=== PATIENT | female | born 1960 | race African-American/Black ===

== ENCOUNTER → 2020-06-09 10:21 | Outpatient (CLI) | payer BC, SELFPAY ==
--- NOTE | ~2020-06-09 | XR_ITS ---
EXAMINATION: XR chest 2V DATE: 06/09/2020 10:47 INDICATION: Tobacco use TECHNIQUE: PA and lateral views of the chest are obtained. COMPARISON: 01/19/2017 FINDINGS: The lungs are free of acute opacities. There is no pleural effusion or pneumothorax. The ca rdiomediastinal silhouette is normal. There is mild thoracic spondylosis. Cholelithiasis is noted. IMPRESSION: 1. No acute cardiopulmonary abnormality. Reviewed, dictated and finalized at location A. CTOR PARK
== END ==
PROVIDERS: PCP Emergency Medicine; Visit Provider Emergency Medicine
DX: Z72.0 Tobacco use (principal)
CPT/HCPCS: 71046

== ENCOUNTER 2020-06-09 11:22 | Outpatient (CLI) | payer BC, SELFPAY ==
[2020-06-09 13:12] LABS: Hematocrit 49.3 % (37.0-47.0); Hemoglobin 15.5 g/dL (12.0-15.0); Mean Corpuscular HGB Conc 31.4 g/dl (32-36); Mean Corpuscular Hemoglobin 28.8 pg (26-34); Mean Corpuscular Volume 91.5 fl (80-100); Mean Platelet Volume 11.1 fl (7.4-10.4); Platelet Count Result 380 k/mm3 (150-375); Red Blood Count 5.39 M/mm3 (4.2-5.4); Red Cell Distribution Width 13.6 % (11.5-14.5); White Blood Count 11.6 K/mm3 (4.5-10.0)
[2020-06-09 13:19] LABS: Add Urine Microscopic? YES; Appearance Urine Clear (Clear); Bacteria Urine 1+ /hpf; Bilirubin Urine Negative (Negative); Blood Urine 2+ (Negative); Color Urine Yellow (Yellow); Glucose Urine UA Negative (Negative); Ketones Urine Negative (Negative); Leukocyte Esterase Ur Negative LEU/UL (NEGATIVE); Mucus Urine Rare /lpf; Nitrate Urine Negative (Negative); Protein Urine Negative (Negative); Specific Grav Ur 1.019 (1.001-1.035); Squamous Epithelial Cell Urine Moderate /hpf (Few); Urobilinogen Urine Negative mg/dL (<2.0); WBC Urine 0-3 /hpf (0-3)
== END 2020-06-09 11:23 | disposition home or self-care (01) ==
PROVIDERS: PCP Emergency Medicine; Visit Provider Emergency Medicine
DX: R31.9 Hematuria, unspecified (principal); D72.829 Elevated white blood cell count, unspecified
CPT/HCPCS: 36415; 81001; 85027; 88108

== ENCOUNTER 2020-06-29 12:51 | Outpatient (CLI) | payer BC, SELFPAY ==
--- NOTE | ~2020-06-29 | XR_ITS ---
EXAMINATION: XR abdomen/kub 1V INDICATION: Microscopic hematuria TECHNIQUE: Supine views of the abdomen were obtained on 2 radiographs. COMPARISON: CT from today FINDINGS: No urolithiasis is identified. Gallstones are noted in the right upper quadrant. There is c alcified atherosclerosis. The bowel gas pattern is normal. IMPRESSION: 1. No urolithiasis identified. 2. Cholelithiasis. Reviewed, dictated and finalized at location A. CRIPTION BENEFIT SPECIALIST
--- NOTE | ~2020-06-29 | CT_ITS ---
EXAMINATION: CT abdomen pelvis wo/w con DATE: 06/29/2020 14:44 INDICATION: Microscopic hematuria TECHNIQUE: Computed tomography (CT) of the abdomen and pelvis was performed without intravenous contr ast. CT of the abdomen and pelvis was then performed with a total of 130 mL Omnipaque 350 intravenous contrast using a double-bolus technique for simultaneous opacification of the renal parenchyma and r enal collecting system. The dose-length product (DLP) was 2043.38 mGy-cm. Automated exposure control and iterative reconstruction technique were employed. COMPARISON: 09/05/2014 FINDINGS: The lung bases are clear. The heart size is normal. A stable 3 mm nodule of the left lower lobe is consistent with old granulomatous disease. The liver is diffusely low in attenuation when com pared with the spleen, consistent with hepatic steatosis. There is a small sliding hiatal hernia. Mul tiple stones are present in the nondistended gallbladder. The spleen, pancreas, and adrenal glands ar e normal. No stones are identified in the kidneys, ureters, or bladder. There is no hydronephrosis or hydroureter. No suspicious renal or urothelial lesion is identified. There is calcified atherosclero sis of the aorta and many of the other arteries. No pathologically enlarged abdominal or pelvic lymph nodes are identified. There is no free intraperitoneal gas or evidence of bowel obstruction. The jeffery endix is normal. There is a fat-containing epigastric hernia to the right of midline. IMPRESSION: 1. No CT correlate for the patient's symptoms. No suspicious renal or urothelial lesion identified. N o urolithiasis. 2. Cholelithiasis without evidence of cholecystitis. Reviewed, dictated and finalized at location A. TENDER IMPRESSION: 1. No CT correlate for the patient's symptoms. No suspicious renal or urothelia l lesion identified. No urolithiasis. 2. Cholelithiasis without evidence of cholecystitis.
[2020-06-29 14:10] LABS: Estimated Glomerular Filt Rate > 60
== END 2020-06-29 12:52 ==
PROVIDERS: PCP Emergency Medicine; Visit Provider Urology
DX: Z12.2 Encounter for screening for malignant neoplasm of respiratory organs (principal); Z87.891 Personal history of nicotine dependence; R31.29 Other microscopic hematuria; K80.20 Calculus of gallbladder without cholecystitis without obstruction
CPT/HCPCS: 74018; 74178; Q9967

== ENCOUNTER → 2020-06-29 12:54 | Outpatient (CLI) | payer BC, SELFPAY ==
--- NOTE | ~2020-06-29 | MM_ITS ---
EXAMINATION: MM screening mi BI w davis HISTORY: Screening mammogram TECHNIQUE: Craniocaudal and mediolateral oblique 3-D tomosynthesis images were obtained and synthetic 2-D images were generated. CAD analysis was submitted and interpreted. COMPARISON: No prior mammogram is available for comparison at this institution. BREAST PARENCHYMAL COMPOSITION: There are scattered areas of fibroglandular density. FINDINGS: There is an irregular 6 mm opacity anteriorly in the inner mid to lower right breast (crani ocaudal Tomosynthesis image 21/84; MLO Tomosynthesis image 44/86. Diagnostic right mammogram and righ t breast ultrasound examination are recommended. Otherwise there is no evidence of suspicious mass, calcification, or architectural distortion to sugg est malignancy elsewhere in either breast. IMPRESSION: 1. Suspicious 6 mm irregular mass in the anterior inner mid to lower right breast 2. Diagnostic right mammogram and right breast ultrasound examination are recommended. BI-RADS Category 0: Incomplete: Needs additional imaging evaluation. Reviewed, dictated and finalized at location A. Y COATINGS INSTALLER IMPRESSION: 1. Suspicious 6 mm irregular mass in the anterior inner mid to lower right papo st 2. Diagnostic right mammogram and right breast ultrasound examination are recom mended. BI-RADS Category 0: Incomplete: Needs additional imaging evaluation.
== END ==
PROVIDERS: PCP Emergency Medicine; Visit Provider Emergency Medicine
DX: Z12.31 Encounter for screening mammogram for malignant neoplasm of breast (principal); R92.8 Other abnormal and inconclusive findings on diagnostic imaging of breast
CPT/HCPCS: 77063; 77067

== ENCOUNTER 2020-07-23 09:31 | Outpatient (CLI) | payer BC, SELFPAY ==
--- NOTE | ~2020-07-23 | MMUS_ITS ---
EXAMINATION: MM diagnostic mammo unilat RT, US breast RT limited HISTORY: Follow-up right breast mass TECHNIQUE: Additional 3-D tomosynthesis images of the right breast were performed and synthetic 2-D i mages were generated. CAD analysis was submitted and interpreted. High resolution Limited right breas t ultrasound was performed. COMPARISON: 06/29/2020 BREAST PARENCHYMAL COMPOSITION: Breast composed of scattered areas of fibroglandular density. FINDINGS: MAMMOGRAPHIC FINDINGS: There is a 6 mm mass in the lower inner quadrant of the right breast anteriorly with slightly irregul ar margins. No suspicious calcifications. ULTRASOUND: Limited right breast ultrasound: At 6:00 near the areola there is a slightly irregular hypoechoic mas s with central echogenicity measuring 7 x 6 x 5 mm. There is dense posterior shadowing. No internal v ascularity. IMPRESSION: 1. Slightly irregular shaped hypoechoic mass with posterior shadowing at 6:00, near the areola, measu ring up to 7 mm. This corresponds to the mammographic finding. 2. Ultrasound-guided right breast biopsy recommended. BI-RADS category 4, suspicious findings. Reviewed, dictated and finalized at location A. EPOINT TRAINER IMPRESSION: 1. Slightly irregular shaped hypoechoic mass with posterior shadowing at 6:00, near the areola, measuring up to 7 mm. This corresponds to the mammographic fin ding. 2. Ultrasound-guided right breast biopsy recommended. BI-RADS category 4, suspicious findings.
--- NOTE | ~2020-07-23 | CT_ITS ---
EXAMINATION: CT lung screening DATE: 07/23/2020 09:52 INDICATION: Personal history of tobacco dependence, current smoker with 30 pack year history TECHNIQUE: Computed tomography (CT) of the chest was performed without intravenous contrast. The dose -length product (DLP) was 264.55 mGy-cm. Automated exposure control and iterative reconstruction tech [employer] were employed. COMPARISON: None FINDINGS: There is mild emphysema. There are multiple small scattered nodules throughout the lungs. T he largest measures 3 mm in the left lung apex on image 34. There is no pleural effusion or pneumotho rax. No focal airspace opacities are identified. The heart size is normal. There is calcified coronar y artery atherosclerosis. No pathologically enlarged thoracic lymph nodes are identified. Stones are present in the nondistended gallbladder. There is moderate thoracic spondylosis. IMPRESSION: 1. Lung-RADS category 2: Benign appearance or behavior. Continue annual screening with noncontrast lo w-dose chest CT in 12 months. Reviewed, dictated and finalized at location A. E CURATIVE SPECIALIST IMPRESSION: 1. Lung-RADS category 2: Benign appearance or behavior. Continue annual screeni ng with noncontrast low-dose chest CT in 12 months.
== END 2020-07-23 09:32 ==
PROVIDERS: Visit Provider Emergency Medicine
DX: Z12.2 Encounter for screening for malignant neoplasm of respiratory organs (principal); Z87.891 Personal history of nicotine dependence; R92.8 Other abnormal and inconclusive findings on diagnostic imaging of breast
CPT/HCPCS: 71271; 76642; 77065

== ENCOUNTER 2020-08-01 10:18 | Outpatient (CLI) | payer BC, SELFPAY ==
--- NOTE | ~2020-08-01 | MMUS_ITS ---
EXAMINATION: US breast biopsy RT w image, MM post biopsy invasive RT DATE: 08/01/2020 11:41 (accession [id number]), 08/01/2020 11:54 (accession [id number]) INDICATION: Indeterminate subareolar right breast mass. Ultrasound-guided core biopsy is requested to evaluate for malignancy. TECHNIQUE AND FINDINGS: The risks and potential benefits of the procedure were discussed with the patient including bleeding and infection. A time out was performed. The skin of the right breast was prepared and draped in usua l sterile fashion. 1% lidocaine was used for superficial anesthesia. 1% lidocaine with epinephrine wa s used for deep anesthesia. A vacuum-assisted biopsy gun needle was advanced through to the outer edge of the region of interest from a lateral approach utilizing sonographic guidance. A total of four tissue core samples were obta ined through the lesion. A tissue marker clip was then placed at the biopsy site. Hemostasis was achi eved. A sterile bandage was applied. The patient tolerated procedure well and there was no evidence of immediate complication. The patient was given verbal instructions to return to the Emergency Department in the event of severe breast pa in or rapid breast enlargement. A two view right breast mammogram was obtained to document tissue mar ker clip placement. IMPRESSION: 1. Successful ultrasound-guided vacuum-assisted biopsy of right breast mass with tissue marker placem ent. Reviewed, dictated and finalized at location A. OTICS INVESTIGATOR IMPRESSION: 1. Successful ultrasound-guided vacuum-assisted biopsy of right breast mass wit h tissue marker placement.
== END 2020-08-01 10:19 | disposition home or self-care (01) ==
PROVIDERS: PCP Emergency Medicine; Visit Provider Emergency Medicine
DX: C50.011 Malignant neoplasm of nipple and areola, right female breast (principal)
CPT/HCPCS: 19083; 88305; 88342; 88365

== ENCOUNTER → 2020-08-20 07:01 | Outpatient (CLI) | payer BC, SELFPAY ==
[2020-08-20 21:05] LABS: SARS-CoV-2 RNA PCR Negative
== END ==
PROVIDERS: PCP Emergency Medicine; Visit Provider Emergency Medicine
DX: R68.89 Other general symptoms and signs (principal); Z20.822 Contact with and (suspected) exposure to COVID-19
CPT/HCPCS: C9803; U0003; U0005

== ENCOUNTER 2021-10-04 09:37 | Outpatient (CLI) | payer OTHER, SELFPAY ==
[2021-10-04 10:05] LABS: Hematocrit 47.1 % (37.0-47.0); Hemoglobin 14.5 g/dL (12.0-15.0); Mean Corpuscular HGB Conc 30.8 g/dl (32-36); Mean Corpuscular Hemoglobin 28.2 pg (26-34); Mean Corpuscular Volume 91.5 fl (80-100); Mean Platelet Volume 10.6 fl (7.4-10.4); Platelet Count Result 355 k/mm3 (150-375); Red Blood Count 5.15 M/mm3 (4.2-5.4); Red Cell Distribution Width 13.8 % (11.5-14.5)
[2021-10-04 10:09] LABS: Add Urine Microscopic? YES; Appearance Urine Cloudy (Clear); Bilirubin Urine Negative (Negative); Blood Urine 2+ (Negative); Color Urine Yellow (Yellow); Glucose Urine UA Negative (Negative); Ketones Urine Negative (Negative); Leukocyte Esterase Ur Negative LEU/UL (NEGATIVE); Mucus Urine Rare /lpf; Nitrate Urine Negative (Negative); Protein Urine Negative (Negative); RBC Urine 0-2 /hpf (0-2); Squamous Epithelial Cell Urine Rare /hpf (Few); WBC Urine 0-3 /hpf (0-3)
[2021-10-04 10:23] LABS: Alanine Aminotransferase 16 U/L (4-35); Alkaline Phosphatase 124 U/L (38-126); Anion Gap 5 mmol/L (8-16); Aspartate Amino Transferase 27 U/L (14-36); Bilirubin,Total 1.1 mg/dL (0.2-1.3); Blood Urea Nitrogen 11 mg/dL (7-17); Calcium 8.9 mg/dL (8.4-10.2); Carbon Dioxide 28 mmol/L (22-30); Chloride 104 mmol/L (98-107); Estimated Glomerular Filt Rate > 60; Glucose 115 mg/dL (65-110); Potassium 4.2 mmol/L (3.4-5.0); Sodium 137 mmol/L (137-145)
[2021-10-04 10:47] LABS: Hemoglobin A1C 6.1 % (<5.7)
[2021-10-04 10:48] LABS: Creatinine Urine 216.7 mg/dL
[2021-10-04 10:51] LABS: MALB Creatinine Ratio 4.4 mg/g (0-30); Microalbumin Urine Random 9.5 mg/L (0-16.7)
[2021-10-04 10:54] LABS: Thyroid Stimulating Hormone 0.876 uIU/mL (0.465-4.680)
[2021-10-04 11:00] LABS: Free T4 Free Thyroxine 1.31 ng/mL (0.78-2.19)
== END 2021-10-04 09:38 | disposition home or self-care (01) ==
LOC: ANHLAB 09:39
PROVIDERS: PCP Emergency Medicine; Visit Provider Emergency Medicine
DX: E11.9 Type 2 diabetes mellitus without complications (principal); R55 Syncope and collapse; I10 Essential (primary) hypertension
CPT/HCPCS: 36415; 80053; 81001; 82043; 83036; 84439; 84443; 85027; 88108

== ENCOUNTER 2022-08-25 11:42 | Observation (INO) | payer OTHER, SELFPAY ==
[2022-08-25] VITALS (31 sets, daily range): BP systolic 133–165; BP diastolic 77–116; PULSE 0–95; RESP 16; TEMP 36.6; O2SAT 89–100
--- NOTE | ~2022-08-25 | XR_ITS ---
EXAMINATION: XR chest 2V DATE: 08/25/2022 12:36 INDICATION: Shortness of breath and back pain post recent fall TECHNIQUE: PA and lateral views of the chest were obtained. COMPARISON: Chest radiograph dated 06/09/2020 FINDINGS: The lungs remain clear with no focal airspace opacities, pulmonary edema, pleural effusion or pneumot horax. The cardiomediastinal silhouette is normal. Unchanged chronic mild anterior wedging of a coupl e mid thoracic vertebral bodies with mild spondylosis IMPRESSION: 1. No acute cardiopulmonary disease. Reviewed, dictated and finalized at location A.
--- NOTE | ~2022-08-25 | NM_ITS ---
EXAMINATION: NM chandler stress w perfusion DATE: 08/27/2022 10:23 INDICATION: Chest pain TECHNIQUE: Rest images were obtained following intravenous administration of 10 mCi Tc99m tetrofosmin (Myoview). The patient was infused intravenously with Lexiscan (Regadenoson). Then, 32 mCi Tc99m tet rofosmin (Myoview) was administered intravenously, and stress images were obtained in the supine and subsequently prone positions. Data was reconstructed into short axis and horizontal and vertical long axis SPECT images. Gated SPECT images were also obtained. COMPARISON: None. FINDINGS: There is diaphragmatic attenuation artifact on the rest and stress images obtained in the s upine position along the apical and mid inferior segments with normal perfusion evident in these loca tions with prone imaging. Large fixed perfusion defect consistent with infarct, moderate to severe at the apical and anterior apical segments and mild to moderate at the apical septal, apical lateral, m id anterior, mid anteroseptal and basilar septal segments. There is no reversible ischemia. There is normal left ventricular chamber size. There is decreased wall motion at the apical and anteroapical s egments. Mildly decreased left ventricular ejection fraction measuring 48%. IMPRESSION: 1. Large infarct involving a significant portion of the left anterior descending coronary artery vasc ular distribution. No reversible ischemia. 2. Normal left ventricular chamber size with mildly decreased left ventricular ejection fraction ela uring 48%. Reviewed, dictated and finalized at location A. IMPRESSION: 1. Large infarct involving a significant portion of the left anterior descendin g coronary artery vascular distribution. No reversible ischemia. 2. Normal left ventricular chamber size with mildly decreased left ventricular ejection fraction measuring 48%.
--- NOTE | ~2022-08-25 | CT_ITS ---
EXAMINATION: CTA chest PE protocol DATE: 08/25/2022 19:59 INDICATION: sob TECHNIQUE: Computed tomography angiography (CTA) of the chest was performed with 100 mL Omnipaque-350 intravenous contrast timed to evaluate the pulmonary arteries. Coronal maximum intensity projection 3D-reconstructions were created by the technologist. The dose-length product (DLP) was 770.03 mGy-cm. Automated exposure control and iterative reconstruction technique were employed. COMPARISON: X-ray chest, same date; CT lung screening 07/23/2020. FINDINGS: Lung parenchyma and airways: Scattered mild tree-in-bud opacities. Pleura: Unremarkable. Thoracic inlet, axillae and chest wall: Unremarkable. Thoracic aorta: Moderate arch calcification. Mediastinum: Normal. Heart and pericardium: Normal. Coronary artery calcifications: Mild. Upper abdomen: Cholelithiasis. Bones: No acute osseous finding. Pulmonary arteries: Study quality: Adequate. No pulmonary emboli detected. IMPRESSION: No CT evidence of acute pulmonary embolus. Mild scattered diffuse tree-in-bud opacities as can be see n with atypical infection, ABPA, airways disease, and aspiration. Reviewed, dictated and finalized at location K. IMPRESSION: No CT evidence of acute pulmonary embolus. Mild scattered diffuse tree-in-bud o pacities as can be seen with atypical infection, ABPA, airways disease, and asp iration.
--- NOTE | 2022-08-25 12:08 | ECG_ITS ---
Measurements Intervals [place] Rate: 84 P: 46 VT: 148 QRS: -14 QRSD: 94 T: 56 QT: 368 QTc: 437 Interpretive Statements SINUS RHYTHM VENTRICULAR TRIGEMINY VOLTAGE CRITERIA FOR LVH BORDERLINE R WAVE PROGRESSION, ANTERIOR LEADS MINIMAL Q WAVES- HIGH LATERAL LEADS BORDERLINE T WAVE ABNORMALITY- DIFFUSE LEADS BASELINE ARTIFACT- I, AVL ABNORMAL ECG NO PREVIOUS ECG AVAILABLE FOR COMPARISON Electronically Signed On 08-25-2022 13:50:31 CDT by Juve Blake D.O.
[2022-08-25 14:00] LABS: Basophils Absolute Auto 0.1 K/mm3 (0.0-0.1); Basophils Percent Auto 0.7 % (0.2-1.2); Eosinophils Absolute Auto 0.2 K/mm3 (0-0.3); Eosinophils Percent Auto 1.5 % (0-4.4); Hematocrit 50.1 % (37.0-47.0); Hemoglobin 15.9 g/dL (12.0-15.0); Immature Granulocyte Absolute 0.05 K/mm3 (0.00-0.031); Immature Granulocyte Percent A 0.4 % (0-0.5); Lymphocytes Absolute Auto 4.82 K/mm3 (0.9-3.2); Lymphocytes Percent Auto 36.8 % (18.3-44.2); Mean Corpuscular HGB Conc 31.7 g/dl (32-36); Mean Corpuscular Hemoglobin 28.6 pg (26-34); Mean Corpuscular Volume 90.1 fl (80-100); Monocytes Absolute Auto 0.6 K/mm3 (0.1-0.6); Monocytes Percent Auto 4.2 % (2.6-8.5); Neutrophils Absolute Auto 7.4 K/mm3 (1.3-6.7); Neutrophils Percent Auto 56.4 % (45.5-73.1); Platelet Count Result 483 k/mm3 (150-375); Red Blood Count 5.56 M/mm3 (4.2-5.4); Red Cell Distribution Width 13.6 % (11.5-14.5); White Blood Count 13.1 K/mm3 (4.5-10.0)
[2022-08-25 14:32] LABS: Troponin I < 0.012 ng/mL (0.000-0.034)
--- NOTE | 2022-08-25 15:40 | ED.GENADULT ---
HPI - General Adult General Chief complaint: Shortness of Breath/Dyspnea Stated complaint: SOB SENT HERE BY DR BLACK Time Seen by Provider: 08/25/22 13:13 History of Present Illness HPI narrative: Patient is a 61-year-old female who presents to the ER with shortness of breath. Ongoing for 2 weeks. Worse when she exerts herself. She develops chest tightness and sweats when she is walking as well. Reports history of angina and had a cardiac cath with a tiny NH many years ago but never had a stent. She has no runny nose or sore throat or productive cough. She does have some achiness to her right back after a fall 3 weeks ago. Patient sent to the ER by her PCP. Related Data Home Medications Medication Instructions Recorded Confirmed amlodipine 5 mg tablet 5 mg PO DAILY 09/13/20 06/25/21 metformin 500 mg tablet 500 mg PO DAILY 09/13/20 06/25/21 simvastatin 20 mg tablet 20 mg PO DAILY 09/13/20 06/25/21 Allergies Allergy/AdvReac Type Severity Reaction Status Date / Time No Known Allergies Allergy Verified 06/25/21 09:07 Review of Systems Review of Systems: All systems reviewed & are unremarkable except as noted in HPI and below Constitutional: Constitutional: Denies chills and Denies fever(s) Cardiovascular: Cardiovascular: Reports chest pain with activity, Denies radiating jaw, neck or arm pain, Reports dyspnea on exertion and Denies orthopnea Respiratory: Respiratory: Denies cough, Reports dyspnea and Denies wheezing Gastrointestinal: Gastrointestinal: Denies abdominal pain, Denies diarrhea, Denies nausea and Denies vomiting PMF Past Medical History Medical History Diabetes mellitus HTN (hypertension) Hyperlipidemia Surgical History Surgical History H/O lumpectomy Family History Family History Father Family history of malignant neoplasm Sibling Family history of malignant neoplasm Social History Social History (Updated 08/25/22 @ 19:29 by Tanya Enrique NP) Social History: 2 c lives alone employed [employer] Smoking packs per day: 1 Smoking cigarettes per day: 20.0 Years smoked: 30 Smoking pack-years: 30.00 Smoking status: Current every day smoker Tobacco type: cigarettes Alcohol intake: never Spiritual care concerns: No Exam Narrative: GENERAL: Well-appearing, well-nourished, and in no acute distress. HEAD: Normocephalic, atraumatic. ENT: Mucous membranes moist. NECK: Supple. CHEST: Clear to auscultation. No respiratory distress. HEART: Regular rate and rhythm. Normal peripheral pulses. ABDOMEN: Soft, nontender, nondistended. EXTREMITIES: Normal range of motion. No edema. SKIN: Warm, dry, no rash. NEURO: Alert and oriented x3. PSYCH: Normal mood and affect. Course Course Emergency Course: Patient resting comfortably but I have concerns for unstable angina given her new cardiac chest pain with exertion. Discussed elevated heart score and lab results with patient and recommend admission to hospital. Vital Signs Vital signs: Vital Signs Temperature 97.9 F 08/25/22 11:46 Pulse Rate 95 08/25/22 11:46 Respiratory Rate 16 08/25/22 11:46 Blood Pressure 137/99 H 08/25/22 11:46 Pulse Oximetry 100 08/25/22 11:46 Oxygen Delivery Room Air 08/25/22 11:46 Temperature 97.9 F 08/25/22 11:46 Pulse Rate 87 08/25/22 17:49 Respiratory Rate 16 08/25/22 11:46 Blood Pressure 150/116 H 08/25/22 17:43 Pulse Oximetry 98 08/25/22 17:49 Oxygen Delivery Room Air 08/25/22 11:46 Medical Decision Making Vital Signs Vital Signs: Vital Signs Temperature 97.9 F 08/25/22 11:46 Pulse Rate 95 08/25/22 11:46 Respiratory Rate 16 08/25/22 11:46 Blood Pressure 137/99 H 08/25/22 11:46 Pulse Oximetry 100 08/25/22 11:46 Oxygen Delivery Room Air 08/25/22 11:46
[2022-08-25 16:31] LABS: Alanine Aminotransferase 61 U/L (6-35); Albumin Level 4.5 g/dL (3.5-5.1); Alkaline Phosphatase 190 U/L (38-126); Anion Gap 9 mmol/L (8-16); Aspartate Amino Transferase 48 U/L (14-36); Bilirubin,Total 0.9 mg/dL (0.2-1.3); Blood Urea Nitrogen 11 mg/dL (7-17); Calcium 10.2 mg/dL (8.4-10.2); Carbon Dioxide 29 mmol/L (22-30); Chloride 104 mmol/L (98-107); Estimated CRCL calculation 74 ml/min; Estimated Glomerular Filt Rate > 60; Glucose 109 mg/dL (65-110); Potassium 4.6 mmol/L (3.4-5.0); Sodium 142 mmol/L (137-145)
[2022-08-25 17:10] LABS: Glucose Point of Care 70 mg/dl (65-105)
[2022-08-25 17:34] LABS: Troponin I < 0.012 ng/mL (0.000-0.034)
--- NOTE | 2022-08-25 19:26 | PM.IMHP ---
H&P: HPI History of Present Illness Date/Time: 08/25/22 19:26 Chief Complaint: Shortness of breath Narrative: This is a 61-year-old female patient who has been increasingly more short of breath the last 2 weeks. The patient also developed some chest tightness and diaphoresis when walking. Patient has a history of anginal and has had a cardiac catheterization with this small GA reported per patient without any stenting. The patient had no complaints of fever chills or cough. The patient stated that she fell 3 weeks ago and did have some pain to her right upper back. The patient went to the primary care doctor's office and was sent here due to her presenting symptoms. Her white count 13.1. Her H&H is 15.9 and 50.1. Her troponin was negative x3. AST is 48 ALT 61 alkaline phosphatase 190. Chest x-ray was read as no acute cardiopulmonary disease. CTA was read asNo CT evidence of acute pulmonary embolus. Mild scattered diffuse tree-in-bud opacities as can be seen with atypical infection, ABPA, airways disease, and aspiration. The patient was given Zofran, [place], morphine, Tylenol and nitro in the emergency room. EKG was read as sinus rhythm ventricular trigeminy.. The patient was admitted to observation status on the date of service of 08/25/2022 Review of Systems Review of Systems: All systems reviewed & are unremarkable except as noted in HPI and below Constitutional: Constitutional: Reports as per HPI and Reports no additional constitutional complaints Eyes: Eyes: Reports as per HPI and Reports no additional eye complaints ENT: Reports system reviewed and no additional complaints, except as documented and Reports Normal hearing present Cardiovascular: Cardiovascular: Reports no additional cardiovascular complaints Respiratory: Respiratory: Reports no additional respiratory complaints and Reports no additional respiratory complaints Gastrointestinal: Gastrointestinal: Reports as per HPI and Reports no additional gastrointestinal complaints Musculoskeletal: Musculoskeletal: Reports no additional musculoskeletal complaints Integumentary/Breasts: Skin/Breast: Reports system reviewed and no additional complaints, except as docu and Reports as per HPI Neurologic: Reports system reviewed and no additional complaints, except as documented, Reports as per HPI and Reports Normal hearing present Psychiatric: Psychiatric: Reports no additional psychiatric complaints and Reports as per HPI Endocrine: Endocrine: Reports no additional endocrine complaints Hematologic/Lymphatic: Hematologic/Lymphatic: Reports no additional hematologic/lymphatic complaints Allergic/Immunologic: Allergic/Immunologic: Reports no additional allergic/immunologic complaints PMFSH Past Medical History Medical History (Updated 08/25/22 @ 23:24 by Tanya Enrique NP) Breast cancer The patient was getting radiation treatment there was a note from Radiation Oncology on 06/25/2021 telling the patient to follow-up in 6 months. Patient refused hormonal treatment. Diabetes mellitus HTN (hypertension) Hyperlipidemia Surgical History Surgical History (Updated 08/25/22 @ 23:16 by Tanya Enrique NP) H/O hernia repair Incarcerated hernia H/O lumpectomy H/O: hysterectomy History of 2 sections Family History Family History Father Family history of malignant neoplasm Sibling Family history of malignant neoplasm Social History Social History (Updated 08/25/22 @ 23:17 by Tanya Enrique NP) Social History: She has 2 children. She lives alone and is employed at [employer]. Code status full code Smoking packs per day: 1 Smoking cigarettes per day: 20.0 Years smoked: 30 Smoking pack-years: 30.00 Smoking status: Current every day smoker Tobacco type: cigarettes Alcohol intake: never Spiritual care concerns: No Meds Home Medications and Allergies Home Med
[2022-08-25 20:34] LABS: Troponin I < 0.012 ng/mL (0.000-0.034)
--- NOTE | 2022-08-25 22:29 | PC.NURSE ---
this nurse notified patient walked to bathroom, found call light not working properly, charge nurse notified
[2022-08-26] VITALS (20 sets, daily range): BP systolic 136–169; BP diastolic 72–97; PULSE 56–105; RESP 14–22; TEMP 36.2–36.7; O2SAT 97–100; BMI 39.5
--- NOTE | 2022-08-26 | ECHO_ITS ---
Patient Info Name: Angeline Caraballo Age: 61 years : 1960 Gender: Female Ht: 60 in Wt: 199 lbs BSA: 2.00 m2 HR: 93 bpm BP: 151 / 93 mmHg Heart Rhythm: Sinus Rhythm Exam Date: 08/26/2022 8:30 AM Exam Location: [facility] Patient Status: Inpatient Admit Date: 08/25/2022 Staff Ordering Physician: Tanya Enrique NP Lingo Cleaner: Christopher Jennings, VIRGIE, RT Attending Provider: Savita Hahn MD Referring Physician: Klaus GONZALEZ; Exam Type: CA echo dop color flow w con Study Info Indications R06.02 - Shortness of breath Strain analysis performed. Complete two-dimensional, color flow and Doppler transthoracic echocardiogram is performed with contrast to opacify the left ventricle and to improve the deliniation of the left ventricle endocardial borders. Summary 1. Technically difficult study given body habitus. 2. Left ventricular chamber dimension is normal. 3. Left ventricular systolic function is normal, estimated at 50-55%. 4. There is mildly increased left ventricular wall thickness. 5. The left ventricular diastolic function is grade I diastolic dysfunction. 6. The left ventricular apex appears aneurysmal. Consider cardiac MRI or cardiac CT for further evaluation. 7. Right ventricular systolic function is normal. 8. There is mild mitral valve regurgitation. 9. There is mild tricuspid valve regurgitation. Left Ventricle The left ventricular apex appears aneurysmal. Consider cardiac MRI or cardiac CT for further evaluation. Left ventricular chamber dimension is normal. Left ventricular systolic function is normal, estimated at 50-55%. There is mildly increased left ventricular wall thickness. The left ventricular diastolic function is grade I diastolic dysfunction. Global longitudinal strain is abnormal at -6 %. Right Ventricle Right ventricular chamber dimension is normal. Right ventricular systolic function is normal. Left Atria Left atrial chamber dimension is normal. Right Atria Right atrial chamber dimension is normal. Atrial Septum Intact interatrial septum visualized by color flow imaging. Aortic Valve The aortic valve is probable trileaflet. There is no aortic valve stenosis. There is no aortic valve regurgitation. Pulmonic Valve The pulmonic valve is not well visualized. Mitral Valve There is no mitral valve stenosis. There is mild mitral valve regurgitation. Tricuspid Valve There is mild tricuspid valve regurgitation. Pericardium/Pleural There is no pericardial effusion. Aorta The aortic root size at the sinus of Valsalva is normal. Left Ventricular Outflow Tract Name Value Normal LVOT Doppler LVOT Peak Gradient 2 mmHg LVOT Mean Gradient 1 mmHg LVOT VTI 12.35 cm LVOT VTI/AV VTI Ratio 0.68 Mitral Valve Name Value Normal MV Doppler MV Decel Wagoner 473.17 cm/s2 MV
[2022-08-26 00:17] LABS: Glucose Point of Care 120 mg/dl (65-105)
[2022-08-26 00:30] LABS: Influenza A QL RT-PCR Negative (Negative); Influenza B QL RT-PCR Negative (Negative); RSV RNA, RT-PCR Negative (Negative); SARS-CoV-2 RNA PCR Negative
--- NOTE | 2022-08-26 02:05 | ADMGEN ---
This patient, Angeline Caraballo, was admitted to IMU Room 205-02. Patient/family oriented to hospital policies and general routines including ID bracelet, bed and alarms, visiting hours, pain management, procedures, bathroom and other care routines, personal items, smoking policy, room service/diet, and visiting hours. Information on how to activate the Rapid Response Team has been discussed. Patient/Family are encouraged to report perceived risks to care and to ask questions if they do not understand what they are told or what they should do.
[2022-08-26 04:56] LABS: Basophils Absolute Auto 0.1 K/mm3 (0.0-0.1); Basophils Percent Auto 0.7 % (0.2-1.2); Eosinophils Absolute Auto 0.3 K/mm3 (0-0.3); Hematocrit 46.5 % (37.0-47.0); Hemoglobin 14.7 g/dL (12.0-15.0); Immature Granulocyte Absolute 0.05 K/mm3 (0.00-0.031); Immature Granulocyte Percent A 0.4 % (0-0.5); Lymphocytes Absolute Auto 3.93 K/mm3 (0.9-3.2); Lymphocytes Percent Auto 30.9 % (18.3-44.2); Mean Corpuscular HGB Conc 31.6 g/dl (32-36); Mean Corpuscular Hemoglobin 27.7 pg (26-34); Mean Corpuscular Volume 87.7 fl (80-100); Mean Platelet Volume 10.1 fl (7.4-10.4); Monocytes Absolute Auto 0.5 K/mm3 (0.1-0.6); Monocytes Percent Auto 3.9 % (2.6-8.5); Neutrophils Absolute Auto 7.9 K/mm3 (1.3-6.7); Neutrophils Percent Auto 62.1 % (45.5-73.1); Platelet Count Result 420 k/mm3 (150-375); Red Cell Distribution Width 13.4 % (11.5-14.5); White Blood Count 12.7 K/mm3 (4.5-10.0)
[2022-08-26 05:10] LABS: Alanine Aminotransferase 44 U/L (6-35); Alkaline Phosphatase 146 U/L (38-126); Anion Gap 2 mmol/L (8-16); Aspartate Amino Transferase 31 U/L (14-36); Bilirubin,Total 0.7 mg/dL (0.2-1.3); Blood Urea Nitrogen 10 mg/dL (7-17); Calcium 9.3 mg/dL (8.4-10.2); Carbon Dioxide 29 mmol/L (22-30); Chloride 104 mmol/L (98-107); Estimated CRCL calculation 86 ml/min; Estimated Glomerular Filt Rate > 60; Glucose 129 mg/dL (65-110); Magnesium 2.3 mg/dL (1.6-2.3); Potassium 4.2 mmol/L (3.4-5.0); Sodium 135 mmol/L (137-145)
[2022-08-26 05:11] LABS: Hemoglobin A1C 6.8 % (<5.7)
[2022-08-26] MEDS: IPRATROPIUM BR 0.02% INH SOLN 0.5 MG/2.5 ML VIAL INHALATION ×4 (07:15→21:16)
[2022-08-26] MEDS: ALBUTEROL SULFATE NEB 2.5 MG/3 ML INH INHALATION ×4 (07:15→21:16)
[2022-08-26 08:08] LABS: Glucose Point of Care 97 mg/dl (65-105)
[2022-08-26] MEDS: PERFLUTREN LIPID MICROSPHERES 1.5 ML VIAL DILUTED TO 10 ML TOTAL VOLUME IV PUSH (08:49)
--- NOTE | 2022-08-26 08:49 | IVDEFINITY ---
Prior to administration of IV Definity the patient was educated on the risks and benefits of the imaging enhancing agent including potential adverse side effects. The patient verbalized understanding. Allergies were verified. No exclusion criteria were identified and at least one of the following inclusion criteria were met: 1) physician request, 2) patient technically difficult to image (per the [place] [employer] guidelines of two or more segments not discernable within the apical view), or 3) questionable left ventricular function. ?
[2022-08-26] MEDS: ENOXAPARIN 40 MG/0.4 ML SYRINGE SUB-Q (09:39)
--- NOTE | 2022-08-26 11:54 | PM.IMPN ---
Progress Note: A&P Assessment and Plan (1) Pneumonia: Code(s): J18.9 - Pneumonia, unspecified organism Status: Acute Assessment and Plan: CT scan shows no evidence of any pulmonary embolus but there is mild scattered diffuse tree-in-bud opacities as can be seen with atypical infection, or aspiration. Blood and sputum cultures have been ordered Continue with DuoNeb Continue with azithromycin Rocephin Day 2 (2) Chest pain: Code(s): R07.9 - Chest pain, unspecified Status: Acute Assessment and Plan: Patient is short of breath with exertion. Cardiac enzymes are negative x3. Echo completed Stress test for penny AM (3) Short of breath on exertion: Code(s): R06.02 - Shortness of breath Status: Acute Assessment and Plan: Patient is being treated for pneumonia. COVID and RSV influenza are negative (4) HTN (hypertension): Code(s): I10 - Essential (primary) hypertension Status: Acute Assessment and Plan: Patient's blood pressure is elevated at this time. Continue with p.r.n. hydralazine Continue with amlodipine medication (5) Diabetes mellitus: Code(s): E11.9 - Type 2 diabetes mellitus without complications Status: Acute Assessment and Plan: Accu-Cheks AC and HS with sliding scale insulin and hypoglycemic protocol check A1c (6) Hyperlipidemia: Code(s): E78.5 - Hyperlipidemia, unspecified Status: Acute Assessment and Plan: Continue with simvastatin (7) Malignant neoplasm of lower-inner quadrant of right female breast: Code(s): C50.311 - Malignant neoplasm of lower-inner quadrant of right female breast Status: Acute Assessment and Plan: The patient has had a core needle biopsy see radiation notes. Patient's last note was from a year ago. The patient was to follow-up in 6 months. The patient has seen Dr. Schmid in the past. Subjective Date/time seen: 08/26/22 11:54 61-year-old female patient who has been increasingly more short of breath the last 2 weeks.? The patient also developed some chest tightness and diaphoresis when walking.? Patient has a history of anginal and has had a cardiac catheterization with this small HI reported per patient without any stenting.? The patient had no complaints of fever chills or cough.? The patient stated that she fell 3 weeks ago and did have some pain to her right upper back.? The patient went to the primary care doctor's office and was sent here due to her presenting symptoms.? Her white count 13.1.? Her H&H is 15.9 and 50.1.? Her troponin was negative x3.? AST is 48 ALT 61 alkaline phosphatase 190.? Chest x-ray was read as no acute cardiopulmonary disease.? CTA was read asNo CT evidence of acute pulmonary embolus. Mild scattered diffuse tree-in-bud opacities as can be seen with atypical infection, ABPA, airways disease, and aspiration. Pt admitted for SOB CT A shows pneumonia pt had echocardiogram today needs stress test prio to DC Review of Systems Review of Systems: Mild SOB All systems reviewed & are unremarkable except as noted in HPI and below Objective Data Vital Signs Vital Signs: Vital Signs - 24 hr 08/25/22 13:51 08/25/22 14:05 08/25/22 14:15 Temperature Pulse Rate Respiratory Rate Blood Pressure 156/96 H Pulse Oximetry 99 96 Oxygen Delivery 08/25/22 14:16 08/25/22 14:35 08/25/22 14:49 Temperature Pulse Rate Respiratory Rate Blood Pressure 154/109 H Pulse Oximetry 98 100 100 Oxygen Delivery 08/25/22 15:02 08/25/22 15:15 08/25/22 15:16 Temperature Pulse Rate Respiratory Rate Blood Pressure 162/113 H Pulse Oximetry 100 100 100 Oxygen Delivery 08/25/22 15:32 08/25/22 15:35 08/25/22 15:46 Temperature Pulse Rate Respiratory Rate Blood Pressure 133/98 H 165/98 H Pulse Oximetry 99 98 Oxygen Delivery 08/25/22 15:48 08/25/22 16:02 08/25/22 16:51 Temperature
[2022-08-26 12:52] LABS: Glucose Point of Care 190 mg/dl (65-105)
[2022-08-26] MEDS: amLODIPine BESYLATE 5 MG TABLET 10 MG PO (13:46)
[2022-08-26 17:24] LABS: Glucose Point of Care 88 mg/dl (65-105)
[2022-08-27] VITALS (14 sets, daily range): BP systolic 110–153; BP diastolic 61–96; PULSE 59–100; RESP 16–20; TEMP 35.9–36.4; O2SAT 98–100
[2022-08-27] MEDS: IPRATROPIUM BR 0.02% INH SOLN 0.5 MG/2.5 ML VIAL INHALATION ×2 (02:44→14:28)
[2022-08-27] MEDS: ALBUTEROL SULFATE NEB 2.5 MG/3 ML INH INHALATION ×2 (02:44→14:28)
[2022-08-27 06:44] LABS: Hematocrit 45.8 % (37.0-47.0); Hemoglobin 14.5 g/dL (12.0-15.0); Mean Corpuscular HGB Conc 31.7 g/dl (32-36); Mean Corpuscular Hemoglobin 28.4 pg (26-34); Mean Corpuscular Volume 89.6 fl (80-100); Mean Platelet Volume 10.2 fl (7.4-10.4); Platelet Count Result 379 k/mm3 (150-375); Red Blood Count 5.11 M/mm3 (4.2-5.4); Red Cell Distribution Width 13.6 % (11.5-14.5); White Blood Count 8.4 K/mm3 (4.5-10.0)
[2022-08-27 06:58] LABS: Anion Gap 5 mmol/L (8-16); Blood Urea Nitrogen 11 mg/dL (7-17); Calcium 9.6 mg/dL (8.4-10.2); Carbon Dioxide 29 mmol/L (22-30); Chloride 103 mmol/L (98-107); Estimated CRCL calculation 75 ml/min; Estimated Glomerular Filt Rate > 60; Glucose 122 mg/dL (65-110); Potassium 4.6 mmol/L (3.4-5.0); Sodium 137 mmol/L (137-145)
[2022-08-27 07:41] LABS: Glucose Point of Care 131 mg/dl (65-105)
--- NOTE | 2022-08-27 08:12 | EST_ITS ---
Patient Info Name: Angeline Caraballo Age: 61 years : 1960 Gender: Female Ht: 60 in Wt: 199 lbs BSA: 2.00 m2 HR: 84 bpm BP: 143 / 89 mmHg Heart Rhythm: Sinus Rhythm Exam Date: 08/27/2022 8:48 AM Exam Location: [facility] Stress Patient Status: Inpatient Admit Date: 08/25/2022 Staff Ordering Physician: Savita Hahn MD Attending Provider: Savita Hahn MD Exercise Technologist: Rosalee Choi, CT Nurse: CRISTHIAN WOODSON Exam Type: CA stress chandler w NM Study Info Indications R07.9 - Chest pain, unspecified A regadenoson stress test was performed. Summary 1. No abnormal ST/T wave changes diagnostic of ischemia with Lexiscan. 2. Occasional PVCs. 3. Please correlate with nuclear medicine images, reported separately. Protocol: Lexiscan Stress ECG Details Stage: REST Duration (min): 1 min : 5 sec HR (bpm): 72 SBP (mmHg): 143 DBP (mmHg): 89 Stage: REST Duration (min): 7 min : 50 sec HR (bpm): 92 SBP (mmHg): 143 DBP (mmHg): 89 Stage: STAGE 1 Duration (min): 0 min : 59 sec HR (bpm): 126 SBP (mmHg): 140 DBP (mmHg): 84 Stage: RECOVERY Duration (min): 1 min : 0 sec HR (bpm): 119 SBP (mmHg): 140 DBP (mmHg): 84 Stage: RECOVERY Duration (min): 2 min : 0 sec HR (bpm): 117 SBP (mmHg): 140 DBP (mmHg): 84 Stage: RECOVERY Duration (min): 3 min : 0 sec HR (bpm): 96 SBP (mmHg): 140 DBP (mmHg): 84 Stage: RECOVERY Duration (min): 4 min : 0 sec HR (bpm): 112 SBP (mmHg): 186 DBP (mmHg): 105 Stage: RECOVERY Duration (min): 5 min : 0 sec HR (bpm): 102 SBP (mmHg): 186 DBP (mmHg): 105 Stage: RECOVERY Duration (min): 6 min : 0 sec HR (bpm): 110 SBP (mmHg): 186 DBP (mmHg): 105 Stage: RECOVERY Duration (min): 7 min : 0 sec HR (bpm): 102 SBP (mmHg): 186 DBP (mmHg): 105 Stage: RECOVERY Duration (min): 8 min : 0 sec HR (bpm): 112 SBP (mmHg): 186 DBP (mmHg): 105 Stage: RECOVERY Duration (min): 9 min : 0 sec HR (bpm): 102 SBP (mmHg): 186 DBP (mmHg): 105 Stage: RECOVERY Duration (min): 9 min : 13 sec HR (bpm): 96 SBP (mmHg): 140 DBP (mmHg): 90 Rest HR: 92 bpm Peak HR: 126 bpm Rest Sys BP: 143 mmHg Peak Sys BP: 140 mmHg Max Pred HR: 160 bpm % Max Pred HR: 79 % Target HR: 136 bpm Max RPP: 17,640 bpm*mmHg Total Time: 1 min : 0 sec Rest Salvador BP: 89 mmHg Peak [place] BP: 90 mmHg Total Dose: 0.4 mg Resting ECG Sinus rhythm. Stress ECG Sinus tachycardia. No abnormal ST/T wave changes diagnostic of ischemia with Lexiscan. Arrhythmias Occasional PVCs. Report Signatures
--- NOTE | 2022-08-27 09:09 | PC.NURSE ---
0800- to [place] dept for stress test
[2022-08-27] MEDS: ENOXAPARIN 40 MG/0.4 ML SYRINGE SUB-Q (10:36)
[2022-08-27] MEDS: amLODIPine BESYLATE 5 MG TABLET 10 MG PO (10:36)
[2022-08-27 11:49] LABS: Glucose Point of Care 113 mg/dl (65-105)
--- NOTE | 2022-08-27 12:20 | PM.IMPN ---
Progress Note: A&P Assessment and Plan (1) Pneumonia: Code(s): J18.9 - Pneumonia, unspecified organism Status: Acute Assessment and Plan: CT scan shows no evidence of any pulmonary embolus but there is mild scattered diffuse tree-in-bud opacities as can be seen with atypical infection, or aspiration. Blood and sputum cultures have been ordered Continue with DuoNeb Continue with azithromycin Rocephin Day three (2) Chest pain: Code(s): R07.9 - Chest pain, unspecified Status: Acute Assessment and Plan: Patient is short of breath with exertion. Cardiac enzymes are negative x3. Echo with left ventricular apical aneurysm. Grade 1 diastolic dysfunction. EF 50-55% Stress test with large fixed perfusion defect consistent with infarct moderate to severe at the apical and anteroapical segments and [id number] at apical septal apical lateral and mid anterior mid anteroseptal and basal septal segments. Which is in left anterior descending coronary artery vascular distribution. No reversible ischemia.. EF noted to be 48%. Will place on aspirin. Will consult Cardiology for further evaluation. Check lipid panel. Currently on simvastatin (3) Short of breath on exertion: Code(s): R06.02 - Shortness of breath Status: Acute Assessment and Plan: Patient is being treated for pneumonia. COVID and RSV influenza are negative (4) HTN (hypertension): Code(s): I10 - Essential (primary) hypertension Status: Acute Assessment and Plan: Patient's blood pressure is elevated at this time. Continue with p.r.n. hydralazine Continue with amlodipine medication (5) Diabetes mellitus: Code(s): E11.9 - Type 2 diabetes mellitus without complications Status: Acute Assessment and Plan: Accu-Cheks AC and HS with sliding scale insulin and hypoglycemic protocol. A1c at 6.8 (6) Hyperlipidemia: Code(s): E78.5 - Hyperlipidemia, unspecified Status: Acute Assessment and Plan: Continue with simvastatin (7) Malignant neoplasm of lower-inner quadrant of right female breast: Code(s): C50.311 - Malignant neoplasm of lower-inner quadrant of right female breast Status: Acute Assessment and Plan: The patient has had a core needle biopsy see radiation notes. Patient's last note was from a year ago. The patient was to follow-up in 6 months. The patient has seen Dr. Schmid in the past. Subjective Date/time seen: 08/27/22 12:20 Interval history: Patient feeling better. Shortness of breath has improved. Had some pain in her chest that radiated to her back. This started last week. No abdominal pain nausea vomiting. Underwent stress test this morning. Discussed with niece over the phone. Findings of the stresses discussed. Review of Systems Review of Systems: All systems reviewed & are unremarkable except as noted in HPI and below Exam Narrative: GENERAL: Well-appearing, well-nourished, and in no acute distress. HEAD: Normocephalic, atraumatic. ENT: Mucous membranes moist. NECK: Supple. Nontender CHEST: Clear to auscultation.? No respiratory distress. HEART: Regular rate and rhythm.? Normal peripheral pulses. ABDOMEN: Soft, nontender, nondistended. EXTREMITIES: Normal range of motion.? No edema. SKIN: Warm, dry, no rash. NEURO:? Alert and oriented x3. No focal motor deficits PSYCH: Normal mood and affect. Objective Data Vital Signs Vital Signs: Vital Signs - 24 hr 08/26/22 13:00 08/26/22 13:10 08/26/22 14:00 Temperature Pulse Rate 92 90 92 Respiratory Rate 16 16 Blood Pressure Pulse Oximetry Oxygen Delivery 08/26/22 16:00 08/26/22 16:00 08/26/22 16:00 Temperature 98.1 F Pulse Rate 105 H 105 H Respiratory Rate 18 Blood Pressure 157/97 H Pulse Oximetry 100 Oxygen Delivery Room Air 08/26/22 18:00 08/26/22 20:00 08/26/22 20:00 Temperature 97.2 F L Pulse Rate 81 85 85 Re
[2022-08-27 13:19] LABS: LDL Cholesterol Direct 147 mg/dL
--- NOTE | 2022-08-27 14:00 | PCCCNOTE ---
On 08/27/22, the student, [Katelyn Rodriguez ], provided care and completed [facility]. I have reviewed the student's documentation and agree with the findings.
--- NOTE | 2022-08-27 14:07 | PM.CNCAR ---
Assessment and Plan Assessment and plan (1) Chest pain: Code(s): R07.9 - Chest pain, unspecified Status: Acute Assessment and Plan: She is describing some intrascapular pain that is worse with deep breathing also improves when she lays on one side. The description of this pain is not consistent with angina. She had negative troponins x3. Her nuclear stress test today did show a moderate-large infarct involving the LAD vascular distribution. No reversible ischemia. EF 48%. Patient has a prior known infarct according to her history (the hospital that she had her angiogram performed at in 1992 no longer exists, records of this are not available), so this likely represents her prior infarct. Since she is not having any symptoms consistent with angina and no objective evidence of myocardial ischemia, so will recommend ASA and statin (other notes suggest she takes statin at home, but her medication list does not reflect this, so will start atorvastatin 40mg daily), as her LDL is above goal (147, goal <100). I will have her follow up with Dr. Carvalho in our office for management of her CAD and HTN. (2) Short of breath on exertion: Code(s): R06.02 - Shortness of breath Status: Acute Assessment and Plan: Secondary to pneumonia. She is being treated with azithromycin and Rocephin. History of Present Illness History of Present Illness Consult date/time: 08/27/22 14:07 Requesting physician: Juwan Kern MD Consult reason: Other (abnormal stress test ) Reason For Visit: Chest Pain Narrative: Ms. Caraballo is a 61 year old female with a history of coronary artery disease, hypertension, type 2 diabetes, and breast cancer s/p radiation therapy. She presents to the hospital from her PCP with a chief complaint of shortness of breath. She has had ongoing shortness of breath for about two weeks. She was also experiencing some intrascapular pain that was positional and also worse with deep breathing. She specifically denies any anterior chest pain. She does report a history of having a coronary angiogram in 1992 and remembers being told she had a quarter sized piece of heart muscle that was but she did not receive any stents. She states that since that time she has not had any cardiac problems and denies having any chest pain. She does report that her shortness of breath is worse with exertion. Denies any swelling or palpitations. Currently, she is breathing comfortably on room air and has no complaints at this time. Review of Systems Review of Systems: All systems reviewed & are unremarkable except as noted in HPI and below PMFSH Past Medical History Medical History Breast cancer The patient was getting radiation treatment there was a note from Radiation Oncology on 06/25/2021 telling the patient to follow-up in 6 months. Patient refused hormonal treatment. Diabetes mellitus HTN (hypertension) Hyperlipidemia Surgical History Surgical History H/O hernia repair Incarcerated hernia H/O lumpectomy H/O: hysterectomy History of 2 sections Family History Family History Father Family history of malignant neoplasm Sibling Family history of malignant neoplasm Social History Social History Social History: She has 2 children. She lives alone and is employed at [employer]. Code status full code Smoking packs per day: 1 Smoking cigarettes per day: 20.0 Years smoked: 30 Smoking pack-years: 30.00 Smoking status: Current every day smoker Tobacco type: cigarettes Alcohol intake: never Substance use: never Lack of Transportation: No Lack of Food: Never True Current Housing: I Have Housing Concerned About Future Housing: Decline to Answer
[2022-08-27 15:35] LABS: Cholesterol 239 mg/dL (0-200); HDL Direct 37 mg/dL; Triglycerides 126 mg/dL (<150)
[2022-08-27 16:25] LABS: Glucose Point of Care 130 mg/dl (65-105)
--- NOTE | 2022-08-27 16:26 | PM.DS ---
DS: Admitting Diagnosis Discharge Date 08/27/2022 Admitting Diagnosis Shortness of breath DS: Discharge Diagnosis Discharge Diagnosis (1) Pneumonia: Code(s): J18.9 - Pneumonia, unspecified organism Status: Acute (2) Chest pain: Code(s): R07.9 - Chest pain, unspecified Status: Acute (3) Short of breath on exertion: Code(s): R06.02 - Shortness of breath Status: Acute (4) HTN (hypertension): Code(s): I10 - Essential (primary) hypertension Status: Acute (5) Diabetes mellitus: Code(s): E11.9 - Type 2 diabetes mellitus without complications Status: Acute (6) Hyperlipidemia: Code(s): E78.5 - Hyperlipidemia, unspecified Status: Acute (7) Malignant neoplasm of lower-inner quadrant of right female breast: Code(s): C50.311 - Malignant neoplasm of lower-inner quadrant of right female breast Status: Acute DS: Summary Hospital Course Hospital Course: # pneumonia: CT scan shows no evidence of any pulmonary embolus but there is mild scattered diffuse tree-in-bud opacities as can be seen with atypical infection, or aspiration. Blood and sputum cultures have been ordered which were negative to date. Continue with DuoNeb Started on azithromycin and Rocephin. Improved. Will switch to oral at discharge RSV and COVID and influenza were negative. # atypical chest pain: Patient is short of breath with exertion. Cardiac enzymes are negative x3. Echo with left ventricular apical aneurysm.? Grade 1 diastolic dysfunction.? EF 50-55% Stress test with large fixed perfusion defect consistent with infarct moderate to severe at the apical and anteroapical segments and [id number] at apical septal apical lateral and mid anterior mid anteroseptal and basal septal segments.? Which is in left anterior descending coronary artery vascular distribution.? No reversible ischemia..? EF noted to be 48%.? Started on aspirin 81 mg daily. LDL was 147. Started on atorvastatin. Cardiology was consulted. Follow-up with cardiology as an outpatient basis for management of her coronary artery disease. She has prior history of infarction with angiogram performed an 1992. The stress test findings likely represent old infarction from the time per Cardiology # hypertension: Patient's blood pressure is elevated at this time.? Continue with p.r.n. hydralazine Continue with amlodipine medication # diabetes mellitus type 2: Accu-Cheks AC and HS with sliding scale insulin and hypoglycemic protocol.? A1c at 6.8. Will increase Metformin to 500 mg twice daily. # hyperlipidemia: Continue with simvastatin #Malignant neoplasm of lower-inner quadrant of right female breast: The patient has had a core needle biopsy see radiation notes.? Patient's last note was from a year ago.? The patient was to follow-up in 6 months.? The patient has seen Dr. Schmid in the past. Time Spent with Patient Time attestation: Total time spent providing and/or coordinating discharge services: 50 minutes Exam Narrative: GENERAL: Well-appearing, well-nourished, and in no acute distress. HEAD: Normocephalic, atraumatic. ENT: Mucous membranes moist. NECK: Supple. Nontender CHEST: Clear to auscultation.? No respiratory distress. HEART: Regular rate and rhythm.? Normal peripheral pulses. ABDOMEN: Soft, nontender, nondistended. EXTREMITIES: Normal range of motion.? No edema. SKIN: Warm, dry, no rash. NEURO:? Alert and oriented x3. No focal motor deficits PSYCH: Normal mood and affect. DS: Data Data Completed and Pending Labs on day of discharge: Labs from last 24 hours 08/27/22 08/27/22 08/27/22 16:17 11:42 07:35 WBC RBC Hgb Hct MCV MCH MCHC RDW Plt Count MPV Sodium Potassium Chloride Carbon Dioxide Anion Gap BUN Creatinine Estim Creat Clear Calc Estimated GFR Glucose POC Capillary Glucose 130 H 113 H 131 H Calcium
== END 2022-08-27 17:07 | disposition home or self-care (01) ==
LOC: ANHED 16:43 → ANHIMU 08-26 04:03
PROVIDERS: Nurse Practitioner; Admitting Provider Family Medicine; Emergency Provider Emergency Medicine; PCP Emergency Medicine; Visit Provider Internal Medicine
DX: J18.9 Pneumonia, unspecified organism (principal); R07.9 Chest pain, unspecified; R06.02 Shortness of breath; I11.9 Hypertensive heart disease without heart failure; E11.9 Type 2 diabetes mellitus without complications; E78.5 Hyperlipidemia, unspecified; C50.311 Malignant neoplasm of lower-inner quadrant of right female breast; M54.9 Dorsalgia, unspecified; W19.XXXA Unspecified fall, initial encounter; Z20.822 Contact with and (suspected) exposure to COVID-19; I08.1 Rheumatic disorders of both mitral and tricuspid valves; I49.3 Ventricular premature depolarization; D64.9 Anemia, unspecified; D72.829 Elevated white blood cell count, unspecified; R94.31 Abnormal electrocardiogram [ECG] [EKG]; F17.210 Nicotine dependence, cigarettes, uncomplicated; I25.2 Old myocardial infarction; Z79.84 Long term (current) use of oral hypoglycemic drugs; Z79.899 Other long term (current) drug therapy; Z80.9 Family history of malignant neoplasm, unspecified
CPT/HCPCS: 36415; 71046; 71275; 78452; 80048; 80053; 80061; 82948; 83036; 83605; 83735; 84443; 84484; 85025; 85027; 86140; 87040; 87637; 93005; 93017; 94640; 96365; 96367; 96372; 96374; 96375; 99285; A9270; A9502; C8929; G0378; J0456; J0696; J1650; J2785; Q9957; Q9967

== ENCOUNTER 2022-09-05 14:30 | Outpatient (CLI) | payer OTHER, MEDICAID, SELFPAY ==
[2022-09-05 15:32] LABS: Cholesterol 171 mg/dL (0-200); HDL Direct 46 mg/dL; Triglycerides 114 mg/dL (<150)
[2022-09-05 15:43] LABS: LDL Cholesterol Direct 95 mg/dL
== END 2022-09-05 14:31 | disposition home or self-care (01) ==
LOC: ANHLAB 14:32
PROVIDERS: PCP Emergency Medicine; Visit Provider Internal Medicine
DX: I25.10 Atherosclerotic heart disease of native coronary artery without angina pectoris (principal)
CPT/HCPCS: 36415; 80061

== ENCOUNTER → 2022-09-11 08:14 | Outpatient (CLI) | payer OTHER, MEDICAID, SELFPAY ==
--- NOTE | ~2022-09-11 | CT_ITS ---
EXAMINATION: CT lung screening DATE: 09/11/2022 08:37 INDICATION: Personal history of nicotine dependence, current smoker with 30 pack year history TECHNIQUE: Computed tomography (CT) of the chest was performed without intravenous contrast. The dose -length product (DLP) was 225.73 mGy-cm. 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 COMPARISON: 08/25/2022 FINDINGS: There is mild emphysema. Again seen are multiple small scattered nodules throughout the sarabjit gs which measure 3 mm or less. No pleural effusion or pneumothorax. Lungs are free of acute opacities . No pathologically enlarged thoracic lymph nodes are identified. The heart size is normal. Changes i n the right breast are consistent with treatment for right breast cancer. There are stones in the gal lbladder. There is moderate thoracic spondylosis. IMPRESSION: 1. Lung-RADS category 2: Benign appearance or behavior. Continue annual screening with noncontrast lo w-dose chest CT in 12 months. Reviewed, dictated and finalized at location L. IMPRESSION: 1. Lung-RADS category 2: Benign appearance or behavior. Continue annual screeni ng with noncontrast low-dose chest CT in 12 months.
== END ==
PROVIDERS: PCP Emergency Medicine; Visit Provider Emergency Medicine
DX: Z12.2 Encounter for screening for malignant neoplasm of respiratory organs (principal); Z87.891 Personal history of nicotine dependence
CPT/HCPCS: 71271

== ENCOUNTER 2023-09-04 17:45 | Emergency (ER) | payer OTHER, SELFPAY ==
[2023-09-04] VITALS (14 sets, daily range): BP systolic 124–157; BP diastolic 87–122; PULSE 54–100; RESP 12–20; TEMP 36.9; O2SAT 97–100
--- NOTE | ~2023-09-04 | XR_ITS ---
EXAMINATION: XR chest 2V Exam Date/Time: 09/04/2023 18:07 CDT HISTORY: SOB,reports BP fluctuations,headache, heartattack 30yrs ago Comparison: 08/25/2022. RESULT: Lines, tubes, and devices: None. Lungs and pleura: Clear. Cardiomediastinal silhouette: Stable. Other: No acute osseous or upper abdominal finding. IMPRESSION: No acute cardiopulmonary process. Reviewed, dictated and finalized at location K.
--- NOTE | ~2023-09-04 | CT_ITS ---
EXAMINATION: CT brain wo con DATE: 09/04/2023 18:08 INDICATION: hypertension, headache . TECHNIQUE: Computed tomography (CT) of the head was performed without intravenous contrast. The mA wa s adjusted according to patient size. Iterative reconstruction technique was employed. The dose-lengt h product was 605.33 mGy-cm. COMPARISON: None. FINDINGS: No acute intracranial hemorrhage or extra-axial fluid collection. No hydrocephalus, mass, or herniation. No acute ischemic infarct. Unremarkable dural venous sinus attenuation. No acute osseous abnormality. The aerated spaces are clear. Mild atrophy and chronic white matter change. Atherosclerotic intracranial calcification. Focal old l acunar infarcts in the right caudate head, right internal capsule, and right lentiform nucleus. IMPRESSION: No acute intracranial process. Reviewed, dictated and finalized at location K.
--- NOTE | 2023-09-04 17:52 | ECG_ITS ---
Measurements Intervals [place] Rate: 100 P: 33 CT: 151 QRS: -29 QRSD: 94 T: 117 QT: 312 QTc: 403 Interpretive Statements SINUS TACHYCARDIA VENTRICULAR PREMATURE COMPLEXES LEFT ATRIAL ENLARGEMENT LOW QRS VOLTAGE IN PRECORDIAL LEADS POSSIBLE LEFT VENTRICULAR HYPERTROPHY CANNOT RULE OUT SEPTAL INFARCT, AGE INDETERMINATE BORDERLINE ST-T WAVE ABNORMALITY- DIFFUSE LEADS BASELINE ARTIFACT- I, III, AVL ABNORMAL ECG COMPARED TO ECG 08/25/2022 13:36:22 SINUS TACHYCARDIA NOW PRESENT Electronically Signed On 09-04-2023 18:59:05 CDT by Juve Blake D.O.
--- NOTE | 2023-09-04 19:28 | ED.RECABL ---
HPI - Recheck/Abnormal Lab/Rx General Chief Complaint: Recheck/Abnormal Lab/Rx Stated Complaint: Blood pressure Time Seen by Provider: 09/04/23 18:39 Source: patient Mode of arrival: ambulatory Limitations: no limitations History of Present Illness HPI narrative: Patient is a 62 y/o female who presents to the ED with complaints of abnormal blood pressures. Patient reports over the last 3 days, her blood pressures have been fluctuating, ranging between 130s-170s systolic/80-120 diastolic. She has been checking her BP multiple times per day. She is currently on amlodipine 10 mg daily and was recently started on Losartan. She also reports having intermittent frontal headaches over the last 3 days, intermittent pressure in her left upper extremity. She has not tried anything for the symptoms. Denies current pain. Denies chest pain, shortness breath, lower extremity pain or swelling, vision changes, dizziness, focal weakness/numbness, syncope, slurred speech, confusion. Related Data Home Medications Medication Instructions Recorded Confirmed amlodipine 10 mg tablet 10 mg PO DAILY 08/26/22 08/26/22 Allergies Allergy/AdvReac Type Severity Reaction Status Date / Time No Known Allergies Allergy Verified 09/04/23 17:54 Review of Systems Review of Systems: CONSTITUTIONAL: Denies fever, chills, or sweats. CARDIOVASCULAR: Denies chest pain, palpitations, or edema. RESPIRATORY: Denies dyspnea. GASTROINTESTINAL: Denies abdominal pain, nausea, vomiting. MUSCULOSKELETAL: see HPI. NEUROLOGIC: See HPI. All systems reviewed & are unremarkable except as noted in HPI and below PMFSH Past Medical History Medical History Breast cancer The patient was getting radiation treatment there was a note from Radiation Oncology on 06/25/2021 telling the patient to follow-up in 6 months. Patient refused hormonal treatment. Diabetes mellitus HTN (hypertension) Hyperlipidemia Surgical History Surgical History H/O hernia repair Incarcerated hernia H/O lumpectomy H/O: hysterectomy History of 2 sections Family History Family History Father Family history of malignant neoplasm Sibling Family history of malignant neoplasm Social History Social History Social History: She has 2 children. She lives alone and is employed at [employer]. Code status full code Smoking packs per day: 1 Smoking cigarettes per day: 20.0 Years smoked: 30 Smoking pack-years: 30.00 Smoking status: Current every day smoker Tobacco type: cigarettes Alcohol intake: never Substance use: never Lack of Transportation: No Lack of Food: Never True Current Housing: I Have Housing Concerned About Future Housing: Decline to Answer Difficulty Paying Gas/Electric Bills: Decline to Answer Difficulty Paying for Meds: Decline to Answer Currently Unemployed: Decline to Answer Education: Decline to Answer Difficulty w/ Childcare or Family Care: No Spiritual care concerns: No Exam Narrative: GENERAL: Well appearing, morbidly obese with BMI of 40.8, non-toxic, in no acute distress. HEAD: Normocephalic, atraumatic. EYES: PERRL/EOMI, conjunctiva clear. RESPIRATORY: Airway patent, respirations nonlabored. Clear to auscultation bilaterally, no rales, rhonchi, wheezing. CARDIOVASCULAR: Regular rate and rhythm without murmurs, rubs, or gallops. ABDOMINAL: Soft, nontender, nondistended. Normoactive BS. MUSCULOSKELETAL: Moves all extremities. No gross deformities. no lower extremity edema. SKIN: Warm, dry, normal color. NEURO: A&O X3. Speech clear. Cranial nerves II-XII grossly intact. Steady gait. No ataxic movements. Strength equal in upper and lower extremities bilaterally. Equal g
[2023-09-04 19:29] LABS: Basophils Absolute Auto 0.1 K/mm3 (0.0-0.1); Basophils Percent Auto 0.7 % (0.2-1.2); Eosinophils Absolute Auto 0.2 K/mm3 (0-0.3); Eosinophils Percent Auto 1.2 % (0-4.4); Hematocrit 54.8 % (37.0-47.0); Hemoglobin 16.7 g/dL (12.0-15.0); Immature Granulocyte Absolute 0.06 K/mm3 (0.00-0.031); Immature Granulocyte Percent A 0.5 % (0-0.5); Immature Platelet Fraction Pct 11.5 % (0.9-11.2); Lymphocytes Absolute Auto 4.68 K/mm3 (0.9-3.2); Lymphocytes Percent Auto 35.9 % (18.3-44.2); Mean Corpuscular HGB Conc 30.5 g/dl (32-36); Mean Corpuscular Hemoglobin 27.6 pg (26-34); Mean Corpuscular Volume 90.7 fl (80-100); Mean Platelet Volume 11.5 fl (7.4-10.4); Monocytes Absolute Auto 0.6 K/mm3 (0.1-0.6); Monocytes Percent Auto 4.8 % (2.6-8.5); Neutrophils Absolute Auto 7.4 K/mm3 (1.3-6.7); Neutrophils Percent Auto 56.9 % (45.5-73.1); Platelet Count Result 323 k/mm3 (150-375); Red Blood Count 6.04 M/mm3 (4.2-5.4); Red Cell Distribution Width 14.1 % (11.5-14.5); White Blood Count 13.1 K/mm3 (4.5-10.0)
[2023-09-04 19:38] LABS: Alanine Aminotransferase 18 U/L (6-35); Albumin Level 4.5 g/dL (3.5-5.1); Alkaline Phosphatase 144 U/L (38-126); Anion Gap 8 mmol/L (4-12); Aspartate Amino Transferase 21 U/L (14-36); Bilirubin,Total 0.8 mg/dL (0.2-1.3); Blood Urea Nitrogen 12 mg/dL (7-17); Calcium 10.2 mg/dL (8.4-10.2); Carbon Dioxide 26 mmol/L (22-30); Chloride 103 mmol/L (98-107); Estimated CRCL calculation 86 ml/min; Estimated Glomerular Filt Rate > 60; Glucose 114 mg/dL (65-110); Potassium 3.7 mmol/L (3.4-5.0); Sodium 137 mmol/L (137-145)
[2023-09-04 19:45] LABS: Appearance Urine Clear (Clear); Bilirubin Urine Negative (Negative); Blood Urine Negative (Negative); Color Urine Yellow (Yellow); Glucose Urine UA Negative (Negative); Ketones Urine Negative (Negative); Leukocyte Esterase Ur Negative LEU/UL (Negative); Nitrate Urine Negative (Negative); Protein Urine Negative (Negative); Urobilinogen Urine 0.2 mg/dL (<2.0)
[2023-09-04 19:47] LABS: Specific Grav Ur 1.004 (1.001-1.035)
[2023-09-04 19:48] LABS: Add Urine Microscopic? NO
[2023-09-04 19:50] LABS: Partial Thromboplastin Time 34.6 Seconds (22.3-36.8)
[2023-09-04 19:51] LABS: Platelet Estimate Adequate (Adequate); Schistocytes None Seen
[2023-09-04 19:52] LABS: Hypochromasia 1+
[2023-09-04 20:03] LABS: NT Pro B Type Natriuretic Pept 29 pg/mL (19.9-100); Troponin I < 0.012 ng/mL (0.000-0.034)
--- NOTE | 2023-09-04 22:41 | PC.NURSE ---
Upon entering the room to clean it the patient was in the room and stated she was in the bathroom. Patient received discharge instructions and verbalized an understanding
== END 2023-09-04 22:32 | disposition home or self-care (01) ==
PROVIDERS: Physician Assistant; Emergency Provider Physician Assistant; PCP Emergency Medicine
DX: I10 Essential (primary) hypertension (principal); R51.9 Headache, unspecified; R42 Dizziness and giddiness; M79.602 Pain in left arm; E11.9 Type 2 diabetes mellitus without complications; E78.5 Hyperlipidemia, unspecified; F17.210 Nicotine dependence, cigarettes, uncomplicated; Z85.3 Personal history of malignant neoplasm of breast; Z92.3 Personal history of irradiation; Z79.82 Long term (current) use of aspirin; Z79.84 Long term (current) use of oral hypoglycemic drugs
CPT/HCPCS: 36415; 70450; 71046; 80053; 81003; 83880; 84484; 85025; 85055; 85610; 85730; 93005; 99284

== ENCOUNTER 2023-11-20 07:55 | Outpatient (CLI) | payer OTHER, SELFPAY ==
[2023-11-20 08:57] LABS: Hematocrit 47.1 % (37.0-47.0); Hemoglobin 14.8 g/dL (12.0-15.0); Mean Corpuscular HGB Conc 31.4 g/dl (32-36); Mean Corpuscular Volume 89.2 fl (80-100); Mean Platelet Volume 10.8 fl (7.4-10.4); Platelet Count Result 338 k/mm3 (150-375); Red Blood Count 5.28 M/mm3 (4.2-5.4); Red Cell Distribution Width 13.8 % (11.5-14.5); White Blood Count 9.5 K/mm3 (4.5-10.0)
[2023-11-20 09:04] LABS: Alanine Aminotransferase 18 U/L (6-35); Albumin Level 4.3 g/dL (3.5-5.1); Alkaline Phosphatase 140 U/L (38-126); Anion Gap 8 mmol/L (4-12); Aspartate Amino Transferase 20 U/L (14-36); Bilirubin,Total 0.9 mg/dL (0.2-1.3); Blood Urea Nitrogen 14 mg/dL (7-17); Calcium 9.2 mg/dL (8.4-10.2); Carbon Dioxide 25 mmol/L (22-30); Chloride 105 mmol/L (98-107); Cholesterol 230 mg/dL (0-200); Estimated Glomerular Filt Rate > 60; Glucose 133 mg/dL (65-110); HDL Direct 43 mg/dL; Potassium 4.1 mmol/L (3.4-5.0); Sodium 138 mmol/L (137-145); Triglycerides 105 mg/dL (<150)
[2023-11-20 09:08] LABS: Rheumatoid Factor 68.3 IU/ML (<12)
[2023-11-20 09:15] LABS: LDL Cholesterol Direct 156 mg/dL
[2023-11-20 09:38] LABS: Erythrocyte Sedimentation Rate 11 mm/hr (0-20)
[2023-11-20 09:50] LABS: Hemoglobin A1C 6.8 % (<5.7)
[2023-11-20 09:58] LABS: Free T4 Free Thyroxine 1.42 ng/mL (0.78-2.19); Vitamin D 25 Hydroxy 34.4 ng/mL
[2023-11-20 10:10] LABS: Hepatitis B Surface Antigen Negative (Negative)
[2023-11-20 10:16] LABS: HAV RESULT Negative (Negative); Hepatitis B Core IgM Result Negative (Negative)
[2023-11-20 10:27] LABS: Hepatitis C Virus Antibody Negative (Negative)
== END 2023-11-20 07:56 | disposition home or self-care (01) ==
PROVIDERS: PCP Emergency Medicine; Visit Provider Emergency Medicine
DX: E78.5 Hyperlipidemia, unspecified (principal); D72.829 Elevated white blood cell count, unspecified; E55.9 Vitamin D deficiency, unspecified; E11.9 Type 2 diabetes mellitus without complications; I10 Essential (primary) hypertension; R31.9 Hematuria, unspecified
CPT/HCPCS: 36415; 80053; 80061; 80074; 82306; 82977; 83036; 84439; 84443; 85027; 85652; 86038; 86039; 86430

== ENCOUNTER 2023-12-26 14:12 | Observation (INO) | payer OTHER, SELFPAY ==
[2023-12-26] VITALS (8 sets, daily range): BP systolic 125–156; BP diastolic 82–97; PULSE 80–111; RESP 16–27; TEMP 36.6; O2SAT 95–100; BMI 39.2
--- NOTE | ~2023-12-26 | XR_ITS ---
EXAMINATION: XR chest 1V portable DATE: 12/26/2023 16:11 INDICATION: Leukocytosis with left-sided weakness TECHNIQUE: frontal view of the chest was obtained. COMPARISON: Chest radiograph dated 09/04/2023 FINDINGS: The lungs remain clear with no focal airspace opacities, pulmonary edema, pleural effusion or pneumot horax. The cardiomediastinal silhouette is normal. Visualized bones and soft tissues are unremarkable . IMPRESSION: 1. No acute cardiopulmonary disease. Reviewed, dictated and finalized at location A.
--- NOTE | ~2023-12-26 | MR_ITS ---
EXAMINATION: MR brain/brain stem wo/w con DATE: 12/27/2023 08:07 INDICATION: Stroke TECHNIQUE: Magnetic resonance imaging (MRI) of the brain and brainstem was performed without and with 18 mL Multihance intravenous contrast. Sequences included sagittal and axial T1-weighted SE, axial d iffusion-weighted FS SE, axial 3D SWAN, axial T2-weighted FLAIR, and axial T2-weighted FSE. Postcontr ast axial and coronal T1-weighted SE was obtained. Apparent diffusion coefficient (ADC) maps were cre ated. COMPARISON: Head CT and CT angiogram dated 12/26/2023 FINDINGS: There are a few small foci of restricted diffusion along the medial right frontal lobe and anterior p arietal lobes consistent with acute infarcts likely shower of emboli in the right anterior cerebral a rtery vascular distribution. Old lacunar infarct in the right basal ganglia. No intracranial hemorrha ge or abnormal intracranial mass lesion. There are scattered areas of nonspecific increased T2-weight ed signal intensity in the cerebral white matter, predominantly involving the deep and periventricula r white matter. There are no intraparenchymal signal abnormalities seen on the other pulse sequences. The ventricles are symmetric and normal in size. There are no abnormal extra-axial fluid collections . Flow voids are seen in the cerebral arteries on the T2-weighted sequences consistent with their exp ected patency. Mild mucosal thickening the anterior ethmoid air cells. Visualized orbits and soft tis sues are unremarkable. There are no areas of abnormal enhancement on the post contrast images. IMPRESSION: 1. Multiple small acute infarcts in the medial right frontal and anterior right parietal lobes in the vascular distribution of the right anterior communicating artery consistent with shallower of emboli . 2. Mild lacunar infarct in the right basal ganglia. 2. Mild scattered white matter T2 hyperintensity consistent with sequela of chronic small vessel isch emic disease. Reviewed, dictated and finalized at location A. IMPRESSION: 1. Multiple small acute infarcts in the medial right frontal and anterior right parietal lobes in the vascular distribution of the right anterior communicatin g artery consistent with shallower of emboli. 2. Mild lacunar infarct in the right basal ganglia. 2. Mild scattered white matter T2 hyperintensity consistent with sequela of chr onic small vessel ischemic disease.
--- NOTE | ~2023-12-26 | CT_ITS ---
EXAMINATION: CTA BRAIN/CAROTID DATE: 12/26/2023 15:52 INDICATION: Left arm numbness and weakness TECHNIQUE: Computed tomographic angiography (CTA) of the head and neck was performed with 100 mL Omni paque-350 intravenous contrast. Multiplanar reconstructions and maximum intensity projection 3D-recon structions of the carotid arteries and of the intracranial arteries were created by the technologist on a separate workstation. Precontrast CT of the head was also obtained. Automated exposure control and iterative reconstruction technique were employed.The dose-length product was 1750.20 mGy-cm. COMPARISON: Head CT dated 09/04/2023 FINDINGS: Carotid arteries: Normal caliber of the aortic arch and great vessels arising from the arch with scattered nonhemodynam ically significant atherosclerotic plaque without dissection. There is minimal atherosclerotic plaque with 0% stenosis of the right carotid bulb relative to normal distal artery lumen diameter (NASCET c riteria). There is 15% stenosis of the left carotid bulb relative to normal distal artery lumen diame ter. There appears to be at least moderate stenosis at the origin of the left vertebral artery howeve r limited assessment is limited by the small size of the vessel at this location. Mild emphysema and mild dependent atelectasis in the visualized upper lungs. There is diffuse wall thickening of the vis ualized upper thoracic esophagus suggestive of esophagitis. Mild cervical spondylosis. Head: Unchanged old lacunar infarcts at the right basal ganglia involving the caudate nucleus, lentiform nu cleus and intervening anterior limb of the internal capsule. No acute intracranial hemorrhage, acute infarction or abnormal extra axial fluid collection. Minimal additional nonspecific scattered white m atter hypoattenuation consistent with chronic small vessel ischemic disease. Ventricles are normal an d symmetric. No mass/mass effect. No abnormally enhancing brain lesions. The orbits, paranasal sinuse s and mastoid air cells are normal. Intracranial arteries There is atherosclerotic plaque at the bilateral carotid siphons with 50% stenosis at the cavernous s egment on the left and 60% of the suprasellar segment on the right. There is no hemodynamically signi ficant stenosis in the vertebral and basilar arteries. Vertebral arteries are codominant. There are n o aneurysms identified. Both A1 and P1 segments are patent. Cerebral arterial arborization appears symmetric. IMPRESSION: 1. 0% stenosis of the right carotid bulb relative to normal distal artery lumen diameter (NASCET crit eria). 2. 15% stenosis of the left carotid bulb relative to normal distal artery lumen diameter. 3. Atherosclerotic plaque at the bilateral carotid siphons with 50% stenosis in the left and 60% on t he right. 4. Suggestion of at least moderate stenosis at the origin of the left vertebral artery, quantitative assessment which limited by the small size of the vessel. 5. Unchanged old lacunar infarcts at the right basal ganglia. No acute intracranial process or abnorm ally enhancing brain lesions. 5. Reviewed, dictated and finalized at location A. IMPRESSION: 1. 0% stenosis of the right carotid bulb relative to normal distal artery lumen diameter (NASCET criteria). 2. 15% stenosis of the left carotid bulb relative to normal distal artery lumen diameter. 3. Atherosclerotic plaque at the bilateral carotid siphons with 50% stenosis in the left and 60% on the right. 4. Suggestion of at least moderate stenosis at the origin of the left vertebral artery, quantitative assessment which limited by the small size of the vessel. 5. Unchanged old lacunar infarcts at the right basal ganglia. No acute intracra nial process or abnormally enhancing brain lesions. 5.
--- NOTE | 2023-12-26 14:57 | ECG_ITS ---
Test Date: 2023-12-26 15:09:45 Measurements Intervals Adams Rate: 91 P: 31 MA: 152 QRS: -27 QRSD: 98 T: 94 QT: 338 QTc: 417 Interpretive Statements SINUS RHYTHM WITH OCCASIONAL VENTRICULAR PREMATURE COMPLEXES LEFT VENTRICULAR HYPERTROPHY WITH ST-T CHANGE CANNOT R/O SEPTAL INFARCT, AGE INDETERMINATE BORDERLINE T WAVE ABNORMALITY- ANTEROLATERAL LEADS BASELINE ARTIFACT- I, II, III, AVR, AVL ABNORMAL ECG No previous ECG available for comparison Electronically Signed On 12-26-2023 15:28:00 CDT by Juve Blake D.O.
[2023-12-26 15:19] LABS: Glucose Point of Care 155 mg/dl (65-105)
--- NOTE | 2023-12-26 15:24 | ED.GENADULT ---
HPI - General Adult General Chief complaint: Neuro Symptoms/Deficit Stated complaint: numbness on L side since 12/23 Time Seen by Provider: 12/26/23 14:56 History of Present Illness HPI narrative: 63-year-old female presented to the emergency department for evaluation for left-sided weakness and numbness that has been ongoing for almost 3 days. Patient states that she does some decreased sensation/numbness over her left arm and also has increased weakness of her left leg. Patient denies any prior history of CVA. Patient denies any falls or injuries. Patient does have history of diabetes, high cholesterol and hypertension. Related Data Home Medications Medication Instructions Recorded Confirmed amlodipine 10 mg tablet 10 mg PO DAILY 08/26/22 08/26/22 Allergies Allergy/AdvReac Type Severity Reaction Status Date / Time No Known Allergies Allergy Verified 12/26/23 14:13 Review of Systems Review of Systems: All systems reviewed & are unremarkable except as noted in HPI and below PMFSH Past Medical History Medical History Breast cancer The patient was getting radiation treatment there was a note from Radiation Oncology on 06/25/2021 telling the patient to follow-up in 6 months. Patient refused hormonal treatment. Diabetes mellitus HTN (hypertension) Hyperlipidemia Surgical History Surgical History H/O hernia repair Incarcerated hernia H/O lumpectomy H/O: hysterectomy History of 2 sections Family History Family History Father Family history of malignant neoplasm Sibling Family history of malignant neoplasm Social History Social History Social History: She has 2 children. She lives alone and is employed at [employer]. Code status full code Smoking packs per day: 1 Smoking cigarettes per day: 20.0 Years smoked: 30 Smoking pack-years: 30.00 Smoking status: Current every day smoker Tobacco type: cigarettes Alcohol intake: never Substance use: never Lack of Transportation: No Lack of Food: Never True Current Housing: I Have Housing Concerned About Future Housing: Decline to Answer Difficulty Paying Gas/Electric Bills: Decline to Answer Difficulty Paying for Meds: Decline to Answer Currently Unemployed: Decline to Answer Education: Decline to Answer Difficulty w/ Childcare or Family Care: No Spiritual care concerns: No Exam Narrative: APPEARANCE: Well appearing, no pain, no distress, well-nourished. HEAD: normocephalic, atraumatic. EYES: PERRLA/EOMI, conjunctivae clear. NOSE: Normal no drainage EARS:TMS clear with good light reflex. THROAT: Pharynx clear, no exudate. NECK: Supple. No adenopathy, no masses. RESPIRATORY: Airway patent, respirations nonlabored. Clear to auscultation bilaterally, no rales, rhonchi, wheezing. CARDIOVASCULAR: Regular rate and rhythm without murmurs rubs or gallops. ABDOMINAL: Soft, nontender, nondistended, normal bowel sounds MUSCULOSKELETAL: Moves all extremities. Strength/ROM intact, No edema, No calf tenderness. NEURO: Normal strength and coordination of the left arm, no cranial nerve deficit, weakness of the left leg SKIN: Warm, dry. Normal Color Course Vital Signs Vital signs: Vital Signs Temperature 97.9 F 12/26/23 14:15 Pulse Rate 111 H 12/26/23 14:15 Respiratory Rate 20 12/26/23 14:15 Blood Pressure 156/91 H 12/26/23 14:15 Pulse Oximetry 99 12/26/23 14:15 Oxygen Delivery Room Air 12/26/23 14:15 Temperature 97.9 F 12/26/23 14:15 Pulse Rate 107 H 12/26/23 17:47 Respiratory Rate 26 H 12/26/23 17:47 Blood Pressure 130/97 H 12/26/23 17:47 Pulse Oximetry 100 12/26/23 17:47 Oxygen Delivery Room Air 12/26/23 14:15 Medica
[2023-12-26 15:35] LABS: Basophils Absolute Auto 0.1 K/mm3 (0.0-0.1); Basophils Percent Auto 0.6 % (0.2-1.2); Eosinophils Absolute Auto 0.1 K/mm3 (0-0.3); Eosinophils Percent Auto 0.4 % (0-4.4); Hematocrit 48.9 % (37.0-47.0); Hemoglobin 15.9 g/dL (12.0-15.0); Immature Granulocyte Absolute 0.05 K/mm3 (0.00-0.031); Immature Granulocyte Percent A 0.4 % (0-0.5); Lymphocytes Absolute Auto 4.02 K/mm3 (0.9-3.2); Lymphocytes Percent Auto 30.9 % (18.3-44.2); Mean Corpuscular HGB Conc 32.5 g/dl (32-36); Mean Corpuscular Hemoglobin 28.5 pg (26-34); Mean Corpuscular Volume 87.6 fl (80-100); Mean Platelet Volume 10.5 fl (7.4-10.4); Monocytes Absolute Auto 0.6 K/mm3 (0.1-0.6); Monocytes Percent Auto 4.3 % (2.6-8.5); Neutrophils Absolute Auto 8.3 K/mm3 (1.3-6.7); Neutrophils Percent Auto 63.4 % (45.5-73.1); Platelet Count Result 361 k/mm3 (150-375); Red Blood Count 5.58 M/mm3 (4.2-5.4); Red Cell Distribution Width 13.4 % (11.5-14.5)
[2023-12-26 15:45] LABS: Alanine Aminotransferase 22 U/L (6-35); Albumin Level 4.7 g/dL (3.5-5.1); Alkaline Phosphatase 123 U/L (38-126); Anion Gap 11 mmol/L (4-12); Aspartate Amino Transferase 25 U/L (14-36); Blood Urea Nitrogen 21 mg/dL (7-17); Calcium 10.5 mg/dL (8.4-10.2); Carbon Dioxide 28 mmol/L (22-30); Chloride 95 mmol/L (98-107); Estimated CRCL calculation 72 ml/min; Estimated Glomerular Filt Rate > 60; Glucose 144 mg/dL (65-110); Sodium 134 mmol/L (137-145)
[2023-12-26 15:47] LABS: Prothrombin Time 13.4 Seconds (11.1-14.7)
[2023-12-26 15:48] LABS: Partial Thromboplastin Time 28.4 Seconds (22.3-36.8)
[2023-12-26 15:49] LABS: Estimated CRCL calculation 64 ml/min; Estimated Glomerular Filt Rate > 60
[2023-12-26 16:07] LABS: Appearance Urine Clear (Clear); Bilirubin Urine Negative (Negative); Blood Urine Negative (Negative); Color Urine Yellow (Yellow); Glucose Urine UA Negative (Negative); Ketones Urine Negative (Negative); Leukocyte Esterase Ur Negative LEU/UL (Negative); Nitrate Urine Negative (Negative); Protein Urine Negative (Negative); Specific Grav Ur 1.028 (1.001-1.035); pH Urine 6.5 (5.0-9.0)
[2023-12-26 16:19] LABS: Add Urine Microscopic? NO
[2023-12-26] MEDS: ASPIRIN 81 MG CHEWABLE TABLET 324 MG PO (17:45)
[2023-12-26 20:16] LABS: Glucose Point of Care 124 mg/dl (65-105)
[2023-12-26] MEDS: SODIUM CHLORIDE 0.9% IV 1,000 ML 100 ML IV CONT (21:55)
[2023-12-27] VITALS (14 sets, daily range): BP systolic 119–139; BP diastolic 67–82; PULSE 73–96; RESP 16–22; TEMP 36.4–36.9; O2SAT 96–100
--- NOTE | 2023-12-27 05:40 | PM.IMHP ---
H&P: HPI History of Present Illness Date/Time: 12/27/23 05:40 Chief Complaint: Left leg weakness, left arm heaviness Narrative: 63-year-old female with past medical history of medical noncompliance, right-sided breast cancer, coronary artery disease, essential hypertension, hyperlipidemia, type 2 diabetes mellitus, coronary artery disease and obesity who presented to the ER with 2 days of weakness of the left leg and sensory changes in the left arm. The patient reports that her left leg seemed to be weak and was not cooperating as much as usual. Her legs in went from just being a little bit weak to the point where she could not pick it up off the floor so she decided come into the ER. She denies any visual changes, blurred vision, difficulty speaking, difficulty with word finding or confusion. She denies a known prior history of CVA but she did have recent CT performed in August due to high blood pressure and headache which demonstrated hold focal lacunar infarcts in the right caudate head right internal capsule and right lentiform nucleus. She denies prior history of neurologic events. She reports tells me that she had paresthesias that persisted until after admission but at the time of my physical exam patient reports resolution of her paresthesias. She still has some weakness with 4/5 box car bracer strength of the left hand and 4/5 strength on both plantar and dorsiflexion of the left foot. She denies any falls or trauma. She reports that since she was started on the losartan and hydrochlorothiazide a month or so ago she gets extremely lightheaded with position changes. She is also having frequent frontal headaches since starting on the medications. She also reported to me that some of the other medications she was on was causing her headaches. She tells me that she is post be on 8 different medications but only listed 3 medications for the bedside nurse. She mentions her medications because she is not happy that she may have to be started on aspirin or Plavix for stroke prophylaxis. She does admit to snoring quite loudly and will often wake herself up snoring. She has never had a sleep study. She does feel fatigued frequently. She reports pressure in her chest any time that she eats before dinner and then lays down. She has burning pain that rashes up her throat that is usually relieved with sodium bicarb. On her CTA of the head and neck the patient has diffuse wall thickening of the paroxysmal esophagus. She has never had an EGD. She has had a screening colonoscopy that she reports was last year some time. She does not report use of any prescription NSAIDs and denies use of [id number] PPI therapy. She reports chronic shortness of breath with lying down due to nasal congestion and postnasal drip. She denies lower extremity swelling or dyspnea on exertion. Her hair is noted to be quite thin but she states this is unchanged from baseline. She had a normal TSH last month. Nursing staff talked the patient's niece who stated that the patient is famous for only taking her medications intermittently. The patient does have prescription bottles with her. External medication reconciliation does not show any drug refill since June 2022. The patient does have prescription bottles that were filled recently of hydrochlorothiazide 12.5 mg filled in October for 30 days supply and losartan. She is post be on Lipitor but did not feel good when she was taking it so she has not taken it since then. She reports that she mostly takes her metformin on a regular basis but she does not check her Accu-Cheks because her glucometer does not work. She has not mention this to her primary care physician. She had recent outpatient labs including A1c that was 6.8 (November 2023), vitamin-D level that was sufficient, cholesterol was 230 LDL 156 HDL 43, TSH does normal at 2.13. She had a noncontrast CT of the head August of 2023 Review of Systems Review of Systems: 12 systems wer
[2023-12-27 06:02] LABS: Hematocrit 45.9 % (37.0-47.0); Hemoglobin 14.5 g/dL (12.0-15.0); Mean Corpuscular HGB Conc 31.6 g/dl (32-36); Mean Corpuscular Hemoglobin 28.2 pg (26-34); Mean Corpuscular Volume 89.1 fl (80-100); Mean Platelet Volume 10.5 fl (7.4-10.4); Platelet Count Result 324 k/mm3 (150-375); Red Blood Count 5.15 M/mm3 (4.2-5.4); Red Cell Distribution Width 13.4 % (11.5-14.5); White Blood Count 11.9 K/mm3 (4.5-10.0)
[2023-12-27 06:15] LABS: Alanine Aminotransferase 19 U/L (6-35); Albumin Level 4.2 g/dL (3.5-5.1); Alkaline Phosphatase 115 U/L (38-126); Anion Gap 8 mmol/L (4-12); Aspartate Amino Transferase 22 U/L (14-36); Bilirubin,Total 0.8 mg/dL (0.2-1.3); Blood Urea Nitrogen 19 mg/dL (7-17); Calcium 9.6 mg/dL (8.4-10.2); Carbon Dioxide 26 mmol/L (22-30); Chloride 99 mmol/L (98-107); Estimated CRCL calculation 72 ml/min; Estimated Glomerular Filt Rate > 60; Glucose 126 mg/dL (65-110); Potassium 3.6 mmol/L (3.4-5.0); Sodium 133 mmol/L (137-145)
--- NOTE | 2023-12-27 07:30 | PC.NURSE ---
pt taken down to MRI
--- NOTE | 2023-12-27 08:13 | PC.NURSE ---
pt brought back from MRI
[2023-12-27 08:16] LABS: Glucose Point of Care 138 mg/dl (65-105)
[2023-12-27] MEDS: amLODIPine BESYLATE 10 MG TABLET PO (09:06)
[2023-12-27] MEDS: PANTOPRAZOLE 40 MG TABLET PO (09:06)
[2023-12-27] MEDS: ASPIRIN 81 MG CHEWABLE TABLET PO (09:06)
[2023-12-27] MEDS: ENOXAPARIN 40 MG/0.4 ML SYRINGE SUB-Q (09:08)
[2023-12-27 11:44] LABS: Glucose Point of Care 110 mg/dl (65-105)
--- NOTE | 2023-12-27 12:49 | P.PNIM_ITS ---
Progress Note: A&P Assessment and Plan (1) Polycythemia: Code(s): D75.1 - Secondary polycythemia Status: Acute (2) Acute CVA (cerebrovascular accident): Code(s): I63.9 - Cerebral infarction, unspecified Status: Acute (3) Hyperlipidemia: Qualifiers: Hyperlipidemia type: pure hypercholesterolemia Qualified Code(s): E78.00 - Pure hypercholesterolemia, unspecified Code(s): E78.5 - Hyperlipidemia, unspecified Status: Acute (4) TIA (transient ischemic attack): Code(s): G45.9 - Transient cerebral ischemic attack, unspecified Status: Acute (5) Snoring: Code(s): R06.83 - Snoring Status: Acute (6) GERD with esophagitis: Qualifiers: Esophagitis bleeding: without hemorrhage Qualified Code(s): K21.00 - Gastro-esophageal reflux disease with esophagitis, without bleeding Code(s): K21.00 - Gastro-esophageal reflux disease with esophagitis, without bleeding Status: Acute (7) Left leg weakness: Code(s): R29.898 - Other symptoms and signs involving the musculoskeletal system Status: Acute Plan TIA * Neuro check q.4 hour for the 1st 24 hours. * teletypesetter monitor and telemetry continuously. * BP stable * MRI of the brain without contrast pending * CTA scan shows old lacunar infarct * PT/OT eval and treat. * Check for LDL and hemoglobin A1c. * Add statins 40 mg q.day, aspirin 81 mg g q.day/Plavix * Echo with bubble study pending * Neurology consulted for any further recommendation * Recommend 30 day event monitor outpatient HTN * continue amlodipine * Stop taking losartan and hydrochlorothiazide * BP per unit protocol * Patient reports side effects with lisinopril losartan HLD * Started on Atorvastatin Snoring/fatigue * sleep study outpatient GERD * Pantoprazole Diabetes * Accu-Cheks a.c. HS * sliding scale insulin * hold oral diabetic medications * Hemoglobin A1c goal less than 7 6.8 * lipid panel pending * Diabetic diet * encourage lifestyle modifications and weight loss * Optimize Juan Carlos inhibitors and statins. * Watch for hypoglycemia/hypoglycemic protocol ordered Code status: Full code per patient DVT prophylaxis: Lovenox Stress ulcer prophylaxis: Protonix 40 daily PT/OT notes: PT/OT pending Disposition: Patient is admission to the medical unit for evaluation treatment possible TIA versus CVA ports right-sided weakness improving, Neurology consulted. Spoke with patient and daughter plan is to discharge home would prefer home health. Time Spent With Patient Time with patient: 15 - 25 minutes Subjective Date/time seen: 12/27/23 12:49 Interval history: Admission: 63-year-old female with past medical history of medical noncompliance, right- sided breast cancer, coronary artery disease, essential hypertension, hyperlipidemia, type 2 diabetes mellitus, coronary artery disease and obesity who presented to the ER with 2 days of weakness of the left leg and sensory changes in the left arm. The patient reports that her left leg seemed to be weak and was not cooperating as much as usual. Her legs in went from just being a little bit weak to the point where she could not pick it up off the floor so she decided come into the ER. She denies any visual changes, blurred vision, difficulty speaking, difficulty with word finding or confusion. She denies a known prior history of CVA but she did have recent CT performed in August due to h
--- NOTE | 2023-12-27 12:49 | PM.IMPN ---
Progress Note: A&P Assessment and Plan (1) Polycythemia: Code(s): D75.1 - Secondary polycythemia Status: Acute (2) Acute CVA (cerebrovascular accident): Code(s): I63.9 - Cerebral infarction, unspecified Status: Acute (3) Hyperlipidemia: Qualifiers: Hyperlipidemia type: pure hypercholesterolemia Qualified Code(s): E78.00 - Pure hypercholesterolemia, unspecified Code(s): E78.5 - Hyperlipidemia, unspecified Status: Acute (4) TIA (transient ischemic attack): Code(s): G45.9 - Transient cerebral ischemic attack, unspecified Status: Acute (5) Snoring: Code(s): R06.83 - Snoring Status: Acute (6) GERD with esophagitis: Qualifiers: Esophagitis bleeding: without hemorrhage Qualified Code(s): K21.00 - Gastro-esophageal reflux disease with esophagitis, without bleeding Code(s): K21.00 - Gastro-esophageal reflux disease with esophagitis, without bleeding Status: Acute (7) Left leg weakness: Code(s): R29.898 - Other symptoms and signs involving the musculoskeletal system Status: Acute Plan TIA Neuro check q.4 hour for the 1st [address] recording monitor and telemetry continuously. BP stable MRI of the brain without contrast pending CTA scan shows old lacunar infarct PT/OT eval and treat. Check for LDL and hemoglobin A1c. Add statins 40 mg q.day, aspirin 81 mg g q.day/Plavix Echo with bubble study pending Neurology consulted for any further recommendation Recommend 30 day event monitor outpatient HTN continue amlodipine Stop taking losartan and hydrochlorothiazide BP per unit protocol Patient reports side effects with lisinopril losartan HLD Started on Atorvastatin Snoring/fatigue sleep study outpatient GERD Pantoprazole Diabetes Accu-Cheks a.c. HS sliding scale insulin hold oral diabetic medications Hemoglobin A1c goal less than 7 6.8 lipid panel pending Diabetic diet encourage lifestyle modifications and weight loss Optimize Juan Carlos inhibitors and statins. Watch for hypoglycemia/hypoglycemic protocol ordered Code status: Full code per patient DVT prophylaxis: Lovenox Stress ulcer prophylaxis: Protonix 40 daily PT/OT notes: PT/OT pending Disposition: Patient is admission to the medical unit for evaluation treatment possible TIA versus CVA ports right-sided weakness improving, Neurology consulted. Spoke with patient and daughter plan is to discharge home would prefer home health. Time Spent With Patient Time with patient: 15 - 25 minutes Subjective Date/time seen: 12/27/23 12:49 Interval history: Admission: 63-year-old female with past medical history of medical noncompliance, right-sided breast cancer, coronary artery disease, essential hypertension, hyperlipidemia, type 2 diabetes mellitus, coronary artery disease and obesity who presented to the ER with 2 days of weakness of the left leg and sensory changes in the left arm. The patient reports that her left leg seemed to be weak and was not cooperating as much as usual. Her legs in went from just being a little bit weak to the point where she could not pick it up off the floor so she decided come into the ER. She denies any visual changes, blurred vision, difficulty speaking, difficulty with word finding or confusion. She denies a known prior history of CVA but she did have recent CT performed in August due to high blood pressure and headache which demonstrated hold focal lacunar infarcts in the right caudate head right internal capsule and right lentiform nucleus. She denies prior history of neurologic events. She reports tells me that she had paresthesias that persisted until after admission but at the time of my physical exam patient reports resolution of her paresthesias. 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
[2023-12-27] MEDS: ATORVASTATIN 40 MG TABLET PO (13:23)
[2023-12-27] MEDS: CLOPIDOGREL BISULFATE 75 MG TABLET PO (13:23)
[2023-12-27] MEDS: BISACODYL 5 MG TABLET EC PO (14:42)
[2023-12-27 16:44] LABS: Glucose Point of Care 108 mg/dl (65-105)
--- NOTE | 2023-12-27 17:44 | WPDNEURCNPN ---
Assessment and Plan Assessment and plan (1) Acute CVA (cerebrovascular accident): Code(s): I63.9 - Cerebral infarction, unspecified Status: Acute (2) Diabetes mellitus: Qualifiers: Diabetes mellitus type: type 2 Diabetes mellitus director medicaid insulin use: without long-term use Diabetes mellitus complication status: with neurologic complications Diabetes mellitus complication detail: with other neurological complication Qualified Code(s): E11.49 - Type 2 diabetes mellitus with other diabetic neurological complication Code(s): E11.9 - Type 2 diabetes mellitus without complications Status: Acute (3) Hyperlipidemia: Qualifiers: Hyperlipidemia type: pure hypercholesterolemia Qualified Code(s): E78.00 - Pure hypercholesterolemia, unspecified Code(s): E78.5 - Hyperlipidemia, unspecified Status: Acute (4) HTN (hypertension): Code(s): I10 - Essential (primary) hypertension Status: Acute (5) Malignant neoplasm of lower-inner quadrant of right female breast: Code(s): C50.311 - Malignant neoplasm of lower-inner quadrant of right female breast Status: Acute (6) Current smoker: Code(s): F17.200 - Nicotine dependence, unspecified, uncomplicated Status: Acute Assessment and Plan: patient admits to smoking 1 pack of severe day and is aware of the harmful effects smoking (7) Exogenous obesity: Code(s): E66.09 - Other obesity due to excess calories Status: Acute Assessment and Plan: BMI was 39.2. Patient may have underlying obstructive sleep apnea syndrome and that should be explored Plan MRI of the brain shows infarct in the right hemisphere particularly noted on the DWI sequences. Old lacunar infarct was noted in the right side which is most likely coincidental finding this time. The findings on the CT angiogram of the head and neck were noted that she does have some cerebrovascular disease of varying degree affecting several blood vessels however given the fact that she had symptoms for 3 days and the narrowing in the carotid siphon area is around 50 60% on both sides I doubt with the intervention would be possible although I suspect this could be a source of embolization the right side. A cardiac source also need to be explored. The patient has somewhat of irregular cardiac rhythm. Cardiac monitoring and echocardiogram have been planned and should be followed up. She may have underlying obstructive sleep apnea syndrome and should be screened for that. He needs to stop smoking and work on risk factors. She should be treated with dual antiplatelets and high intensity statins at this time the goal to keep LDL under 65. Physical therapy to assess the safety pain important since he lives by herself. I had extensive discussion with the patient and her niece regarding the risk factor management. Consult date: 12/27/23 HPI: Angeline Caraballo is a 63 year old right-handed Afro-[place] female presented to the emergency room with numbness in the left side of the body for last 3 days. Later on it appeared that the left leg was weaker than the arm. Symptoms have improved but she still has some weakness. No history of previous stroke. There is a history of diabetes mellitus and hypertension in addition there is also history of cardiac disease. She was admitted to the hospital in 2022 and was found to have evidence of coronary disease although she did not have a myocardial infarction at that time. Patient continues to smoke 1 pack of cigarettes a day. She is working. She has been suspected of sleep apnea syndrome but she never had any testing. 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 Her niece was this year at the time of the evaluation and seems very concerned. She also had a right breast cancer in 2021 and she had undergone treatment for the same. CT angiogram of the head and neck shows some diffuse atherosclerotic changes in several v
[2023-12-27 19:38] LABS: Cholesterol 248 mg/dL (0-200); HDL Direct 38 mg/dL; Triglycerides 187 mg/dL (<150)
[2023-12-27 19:49] LABS: LDL Cholesterol Direct 171 mg/dL
[2023-12-27 19:55] LABS: Vitamin D 25 Hydroxy 20.9 ng/mL
[2023-12-27 20:52] LABS: Folic Acid 7.2 ng/mL (2.76->20)
[2023-12-27 21:38] LABS: Glucose Point of Care 140 mg/dl (65-105)
[2023-12-28] VITALS (9 sets, daily range): BP systolic 122–140; BP diastolic 63–82; PULSE 69–109; RESP 18; TEMP 36.7; O2SAT 97–100
--- NOTE | 2023-12-28 | ECHO_ITS ---
Patient Info Name: Angeline Caraballo Age: 63 years : 1960 Gender: Female Ht: 68 in Wt: 202 lbs BSA: 2.12 m2 HR: 97 bpm BP: 140 / 82 mmHg Heart Rhythm: Sinus Rhythm Technical Quality: Good Exam Date: 12/28/2023 10:39 AM Exam Location: Echo Lab Patient Status: Outpatient Admit Date: 12/26/2023 Staff Ordering Physician: Cecilia Diaz APRN Sugar Boiler: Ray [place] RDCS Attending Provider: Cecilia Diaz APRN Referring Physician: Joe CARSON; Exam Type: CA echo doppler w bubble study Study Info Indications - TIA Complete two-dimensional, color flow and Doppler transthoracic echocardiogram is performed. Summary 1. Technically difficult study with limited views. 2. Left ventricular chamber dimension is normal. 3. Left ventricular systolic function is normal, estimated at 60-65%. 4. The left ventricular apex appears aneurysmal. 5. The left ventricular diastolic function is grade I diastolic dysfunction. 6. Right ventricular systolic function is normal. 7. Left atrial chamber dimension is mildly enlarged. 8. Intact interatrial septum visualized by color flow and agitated saline imaging. Negative bubble study. Left Ventricle The left ventricular apex appears aneurysmal. Left ventricular chamber dimension is normal. Left ventricular systolic function is normal, estimated at 60-65%. There is no increased left ventricular wall thickness. The left ventricular diastolic function is grade I diastolic dysfunction. Right Ventricle Right ventricular chamber dimension is normal. Right ventricular systolic function is normal. Left Atria Left atrial chamber dimension is mildly enlarged. Right Atria Right atrial chamber dimension is normal. Atrial Septum Intact interatrial septum visualized by color flow and agitated saline imaging. Negative bubble study. Aortic Valve The aortic valve is probable trileaflet. There is no aortic valve stenosis. There is no aortic valve regurgitation. Pulmonic Valve The pulmonic valve is not well visualized. There is no pulmonic regurgitation. Mitral Valve There is trace mitral valve regurgitation. Tricuspid Valve There is trace tricuspid valve regurgitation. Pericardium/Pleural The pericardium appears epicardial fat pad. There is no pericardial effusion. Inferior Vena Cava Inferior vena cava is not well visualized. Aorta The aortic root size at the sinus of Valsalva is normal. Left Ventricular Outflow Tract Name Value Normal LVOT 2D LVOT Diameter 2.1 cm LVOT Doppler LVOT Peak Gradient 3 mmHg LVOT Mean Gradient 2 mmHg LVOT VTI 21 cm LVOT VTI/AV VTI Ratio 0.7 LVOT Stroke Volume 72 ml LVOT CO 5.2 l/min LVOT CI 2.4 l/min/m2 Pulmonic Valve Name Value Normal PV Doppler
[2023-12-28 08:59] LABS: Glucose Point of Care 132 mg/dl (65-105)
[2023-12-28 09:22] LABS: Hematocrit 47.7 % (37.0-47.0); Hemoglobin 14.9 g/dL (12.0-15.0); Mean Corpuscular HGB Conc 31.2 g/dl (32-36); Mean Corpuscular Hemoglobin 27.4 pg (26-34); Mean Corpuscular Volume 87.8 fl (80-100); Mean Platelet Volume 10.8 fl (7.4-10.4); Platelet Count Result 363 k/mm3 (150-375); Red Blood Count 5.43 M/mm3 (4.2-5.4); Red Cell Distribution Width 13.3 % (11.5-14.5); White Blood Count 11.1 K/mm3 (4.5-10.0)
[2023-12-28] MEDS: ASPIRIN 81 MG CHEWABLE TABLET PO (09:35)
[2023-12-28] MEDS: amLODIPine BESYLATE 10 MG TABLET PO (09:35)
[2023-12-28] MEDS: BISACODYL 5 MG TABLET EC PO (09:35)
[2023-12-28 09:36] LABS: Alanine Aminotransferase 21 U/L (6-35); Albumin Level 4.5 g/dL (3.5-5.1); Alkaline Phosphatase 118 U/L (38-126); Anion Gap 9 mmol/L (4-12); Aspartate Amino Transferase 33 U/L (14-36); Bilirubin,Total 1.3 mg/dL (0.2-1.3); Blood Urea Nitrogen 12 mg/dL (7-17); Calcium 9.4 mg/dL (8.4-10.2); Carbon Dioxide 27 mmol/L (22-30); Chloride 100 mmol/L (98-107); Estimated CRCL calculation 72 ml/min; Estimated Glomerular Filt Rate > 60; Glucose 135 mg/dL (65-110); Potassium 4.1 mmol/L (3.4-5.0); Sodium 136 mmol/L (137-145)
[2023-12-28] MEDS: PANTOPRAZOLE 40 MG TABLET PO (09:36)
[2023-12-28] MEDS: CLOPIDOGREL BISULFATE 75 MG TABLET PO (09:36)
[2023-12-28] MEDS: ENOXAPARIN 40 MG/0.4 ML SYRINGE SUB-Q (09:36)
[2023-12-28] MEDS: LORazepam (*CRX) 1 MG TABLET PO (09:41)
[2023-12-28] MEDS: ROSUVASTATIN 20 MG TABLET 40 MG PO (11:28)
[2023-12-28 11:39] LABS: Glucose Point of Care 120 mg/dl (65-105)
--- NOTE | 2023-12-28 15:50 | P.PNIM_ITS ---
Progress Note: A&P Assessment and Plan (1) Polycythemia: Code(s): D75.1 - Secondary polycythemia Status: Acute (2) Acute CVA (cerebrovascular accident): Code(s): I63.9 - Cerebral infarction, unspecified Status: Acute (3) Hyperlipidemia: Qualifiers: Hyperlipidemia type: pure hypercholesterolemia Qualified Code(s): E78.00 - Pure hypercholesterolemia, unspecified Code(s): E78.5 - Hyperlipidemia, unspecified Status: Acute (4) TIA (transient ischemic attack): Code(s): G45.9 - Transient cerebral ischemic attack, unspecified Status: Acute (5) Snoring: Code(s): R06.83 - Snoring Status: Acute (6) GERD with esophagitis: Qualifiers: Esophagitis bleeding: without hemorrhage Qualified Code(s): K21.00 - Gastro-esophageal reflux disease with esophagitis, without bleeding Code(s): K21.00 - Gastro-esophageal reflux disease with esophagitis, without bleeding Status: Acute (7) Left leg weakness: Code(s): R29.898 - Other symptoms and signs involving the musculoskeletal system Status: Acute Plan Acute CVA * Neuro check q.4 hour for the 1st 24 hours. * case monitor and telemetry continuously. * BP stable * MRI of the brain without contrast pending * CTA scan shows old lacunar infarct * PT/OT eval and treat. * Check for LDL and hemoglobin A1c. * Add statins 40 mg q.day, aspirin 81 mg g q.day/Plavix * Echo with bubble study pending * Neurology consulted for any further recommendation * Recommend 30 day event monitor outpatient 12/28/2023: MRI Results: IMPRESSION: 1. Multiple small acute infarcts in the medial right frontal and anterior right parietal lobes in the vascular distribution of the right anterior communicating artery consistent with shallower of emboli. 2. Mild lacunar infarct in the right basal ganglia. * carotid siphon area is around 50 60% on both sides possible cause * Currently waiting on Echo with bubble study read to determine any shunting * will likely need 30-day event monitor * Switched to Crestor stated the atorvastatin made her feel funny HTN * continue amlodipine * Stop taking losartan and hydrochlorothiazide * BP per unit protocol * Patient reports side effects with lisinopril losartan HLD * Started on Atorvastatin Snoring/fatigue * sleep study outpatient GERD * Pantoprazole Diabetes * Accu-Cheks a.c. HS * sliding scale insulin * hold oral diabetic medications * Hemoglobin A1c goal less than 7 6.8 * lipid panel pending * Diabetic diet * encourage lifestyle modifications and weight loss * Optimize Juan Carlos inhibitors and statins. * Watch for hypoglycemia/hypoglycemic protocol ordered Code status: Full code per patient DVT prophylaxis: Lovenox Stress ulcer prophylaxis: Protonix 40 daily PT/OT notes: PT/OT pending Disposition: Patient is admission to the medical unit for evaluation treatment possible TIA versus CVA ports right-sided weakness improving, Neurology consulted. Spoke with patient and daughter plan is to discharge home would prefer home health. Time Spent With Patient Time with patient: 15 - 25 minutes Subjective Date/time seen: 12/28/23 15:50 Interval history: Admission: 63-year-old female with past medical history of medical noncompliance, right- sided breast cancer, coronary artery disease, essential hypertension, hyperlipidemia, type 2 diabetes mellitus, coronary
--- NOTE | 2023-12-28 15:50 | PM.IMPN ---
Progress Note: A&P Assessment and Plan (1) Polycythemia: Code(s): D75.1 - Secondary polycythemia Status: Acute (2) Acute CVA (cerebrovascular accident): Code(s): I63.9 - Cerebral infarction, unspecified Status: Acute (3) Hyperlipidemia: Qualifiers: Hyperlipidemia type: pure hypercholesterolemia Qualified Code(s): E78.00 - Pure hypercholesterolemia, unspecified Code(s): E78.5 - Hyperlipidemia, unspecified Status: Acute (4) TIA (transient ischemic attack): Code(s): G45.9 - Transient cerebral ischemic attack, unspecified Status: Acute (5) Snoring: Code(s): R06.83 - Snoring Status: Acute (6) GERD with esophagitis: Qualifiers: Esophagitis bleeding: without hemorrhage Qualified Code(s): K21.00 - Gastro-esophageal reflux disease with esophagitis, without bleeding Code(s): K21.00 - Gastro-esophageal reflux disease with esophagitis, without bleeding Status: Acute (7) Left leg weakness: Code(s): R29.898 - Other symptoms and signs involving the musculoskeletal system Status: Acute Plan Acute CVA Neuro check q.4 hour for the 1st 24 hours. 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 BP stable MRI of the brain without contrast pending CTA scan shows old lacunar infarct PT/OT eval and treat. Check for LDL and hemoglobin A1c. Add statins 40 mg q.day, aspirin 81 mg g q.day/Plavix Echo with bubble study pending Neurology consulted for any further recommendation Recommend 30 day event monitor outpatient 12/28/2023: MRI Results: IMPRESSION: 1. Multiple small acute infarcts in the medial right frontal and anterior right parietal lobes in the vascular distribution of the right anterior communicating artery consistent with shallower of emboli. 2. Mild lacunar infarct in the right basal ganglia. carotid siphon area is around 50 60% on both sides possible cause Currently waiting on Echo with bubble study read to determine any shunting will likely need 30-day event monitor Switched to Crestor stated the atorvastatin made her feel funny HTN continue amlodipine Stop taking losartan and hydrochlorothiazide BP per unit protocol Patient reports side effects with lisinopril losartan HLD Started on Atorvastatin Snoring/fatigue sleep study outpatient GERD Pantoprazole Diabetes Accu-Cheks a.c. HS sliding scale insulin hold oral diabetic medications Hemoglobin A1c goal less than 7 6.8 lipid panel pending Diabetic diet encourage lifestyle modifications and weight loss Optimize Juan Carlos inhibitors and statins. Watch for hypoglycemia/hypoglycemic protocol ordered Code status: Full code per patient DVT prophylaxis: Lovenox Stress ulcer prophylaxis: Protonix 40 daily PT/OT notes: PT/OT pending Disposition: Patient is admission to the medical unit for evaluation treatment possible TIA versus CVA ports right-sided weakness improving, Neurology consulted. Spoke with patient and daughter plan is to discharge home would prefer home health. Time Spent With Patient Time with patient: 15 - 25 minutes Subjective Date/time seen: 12/28/23 15:50 Interval history: Admission: 63-year-old female with past medical history of medical noncompliance, right-sided breast cancer, coronary artery disease, essential hypertension, hyperlipidemia, type 2 diabetes mellitus, coronary artery disease and obesity who presented to the ER with 2 days of weakness of the left leg and sensory changes in the left arm. The patient reports that her left leg seemed to be weak and was not cooperating as much as usual. Her legs in went from just being a little bit weak to the point where she could not pick it up off the floor so she decided come into the ER. She denies any visual changes, blurred vision, difficulty speaking, difficulty with word finding or confusion. She denies a known prior history
[2023-12-28 16:42] LABS: Glucose Point of Care 119 mg/dl (65-105)
[2023-12-28 20:04] LABS: Glucose Point of Care 201 mg/dl (65-105)
[2023-12-29] VITALS: PULSE 85
[2023-12-29 04:00] VITALS: BP 157/87; PULSE 100; PULSE 83; RESP 18; TEMP 37; O2SAT 100
[2023-12-29 08:00] VITALS: PULSE 89
[2023-12-29 08:28] LABS: Basophils Absolute Auto 0.1 K/mm3 (0.0-0.1); Basophils Percent Auto 0.7 % (0.2-1.2); Eosinophils Absolute Auto 0.1 K/mm3 (0-0.3); Eosinophils Percent Auto 1.3 % (0-4.4); Immature Granulocyte Absolute 0.04 K/mm3 (0.00-0.031); Immature Granulocyte Percent A 0.4 % (0-0.5); Lymphocytes Absolute Auto 4.06 K/mm3 (0.9-3.2); Lymphocytes Percent Auto 41.6 % (18.3-44.2); Mean Corpuscular HGB Conc 31.9 g/dl (32-36); Mean Corpuscular Hemoglobin 28.2 pg (26-34); Mean Corpuscular Volume 88.5 fl (80-100); Mean Platelet Volume 10.5 fl (7.4-10.4); Monocytes Absolute Auto 0.4 K/mm3 (0.1-0.6); Monocytes Percent Auto 4.5 % (2.6-8.5); Neutrophils Percent Auto 51.5 % (45.5-73.1); Platelet Count Result 339 k/mm3 (150-375); Red Blood Count 5.31 M/mm3 (4.2-5.4); Red Cell Distribution Width 13.2 % (11.5-14.5); White Blood Count 9.8 K/mm3 (4.5-10.0)
[2023-12-29 08:30] VITALS: BP 137/87; PULSE 89; RESP 20; TEMP 36.8; O2SAT 98
[2023-12-29 08:45] LABS: Alanine Aminotransferase 23 U/L (6-35); Albumin Level 4.5 g/dL (3.5-5.1); Alkaline Phosphatase 119 U/L (38-126); Anion Gap 8 mmol/L (4-12); Aspartate Amino Transferase 29 U/L (14-36); Blood Urea Nitrogen 12 mg/dL (7-17); Calcium 9.4 mg/dL (8.4-10.2); Carbon Dioxide 28 mmol/L (22-30); Chloride 101 mmol/L (98-107); Estimated CRCL calculation 72 ml/min; Estimated Glomerular Filt Rate > 60; Glucose 121 mg/dL (65-110); Potassium 4.3 mmol/L (3.4-5.0); Sodium 137 mmol/L (137-145)
[2023-12-29 09:29] LABS: Glucose Point of Care 127 mg/dl (65-105)
[2023-12-29] MEDS: PANTOPRAZOLE 40 MG TABLET PO (10:39)
[2023-12-29] MEDS: ROSUVASTATIN 20 MG TABLET 40 MG PO (10:39)
[2023-12-29] MEDS: CLOPIDOGREL BISULFATE 75 MG TABLET PO (10:39)
[2023-12-29] MEDS: ENOXAPARIN 40 MG/0.4 ML SYRINGE SUB-Q (10:39)
[2023-12-29] MEDS: ASPIRIN 81 MG CHEWABLE TABLET PO (10:39)
[2023-12-29] MEDS: BISACODYL 5 MG TABLET EC PO (10:40)
[2023-12-29] MEDS: amLODIPine BESYLATE 10 MG TABLET PO (10:40)
[2023-12-29 12:00] VITALS: PULSE 87
--- NOTE | 2023-12-29 12:08 | P.DS_ITS ---
DS: Admitting Diagnosis Discharge Date 12/29/2023 Admitting Diagnosis CVA DS: Discharge Diagnosis Discharge Diagnosis (1) Polycythemia: Code(s): D75.1 - Secondary polycythemia Status: Acute (2) Acute CVA (cerebrovascular accident): Code(s): I63.9 - Cerebral infarction, unspecified Status: Acute (3) Hyperlipidemia: Qualifiers: Hyperlipidemia type: pure hypercholesterolemia Qualified Code(s): E78.00 - Pure hypercholesterolemia, unspecified Code(s): E78.5 - Hyperlipidemia, unspecified Status: Acute (4) TIA (transient ischemic attack): Code(s): G45.9 - Transient cerebral ischemic attack, unspecified Status: Acute (5) Snoring: Code(s): R06.83 - Snoring Status: Acute (6) GERD with esophagitis: Qualifiers: Esophagitis bleeding: without hemorrhage Qualified Code(s): K21.00 - Gastro-esophageal reflux disease with esophagitis, without bleeding Code(s): K21.00 - Gastro-esophageal reflux disease with esophagitis, without bleeding Status: Acute (7) Left leg weakness: Code(s): R29.898 - Other symptoms and signs involving the musculoskeletal system Status: Acute Plan Acute CVA * Neuro check q.4 hour for the 1st 24 hours. 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 * BP stable * MRI of the brain without contrast pending * CTA scan shows old lacunar infarct * PT/OT eval and treat. * Check for LDL and hemoglobin A1c. * Add statins 40 mg q.day, aspirin 81 mg g q.day/Plavix * Echo with bubble study pending * Neurology consulted for any further recommendation * Recommend 30 day event monitor outpatient 12/28/2023: MRI Results: IMPRESSION: 1. Multiple small acute infarcts in the medial right frontal and anterior right parietal lobes in the vascular distribution of the right anterior communicating artery consistent with shallower of emboli. 2. Mild lacunar infarct in the right basal ganglia. * carotid siphon area is around 50 60% on both sides possible cause * Currently waiting on Echo with bubble study read to determine any shunting * will likely need 30-day event monitor * Switched to Crestor stated the atorvastatin made her feel funny HTN * continue amlodipine * Stop taking losartan and hydrochlorothiazide * BP per unit protocol * Patient reports side effects with lisinopril losartan HLD * Started on Atorvastatin Snoring/fatigue * sleep study outpatient GERD * Pantoprazole Diabetes * Accu-Cheks a.c. HS * sliding scale insulin * hold oral diabetic medications * Hemoglobin A1c goal less than 7 6.8 * lipid panel pending * Diabetic diet * encourage lifestyle modifications and weight loss * Optimize Juan Carlos inhibitors and statins. * Watch for hypoglycemia/hypoglycemic protocol ordered Disposition: Patient discharged to home with home health will have 30-day event monitor and follow-up with primary and neurology outpatient. DS: Summary Hospital Course Reason for hospitalization: CVA Hospital Course: Admission: 63-year-old female with past medical history of medical noncompliance, right- sided breast cancer, coronary artery disease, essential hypertension, hyperlipidemia, type 2 diabetes mellitus, coronary artery disease and obesity who presented to the ER with 2 days of weakness of the left leg and sensory griselda nges in the left arm. The patient reports that her left le
--- NOTE | 2023-12-29 12:08 | PM.DS ---
DS: Admitting Diagnosis Discharge Date 12/29/2023 Admitting Diagnosis CVA DS: Discharge Diagnosis Discharge Diagnosis (1) Polycythemia: Code(s): D75.1 - Secondary polycythemia Status: Acute (2) Acute CVA (cerebrovascular accident): Code(s): I63.9 - Cerebral infarction, unspecified Status: Acute (3) Hyperlipidemia: Qualifiers: Hyperlipidemia type: pure hypercholesterolemia Qualified Code(s): E78.00 - Pure hypercholesterolemia, unspecified Code(s): E78.5 - Hyperlipidemia, unspecified Status: Acute (4) TIA (transient ischemic attack): Code(s): G45.9 - Transient cerebral ischemic attack, unspecified Status: Acute (5) Snoring: Code(s): R06.83 - Snoring Status: Acute (6) GERD with esophagitis: Qualifiers: Esophagitis bleeding: without hemorrhage Qualified Code(s): K21.00 - Gastro-esophageal reflux disease with esophagitis, without bleeding Code(s): K21.00 - Gastro-esophageal reflux disease with esophagitis, without bleeding Status: Acute (7) Left leg weakness: Code(s): R29.898 - Other symptoms and signs involving the musculoskeletal system Status: Acute Plan Acute CVA Neuro check q.4 hour for the 1st 24 hours. surveillance monitor and telemetry continuously. BP stable MRI of the brain without contrast pending CTA scan shows old lacunar infarct PT/OT eval and treat. Check for LDL and hemoglobin A1c. Add statins 40 mg q.day, aspirin 81 mg g q.day/Plavix Echo with bubble study pending Neurology consulted for any further recommendation Recommend 30 day event monitor outpatient 12/28/2023: MRI Results: IMPRESSION: 1. Multiple small acute infarcts in the medial right frontal and anterior right parietal lobes in the vascular distribution of the right anterior communicating artery consistent with shallower of emboli. 2. Mild lacunar infarct in the right basal ganglia. carotid siphon area is around 50 60% on both sides possible cause Currently waiting on Echo with bubble study read to determine any shunting will likely need 30-day event monitor Switched to Crestor stated the atorvastatin made her feel funny HTN continue amlodipine Stop taking losartan and hydrochlorothiazide BP per unit protocol Patient reports side effects with lisinopril losartan HLD Started on Atorvastatin Snoring/fatigue sleep study outpatient GERD Pantoprazole Diabetes Accu-Cheks a.c. HS sliding scale insulin hold oral diabetic medications Hemoglobin A1c goal less than 7 6.8 lipid panel pending Diabetic diet encourage lifestyle modifications and weight loss Optimize Juan Carlos inhibitors and statins. Watch for hypoglycemia/hypoglycemic protocol ordered Disposition: Patient discharged to home with home health will have 30-day event monitor and follow-up with primary and neurology outpatient. DS: Summary Hospital Course Reason for hospitalization: CVA Hospital Course: Admission: 63-year-old female with past medical history of medical noncompliance, right-sided breast cancer, coronary artery disease, essential hypertension, hyperlipidemia, type 2 diabetes mellitus, coronary artery disease and obesity who presented to the ER with 2 days of weakness of the left leg and sensory changes in the left arm. The patient reports that her left leg seemed to be weak and was not cooperating as much as usual. Her legs in went from just being a little bit weak to the point where she could not pick it up off the floor so she decided come into the ER. She denies any visual changes, blurred vision, difficulty speaking, difficulty with word finding or confusion. She denies a known prior history of CVA but she did have recent CT performed in August due to high blood pressure and headache which demonstrated hold focal lacunar infarcts in the right caudate head right internal capsule
[2023-12-29 12:15] LABS: Glucose Point of Care 98 mg/dl (65-105)
[2023-12-29 14:00] VITALS: BP 142/72; PULSE 83; RESP 20; TEMP 36.3; O2SAT 99
== END 2023-12-29 14:40 | disposition home health service (06) ==
LOC: ANHED 15:12 → ANH2MED 19:53 → ANH3MEDSUR 12-30 07:22
PROVIDERS: Internal Medicine; Psychiatry & Neurology Neurology; Admitting Provider Internal Medicine; Emergency Provider Emergency Medicine; PCP Emergency Medicine; Visit Provider Nurse Practitioner Family
DX: I63.9 Cerebral infarction, unspecified (principal); R53.1 Weakness; D75.1 Secondary polycythemia; R06.83 Snoring; I11.9 Hypertensive heart disease without heart failure; E11.49 Type 2 diabetes mellitus with other diabetic neurological complication; E78.00 Pure hypercholesterolemia, unspecified; I25.10 Atherosclerotic heart disease of native coronary artery without angina pectoris; K21.00 Gastro-esophageal reflux disease with esophagitis, without bleeding; F17.210 Nicotine dependence, cigarettes, uncomplicated; R29.705 NIHSS score 5; E66.9 Obesity, unspecified; Z68.39 Body mass index [BMI] 39.0-39.9, adult; Z85.3 Personal history of malignant neoplasm of breast; Z86.73 Personal history of transient ischemic attack (TIA), and cerebral infarction without residual deficits; Z79.84 Long term (current) use of oral hypoglycemic drugs; Z92.3 Personal history of irradiation
CPT/HCPCS: 36415; 36569; 70496; 70498; 70553; 71045; 80053; 80061; 81003; 82306; 82607; 82746; 82948; 84443; 85025; 85027; 85610; 85730; 93005; 93306; 94762; 96360; 96361; 96372; 96375; 97110; 97116; 97161; 97165; 97530; 97535; 99285; A9270; A9577; C1751; G0378; J1650; J7030; Q9967

== ENCOUNTER 2024-05-21 08:47 | Outpatient (CLI) | payer OTHER, SELFPAY ==
[2024-05-21 09:17] LABS: Basophils Absolute Auto 0.1 K/mm3 (0.0-0.1); Basophils Percent Auto 0.9 % (0.2-1.2); Eosinophils Absolute Auto 0.2 K/mm3 (0-0.3); Eosinophils Percent Auto 2.1 % (0-4.4); Hemoglobin 14.6 g/dL (12.0-15.0); Immature Granulocyte Absolute 0.02 K/mm3 (0.00-0.031); Immature Granulocyte Percent A 0.2 % (0-0.5); Lymphocytes Absolute Auto 4.64 K/mm3 (0.9-3.2); Lymphocytes Percent Auto 41.4 % (18.3-44.2); Mean Corpuscular HGB Conc 31.7 g/dl (32-36); Mean Corpuscular Hemoglobin 28.2 pg (26-34); Mean Corpuscular Volume 88.8 fl (80-100); Mean Platelet Volume 10.6 fl (7.4-10.4); Monocytes Absolute Auto 0.4 K/mm3 (0.1-0.6); Monocytes Percent Auto 3.7 % (2.6-8.5); Neutrophils Absolute Auto 5.8 K/mm3 (1.3-6.7); Neutrophils Percent Auto 51.7 % (45.5-73.1); Platelet Count Result 355 k/mm3 (150-375); Red Blood Count 5.18 M/mm3 (4.2-5.4); Red Cell Distribution Width 14.3 % (11.5-14.5); White Blood Count 11.2 K/mm3 (4.5-10.0)
[2024-05-21 09:31] LABS: Alanine Aminotransferase 16 U/L (6-35); Albumin Level 4.1 g/dL (3.5-5.1); Alkaline Phosphatase 145 U/L (38-126); Anion Gap 3 mmol/L (4-12); Aspartate Amino Transferase 23 U/L (14-36); Bilirubin,Total 0.7 mg/dL (0.2-1.3); Blood Urea Nitrogen 11 mg/dL (7-17); Calcium 9.5 mg/dL (8.4-10.2); Carbon Dioxide 29 mmol/L (22-30); Chloride 108 mmol/L (98-107); Cholesterol 156 mg/dL (0-200); Estimated Glomerular Filt Rate > 60; Glucose 122 mg/dL (65-110); HDL Direct 48 mg/dL; Potassium 4.1 mmol/L (3.4-5.0); Sodium 140 mmol/L (137-145); Triglycerides 61 mg/dL (<150)
[2024-05-21 09:42] LABS: LDL Cholesterol Direct 79 mg/dL
--- OUTSIDE RECORDS SUMMARY | 2024-05-25 00:08 | XMS_ITS | Referral Summary ---
Author Organization [facility] Address [address] [place] [address] Care Team Providers Care Third Grade Teacher Name Role Phone Unavailable Primary Care Provider Unavailabl e Source Comments [facility],non-owned Affiliates and Associated Physician Practices is amultiple site organization consisting of ambulatory clinics and hospital sitesin [place], [place], [place] and [place]. This disclosure is being madepursuant to the Care Everywhere program and may not contain all information available regarding this patient. Last updated 18.[facility] [place] Allergies No known active allergies Social History Tobacco Use Types Packs/Day Years Used Date Smoking Tobacco: Never Assessed Sex and Gender Information Value Date Recorded Sex Assigned at Not on file Gender Identity Not on file Sexual Orientation Not on file Plan of Treatment Not on file Administered Medications
--- OUTSIDE RECORDS SUMMARY | 2024-05-25 00:08 | XMS_ITS | Clinical Summary ---
Author Organization [facility] Address [address] [place] [address] Care Team Providers Care Diversified Crops Farmer Name Role Phone Unavailable Primary Care Provider Unavailabl e Source Comments [facility],non-owned Affiliates and Associated Physician Practices is amultiple site organization consisting of ambulatory clinics and hospital sitesin [place], [place], [place] and [place]. This disclosure is being madepursuant to the Care Everywhere program and may not contain all information available regarding this patient. Last updated 18.[facility] Allergies No known active allergies Social History Tobacco Use Types Packs/Day Years Used Date Smoking Tobacco: Never Assessed Sex and Gender Information Value Date Recorded Sex Assigned at Not on file Gender Identity Not on file Sexual Orientation Not on file Plan of Treatment Health Maintenance Due Date Last Done Comments COLOGUARD (AGES 45-75) - COL ON CA SCREENING 1961 COLON MONITORING 1961 COLONOSCOPY - COLON CA SCREENING 1961 CT COLONOGRAPHY - COLON CA SCREENING 1961 Colorectal Cancer Screening 1961 FIT - COLON CA SCREENING 1961 FLEX SIG - COLON CA SCREENING 1961 LIPID TESTING 1961 MAMMOGRAM 1961 PAP SMEAR 1961 HIV SCREENING 1976 HEPATITIS C SCREENING 10/15/1979 DTAP/TDAP/TD VACCINES (1 - Tdap) 1980 ZOSTER VACCINE (1 of 2) 10/20/2011 DEPRESSION SCREENING 06/08/2023 COVID-19 VACCINE (3 - 2023-2 5 season) 2024 01/20/2021, 12/30/2020 INFLUENZA VACCINE (#1) 2024 Respiratory Syncytial Virus (RSV) Vaccine Pt: or over 60 yrs (1 - 1-dose 75+ series) 2036 HEPATITIS B VACCINE Aged Out No longe r eligible based on patient's age to complete this topic HIB VACCINE Aged Out No longer eligi ble based on patient's age to complete this topic HPV VACCINE Aged Out No longer eligi ble based on patient's age to complete this topic MENINGOCOCCAL VACCINE Aged Out No krista amy eligible based on patient's age to complete this topic PNEUMOCOCCAL VACCINE Aged Out No long er eligible based on patient's age to complete this topic
--- OUTSIDE RECORDS SUMMARY | 2024-05-25 00:08 | XMS_ITS | Data Portability ---
Author Organization [facility] [place] Address [address] [place] [address] Assessment Encounter Date Assessment Date Assessment LastModified by Organization Details LastModified Time 07/06/2020 07/06/2020 Annual gynecological exam performed. Patient will come back in a year unless there are new symptoms. Not available 07/06/2020 10:15:02 Plan of Treatment Reminders Order Date Submit Date Provider Last Modified By Organization Details Last Modified Time Details Appointments None record ed. Lab None record ed. Referral None record ed. Procedures None record ed. Surgeries None record ed. Imaging None record ed. Medication Orders None record ed. Patient TargetsNo targets recorded. Patient Instructions Encounter Date Encounter Id Patient Instructions Last Modified By Organization Details Last Modified Time 07/06/2020 [id number] [email or web address] Not available 14:07:06 Reason for Referral None Reported. Medical Equipment None Reported. Allergies No known drug allergies Medications Name Sig Start Date Stop Date Status Note LastModified by Organization Details LastModified Time amoxicillin active Not Available Not A vailable Not Available amlodipine active Not Available Not Av ailable Not Available simvastatin active Not Available Not A vailable Not Available metformin active Not Available Not Fior ilable Not Available Vitamin D2 active Not Available Not Av ailable Not Available Vitals Date Recorded Body height Body mass index (BMI) Body weight Systolic blood pressure Diastolic blood pressure Provider Name and Address Organization Details Last Updated DateTime 07/06/2020 157.48 cm 39.7 kg/m2 18046.54 g 142 mm[Hg] 90 mm[Hg] Hanna Garcia [facility] 10:24:11 Social History Question Answer Notes LastModified by Organizat ion Details LastModified Time Tobacco Smoking Status Current Every Day Smoker Hanna Ojse [facility] 07/06/2020 10:25:15 What Is Your Level Of Alcohol Consumption? None Information not available 07/06/2020 What Is Your Level Of Caffeine Consumption? Heavy Information not available 07/06/2020 How Many Days Of Moderate To Strenuous Exercise, Like A Brisk Walk, Did You Do In The Last 7 Days? 5 Information not available 07/06/2020 On Those Days That You Engage In Moderate To Strenuous Exercise, How Many Minutes, On Average, Do You Exercise? 20 Information not available 07/06/2020 What Is Your Current Pack Years? 30ormorepack years Information not available 07/06/2020 At What Age Did You Start Smoking Tobacco? 26 Information not available 07/06/2020 How Much Tobacco Do You Smoke? 1 PPD Information not available 07/06/2020 Do You Use Any Illicit Or Recreational Drugs? No Information not available 07/06/2020 Has Tobacco Cessation Counseling Been Provided? No Information not available 07/06/2020 How Many Years Have You Smoked Tobacco? 30 Information not available 07/06/2020 Do You Or Have You Ever Used Any Other Forms Of Tobacco Or Nicotine? No Information not available 07/06/2020 Sex: Unknown Functional Status Question Answer Note LastModified by Organization D etails LastModified Time What is your exercise level? Moderate Information not available 07/06/2020 Mental Status None recorded. Family History Nothing Reported. Medical History Condition Response Diabetes Y Hypertension Y High Cholesterol Y Gynecological History Statement/Question Response STIs/STDs N Sexual Problems? N Current Control Method None Desired Control Method None Obstetrics History GPAL:G 0 P 0 0 0 0 Past Encounters Encounter ID Performer Location Encounter Start Date Encounter Closed Date Diagnosis/Indication Diagnosis SNOMED-CT Code Diagnosis ICD10 Code [id number] Carley Loepz [facility] [address] [address] 07/06/2020 10:11:46 07/06/2020 14:13:44 Gynecologic examination 01082917 Z01.419 Health Concerns Section Related Observation LastModified by Organization Detai ls LastModified Time None Recorded Concern Status LastModified by Organization Details LastModified Time None Recorded Advance Directives Directive None Recorded Payers Encounter Date Sequence Insurance Name Policy Number Policy Hamm Covered Member ID Hamm Member ID Guarantor Name 07/06/2020 1 [place] [id number] Angeline Caraballo [id number] Angeline Caraballo Notes Date Note Type Note Provider Name and Address Organization Details Recorded Time 07/06/2020 text/html Annual GYNReport ed bypatient.History: no gynecologic complaints Menstrual cycle:postmenopaus al-Hx of hysterectomy hnhpxujc-uhk-jveay r indications. Urinary symptoms:No hematuria; No incontinence Vulva:No genital lesion Vagina:Normal vaginal discharge Breast:No breast pain; No breast lump; No nipple discharge Current Contraception:Not sexually active Sexual complaints:No sexual complaints; No pain during intercourse; Normal libido Menopausal Symptoms:No menopausal symptoms; Normal vaginal lubrication Psychological symptoms:No depression; No anxiety; No PMDD Preventive measures:Encourage self breast examination; Encourage regular exercise; Encourage no tobacco use; Encourage regular mammograms starting age 40; Mammogram performed within the past year; Up to date on colonoscopy screening; Voices that her PCP has ordered her routine testing that includes: Mammo, Colonoscopy, urine testing, bone health screening. Carley Lopez SARAH- [address], [place], [address], [facility] 07/06/2020 14:07:33 OBGyn Episode Ob Episode Information Episode Created Date Number of Fetuses Patient Bloodtype Patient rh Status Prepregnancy Weight lbs Domestic Partner Domestic Partner Phone Father Name Materials Tech Status 07/06/19 21 1 CLOSED Fetus Data First Name Last Name Admitted to NICU Weight (g) Sex Living Outcome Pediatric Complications Fetus ID Race Codes Race Delivery Type Full Term [id number] Primary Damaris Calculation DAMARIS Calculation Method Initial Damaris Date Initial Exam Date Initial Exam Provider Initial Ultrasound Date Last Menstrual Period Date Ultra Sound Weeks Gestation Conception by IVF Embryo Age at Transfer Date of Transfer 0 Eighteen To Twenty Week Damaris Update Ultra Sound Date Fundal Height At Umbil Quickening Date Ultra Sound Latest Weeks Gestation Final Damaris Confirmed By Final Damaris Confirmed Date Final Damaris Date Ultra Sound Latest Days Gestation 0 0 Menstrual History Last Menstrual Date Menses Monthly On Bcp Conception Prior Menses Frequency Hcg Plus Date Menarche Onset Age Delivery Information Delivery Date Delivery Type Labor Anesthesia Weeks Gestation Incision Type Labor Labor Length Hrs Delivered By Post Complications Tubal Sterilization Discharge Date Comments 9 Discharge Information Feeding Method Contraceptive Method Maternal HG B and HCT Levels Ob Episode Information Episode Created Date Number of Fetuses Patient Bloodtype Patient rh Status Prepregnancy Weight lbs Domestic Partner Domestic Partner Phone Father Name Materials Tech Status 07/06/19 21 1 CLOSED Fetus Data First Name Last Name Admitted to NICU Weight (g) Sex Living Outcome Pediatric Complications Fetus ID Race Codes Race Delivery Type Full Term [id number] Primary Damaris Calculation DAMARIS Calculation Method Initial Damaris Date Initial Exam Date Initial Exam Provider Initial Ultrasound Date Last Menstrual Period Date Ultra Sound Weeks Gestation Conception by IVF Embryo Age at Transfer Date of Transfer 0 Eighteen To Twenty Week Damaris Update Ultra Sound Date Fundal Height At Umbil Quickening Date Ultra Sound Latest Weeks Gestation Final Damaris Confirmed By Final Damaris Confirmed Date Final Damaris Date Ultra Sound Latest Days Gestation 0 0 Menstrual History Last Menstrual Date Menses Monthly On Bcp Conception Prior Menses Frequency Hcg Plus Date Menarche Onset Age Delivery Information Delivery Date Delivery Type Labor Anesthesia Weeks Gestation Incision Type Labor Labor Length Hrs Delivered By Post Complications Tubal Sterilization Discharge Date Comments 1 Discharge Information Feeding Method Contraceptive Method Maternal HG B and HCT Levels
--- OUTSIDE RECORDS SUMMARY | 2024-05-25 00:08 | XMS_ITS | Encounter Summary ---
Author Organization [facility] Address [address] [place] [address] Care Team Providers Care Rn Neonatal Icu Name Role Phone Unavailable Primary Care Provider Unavailabl e Reason for Visit * Reason Onset Date Comments Encounter Opened In Error 05/15/2020 Encounter Details Date Type Department Care Team (Late st Contact Info) Description 05/15/2020 Telephone [facility] Medical [facility] - Internal Medicine [address], [address] [place] [address] [place] [address] [place] [address] Encounter Opened In Error Social History Tobacco Use Types Packs/Day Years Used Date Smoking Tobacco: Never Assessed Sex and Gender Information Value Date Recorded Sex Assigned at Not on file Gender Identity Not on file Sexual Orientation Not on file COVID-19 Exposure Response Date Recorded In the last month, have you been in contact with someone who was confirmed or suspected to have Coronavirus / COVID-19? No / Unsure 05/15/2020 10:03 AM CERTIFIED NURSE OPERATING ROOM documented as of this encounter Plan of Treatment Not on file documented as of this encounter Visit Diagnoses Not on filedocumented in this encounter
--- OUTSIDE RECORDS SUMMARY | 2024-05-25 00:08 | XMS_ITS | Encounter Summary ---
Author Organization [facility] Address [address] [place] [address] Care Team Providers Care Welcome Desk Agent Name Role Phone Unavailable Primary Care Provider Unavailabl e Reason for Visit * Reason Onset Date Comments Appointment 06/26/2020 Referral 06/26/2020 Encounter Details Date Type Department Care Team (Late st Contact Info) Description 06/26/2020 Telephone [facility] - Rheumatology [address] [place] [address] Tommy Patel MD [address] [place] [address] Appointment; Referral Social History Tobacco Use Types Packs/Day Years Used Date Smoking Tobacco: Never Assessed Sex and Gender Information Value Date Recorded Sex Assigned at Not on file Gender Identity Not on file Sexual Orientation Not on file documented as of this encounter Miscellaneous Notes * Telephone Encounter - Lawanda Lo - 06/26/2020 12:15 PM CST Received a referral from Dr. Lizama's office for pt to come into be seen for RA. Pt does not wish toschedule with this office due to it being too far. Referral scanned into pt's chart. 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
--- OUTSIDE RECORDS SUMMARY | 2024-05-25 00:08 | XMS_ITS | Encounter Summary ---
Author Organization [facility] Address [address] [place] [address] Phone Care Team Providers Care City Controller Name Role Phone Steven Lizama MD Primary Care Provider [phone] Reason for Visit * Reason Comments Diabetic Eye Exam Encounter Details Date Type Department Care Team (Late st Contact Info) Description 11/23/2023 11:00 AM CDT Office Visit [facility] Ophthal[facility] [place] [address] Rebeka Cantrell, OD [address] [place] [address] Diabetes mellitus type 2 without retinopathy (CMS/HCC) (HCC) (Primary Dx); Hypertensive retinopathy of both eyes; Age-related nuclear cataract of both eyes Social History Tobacco Use Types Packs/Day Years Used Date Smoking Tobacco: Every Day Cigarettes 1 30 Smokeless Tobacco: Never Personal Safety Answer Date Recorded Getting School Help Needed Not on file 06/15 Comments Unknown Sex and Gender Information Value Date Recorded Sex Assigned at Not on file Legal Sex 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 However, will have discharge, mostly in AM, periodically OU Rx: None Last edited by Rebeka Cantrell, OD on 11/23/2023 12:19 PM. Assessment/Plan Diagnoses and all orders for this visit: Diabetes mellitus type 2 without retinopathy (CMS/HCC) ([facility]) (Primary) Assessment & Plan: Pt ed. Stressed BG control (HbA1C<7) to reduce the risk for diabetic ocular complications. Unknown HbA1C Hypertensive retinopathy of both eyes Assessment & Plan: Pt ed. F/u with PCP, stressed importance of med compliance. Age-related nuclear cataract of both eyes Assessment & Plan: Defer cataract surgery until signs and symptoms indicate. Pt was educated on the diagnosis. Recommend daily UV protection. PLAN FOR NEXT VISIT Return in about 1 year (around 11/22/2024) for Dilated exam, Fundus Photos . documented in this encounter Miscellaneous Notes * Assessment & Plan Note - Rebeka Cantrell, OD - 11/23/2023 12:18 PM CDT Associated Problem(s): Meibomian gland dysfunction (MGD) of both eyes Rec gently lid wipes with warm cloth and baby shampoo nightly * Assessment & Plan Note - Rebeka Cantrell, OD - 11/23/2023 12:17 PM CDT Associated Problem(s): Age-related nuclear cataract of both eyes Defer cataract surgery until signs and symptoms indicate. Pt was educated on the diagnosis. Recommend daily UV protection. * Assessment & Plan Note - Rebeka Cantrell, OD - 11/23/2023 12:17 PM CDT Associated Problem(s): Hypertensive retinopathy of both eyes Pt ed. F/u with PCP, stressed importance of med compliance. * Assessment & Plan Note - Rebeka Cantrell, OD - 11/23/2023 12:17 PM CDT Associated Problem(s): Diabetes mellitus type 2 without retinopathy (CMS/HCC) ([facility]) Pt ed. Stressed BG control (HbA1C<7) to reduce the risk for diabetic ocular complications. Unknown HbA1C documented in this encounter Plan of Treatment Not on file documented as of this encounter Visit Diagnoses Diagnosis Diabetes mellitus type 2 without retinopathy (CMS/HCC) ([facility])- Primary Hypertensive retinopathy of both eyes Hypertensive retinopathy Age-related nuclear cataract of both eyes documented in this encounter Eye Exam Visual Acuity (Snellen - Linear) Right eye Left eye Dist sc 20/100 20/80 -2 Dist ph sc 20/20 -1/+2 20/20 Tonometry (Applanation, 10:52 AM) Right eye Left eye Pressure 11 12 Pupils Dark Light Shape React APD Right eye 3 2.5 Round Minimal None Left eye 3 2.5 Round Minimal None Visual Grissom (Counting fingers) Right eye Left eye Full Full Extraocular Movement Right eye Left eye Full Full Neuro/Psych Oriented x3: Yes Mood/Affect: Normal Dilation Both eyes: 1.0% Mydriacyl, 2 .5% Phenylephrine @ 10:59 AM External Exam Right eye Left eye External Normal Normal Slit Lamp Exam Right eye Left eye Lids/Lashes 2+ Dermatochalasis - upper lid, Meibomian gland dysfunction 2+ Dermatochalasis - upper lid, MGD Conjunctiva/Sclera White and quiet White and meri et Cornea Clear Clear Anterior Chamber Deep and quiet Deep and quiet Iris Round and reactive Round and ruy ctive Lens 2+ NS 2+ NS Anterior Vitreous Normal Normal Fundus Exam Right eye Left eye Disc Normal Normal C/D Ratio 0.35 0.35 Macula Normal Normal Vessels arteriole narrowing, few areas a/v nicking arteriole narrowing, few areas a/v nicking Periphery Normal Normal Care Teams City Controller Relationship Specialty Start Date End Date Steven Lizama MD PCP - General Family Practice 08/25/22 documented as of this encounter
--- OUTSIDE RECORDS SUMMARY | 2024-05-25 00:08 | XMS_ITS | Encounter Summary ---
Author Organization [facility] Healthcare Address [address] [place] [address] Care Team Providers Care Finished Carpet Inspector Name Role Phone Steven Lizama MD Primary Care Provider [phone] Reason for Visit * Cardiology (Routine) - Closed Specialty Diagnoses / Procedures Referred By Contac t Referred To Contact Diagnoses Recent cerebrovascular accident (CVA) Procedures Event Monitor Urvashi Baldwin NP [address] [address] Phone: tel: fax: [facility] Referral ID Status Reason Start Date Expiration Date Visits Re quested Visits Authorized [id number] Closed 02/05/2024 03/06/2025 1 1 Encounter Details Date Type Department Care Team (Latest Contact Info) Description 02/05/2024 10:45 AM CDT Ancillary Procedure [facility] Cardiology [address] [address] Recent cerebrovascular accident (CVA) Social History Tobacco Use Types Packs/Day Years Used Date Smoking Tobacco: Every Day Cigarettes 1 30 Smokeless Tobacco: Never Personal Safety Answer Date Recorded Getting School Help Needed Not on file 06/15 Comments Unknown Sex and Gender Information Value Date Recorded Sex Assigned at Not on file Legal Sex Female 9:37 PM [employer] Gender Identity Not on file Sexual Orientation Not on file documented as of this encounter Plan of Treatment Not on file documented as of this encounter Procedures Procedure Name Priority Date/Time Associated Diagnosis Comments EVENT MONITOR Routine 04/01/2024 7:34 AM CDT Recent cerebrovascular accident (CVA) documented in this encounter Results * Event Monitor (04/01/2024 7:34 AM CDT) Anatomical Region Laterality Modality Other Narrative 04/01/2024 7:37 AM CDT AMBULATORY MATE FOURTH REPORT Patient Name: Angeline Caraballo Date of : 1960 ?? Requesting Physician: ??Carvalho Date of interpretation: 04/01/24 Type of monitor : ??30 day event monitor Date of the study/Enrollment period: ??02/05/2024 Indication: ??CVA Quality of the study: ??Favorable Interpretation: ??The basic cardiac rhythm is sinus with normal [place] interval. ??QRS duration is 0.12 seconds QT interval is normal. ??The heart rate varies from a minimum of 50 to a maximum of 166 with an average rate of 80. ??There were no significant pauses there were no examples of abnormal AV conduction observed. Supraventricular ectopic activity was occasional consisting of PACs with total burden of 3%. ??There were no runs of SVT and there were no examples of atrial fibrillation. Ventricular ectopic activity was infrequent with a total PVC burden of 2%. There were 2 short runs of monomorphic ventricular tachycardia. ??The longest of which was 6 beats in duration. ?? The patient returned a diary apparently there were no symptoms experienced during this study Conclusions: Sinus rhythm with normal heart rate variability No evidence of atrial fibrillation Infrequent ventricular ectopic activity including the 2 brief episodes of monomorphic VT that were described above both of which were asymptomatic Voice recognition software was used to complete this document, therefore, merchandising internship variances may occur. David Mueller MD [facility] 04/01/24 Procedure Note David Mueller MD - 04/01/2024 AMBULATORY MATE FOURTH REPORT Patient Name: Angeline Caraballo Date of : 1960 Requesting Physician: Deven Date of interpretation: 04/01/24 Type of monitor : 30 day event monitor Date of the study/Enrollment period: 02/05/2024 Indication: CVA Quality of the study: Favorable Interpretation: The basic cardiac rhythm is sinus with normal PRinterval. QRS duration is 0.12 seconds QT interval is normal. The heartrate varies from a minimum of 50 to a maximum of 166 with an average rateof 80. There were no significant pauses there were no examples ofabnormal AV conduction observed. Supraventricular ectopic activity was occasional consisting of PACs withtotal burden of 3%. There were no runs of SVT and there were no examplesof atrial fibrillation. Ventricular ectopic activity was infrequent with a total PVC burden of 2%.There were 2 short runs of monomorphic ventricular tachycardia. Thelongest of which was 6 beats in duration. The patient returned a diary apparently there were no symptoms experiencedduring this study Conclusions: Sinus rhythm with normal heart rate variability No evidence of atrial fibrillation Infrequent ventricular ectopic activity including the 2 brief episodes ofmonomorphic VT that were described above both of which were asymptomatic Voice recognition software was used to complete this document, therefore,merchandising internship variances may occur. David Muellre MD [facility] 04/01/24 Urvashi Baldwin NP [facility] Final Result documented in this encounter Visit Diagnoses Diagnosis Recent cerebrovascular accident (CVA) documented in this encounter Care Teams Finished Carpet Inspector Relationship Specialty Start Date End Date Steven Lizama MD PCP - General Family Practice 08/25/22 documented as of this encounter
--- OUTSIDE RECORDS SUMMARY | 2024-05-25 00:08 | XMS_ITS | Referral Summary ---
Author Organization [facility] [address] Address [address] [place] [address] Care Team Providers Care Riveter Pneumatic Name Role Phone Steven Lizama MD Primary Care Provider [phone] Allergies No known active allergies Medications aspirin 81 mg enteric coated tablet Take 1 tablet (81 mg total) by mouth every morning 3 Active amLODIPine (NORVASC) 10 mg tablet 3 Active metFORMIN (GLUCOPHAGE) 500 mg tablet 3 Active nicotine (NICODERM CQ) 14 mg 3 Active polyethylene glycol-electrolyt es 420 gram solution TAKE DIRECTED BY OFFICE. 3 Active albuterol HFA (Ventolin HFA) 90 mcg/actuation inhalerIndication s:Dyspnea and respiratory abnormalities Inhale 2 puffs every 4 (four) hours as needed for wheezing or shortness of breath 18 g 5 3 Active inhaler,assist devices,access deviceIndications :Dyspnea and respiratory abnormalities 1 Device as needed (with inhalers) 1 each 3 Active fluticasone propionate (FLONASE) 50 mcg/actuation nasal spray Administer 2 sprays into each nostril daily 16 g 6 3 Active Additional Information Patient not taking.Reported on 02/05/2024 ProChamber spacer USE NEEDED DIRECTED 3 Active Advair HFA 115-21 mcg/actuation inhaler Inhale 2 puffs 2 (two) times a day Rinse mouth with water after use. Do not swallow. 12 g 3 3 Active clopidogreL (PLAVIX) 75 mg tablet Take 1 tablet (75 mg total) by mouth every morning 4 Active losartan (COZAAR) 50 mg tablet Take 1 tablet (50 mg total) by mouth daily 4 Active rosuvastatin (CRESTOR) 20 mg tablet Take 2 tablets (40 mg total) by mouth every morning 4 Active Active Problems Problem Noted Date Diagnosed Date Hypertensive retinopathy of both eyes 11/23/2023 Assessment & Plan (11/23/2023 12:17 PM CDT): Pt ed. F/u with PCP, stressed importance of med compliance. Age-related nuclear cataract of both eyes 2023 Assessment & Plan (11/23/2023 12:17 PM CDT): Defer cataract surgery until signs and symptoms indicate. Pt was educated on the diagnosis. Recommend daily UV protection. Diabetes mellitus type 2 without retinopathy ([facility]) 11/23/2023 Assessment & Plan (11/23/2023 12:17 PM CDT): Pt ed. Stressed BG control (HbA1C<7) to reduce the risk for diabetic ocular complications. Unknown HbA1C Meibomian gland dysfunction (MGD) of both eyes 0 11/23/2023 Assessment & Plan (11/23/2023 12:18 PM CDT): Rec gently lid wipes with warm cloth and baby shampoo nightly Morbid (severe) obesity due to excess calories 0 09/05/2022 Body mass index 40.0-44.9, adult (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 [employer] Gender Identity Not on file Sexual Orientation Not on file Last Filed Vital Signs Vital Sign Reading Time Taken Comments Blood Pressure 130/78 02/05/2024 9:56 AM CDT Pulse 88 02/05/2024 9:56 AM CDT Temperature 36.5 ??C (97.7 ??F) 10/02/2022 9:57 AM CD T Respiratory Rate 18 12/23/2022 10:24 AM CDT Oxygen Saturation 95% 02/05/2024 9:56 AM CDT Inhaled Oxygen Concentration - - Weight 89.8 kg (198 lb) 02/05/2024 9:56 AM CDT Height 152.4 cm (5') 02/05/2024 9:56 AM CDT Body Mass Index 38.67 02/05/2024 9:56 AM CDT Plan of Treatment Not on file Procedures Procedure Name Priority Date/Time Associated Diagnosis Comments EVENT MONITOR Routine 04/01/2024 7:34 AM CDT Recent cerebrovascular accident (CVA) POCT LIPID PANEL Routine 02/05/2024 10:0 1 AM CDT Lipid screening from Last 3 Months or Most Recently Relevant to Health Maintenance Results * Event Monitor (04/01/2024 7:34 AM CDT) Anatomical Region Laterality Modality Other Narrative 04/01/2024 7:37 AM CDT AMBULATORY PHOTOGRAPHERS' MODEL REPORT Patient Name: Angeline Caraballo Date of : 1960 ?? Requesting Physician: ??Deven Date of interpretation: 04/01/24 Type of monitor : ??30 day event monitor Date of the study/Enrollment period: ??02/05/2024 Indication: ??CVA Quality of the study: ??Favorable Interpretation: ??The basic cardiac rhythm is sinus with normal CT interval. ??QRS duration is 0.12 seconds QT [...] was used to complete this document, therefore, contract negotiator variances may occur. David Mueller MD [facility] 04/01/24 Procedure Note David Mueller MD - 04/01/2024 AMBULATORY PHOTOGRAPHERS' MODEL REPORT Patient Name: Angeline Caraballo Date of [...] software was used to complete this document, therefore,contract negotiator variances may occur. David Mueller MD [facility] 04/01/24 Urvashi Baldwin NP CV [facility] Final Result * POCT lipid panel (02/05/2024 10:01 AM CDT) Cholesterol, POC 127 mg/dL HDL, POC 40 mg/dL Triglycerides, POC 114 mg/dL LDL Cholesterol POC 65 mg/dL Chol/HDL Ratio, POC 1.6 Non-HDL Cholesterol, POC 88 mg/dL Cholesterol Total, POC 127 mg/dL Capillary blood 02/05/2024 1 0:01 AM CDT Urvashi Baldwin NP POINT OF CARE TEST ORDERA BLES Final Result from Last 3 Months or Most Recently Relevant to Health Maintenance Insurance [facility] CHO[employer]US [employer] Care Teams Riveter Pneumatic Relationship Specialty Start Date End Date Steven Lizama MD PCP - General Family Practice 08/25/22
--- OUTSIDE RECORDS SUMMARY | 2024-05-25 00:08 | XMS_ITS | Encounter Summary ---
Author Organization [facility] Healthcare Address [address] [place] [address] Care Team Providers Care Crossing Gateman Name Role Phone Steven Lizama MD Primary Care Provider [phone] Reason for Referral * Cardiology (Routine) - Closed Specialty Diagnoses / Procedures Referred By Contac t Referred To Contact Diagnoses Recent cerebrovascular accident (CVA) Procedures Event Monitor Urvashi Baldwin NP [address] [address] Phone: tel: fax: [facility] Medical Group Referral ID Status Reason Start Date Expiration Date Visits Re quested Visits Authorized [id number] Closed 02/05/2024 03/06/2025 1 1 Reason for Visit * Reason Comments Hospital Follow Up Encounter Details Date Type Department Care Team (Late st Contact Info) Description 02/05/2024 10:00 AM CDT Office Visit [facility] Medical Group Cardiology [address] [facility] [address] [address] Urvashi Baldwin NP [address] [facility] [address] [id number] Recent cerebrovascular accident (CVA); Coronary artery disease involving pilot station coronary artery of pilot station heart without angina pectoris; Hospital discharge follow-up; Tobacco use; Lipid screening Social History Tobacco Use Types Packs/Day Years Used Date Smoking Tobacco: Every Day Cigarettes 1 30 Smokeless Tobacco: Never Tobacco Cessation:Ready to Q uit: Not Asked; Counseling Given: Not Answered Personal Safety Answer Date Recorded Getting School Help Needed Not on file 06/15 Comments Unknown Sex and Gender Information Value Date Recorded Sex Assigned at Not on file 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 Gender Identity Not on file Sexual Orientation Not on file documented as of this encounter Last Filed Vital Signs Vital Sign Reading Time Taken Comments Blood Pressure 130/78 02/05/2024 9:56 AM CDT Pulse 88 02/05/2024 9:56 AM CDT Temperature - - Respiratory Rate - - Oxygen Saturation 95% 02/05/2024 9:56 AM CDT Inhaled Oxygen Concentration - - Weight 89.8 kg (198 lb) 02/05/2024 9:56 AM CDT Height 152.4 cm (5') 02/05/2024 9:56 AM CDT Body Mass Index 38.67 02/05/2024 9:56 AM CDT documented in this encounter Progress Notes * Urvashi Baldwin NP - 02/05/2024 10:00 AM CDT Images from the original note were not included. [facility] Medical Group Cardiology [address] [place] [address] Date of Visit: 02/05/2024 Patient ID: Angeline Caraballo 1960 Chief Complaint Patient presents with Hospital Follow Up Angeline Caraballo is a 63 y.o. female who is an established patient of Dr. Carvalho with a history of anabnormal stress test, coming to the office for hospital follow-up after she was treated for stroke. History of Present Illness: Angeline Caraballo is a 63 y.o. female who presents for a hospital follow up visit. She has a history of coronary artery disease with a reported UT in the past, hypertension, type 2 diabetes mellitus, history of breast cancer s/p radiation therapy. We saw her in consultation at [facility] for abnormal stress test. She presented to the hospital with shortness of breath. Had ongoing shortness of breath for about two weeks. She was also experiencing some intrascapular pain that was positional and also worse with deep breathing. No anterior chest pain. She told us that she had a coronary angiogram in 1992 and was told that she had a quarter sized piece of heart muscle that was . She did not undergo intervention at that time. Patient had not had any cardiac issues since then. She wasadmitted with pneumonia. Troponins were negative. Nuclear stress test showed moderate-large infarctin the LAD territory. No reversible ischemia. LVEF on MPI 48%. Echocardiogram showed aneurysmal apex. LVEF 50-55%. Since patient did not have any anginal symptoms at that time and no objective evidence of myocardial ischemia, medical management for her CAD was pursued. We started ASA and statin. 09/05/2022: Since hospital discharge, patient reports she is feeling well. No cardiac symptoms. Doing okay on ASA and statin. Does report some jaundice of her eyes that began a few days ago. Accompanied by her daughter today. 03/06/2023: Patient is doing well since last visit. Patient reports that her allergies cause shortness of breath over the summer, but she is doing well now without any shortness of breath, chest pain.Does not exercise much at this time, but when she does exercise, she states she feels great with itand can breathe better. Continues to smoke - currently smoking 1 pack every 2 days. 02/05/2024 hospital follow-up visit with DESIGN EDITOR: She was hospitalized at [facility] 12/26/23-12/29/23 for stroke. MRI showed multiple small acute infarcts consistent with shallow of emboli. CTA head and neckshowed atherosclerotic plaque bilateral carotid siphons 50% stenosis left and 60% stenosis right. Echocardiogram was performed and had a negative bubble study. She was directed to continue her aspirin, started on clopidogrel, and atorvastatin was changed to rosuvastatin (she reported myalgias with atorvastatin). She returns to the office today for follow-up accompanied by her niece Ms. Grewal. She had follow-up appointment with the neurologist earlier this week and was advised to continue DAPT and statin. She still has some residual paresthesias around the left lateral aspect of her ankle which she described as stiffness and pins and needles. Neurologist is also sending her for a sleep study. She is backto work and walks 3 blocks to and from work, he is following a healthier diet, still smoking but says she is ???working on it. ?? She has lost about 6 lb so far. Medical History: Past Medical History: Diagnosis Date Cancer (CMS/HCC) (HCC) Diabetes mellitus (HCC) Hyperlipidemia Hypertension No past surgical history on file. Social History Tobacco Use Smoking Status Every Day Current packs/day: 1.00 Average packs/day: 1 pack/day for 30.0 years (30.0 ttl pk-yrs) Types: Cigarettes Smokeless Tobacco Never Social History Tobacco Use Smoking status: Every Day Current packs/day: 1.00 Average packs/day: 1 pack/day for 30.0 years (30.0 ttl pk-yrs) Types: Cigarettes Smokeless tobacco: Never Substance and Sexual Activity Drug use: None Sexual activity: None Alcohol Use: Not on file Family History Problem Relation Age of Onset Breast cancer Mother Cancer Father Heart attack Sister Hypertension Sister Colon cancer Sister Cancer Brother Review of Systems Constitutional: Positive for weight loss. Negative for malaise/fatigue and weight gain. Cardiovascular: Negative for chest pain, dyspnea on exertion, leg swelling, near-syncope, orthopnea, palpitations, paroxysmal nocturnal dyspnea and syncope. Respiratory: Negative for cough, shortness of breath and sleep disturbances due to breathing. Hematologic/Lymphatic: Negative for bleeding problem. Does not bruise/bleed easily. Neurological: Positive for paresthesias (Left lower leg). Vital Signs: BP 130/78 (BP Location: Left arm, Patient Position: Sitting) Pulse 88 Ht 152.4 cm (5') Wt 89.8 kg (198 lb) SpO2 95% BMI 38.67 kg/m?? Physical Exam Constitutional: General: She is not in acute distress. Appearance: She is well-developed. She is obese. HENT: Head: Normocephalic and atraumatic. Eyes: General: No scleral icterus. Conjunctiva/sclera: Conjunctivae normal. Neck: Vascular: No JVD. Trachea: No tracheal deviation. Cardiovascular: Rate and Rhythm: Normal rate and regular rhythm. Heart sounds: Normal heart sounds. No murmur heard. Pulmonary: Effort: Pulmonary effort is normal. No respiratory distress. Breath sounds: Normal breath sounds. Skin: General: Skin is warm and dry. Neurological: Mental Status: She is alert and oriented to person, place, and time. Psychiatric: Mood and Affect: Mood normal. Behavior: Behavior normal. No Known Allergies Current Outpatient Medications: Advair HFA 115-21 mcg/actuation inhaler, Inhale 2 puffs 2 (two) times a day Rinse mouth with water after use. Do not swallow., Disp: 12 g, Rfl: 3 albuterol HFA (Ventolin HFA) 90 mcg/actuation inhaler, Inhale 2 puffs every 4 (four) hours as needed for wheezing or shortness of breath, Disp: 18 g, Rfl: 5 amLODIPine (NORVASC) 10 mg tablet, , Disp: , Rfl: aspirin 81 mg enteric coated tablet, Take 1 tablet (81 mg total) by mouth every morning, Disp: , Rfl: clopidogreL (PLAVIX) 75 mg tablet, Take 1 tablet (75 mg total) by mouth every morning, Disp: , Rfl: losartan (COZAAR) 50 mg tablet, Take 1 tablet (50 mg total) by mouth daily, Disp: , Rfl: metFORMIN (GLUCOPHAGE) 500 mg tablet, , Disp: , Rfl: polyethylene glycol-electrolytes 420 gram solution, TAKE DIRECTED BY OFFICE., Disp: , Rfl: rosuvastatin (CRESTOR) 20 mg tablet, Take 2 tablets (40 mg total) by mouth every morning, Disp: , Rfl: fluticasone propionate (FLONASE) 50 mcg/actuation nasal spray, Administer 2 sprays into each nostril daily (Patient not taking: Reported on 02/05/2024), Disp: 16 g, Rfl: 6 inhaler,assist devices,access device, 1 Device as needed (with inhalers), Disp: 1 each, Rfl: 0 nicotine (NICODERM CQ) 14 mg, , Disp: , Rfl: ProChamber spacer, USE NEEDED DIRECTED, Disp: , Rfl: No results found for: POTASSIUM , BUNSER , CREATININE , CHOL , TRIG , LDL , LDLCALC , HDL Lab Results Component Value Date WBC 9.1 10/30/2022 HGB 14.9 10/30/2022 HCT 47.8 (H) 10/30/2022 MCV 91.0 10/30/2022 Recent Results (from the past 4 hour(s)) POCT lipid panel Collection Time: 02/05/24 10:01 AM Result Value Ref Range Cholesterol, POC 127 mg/dL HDL, POC 40 mg/dL Triglycerides, POC 114 mg/dL LDL, Direct, POC 65 mg/dL Chol/HDL Ratio, POC 1.6 Non-HDL Cholesterol, POC 88 mg/dL Cholesterol Total, POC 127 mg/dL Lab Results Component Value Date POCCHOL 127 02/05/2024 POCHDL 40 02/05/2024 POCTRIG 114 02/05/2024 POCLDL 65 02/05/2024 POCNONHDL 88 02/05/2024 POCCHLPL 127 02/05/2024 Assessment: Diagnoses and all orders for this visit: Recent cerebrovascular accident (CVA) - Event Monitor; Future Coronary artery disease involving pilot station coronary artery of pilot station heart without angina pectoris Hospital discharge follow-up Tobacco use Lipid screening - POCT lipid panel Plan/Recommendations: She was recently hospitalized for a stroke likely secondary to nonobstructive carotid atherosclerosis. I agree with the neurologist recommendation to continue aspirin, clopidogrel, rosuvastatin. Lipids are controlled. I also encouraged her to continue physical activity and healthy diet. I reminded her of the importance of quitting smoking and she is working on it. Place a 30 day event monitor to r ule out paroxysmal atrial arrhythmia. I reviewed her history of abnormal stress test indicating a prior infarct along with the abnormality seen on her ECG that confirms this as well. She is not having chest pain so no further cardiac testing is indicated at this time. Continue risk factor reduction with aspirin, atorvastatin, healthy diet, smoking cessation. 02/05/2024 SUSHIL Landeros- Nurse Practitioner with [facility] Cardiology This note is dictated and transcribed using 5gig Direct Software. School Librarian variancesmay occur. Despite proofreading, typographical errors may occur. documented in this encounter Plan of Treatment Not on file documented as of this encounter Procedures Procedure Name Priority Date/Time Associated Diagnosis Comments POCT LIPID PANEL Routine 02/05/2024 10:0 1 AM CDT Lipid screening documented in this encounter Results * Event Monitor (04/01/2024 7:34 AM CDT) Anatomical Region Laterality Modality Other Narrative 04/01/2024 7:37 AM CDT AMBULATORY PRODUCT MANAGER E COMMERCE REPORT Patient Name: Angeline Caraballo Date of : 1960 ?? Requesting Physician: ??Carvalho Date of interpretation: 04/01/24 Type of monitor : ??30 day event monitor Date of the study/Enrollment period: ??02/05/2024 Indication: ??CVA Quality of the study: ??Favorable Interpretation: ??The basic cardiac rhythm is sinus with normal HI interval. ??QRS duration is 0.12 seconds QT [...] was used to complete this document, therefore, faro dealer variances may occur. David Mueller MD [facility] 04/01/24 Procedure Note David Mueller MD - 04/01/2024 AMBULATORY PRODUCT MANAGER E COMMERCE REPORT Patient Name: Angeline Caraballo Date of [...] software was used to complete this document, therefore,faro dealer variances may occur. David Mueller MD [facility] 04/01/24 Urvashi Baldwin NP [facility] CARDIAC SERVICES PROCE DURES Final Result * POCT lipid panel (02/05/2024 10:01 AM CDT) Cholesterol, POC 127 mg/dL HDL, POC 40 mg/dL Triglycerides, POC 114 mg/dL LDL Cholesterol POC 65 mg/dL Chol/HDL Ratio, POC 1.6 Non-HDL Cholesterol, POC 88 mg/dL Cholesterol Total, POC 127 mg/dL Capillary blood 02/05/2024 1 0:01 AM CDT Urvashi Baldwin NP POINT OF CARE TEST ORDERA BLES Final Result documented in this encounter Visit Diagnoses Diagnosis Recent cerebrovascular accident (CVA) Coronary artery disease involving pilot station coronary artery of pilot station heart without angina pectoris Hospital discharge follow-up Other follow-up examination Tobacco use Lipid screening Screening for lipoid disorders Recent cerebrovascular accident (CVA) documented in this encounter Discontinued Medications Medication Sig Discontinue Reason Start Date End Da te atorvastatin (LIPITOR) 40 mg tablet Take 1 tablet (40 mg total) by mouth daily Alternate therapy 08/27/2022 02/05/2024 documented as of this encounter Historical Medications * This list may reflect changes made after this encounter. rosuvastatin (CRESTOR) 20 mg tablet Take 2 tablets (40 mg total) by mouth every morning 02/01/2024 losartan (COZAAR) 50 mg tablet Take 1 tablet (50 mg total) by mouth daily 12/29/2023 clopidogreL (PLAVIX) 75 mg tablet Take 1 tablet (75 mg total) by mouth every morning 02/01/2024 added in this encounter Care Teams Crossing Gateman Relationship Specialty Start Date End Date Steven Lizama MD PCP - General Family Practice 08/25/22 documented as of this encounter
--- OUTSIDE RECORDS SUMMARY | 2024-05-25 00:08 | XMS_ITS | Encounter Summary ---
Author Organization [facility] Address [address] [place] [place] [address] Care Team Providers Care Audograph Operator Name Role Phone Unavailable Primary Care Provider Unavailabl e Reason for Visit * Reason Comments PPD Skin Test Placement Encounter Details Date Type Department Care Team ([facility] st Contact Info) Description 02/13/2021 3:00 PM CDT Office Visit [facility] AT [address] [phone] Provider, [facility] Encounter for PPD test (Primary Dx) Social History Tobacco Use Types Packs/Day Years [...] have Coronavirus / COVID-19? No / Unsure 02/13/2021 2:57 PM CDT documented as of this encounter Progress Notes * Jyoti White, SALES FLOOR TEAM MEMBER-SUPERVISOR PLATING AND POINT ASSEMBLY - 02/13/2021 3:17 PM CDT PPD Placement note Angeilne Caraballo, 60 year old female is here today for placement of PPD test Reason for PPD test: employment Pt taken PPD test before: yes Verified in allergy area and with patient that they are not allergic to the products PPD is made of(Phenol or Tween). Yes Is patient taking any oral or IV steroid medication now or have they taken it in the last month? no Has the patient ever received the BCG vaccine?: no Has the patient had a COVID-19 vaccine in the last 4 weeks: no Has the patient been in recent contact with anyone known or suspected of having active TB disease?:no Patient's Country of origin?: [place] O: Alert and oriented in NAD. P: PPD placed on 02/13/2021. Patient advised to return for reading within 48-72 hours. PPD placed on LEFT FOREARM using Mantoux TB test technique. Patient tolerated well. Patient advised to return for reading within 48-72 hours, failure to do so will result in an invalid test. NICOLAS Pacheco 02/13/2021 documented in this encounter Plan of Treatment Not on file documented as of this encounter Procedures Procedure Name Priority Date/Time Associated Diagnosis Comments SKIN TEST PPD - POINT OF CARE Routine 02/15/2021 3:08 PM CDT Encounter for PPD test documented in this encounter Results * SKIN TEST PPD - POINT OF CARE (02/15/2021 3:08 PM CDT) PPD 0mm [facility] Other MISCELLANEOUS SAMPLE S / Unknown 02/15/2021 3:08 PM CDT Jyoti [facility] - POINT OF CA RE ORDERABLES [facility] [address] [phone] documented in this encounter Visit Diagnoses Diagnosis Encounter for PPD test- Primary Screening examination for pulmonary tuberculosis documented in this encounter Administered Medications Administered Medications Medication Order MAR Action Action Date Dose Rate Site PPD Intradermal Given 02/13/2021 15:10 CDT 0.1 mL Left Fore arm documented in this encounter
--- OUTSIDE RECORDS SUMMARY | 2024-05-25 00:08 | XMS_ITS | CONTINUITY OF CARE DOCUMENT ---
Author Name gopal herron Address Unknown Organization [facility] Address [id number] [place] [address] [address] [place] [address] Phone [phone] Care Team Providers Care Seasoner Name Role Phone Rajat Covarrubias MD Unavailable [phone] SUSSY BLACK MD Unavailable [phone] SUSSY BLACK MD Unavailable [phone] INSURANCE PROVIDERS Payer name Policy type / Coverage type [place] red republican ID [id number]
--- OUTSIDE RECORDS SUMMARY | 2024-05-25 00:08 | XMS_ITS | Encounter Summary ---
Author Organization [facility] Address [address] [facility] [place] [address] Care Team Providers Care Seamer Name Role Phone Unavailable Primary Care Provider Unavailabl e Encounter Details Date Type Department Care Team (Latest Contact Info) Description 02/13/2021 Travel Social History Tobacco Use Types Packs/Day Years [...] PM CDT documented as of this encounter Plan of Treatment Not on file documented as of this encounter Visit Diagnoses Not on filedocumented in this encounter
--- OUTSIDE RECORDS SUMMARY | 2024-05-25 00:08 | XMS_ITS | Encounter Summary ---
Author Organization [facility] Address [address] [facility] [place] [address] Care Team Providers Care Foreign Language Teacher Name Role Phone Unavailable Primary Care Provider Unavailabl e Encounter Details Date Type Department Care Team (Latest Contact Info) Description 05/15/2020 Travel Social History Tobacco Use Types Packs/Day [...] COVID-19? No / Unsure 05/15/2020 10:03 AM METALWORKING SPECIALIST documented as of this encounter Plan of Treatment Not on file documented as of this encounter Visit Diagnoses Not on filedocumented in this encounter
--- OUTSIDE RECORDS SUMMARY | 2024-05-25 00:08 | XMS_ITS | Clinical Summary ---
Author Organization [facility] [address] Address [address] [place] [address] Care Team Providers Care Client Resolution Specialist Name Role Phone Steven Lizama MD Primary Care Provider [phone] Allergies No known active allergies Medications aspirin [...] Diabetes mellitus type 2 without retinopathy (CM S/HCC) 11/23/2023 Assessment & Plan (11/23/2023 12:17 PM [...] 0 09/05/2022 Body mass index 40.0-44.9, adult (CMS/HCC) 09/05 Coronary artery disease invo lving [place] heart without angina pectoris 09/05/2022 Medical History Medical History Date Comments Hypertension Diabetes mellitus (HCC) Cancer (CMS/HCC) (HCC) Hyperlipidemia Family History Medical History Relation Name Comments Cancer Brother Cancer Father Breast cancer Mother Colon cancer Sister Heart attack Sister Hypertension Sister Relation Name Status Comments Brother Father Mother Sister Social History Tobacco Use Types Packs/Day Years Used Date Smoking Tobacco: Every Day Cigarettes 1 30 Smokeless Tobacco: Never Tobacco Cessation:Ready to Q uit: Not Asked; Counseling Given: Not Answered Personal Safety Answer Date Recorded Getting School Help Needed Not on file 06/15 Comments Unknown Sex and Gender Information Value Date Recorded Sex Assigned at Not on file 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 Gender Identity Not on file Sexual Orientation Not on file Obstetrics History Last Filed Vital Signs Vital Sign Reading [...] 02/05/2024 9:56 AM CDT Plan of Treatment Health Maintenance Due Date Last Done Comments Albumin Creatinine Ratio, Urine 1960 Breast Cancer Screening-Mammogram 1960 Cervical Cancer Screening 1960 Colon Cancer Screening-Colonoscopy 1960 Depression Screening 1960 Hemoglobin A1C 1960 Hepatitis C Screening 1960 eGFR 1960 Foot Exam 1960 Pneumococcal vaccine <65 (1 of 2 - PCV) 10/20/1967 DTaP/Tdap/Td Vaccine (1 - Tdap) 1972 Hepatitis B Screening 10/20/1979 Regular Well Visit/Exam 18-64 10/20/1979 Lung Cancer Screening 10/20/2011 Zoster Vaccine (1 of 2) 10/20/2011 Covid-19 Vaccine (3 - season) 2024, 12/30/2020 Influenza Vaccine (#1) 2024 Dilated Eye Exam 11/22/2024 11/23/2023 Lipid Panel 02/04/2025 02/05/2024, 09/05/2022 Procedures Procedure Name Priority Date/Time Associated Diagnosis Comments EVENT MONITOR Routine 04/01/2024 7:34 AM CDT Recent cerebrovascular accident (CVA) POCT LIPID PANEL Routine 02/05/2024 10:0 1 AM CDT Lipid screening from Last 3 Months or Most Recently Relevant to Health Maintenance Results * Event Monitor (04/01/2024 7:34 AM CDT) Anatomical Region Laterality Modality Other Narrative 04/01/2024 7:37 AM CDT AMBULATORY CLOTH WINDING SUPERVISOR REPORT Patient Name: Angeline Caraballo Date of : 1960 ?? Requesting Physician: ??Deven Date of interpretation: 04/01/24 Type of monitor : ??30 day event monitor Date of the study/Enrollment period: ??02/05/2024 Indication: ??CVA Quality of the study: ??Favorable Interpretation: ??The basic cardiac rhythm is sinus with normal MA interval. ??QRS duration is 0.12 seconds QT [...] was used to complete this document, therefore, plasterer foreman variances may occur. David Mueller MD [facility] 04/01/24 Procedure Note David Mueller MD - 04/01/2024 AMBULATORY CLOTH WINDING SUPERVISOR REPORT Patient Name: Angeline Caraballo Date of [...] software was used to complete this document, therefore,plasterer foreman variances may occur. David Mueller MD [facility] 04/01/24 Urvashi Baldwin NP CV CARDIAC SERVICES [facility] Final Result * POCT lipid panel (02/05/2024 [...] Most Recently Relevant to Health Maintenance Insurance IDPA Care Teams Client Resolution Specialist Relationship Specialty Start Date End Date Steven Lizama MD PCP - General Family Practice 08/25/22
--- OUTSIDE RECORDS SUMMARY | 2024-05-25 00:08 | XMS_ITS | Patient Health Summary ---
Author Organization [facility] Address [address] [place] [address] Care Team Providers Care Beach Lifeguard Name Role Phone Unavailable Primary Care Provider Unavailabl e Note from [facility],non-owned Affiliates and Associated Physician Practices is amultiple site organization consisting of ambulatory clinics and hospital sitesin [place], [place], [place] and [place]. This disclosure is being madepursuant to the Care Everywhere program and may not contain all information available regarding this patient. Last updated 18.[facility] Allergies No known active allergies Social History Tobacco Use Types Packs/Day Years Used Date Smoking Tobacco: Never Assessed Sex and Gender Information Value Date Recorded Sex Assigned at Not on file Gender Identity Not on file Sexual Orientation Not on file Procedures * SKIN TEST PPD - POINT OF CARE(Performed 02/15/2021) Performed for Encounter for PPD test Results * SKIN TEST PPD - POINT OF CARE (02/15/2021 3:08 PM CDT) PPD 0mm [facility] Other MISCELLANEOUS SAMPLE S / Unknown 02/15/2021 3:08 PM CDT Jyoti White DYNAMIC ETCHING PROCESSOR-DIFFERENTIAL TESTER LAB - POINT OF CA RE ORDERABLES [facility] [address] [place] [address], [facility] [phone]
--- OUTSIDE RECORDS SUMMARY | 2024-05-25 00:08 | XMS_ITS | Encounter Summary ---
Author Organization [facility] Address [address] [place] [address] Care Team Providers Care Director Outcomes Name Role Phone Steven Lizama MD Primary Care Provider [phone] Reason for Visit * Reason Comments Coronary Artery Disease Hypertension Hyperlipidemia 6 mo f/u Encounter Details Date Type Department Care Team (Late st Contact Info) Description 03/06/2023 9:45 AM CDT Office Visit [facility] Cardiology [address] [place] [address] Ramos Carvalho MD [address] [place] [id number] Coronary artery disease involving [place] coronary artery of [place] heart without angina pectoris (Primary Dx); Morbid (severe) obesity due to excess calories (HCC) Social History Tobacco Use Types Packs/Day Years Used Date Smoking Tobacco: Every Day Cigarettes 1 30 Smokeless Tobacco: Never Comments Unknown Sex and Gender Information Value Date Recorded Sex Assigned at Not on file 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 Gender Identity Not on file Sexual Orientation Not on file documented as of this encounter Last Filed Vital Signs Vital Sign Reading Time Taken Comments Blood Pressure 136/80 03/06/2023 9:42 AM CDT Pulse 81 03/06/2023 9:42 AM CDT Temperature - - Respiratory Rate - - Oxygen Saturation 98% 03/06/2023 9:42 AM CDT Inhaled Oxygen Concentration - - Weight 95.7 kg (211 lb) 03/06/2023 9:42 AM CDT Height 152.4 cm (5') 03/06/2023 9:42 AM CDT Body Mass Index 41.21 03/06/2023 9:42 AM CDT documented in this encounter Progress Notes * Ramos Carvalho MD - 03/06/2023 9:45 AM CDT Cardiology Clinic Note CHIEF COMPLAINT / Reason For Visit: Follow up for coronary artery disease HISTORY: Angeline Caraballo is a 62 y.o. female who presents for a hospital follow up visit. She has ahistory of coronary artery disease with a reported CA in the past, hypertension, type 2 diabetes mellitus, history of breast cancer s/p radiation therapy. We saw her in consultation at [facility] for abnormal stress test. She presented [...] had any cardiac issues since then. She was admitted with pneumonia. Troponins were negative. Nuclear stress test showed moderate-large infarct in the LAD territory. No reversible ischemia. LVEF [...] currently smoking 1 pack every 2 days. PAST MEDICAL HISTORY: Past Medical History: Diagnosis Date Cancer (CMS/HCC) (HCC) Diabetes mellitus (HCC) Hyperlipidemia Hypertension PAST SURGICAL HISTORY: History reviewed. No pertinent surgical history. FAMILY HISTORY: Family History Problem Relation Age of Onset Breast cancer Mother Cancer Father Heart attack Sister Hypertension Sister Colon cancer Sister Cancer Brother SOCIAL HISTORY: Social History Tobacco Use Smoking status: Every Day Packs/day: 1.00 Years: 30.00 Additional pack years: 0.00 Total pack years: 30.00 Types: Cigarettes Smokeless tobacco: Never Substance and Sexual Activity Drug use: None Sexual activity: None Alcohol Use: Not on file No Known Allergies: Current Outpatient Medications Medication Sig Dispense Refill Advair HFA 115-21 mcg/actuation inhaler Inhale 2 puffs 2 (two) times a day Rinse mouth with water after use. Do not swallow. 12 g 3 albuterol HFA (Ventolin HFA) 90 mcg/actuation inhaler Inhale 2 puffs every 4 (four) hours as neededfor wheezing or shortness of breath 18 g 5 amLODIPine (NORVASC) 10 mg tablet aspirin 81 mg enteric coated tablet Take 1 tablet (81 mg total) by mouth every morning atorvastatin (LIPITOR) 40 mg tablet Take 1 tablet (40 mg total) by mouth daily fluticasone propionate (FLONASE) 50 mcg/actuation nasal spray Administer 2 sprays into each nostrildaily 16 g 6 inhaler,assist devices,access device 1 Device as needed (with inhalers) 1 each 0 metFORMIN (GLUCOPHAGE) 500 mg tablet nicotine (NICODERM CQ) 14 mg polyethylene glycol-electrolytes 420 gram solution TAKE DIRECTED BY OFFICE. ProChamber spacer USE NEEDED DIRECTED No current facility-administered medications for this visit. : REVIEW OF SYSTEMS: GENERAL: As per HPI CVS: As per HPI PHYSICAL EXAMINATION: BP 136/80 (BP Location: Left arm, Patient Position: Sitting) Pulse 81 Ht 152.4 cm (5') Wt 95.7 kg (211 lb) SpO2 98% BMI 41.21 kg/m?? Body mass index is 41.21 kg/m??. GENERAL: Alert, oriented to person, place, and time HEAD: Normocephalic EYES: Extra ocular movement intact ENT: Unremarkable NECK: Supple with midline trachea, no JVD, no carotid bruit CHEST: Clear to auscultation, no wheezes, rales or rhonchi, symmetric air entry CARDIAC: RRR, S1 S2 normal, no murmur, rub, heaves, thrills or gallops LABS: Lab Results Component Value Date WBC 9.1 10/30/2022 HGB 14.9 10/30/2022 HCT 47.8 (H) 10/30/2022 MCV 91.0 10/30/2022 No lab exists for component: LABALBU No results found for: CHOL No results found for: HDL No results found for: LDLCALC No results found for: TRIG No results found for: CHOLHDL ASSESSMENT/PLAN: Coronary artery disease, prior myocardial infarction Asymptomatic. Continue ASA 81mg, Atorvastatin 40mg Hyperlipidemia Continue statin. Hypertension Controlled. Continue Amlodipine. Type 2 diabetes mellitus On Metformin Return to clinic in 6 months. ? The above information was discussed at length with Angeline Caraballo who was also given ample opportunity to ask questions and verbalized understanding the plan. The appropriate follow up has been arranged. I have advised the patient to contact me if any questions/problems arise prior to the follow up. Ramos Carvalho M.D. Interventional Cardiology documented in this encounter Plan of Treatment Not on file documented as of this encounter Visit Diagnoses Diagnosis Coronary artery disease involving [place] coronary artery of [place] heart without angina pectoris- Primary Morbid (severe) obesity due to excess calories (HCC) documented in this encounter Care Teams Director Outcomes Relationship Specialty Start Date End Date Steven Lizama MD PCP - General Family Practice 08/25/22 documented as of this encounter
--- OUTSIDE RECORDS SUMMARY | 2024-05-25 00:08 | XMS_ITS | Encounter Summary ---
Author Organization [facility] Address [address] [place] [address] Care Team Providers Care Computer Education Teacher Name Role Phone Unavailable Primary Care Provider Unavailabl e Reason for Visit * Reason Comments PPD SKIN TEST READ Encounter Details Date Type Department Care Team (Late st Contact Info) Description 02/15/2021 3:30 PM CDT Office Visit [facility] AT [address] [phone] Provider, [facility] Encounter for PPD test (Primary Dx) Social [...] as of this encounter Progress Notes * Chata Nash APRN-CNP - 02/15/2021 3:08 PM CDT PPD Reading Note PPD read and results entered in [employer]. Result: 0 mm induration. Interpretation: negative If test not read within 48-72 hours of initial placement, patient advised to repeat in other arm. Allergic reaction: no documented in this encounter Plan of Treatment Not on file documented as of this encounter Visit Diagnoses Diagnosis Encounter for PPD test- Primary Screening examination for pulmonary tuberculosis documented in this encounter
--- OUTSIDE RECORDS SUMMARY | 2024-05-25 00:09 | XMS_ITS | Encounter Summary ---
Author Organization [facility] Address [address] [place] [address] Care Team Providers Care Tread Cutter Name Role Phone Steven Lizama MD Primary Care Provider [phone] Encounter Details Date Type Department Care Team (Late st Contact Info) Description 08/27/2022 Orders Only [facility] Health Information Management [address] [place] [address] Scanning, Provider Social History Tobacco Use Types Packs/Day Years Used Date Smoking Tobacco: Never Assessed Personal Safety Answer Date Recorded Getting School Help Needed Not on file 06/15 Comments Unknown Sex and Gender Information Value Date Recorded Sex Assigned at Not on file 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 Gender Identity Not on file Sexual Orientation Not on file documented as of this encounter Plan of Treatment Not on file documented as of this encounter Procedures Procedure Name Priority Date/Time Associated Diagnosis Comments SCAN - LABS 08/27/2022 CARDIOLOGY DOCUMENT SCAN 08/27/2022 documented in this encounter Results * SCAN - LABS (08/27/2022) us Provider Scanning Final Result * CARDIOLOGY DOCUMENT SCAN (08/27/2022) Anatomical Region Laterality Modality Other us Provider Scanning CV CARDIAC SERVICES PROCEDURES Final Result documented in this encounter Visit Diagnoses Not on filedocumented in this encounter Care Teams Tread Cutter Relationship Specialty Start Date End Date Steven Lizama MD PCP - General Family Practice 08/25/22 documented as of this encounter
--- OUTSIDE RECORDS SUMMARY | 2024-05-25 00:09 | XMS_ITS | Encounter Summary ---
Author Organization [facility] Address [address] [place] [address] Care Team Providers Care Marketing Support Specialist Name Role Phone Steven Lizaam MD Primary Care Provider [phone] Reason for Visit * Reason Comments Follow-up Encounter Details Date Type Department Care Team (Late st Contact Info) Description 12/23/2022 10:15 AM CDT Office Visit [facility] Pulmonology [address] [place] [phone] Autumn Pickett MD [address] [place] [address] Pulmonary nodules (Primary Dx); Moderate persistent asthma without complication; Panlobular emphysema (HCC) Social History Tobacco Use Types Packs/Day Years Used Date Smoking Tobacco: Every Day Cigarettes 1 30 Smokeless Tobacco: Never Comments Unknown Sex and Gender Information Value Date Recorded Sex Assigned at Not on file 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 Gender Identity Not on file Sexual Orientation Not on file documented as of this encounter Last Filed Vital Signs Vital Sign Reading Time Taken Comments Blood Pressure 160/101 12/23/2022 10:24 AM CDT Pulse 77 12/23/2022 10:24 AM CDT Temperature - - Respiratory Rate 18 12/23/2022 10:24 AM CDT Oxygen Saturation 94% 12/23/2022 10:24 AM CDT Inhaled Oxygen Concentration - - Weight 96.6 kg (213 lb) 12/23/2022 10:24 AM CDT Height 152.4 cm (5') 12/23/2022 10:24 AM CDT Body Mass Index 41.6 12/23/2022 10:24 AM CDT documented in this encounter Ordered Prescriptions Prescription Sig Dispense Quantity Refills Last Filled Start Date End Date fluticasone propion-salmeteroL (Advair HFA) 115-21 mcg/actuation inhalerIndications :Moderate persistent asthma without complication,Panlo bular emphysema (HCC) Inhale 2 puffs 2 (two) times a day as needed (coughing, wheezing, shortness of breath) Rinse mouth with water after use. Do not swallow. 1 each 2 12/23/2022 3 documented in this encounter Progress Notes * Autumn Pickett MD - 12/23/2022 10:15 AM CDT Images from the original note were not included. PULMONARY CLINIC NOTE Visit Date: 12/23/2022 INTERVAL HISTORY: Presents today for follow-up of COPD and asthma Stopped singulair due to hallucinations. Overall better Having some intermittent episodes of cough/chest congestion Using albutero Smoking 1 ppd HPI: Patient is a 62 y.o. female w/ PMH of HTN, DM2, CAD, h/o right breast cancer s/p resection and radiation in 2020, h/o CAD who presented on 10/02/2022 for evaluation of dyspnea. In August 2022 she went to [facility] for chest pain. Was diagnosed with pneumonia and given abx. Feeling better since hospital discharge but has new cough. Also some dyspnea with exertion. Coughing most days, worse with perfumes and dusts and other aersols. Intermittent wheezing Seasonal rhinitis/post nasal drip Denies GERD Did have covid in June 2022. Exposure and Social History: Smokes 1 ppd since age 21. Denies etoh or drug use. 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 No pets. OBJECTIVE: Physical Exam: Vitals: 12/23/22 1024 BP: (!) 160/101 BP Location: Left arm Patient Position: Sitting Pulse: 77 Resp: 18 SpO2: 94% Weight: 96.6 kg (213 lb) Height: 152.4 cm (5') Constitutional: In no acute distress, Respiratory: clear lungs Musculoskeletal/Extremities: No Cyanosis Neuro/psych: No new Aphasia Data Review: 12/19/[address]: IMPRESSION: No pneumonia. Innumerable tiny nodules are identified throughout both lungs. Some of these have irregular shape, and some appear partially cavitated. Solid nodules measure up to 5 mm. There also tiny subtle centrilobular ground-glass nodules in the upper lungs. These are probably in the spectrum of a smoking-related disease, including respiratory bronchiolitis and pulmonary Langerhans cell histiocytosis. However, given the history of breast cancer, metastatic disease can not be excluded. Comparison with previous examination is recommended, as well as short-term follow-up with chest CT in 3 months. Mild centrilobular emphysema with upper lung predominance. Dilatation of the central pulmonary arteries. This can be seen in the setting of pulmonary hypertension. Correlation with echocardiogram may be helpful. Other incidental findings as described above. Pulmonary function testin12/19/2022 Normal spirometry. Normal lung volumes with the exception of decreased ERV. Mildly decreased uncorrected DLCO ASSESSMENT AND PLAN Asthma and emphysema Continue albuterol. Add on Advair Rhinitis Continue Flonase. Can try [id number] Claritin or Rosalba. Did not tolerate Singulair due to hallucinations. Consider allergy and/or ENT referral in the future Pulmonary nodules-possible RV ILD CT shows bilateral nodules concerning for smoking-related lung disease vs other etiology Repeat CT in 3 months Tobacco abuse 40 pack year history. Smoking 1 ppd. Counseled on cessation for 5 minute. Discussed pharmacotherapy in she is not ready to quit yet but can let us know in the future if she wants to and we can try Autumn Pickett MD Pulmonary Medicine There may be syntax/grammatical errors in this note due to the use of voice recognition software. documented in this encounter Plan of Treatment Not on file documented as of this encounter Visit Diagnoses Diagnosis Pulmonary nodules- Primary Other diseases of lung, not elsewhere classified Moderate persistent asthma without complication Panlobular emphysema (HCC) Other emphysema documented in this encounter Care Teams Marketing Support Specialist Relationship Specialty Start Date End Date Steven Lizama MD PCP - General Family Practice 08/25/22 documented as of this encounter
--- OUTSIDE RECORDS SUMMARY | 2024-05-25 00:09 | XMS_ITS | Encounter Summary ---
Author Organization [facility] Healthcare Address [address] [place] [address] Care Team Providers Care Contracts Advisor Name Role Phone Steven Lizama MD Primary Care Provider [phone] Reason for Referral * MRI/CAT/PET Scan (Routine) - Closed Specialty Diagnoses / Procedures Referred By Annalise koo Referred To Contact Diagnoses Pulmonary nodules Procedures CT Chest WO Contrast Autumn Pickett MD [address] [place] [address] DR [address] [place] [phone] Phone: tel: fax: [address] [phone] Phone: tel: Referral ID Status Reason Start Date Expiration Date Visits Re quested Visits Authorized [id number] Closed 10/02/2022 11/01/2023 1 1 Reason for Visit * MRI/CAT/PET Scan (Routine) - Closed Specialty Diagnoses / Procedures Referred By Annalise koo Referred To Contact Diagnoses Pulmonary nodules Procedures CT Chest WO Contrast Autumn Pickett MD [address] [place] [address] DR MARCELINO [address] [place] [phone] Phone: tel: fax: [address] [address] Phone: tel: Referral ID Status Reason Start Date Expiration Date Visits Re quested Visits Authorized [id number] Closed 10/02/2022 11/01/2023 1 1 Encounter Details Date Type Department Care Team (Latest Contact Info) Description 12/19/2022 12:18 PM CDT - 12/19/2022 11:59 PM CDT Hospital Encounter [facility] [address] [place] [id number] Pulmonary nodules Discharge Disposition: Discharge to home or self care Social History Tobacco Use Types Packs/Day Years Used Date Smoking Tobacco: Every Day Cigarettes 1 30 Smokeless Tobacco: Never Comments Unknown Sex and Gender Information Value Date Recorded Sex Assigned at Not on file Legal Sex Female 9:37 PM [employer] Gender Identity Not on file Sexual Orientation Not on file documented as of this encounter Medications at Time of Discharge albuterol HFA (Ventolin HFA) 90 mcg/actuation inhalerIndications: Dyspnea and respiratory abnormalities Inhale 2 puffs every 4 (four) hours as needed for wheezing or shortness of breath 18 g 5 10/02/2022 amLODIPine (NORVASC) 10 mg tablet 08/28/2022 aspirin 81 mg enteric coated tablet Take 1 tablet (81 mg total) by mouth every morning 08/27/2022 fluticasone propionate (FLONASE) 50 mcg/actuation nasal spray Administer 2 sprays into each nostril daily 16 g 6 10/13/2022 inhaler,assist devices,access deviceIndications:D yspnea and respiratory abnormalities 1 Device as needed (with inhalers) 1 each 10/02/2022 metFORMIN (GLUCOPHAGE) 500 mg tablet 08/28/2022 nicotine (NICODERM CQ) 14 mg 08/29/2022 polyethylene glycol-electrolytes 420 gram solution TAKE DIRECTED BY OFFICE. 09/15/2022 ProChamber spacer USE NEEDED DIRECTED 10/02/2022 atorvastatin (LIPITOR) 40 mg tablet Take 1 tablet (40 mg total) by mouth daily 08/27/2022 4 documented as of this encounter Discharge Disposition Disposition Code Departure Means Destination Discharge to home or self care documented in this encounter Plan of Treatment Not on file documented as of this encounter Procedures Procedure Name Priority Date/Time Associated Diagnosis Comments CT CHEST WO CONTRAST Schedule Routine, Read Routine (OP Routine) 12/19/2022 12:29 PM CDT Pulmonary nodules documented in this encounter Results * CT Chest WO Contrast (12/19/2022 12:29 PM CDT) Anatomical Region Laterality Modality Body N/A Computed Tomogra phy 12/22/2022 10:1 6 AM CDT Narrative 12/22/2022 10:28 AM CDT EXAM DESCRIPTION: ?? CT CHEST WO CONTRAST REASON FOR STUDY: ?? Tree-in-bud nodules/pneumonia. ?? Smoker. ??History of breast cancer status post breast conservation therapy in 2020. TECHNIQUE: CT scan of the chest performed without intravenous contrast using helical scanning technique. Reconstructed coronal and sagittal MPR images reviewed. ??All images stored on PACS. ??Automated exposure control was used as a dose optimization technique for this examination. COMPARISON: ?? None available. REFERENCE: Per ACR white paper recommendations, unless otherwise specified no follow-up imaging is recommended for incidental renal and adrenal lesions per consensus recommendations based on imaging criteria. Further lab evaluation could be pursued based on clinical findings. FINDINGS: The sensitivity for detection of solid visceral lesions is diminished without the use of intravenous contrast. LUNGS: ?? There is mild centrilobular emphysema with upper lung predominance. ?? There is no focal consolidation. ??Innumerable tiny nodules are identified. ?? Some of these have irregular shape some are partially cavitated. ?? For reference, a solid 4 mm nodule can be seen in the left upper lobe on image 73, a 5 mm nodule can be seen in the right lower lobe on image 151, and a 5 mm nodule can be seen in the right upper lobe on image 44. ??A small cavitary nodule can be seen in the periphery of the right upper lobe on axial image 76. Tiny centrilobular ground-glass nodules are also subtly seen in the upper lungs. ??The airways are patent and normal in caliber. ??No bronchial wall thickening. PLEURA: ?? There is no pleural effusion or pneumothorax. MEDIASTINUM/FITZ: ?? No suspicious lymphadenopathy or masses. HEART: ?? The heart size is normal. 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 ?? Rhli-rj-ycuweozi calcified plaques in the coronary arteries. ??No pericardial thickening or effusion. CORONARY ARTERY CALCIFICATION: ??[id number]. VASCULATURE: ?? The thoracic aorta is atherosclerotic at the level of the arch, but overall aortic caliber is normal throughout without aneurysm. ??The central pulmonary arteries are dilated, which can be seen in the setting of pulmonary hypertension. AXILLA: ?? No adenopathy. CHEST WALL: ?? Post treatment changes are partially seen in the right breast and right axilla. HARDWARE/LINES/TUBES: ?? None. UPPER ABDOMEN: ?? Limited images through the upper abdomen are unremarkable. MUSCULOSKELETAL: ?? Examination of bone windows demonstrates no suspicious lytic or blastic lesions. ??Mild degenerative disc disease in the thoracic spine. OTHER: ?? No other significant abnormality. IMPRESSION: No pneumonia. Innumerable tiny nodules are identified throughout both lungs. ??Some of these have irregular shape, and some appear partially cavitated. ??Solid nodules measure up to 5 mm. ??There also tiny subtle centrilobular ground-glass nodules in the upper lungs. ??These are probably in the spectrum of a smoking-related disease, including respiratory bronchiolitis and pulmonary Langerhans cell histiocytosis. ??However, given the history of breast cancer, metastatic disease can not be excluded. ??Comparison with previous examination is recommended, as well as short-term follow-up with chest CT in 3 months. Mild centrilobular emphysema with upper lung predominance. Dilatation of the central pulmonary arteries. This can be seen in the setting of pulmonary hypertension. Correlation with echocardiogram may be helpful. Other incidental findings as described above. THIS IS AN ELECTRONICALLY VERIFIED FINAL REPORT 12/22/2022 10:28 AM - Electronically signed by ??Markell Castillo M.D. D: ??12/22/2022 10:28 AM T: Report ID: [id number] Reading Location: ??[id number] Procedure Note Markell Mills MD - 12/22/2022 EXAM DESCRIPTION: CT CHEST WO CONTRAST REASON FOR STUDY: Tree-in-bud nodules/pneumonia. Smoker. History of breast cancer status post breast conservation therapy in 2020. TECHNIQUE: CT scan of the chest performed without intravenous contrastusing helical scanning technique. Reconstructed coronal and sagittal MPR images reviewed. All images stored on PACS. Automated exposure control was usedas a dose optimization technique for this examination. COMPARISON: None available. REFERENCE: Per ACR white paper recommendations, unless otherwise specifiedno follow-up imaging is recommended for incidental renal and adrenal lesionsper consensus recommendations based on imaging criteria. Further labevaluation could be pursued based on clinical findings. FINDINGS: The sensitivity for detection of solid visceral lesions is diminished without the use of intravenous contrast. LUNGS: There is mild centrilobular emphysema with upper lungpredominance. There is no focal consolidation. Innumerable tiny nodules are identified. Some of these have irregular shape some are partially cavitated. For reference, a solid 4 mm nodule can be seen in the left upper lobe on image73, a 5 mm nodule can be seen in the right lower lobe on image 151, and a 5 mm nodule can be seen in the right upper lobe on image 44. A small cavitary nodule can be seen in the periphery of the right upper lobe on axial image76. Tiny centrilobular ground-glass nodules are also subtly seen in the upper lungs. The airways are patent and normal in caliber. No bronchial wall thickening. PLEURA: There is no pleural effusion or pneumothorax. MEDIASTINUM/FITZ: No suspicious lymphadenopathy or masses. HEART: The heart size is normal. A small left ventricular apex aneurysmis seen, but this is not well evaluated due to lack of intravenous contrast. Hqvf-ew-psapzqom calcified plaques in the coronary arteries. Nopericardial thickening or effusion. CORONARY ARTERY CALCIFICATION: Sxge-ai-pwqtgtax. VASCULATURE: The thoracic aorta is atherosclerotic at the level of thearch, but overall aortic caliber is normal throughout without aneurysm. Thecentral pulmonary arteries are dilated, which can be seen in the setting ofpulmonary hypertension. AXILLA: No adenopathy. CHEST WALL: Post treatment changes are partially seen in the rightbreast and right axilla. HARDWARE/LINES/TUBES: None. UPPER ABDOMEN: Limited images through the upper abdomen areunremarkable. MUSCULOSKELETAL: Examination of bone windows demonstrates no suspicious lytic or blastic lesions. Mild degenerative disc disease in the thoracic spine. OTHER: No other significant abnormality. IMPRESSION: No pneumonia. Innumerable tiny nodules are identified throughout both lungs. Some ofthese have irregular shape, and some appear partially cavitated. Solid nodules measure up to 5 mm. There also tiny subtle centrilobular ground-glassnodules in the upper lungs. These are probably in the spectrum of asmoking-related disease, including respiratory bronchiolitis and pulmonary Langerhans cell histiocytosis. However, given the history of breast cancer, metastatic disease can not be excluded. Comparison with previous examination is recommended, as well as short-term follow-up with chest CT in 3 months. Mild centrilobular emphysema with upper lung predominance. Dilatation of the central pulmonary arteries. This can be seen in thesetting of pulmonary hypertension. Correlation with echocardiogram may behelpful. Other incidental findings as described above. THIS IS AN ELECTRONICALLY VERIFIED FINAL REPORT 12/22/2022 10:28 AM - Electronically signed by Markell Castillo M.D. T: Report ID: [id number] Reading Location: [place] [address] Autumn Pickett MD IMG CT PROCEDURES Final Resul t documented in this encounter Visit Diagnoses Diagnosis Pulmonary nodules Other diseases of lung, not elsewhere classified documented in this encounter Care Teams Contracts Advisor Relationship Specialty Start Date End Date Steven Lizama MD PCP - General Family Practice 08/25/22 documented as of this encounter
--- OUTSIDE RECORDS SUMMARY | 2024-05-25 00:09 | XMS_ITS | Encounter Summary ---
Author Organization [facility] Address [address] [facility] [address] [place] [address] Care Team Providers Care Systems Analyst Name Role Phone Steven Lizama MD Primary Care Provider [phone] Reason for Referral * MRI/CAT/PET Scan (Routine) - Closed Specialty Diagnoses / Procedures Referred By Annalise t Referred To Contact Diagnoses Pulmonary nodules Procedures CT Chest WO Contrast [facility] [address] [place] [address] Phone: tel: fax: [facility] [address] [place] [address] Phone: tel: Referral ID Status Reason Start Date Expiration Date Visits Re quested Visits Authorized [id number] Closed 10/02/2022 11/01/2023 1 1 * Procedure (Routine) - Closed Specialty Diagnoses / Procedures Referred By Contregino t Referred To Contact Diagnoses Dyspnea and respiratory abnormalities Procedures Pulmonary Function Test -[facility]; Full PFT in PFT Lab w/Stress Ox/6 Min Walk Test Autumn Pickett MD [address] [facility] [address] [address] [place] [address] Phone: tel: fax: Referral ID Status Reason Start Date Expiration Date Visits Re quested Visits Authorized [id number] Closed 10/02/2022 11/01/2023 1 1 Reason for Visit * Reason Comments New Patient PNA * Consultation (Routine) - Closed Specialty Diagnoses / Procedures Referred By Contac t Referred To Contact Pulmonary Disease / Pulmonology Diagnoses Pneumonia due to infectious organism, unspecified laterality, unspecified part of lung Steven Lizama MD Phone: tel: fax: [facility] Pulmonology [facility] [facility] [address] [place] [address] Phone: tel: fax: Referral ID Status Reason Start Date Expiration Date V isits Requested Visits Authorized [id number] Closed Specialty Services Required 09/09/2022 10/09/2023 1 1 Encounter Details Date Type Department Care Team (Late st Contact Info) Description 10/02/2022 10:00 AM CDT Office Visit [facility] Pulmonology [address] [facility] [address] [place] [phone] Autumn Pickett MD [address] [place] [phone] Dyspnea and respiratory abnormalities (Primary Dx); Chronic rhinitis; Pulmonary nodules; Cigarette nicotine dependence without complication Social History Tobacco Use Types Packs/Day Years Used Date Smoking Tobacco: Every Day Cigarettes 1 30 Smokeless Tobacco: Never Comments Unknown Sex and Gender Information Value Date Recorded Sex Assigned at Not on file 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 Gender Identity Not on file Sexual Orientation Not on file documented as of this encounter Last Filed Vital Signs Vital Sign Reading Time Taken Comments Blood Pressure 154/95 10/02/2022 9:57 AM CDT Pulse 94 10/02/2022 9:57 AM CDT Temperature 36.5 ??C (97.7 ??F) 10/02/2022 9:57 AM CD T Respiratory Rate 18 10/02/2022 9:57 AM CDT Oxygen Saturation 99% 10/02/2022 9:57 AM CDT Inhaled Oxygen Concentration - - Weight 92.6 kg (204 lb 3.2 oz) 10/02/2022 9:57 A M CDT Height 152.4 cm (5') 10/02/2022 9:57 AM CDT Body Mass Index 39.88 10/02/2022 9:57 AM CDT documented in this encounter Ordered Prescriptions Prescription Sig Dispense Quantity Refills Last Filled Start Date End Date inhaler,assist devices,access deviceIndications:D yspnea and respiratory abnormalities 1 Device as needed (with inhalers) 1 each 10/02/2022 albuterol HFA (Ventolin HFA) 90 mcg/actuation inhalerIndications: Dyspnea and respiratory abnormalities Inhale 2 puffs every 4 (four) hours as needed for wheezing or shortness of breath 18 g 5 10/02/2022 azelastine-fluticas one 137-50 mcg/spray spray,non-aerosolIn dications:Chronic rhinitis Administer 1 spray into affected nostril(s) 2 (two) times a day 23 g 2 10/02/2022 3 montelukast (SINGULAIR) 10 mg tabletIndications:C hronic rhinitis Take 1 tablet (10 mg total) by mouth nightly 90 tablet 1 10/02/2022 3 documented in this encounter Progress Notes * Autumn Pickett MD - 10/02/2022 10:00 AM CDT Images from the original note were not included. PULMONARY CLINIC NOTE Visit Date: 10/02/2022 INTERVAL HISTORY: Presents today for follow-up of New HPI: Patient is a 61 y.o. female w/ PMH of HTN, DM2, CAD, h/o right breast cancer s/p resection and radiation in 2020, h/o CAD who presented on 10/02/2022 for evaluation of dyspnea. In August 2022 she went to [facility] for chest pain. 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 OBJECTIVE: Physical Exam: Vitals: 10/02/22 0957 BP: 154/95 BP Location: Right arm Patient Position: Sitting Pulse: 94 Resp: 18 Temp: 36.5 ??C (97.7 ??F) TempSrc: Tympanic SpO2: 99% Weight: 92.6 kg (204 lb 3.2 oz) Height: 152.4 cm (5') Constitutional: In no acute distress, Respiratory: clear lungs Musculoskeletal/Extremities: No Cyanosis Neuro/psych: No new Aphasia Data Review: Pulmonary function testing: ASSESSMENT AND PLAN Dyspnea and cough/bronchitis Check PFT, cbc Start empiric albuterol Rhinitis Check IgE an allergy panel Start azelastine-flonase nasal spray and Singulair Pulmonary nodules Had some tree-in-bud nodules, probably infectious. Repeat chest CT to evaluate for resolution Tobacco abuse 40 pack year history. Smoking 1 ppd. Consider pharmacotherapy in the future. Autumn Pickett MD Pulmonary Medicine There may be syntax/grammatical errors in this note due to the use of voice recognition software. documented in this encounter Miscellaneous Notes * Addendum Note - Yuko Grewal. - 10/02/2022 10:00 AM CDTAddended by: YUKO GREWAL on: 10/30/2022 12:43 PM Modules accepted: Orders documented in this encounter Plan of Treatment Not on file documented as of this encounter Results * (ABNORMAL) Pulmonary Function Test - (12/19/2022 1:32 PM CDT) [facility] FVC PRE 2.29 1.69 - 2.91 L 12/19/2022 1:37 PM CDT [facility] FEV1 PRE 1.78 1.34 - 2.35 L 12/19/2022 1:37 PM CDT [facility] [id number] 77.88 68.32 - 92.12 % 12/19/2022 1:37 PM CDT [facility] PRI71-16% PRE 1.58 0.76 - 2.81 L/s 12/19/2022 1:37 PM CDT [facility] PEF PRE 6.83 3.94 - 6.90 L/s 12/19/2022 1:37 PM CDT [facility] FET 100% PRE 5.02 sec 12/19/2022 1:37 PM CDT [facility] FIVC PRE 2.13 1.65 - 3.03 L 12/19/2022 1:37 PM CDT [facility] FIF50% PRE 3.94 L/s 12/19/2022 1:37 PM CDT [facility] DLCOc SB 13.28(L) 14.29 - 25.75 ml/(min*mm Hg) 12/19/2022 1:37 PM CDT [facility] DLCOc SB 13.28(L) 14.29 - 25.75 ml/(min*mm Hg) 12/19/2022 1:37 PM CDT [facility] VA 3.24(L) 4.09 - 4.09 L 12/19/2022 1:37 PM CDT [facility] DLCO/VA PRE 4.10 2.98 - 6.46 ml/(min*mm Hg*L) 12/19/2022 1:37 PM CDT [facility] DLCOc SB 4.10 2.98 - 6.46 ml/(min*mm Hg*L) 12/19/2022 1:37 PM CDT [facility] VC PRE 2.48 1.65 - 3.03 L 12/19/2022 1:37 PM CDT [facility] TLC PRE 4.26 3.25 - 5.23 L 12/19/2022 1:37 PM CDT [facility] RV PRE 1.78 1.15 - 2.30 L 12/19/2022 1:37 PM CDT [facility] FRC PL PRE 2.15 L 12/19/2022 1:37 PM CDT [facility] ERV PRE 0.38(L) 0.74 - 0.74 L 12/19/2022 1:37 PM CDT [facility] IC PRE 2.10(H) 1.60 - 1.60 L 12/19/2022 1:37 PM CDT [facility] RAW PRE 5.76(H) 3.06 - 3.06 cmH2O*s/L 12/19/2022 1:37 PM CDT [facility] BF RES 25.26 BPM 12/19/2022 1:37 PM CDT [facility] VTG RAW 2.54 L 12/19/2022 1:37 PM CDT [facility] VTG 2.60 L 12/19/2022 1:37 PM CDT [facility] Anatomical Region Laterality Modality PFT 12/19/2022 12:3 9 PM CDT Narrative 12/19/2022 10:35 PM CDT Spirometry is normal. ?? Flow volume loop looks normal. ?? Lung volumes are normal. ?? Gas exchange capacity is mildly reduced but corrects to normal for alveolar volume. ?? Patient did not require supplemental oxygen ambulatory oximetry test. Electronically signed by Sunny Crowell MD Autumn Pickett MD PFT ORDERABLES Final Result * CT Chest WO Contrast (12/19/2022 12:29 [...] due to lack of intravenous contrast. ?? Ryfl-ls-enrwtuex calcified plaques in the coronary arteries. ??No pericardial thickening or effusion. CORONARY ARTERY CALCIFICATION: ??[id number]-dw-xfadwnfd. VASCULATURE: ?? The thoracic aorta is atherosclerotic [...] D: ??12/22/2022 10:28 AM T: Report ID: [id number] Reading Location: ??[id number] Procedure Note Markell Mills MD - 12/22/2022 [...] evaluated due to lack of intravenous contrast. Rpui-ig-ycgmshor calcified plaques in the coronary arteries. Nopericardial thickening or effusion. CORONARY ARTERY CALCIFICATION: Foig-kj-pddmdmei. VASCULATURE: The thoracic aorta is atherosclerotic at [...] by Markell Castillo M.D. T: Report ID: [id number] Reading Location: [id number] Autumn Pickett MD IM CT PROCEDURES Final Resul t * (ABNORMAL) Allergen Pigweed, rough (weed) IgE (10/30/2022 12:44 PM CDT) Pigweed rough IgE 1.02(H) 0.00 - 0.34 kUnits/L LINDA ENRIQUEZ Comment:Testing performed by : [place]., [address] Blood 10/30/2022 12:4 4 PM CDT 10/31/2022 12:[address] [facility] Autumn Pickett MD LAB BLOOD ORDERABLES Final Re sult Performing Organization Address City/[facility] Co de Phone Number LINDA [address] [place] [address] * (ABNORMAL) Allergen Ragweed short/common (weed) IgE (10/30/2022 12:44 PM CDT) Ragweed common IgE 1.21(H) 0.00 - 0.34 kUnits/L LINDA Comment:Testing performed by : [facility], [place]., [address] Blood 10/30/2022 12:4 4 PM CDT 10/31/2022 12:[address] [facility] Autumn Pickett MD LAB BLOOD ORDERABLES Final Re sult Performing Organization Address [facility] Co de Phone Number LINDA [address] [address] [facility] [place] [address] * (ABNORMAL) Allergen Nettle (weed) IgE (10/30/2022 12:44 PM CDT) Nettle IgE 2.40(H) 0.00 - 0.34 kUnits/L LINDA Comment:Testing performed by : [facility], [place]., [address] Blood 10/30/2022 12:4 4 PM CDT 10/31/2022 12:[address] [facility] Autumn Pickett MD LAB BLOOD ORDERABLES Final Re sult Performing Organization Address City/[facility]/ZIP Co de Phone Number LINDA [address] [place] [address] * (ABNORMAL) Allergen Alternaria tenuis (mold) IgE (10/30/2022 12:44 PM CDT) Alternaria tenius IgE 0.53(H) 0.00 - 0.34 kUnits/L [facility] Comment:Testing performed by : [facility], [place]., [address] Blood 10/30/2022 12:4 4 PM CDT 10/31/2022 12:54 PM CDT Autumn Pickett MD LAB BLOOD ORDERABLES Final Re sult Performing Organization Address City/[facility]/ZIP Co de Phone Number [facility] [address] [address] [facility] [place] [address] * (ABNORMAL) Allergen Aspergillus fumigatus (mold) IgE (10/30/2022 12:44 PM CDT) Aspergillus fumigatus IgE 4.34(H) 0.00 - 0.34 kUnits/L [facility] Comment:Testing performed by : [facility], [place]., [address] Blood 10/30/2022 12:4 4 PM CDT 10/31/2022 12:54 PM CDT Autumn Pickett MD LAB BLOOD ORDERABLES Final Re sult Performing Organization Address City/[facility]/ZIP Co de Phone Number [facility] [address] [facility] [facility] [place] [address] * (ABNORMAL) Allergen Cladosporium herbarum (mold) IgE (10/30/2022 12:44 PM CDT) Cladosporium herbarum IgE 0.57(H) 0.00 - 0.34 kUnits/L [facility] Comment:Testing performed by : [facility], [place]., [address] Blood 10/30/2022 12:4 4 PM CDT 10/31/2022 12:54 PM CDT Autumn Pickett MD LAB BLOOD ORDERABLES Final Re sult Performing Organization Address City/[facility]/ZIP Co de Phone Number LINDA ENRIQUEZ [address] [facility] [place] [address] * (ABNORMAL) Allergen Penicillium chrysogenum (mold) IgE (10/30/2022 12:44 PM CDT) Penicillium chrysogenum IgE 0.90(H) 0.00 - 0.34 kUnits/L LINDA Comment:Testing performed by : [place]., [address] Blood 10/30/2022 12:4 4 PM CDT 10/31/2022 12:54 PM CDT Autumn Pickett MD LAB BLOOD ORDERABLES Final Re sult Performing Organization Address [facility] Co de Phone Number ABDULAZIZETELVINA ENRIQUEZ [address] [address] [place] [address] * (ABNORMAL) Allergen Epithelia/dander cat (animal) IgE (10/30/2022 12:44 PM CDT) Cat dander IgE 0.38(H) 0.00 - 0.34 kUnits/L LINDA Comment:Testing performed by : [place]., [address] Blood 10/30/2022 12:4 4 PM CDT 10/31/2022 12:54 PM CDT Autumn Pickett MD LAB BLOOD ORDERABLES Final Re sult LINDA ENRIQUEZ [address] [address] [place] [address] * (ABNORMAL) Allergen Cockroach surinamese (insect) IgE (10/30/2022 12:44 PM CDT) Cockroach IgE 5.22(H) 0.00 - 0.34 kUnits/L CERETELVINA Comment:Testing performed by : [place]., [address] Blood 10/30/2022 12:4 4 PM CDT 10/31/2022 12:54 PM CDT Autumn Pickett MD LAB BLOOD ORDERABLES Final Re sult Performing Organization Address [facility] Co de Phone Number [facility] [address] [address] [place] [address] * (ABNORMAL) Allergen Dermatophagoides farniae (insect) IgE (10/30/2022 12:44 PM CDT) Dermatophyton farinae IgE 14.60(H) 0.00 - 0.34 kUnits/L LINDA Comment:Testing performed by : [facility], [place]., [address] Blood 10/30/2022 12:4 4 PM CDT 10/31/2022 12:54 PM CDT Autumn Pickett MD LAB BLOOD ORDERABLES Final Re sult Performing Organization Address [facility] Co de Phone Number [facility] [address] [address] [place] [address] * (ABNORMAL) Allergen Dermatophagoides pteronyssinus (insect) IgE (10/30/2022 12:44 PM CDT) Dermatophyton pteronyssinus IgE 14.50(H) 0.00 - 0.34 kUnits/L CERETELVINA Comment:Testing performed by : [facility], [place]., [address] Blood 10/30/2022 12:4 4 PM CDT 10/31/2022 12:54 PM CDT Autumn Pickett MD LAB BLOOD ORDERABLES Final Re sult Performing Organization Address City/[facility]/ZIP Co de Phone Number LINDA ENRIQUEZ [address] [address] [place] [address] * (ABNORMAL) IgE (10/30/2022 12:44 PM CDT) IgE 720.0(H) 1.0 - 100.0 IUnits/mL LINDA Comment:Testing performed by : [facility], [address] [place] [address]., [address] Blood 10/30/2022 12:4 4 PM CDT 10/31/2022 12:51 PM CDT Autumn Pickett MD LAB BLOOD ORDERABLES Final Re sult Performing Organization Address [facility] Co de Phone Number LINDA ENRIQUEZ [address] [address] [place] [address] * Allergen Epithelia/dander dog (animal) IgE (10/30/2022 12:44 PM CDT) Pathologist [facility] Dog dander IgE 0.22 0.00 - 0.34 kUnits/L LINDA Comment:Testing performed by : [facility], [facility], [place]., [address] Blood 10/30/2022 12:4 4 PM CDT 10/31/2022 12:54 PM CDT Autumn Pickett MD LAB BLOOD ORDERABLES Final Re sult Performing Organization Address City/[facility]/ZIP Co de Phone Number LINDA ENRIQUEZ [address] [address] [place] [address] * (ABNORMAL) CBC with auto differential (10/30/2022 12:44 PM CDT) WBC 9.1 3.8 - 9.9 K/cumm LINDA Hgb 14.9 11.9 - 15.5 g/dL [facility] Hct 47.8(H) 35.6 - 45.5 % [facility] Plt 333 150 - 400 K/cumm [facility] MPV 12.1 9.1 - 12.3 fL [facility] RBC 5.25(H) 3.90 - 5.20 M/cumm [facility] MCV 91.0 81.3 - 96.4 fL [facility] MCH 28.4 27.1 - 33.3 pg [facility] MCHC 31.2(L) 32.3 - 35.7 g/dL [facility] RDW CV 14.6 11.1 - 14.9 % [facility] RDW SD 48.7(H) 35.7 - 48.1 fL [facility] NRBC abs 0.00 0.00 - 0.01 K/cumm [facility] Blood 10/30/2022 12:4 4 PM CDT 10/30/2022 6:54 PM CDT us Autumn Pickett MD LAB BLOOD ORDERABLES Final Re sult [facility] [address] [address] Department of Laboratories [place] [id number] documented in this encounter Visit Diagnoses Diagnosis Dyspnea and respiratory abnormalities- Primary Chronic rhinitis Pulmonary nodules Other diseases of lung, not elsewhere classified Cigarette nicotine dependence without complication Dyspnea and respiratory abnormalities Pulmonary nodules Other diseases of lung, not elsewhere classified documented in this encounter Discontinued Medications Medication Sig Discontinue Reason Start Date End Da te cefdinir (OMNICEF) 300 mg capsule TAKE 1 CAPSULE BY MOUTH EVERY 12 HOURS FOR 5 DAYS Other 08/27/2022 10/02/2022 promethazine (PHENERGAN) 25 mg tablet TAKE 1/2 TABLET BY MOUTH EVERY 6 HOURS NEEDED FOR NAUSEA Other 09/15/2022 10/02/2022 documented as of this encounter Historical Medications * This list may reflect changes made after this encounter. polyethylene glycol-electroly alen 420 gram solution TAKE DIRECTED BY OFFICE. 09/15/2022 nicotine (NICODERM CQ) 14 mg 08/29/2022 promethazine (PHENERGAN) 25 mg tablet TAKE 1/2 TABLET BY MOUTH EVERY 6 HOURS NEEDED FOR NAUSEA 09/15/2022 10/02/2022 added in this encounter Care Teams Systems Analyst Relationship Specialty Start Date End Date Steven Lizama MD PCP - General Family Practice 08/25/22 documented as of this encounter
--- OUTSIDE RECORDS SUMMARY | 2024-05-25 00:09 | XMS_ITS | Encounter Summary ---
Author Organization [facility] Address [address] [facility] [address] [place] [address] Care Team Providers Care Car Usher Name Role Phone Steven Lizama MD Primary Care Provider [phone] Encounter Details Date Type Department Care Team (Late st Contact Info) Description 11/05/2022 Telephone [facility] Pulmonology [address] [facility] [address] [place] [address] Simi Mukherjee Social History Tobacco Use Types Packs/Day Years Used Date Smoking Tobacco: Every Day Cigarettes 1 30 Smokeless Tobacco: Never Comments Unknown Sex and Gender Information Value Date Recorded Sex Assigned at Not on file 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 She voiced understanding. * Telephone Encounter - Autumn Pickett MD - 11/05/2022 3:18 PM CDT If they are ok rescheduling lets do that.can be the same day as PFT or next day if avaiable * Telephone Encounter - Simi Mukherjee - 11/05/2022 1:42 PM CDT Patient's friend called and wanted to let you know they would not get the PFT till after her followup. They were able to get the CT before the follow up. Do you want them to reschedule till after the PFT is complete. Please advise. documented in this encounter Plan of Treatment Not on file documented as of this encounter Visit Diagnoses Not on filedocumented in this encounter Care Teams Car Usher Relationship Specialty Start Date End Date Steven Lizama MD PCP - General Family Practice 08/25/22 documented as of this encounter
--- OUTSIDE RECORDS SUMMARY | 2024-05-25 00:09 | XMS_ITS | Encounter Summary ---
Author Organization [facility] Address [address] [place] [address] Care Team Providers Care Bookkeeper Assistant Name Role Phone Steven Lizama MD Primary Care Provider [phone] Encounter Details Date Type Department Care Team (Latest Contact Info) Description 09/11/2022 8:30 AM CDT - 09/11/2022 11:59 PM CDT Hospital Encounter [facility] [employer] [address] [place] [address] Discharge Disposition: Discharge to home or self care Social History Tobacco Use Types Packs/Day Years Used Date Smoking Tobacco: Every Day Cigarettes 1 30 Smokeless Tobacco: Never Comments Unknown Sex and Gender Information Value Date Recorded Sex Assigned at Not on file 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 Gender Identity Not on file Sexual Orientation Not on file documented as of this encounter Medications at Time of Discharge amLODIPine (NORVASC) 10 mg tablet 08/28/2022 aspirin 81 mg enteric coated tablet Take 1 tablet (81 mg total) by mouth every morning 08/27/2022 metFORMIN (GLUCOPHAGE) 500 mg tablet 08/28/2022 nicotine (NICODERM CQ) 14 mg 08/29/2022 atorvastatin (LIPITOR) 40 mg tablet Take 1 tablet (40 mg total) by mouth daily 08/27/2022 02/05/2024 cefdinir (OMNICEF) 300 mg capsule TAKE 1 CAPSULE BY MOUTH EVERY 12 HOURS FOR 5 DAYS 08/27/2022 10/02/2022 documented as of this encounter Discharge Disposition Disposition Code Departure Means Destination Discharge to home or self care documented in this encounter Plan of Treatment Not on file documented as of this encounter Procedures Procedure Name Priority Date/Time Associated Diagnosis Comments CT BODY OUTSIDE REFERENCE Routine 09/11/2022 8:30 AM CDT documented in this encounter Results * CT Body Outside Reference (09/11/2022 8:30 AM CDT) Narrative [id number] - 12/30/2022 8:10 AM CDT This order has been auto-finalized and does not contain a result. us Provider Transcribed Order IMG CT PROCEDURES Fin al Result [id number] documented in this encounter Visit Diagnoses Not on filedocumented in this encounter Care Teams Bookkeeper Assistant Relationship Specialty Start Date End Date Steven Lizama MD PCP - General Family Practice 08/25/22 documented as of this encounter
--- OUTSIDE RECORDS SUMMARY | 2024-05-25 00:09 | XMS_ITS | Encounter Summary ---
Author Organization [facility] Address [address] [place] [address] Care Team Providers Care Rn Case Manager Name Role Phone Steven Lizama MD Primary Care Provider [phone] Reason for Visit * Reason Onset Date Comments Medical Question/Miscellaneous 10/14/2022 Encounter Details Date Type Department Care Team (Late st Contact Info) Description 10/14/2022 Telephone [facility] Pulmonology [address] [place] [phone] Marily Carl MA Medical Question/Miscellaneous Social History Tobacco Use Types Packs/Day Years Used Date Smoking Tobacco: Every Day Cigarettes 1 30 Smokeless Tobacco: Never Comments Unknown Sex and Gender Information Value Date Recorded Sex Assigned at Not on file 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 * Telephone Encounter - Autumn Pickett MD - 10/14/2022 3:20 PM CDT Have her stop montelukast and if those symptoms are side effect of Singulair, should resolve in 1-2weeks * Telephone Encounter - Marily Carl MA - 10/14/2022 12:55 PM CDT Patient called in stating that she is having issues with Montelukast, she is c/o her dream pattern being off and bumps/blisters in her head. Please advise. documented in this encounter Plan of Treatment Not on file documented as of this encounter Visit Diagnoses Not on filedocumented in this encounter Discontinued Medications Medication Sig Discontinue Reason Start Date End Da te montelukast (SINGULAIR) 10 mg tabletIndications:Chroni c rhinitis Take 1 tablet (10 mg total) by mouth nightly Side effects 10/02/2022 10/14/2022 documented as of this encounter Historical Medications * This list may reflect changes made after this encounter. ProChamber spacer USE NEEDED DIRECTED 10/02/2022 added in this encounter Care Teams Rn Case Manager Relationship Specialty Start Date End Date Steven Lizama MD PCP - General Family Practice 08/25/22 documented as of this encounter
--- OUTSIDE RECORDS SUMMARY | 2024-05-25 00:09 | XMS_ITS | Encounter Summary ---
Author Organization [facility] Address [address] [place] [address] Care Team Providers Care Adult Day Care Worker Name Role Phone Steven Lizama MD Primary Care Provider [phone] Reason for Visit * Reason Onset Date Comments Scheduling Appointments 08/25/2022 Encounter Details Date Type Department Care Team (Late st Contact Info) Description 08/25/2022 Telephone [facility] [address] [place] [phone] Urvashi Caraballo RN Scheduling Appointments Social History Tobacco Use Types Packs/Day Years Used Date Smoking Tobacco: Never Assessed Comments Unknown Sex and Gender Information Value Date Recorded Sex Assigned at Not on file 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 PT BEING FOLLOWED AT [facility] BY BREAST SURGERY FOR HER HX OF BREASTCANCER. PT HAS HX OF INVASIVE DUCTAL CARCINOMA OF RIGHT BREAST. PT HAD LUMPECTOMY AND RADIATION. NCINQUIRED WHY PT WAS REQUESTING APPT. PT STATES SHE DIDN'T KNOW. PT STATES HER PCP TOLD HER TO CALL OUR NUMBER. NC INQUIRED IF PT WAS WANTING TO SWITCH TO [facility] AND PT DID NOT KNOW. NC INSTRUCTED PTTO CALL PCP TO FIND ABOUT WHY HE WANTED HER TO CALL [facility]. documented in this encounter Plan of Treatment Not on file documented as of this encounter Visit Diagnoses Not on filedocumented in this encounter Care Teams Adult Day Care Worker Relationship Specialty Start Date End Date Steven Lizama MD PCP - General Family Practice 08/25/22 documented as of this encounter
--- OUTSIDE RECORDS SUMMARY | 2024-05-25 00:09 | XMS_ITS | Encounter Summary ---
Author Organization [facility] Address [address] [place] [address] Care Team Providers Care Telecommunications Network Planner Name Role Phone Steven Lizama MD Primary Care Provider [phone] Encounter Details Date Type Department Care Team (Late st Contact Info) Description 10/30/2022 1:30 PM CDT Lab [facility] Outpatient Lab at [address] [phone] Dyspnea and respiratory abnormalities Social History Tobacco Use Types Packs/Day Years Used Date Smoking Tobacco: Every Day Cigarettes 1 30 Smokeless Tobacco: Never Comments Unknown Sex and Gender Information Value Date Recorded Sex Assigned at Not on file 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
--- OUTSIDE RECORDS SUMMARY | 2024-05-25 00:09 | XMS_ITS | Encounter Summary ---
Author Organization [facility] Healthcare Address [address] [place] [address] Care Team Providers Care Director Of Product Development Name Role Phone Steven Lizama MD Primary Care Provider [phone] Reason for Referral * Procedure (Routine) - Closed Specialty Diagnoses / Procedures Referred By Annalise koo Referred To Contact Diagnoses Dyspnea and respiratory abnormalities Procedures Pulmonary Function Test -[facility]; Full PFT in PFT Lab w/Stress Ox/6 Min Walk Test Autumn Pickett MD [address] [place] [id number] Phone: tel: fax: Referral ID Status Reason Start Date Expiration Date Visits Re quested Visits Authorized [id number] Closed 10/02/2022 11/01/2023 1 1 Reason for Visit * Procedure (Routine) - Closed Specialty Diagnoses / Procedures Referred By Annalise koo Referred To Contact Diagnoses Dyspnea and respiratory abnormalities Procedures Pulmonary Function Test -[facility]; Full PFT in PFT Lab w/Stress Ox/6 Min Walk Test Autumn Pickett MD [address] [place] [id number] Phone: tel: fax: Referral ID Status Reason Start Date Expiration Date Visits Re quested Visits Authorized [id number] Closed 10/02/2022 11/01/2023 1 1 Encounter Details Date Type Department Care Team (Latest Contact Info) Description 12/19/2022 12:15 PM CDT - 12/19/2022 11:59 PM CDT Hospital Encounter [facility] Respiratory [facility] [place] [address] Dyspnea and respiratory abnormalities Discharge Disposition: Discharge to home or self care Social History Tobacco Use Types Packs/Day Years Used Date Smoking Tobacco: Every Day Cigarettes 1 30 Smokeless Tobacco: Never Comments Unknown Sex and Gender Information Value Date Recorded Sex Assigned at Not on file Legal Sex Female 9:37 PM HADOOP CONSULTANT Gender Identity Not on file Sexual [...] or self care documented in this encounter Progress Notes * Micki Plata, PROJECT CONTROL MANAGER - 12/19/2022 1:31 PM CDT Six minute walk test SPO2 = 97-98%. Not a fall risk. No O2 required. Walked 800 feet and c/o mild sob. 12/19/22 1240 Resting Information Resting HR. 76 bpm Resting SPO2 98 % Oxygen Setting room air (start ambulation) Ambulation Trials to Assess Desaturation to 88% Activity 1: Ambulated (feet) 800 feet Oxygen Setting #1 room air SPO2 (%) #1 97 % Post Ambulation Assessment HR Post Assessment 104 bpm RR Post Assessment 14 breaths/m Post Assessment Recommendation No O2 required $ Home O2 Assessment Yes documented in this encounter Plan of Treatment Not on file documented as of this encounter Procedures Procedure Name Priority Date/Time Associated Diagnosis Comments PULMONARY FUNCTION TEST (PFT) Routine 12/19/2022 1:32 PM CDT Dyspnea and respiratory abnormalities documented in this encounter Results * (ABNORMAL) Pulmonary Function Test - (12/19/2022 1:32 PM CDT) FVC PRE 2.29 1.69 - 2.91 L 12/19/2022 1:37 PM CDT [facility] FEV1 PRE 1.78 1.34 - 2.35 L 12/19/2022 1:37 PM CDT [facility] [id number] 77.88 68.32 - 92.12 % 12/19/2022 1:37 PM CDT [facility] [id number]% PRE 1.58 0.76 - 2.81 L/s 12/19/2022 1:37 PM CDT [facility] PEF PRE 6.83 3.94 - 6.90 L/s 12/19/2022 1:37 PM CDT [facility] FET 100% PRE 5.02 sec 12/19/2022 1:37 PM CDT [facility] FIVC PRE 2.13 1.65 - 3.03 L 12/19/2022 1:37 PM CDT [facility] FIF50% PRE 3.94 L/s 12/19/2022 1:37 PM CDT [facility] DLCOc SB 13.28(L) 14.29 - 25.75 ml/(min*mm Hg) 12/19/2022 1:37 PM CDT [facility] DLCOc SB 13.28(L) 14.29 - 25.75 ml/(min*mm Hg) 12/19/2022 1:37 PM CDT [facility] VA 3.24(L) 4.09 - 4.09 L 12/19/2022 1:37 PM CDT [facility] DLCO/VA PRE 4.10 2.98 - 6.46 ml/(min*mm Hg*L) 12/19/2022 1:37 PM CDT [facility] DLCOc SB 4.10 2.98 - 6.46 ml/(min*mm Hg*L) 12/19/2022 1:37 PM CDT [facility] VC PRE 2.48 1.65 - 3.03 L 12/19/2022 1:37 PM T [facility] TLC PRE 4.26 3.25 - 5.23 L 12/19/2022 1:37 PM T [facility] RV PRE 1.78 1.15 - 2.30 L 12/19/2022 1:37 PM CDT [facility] FRC PL PRE 2.15 L 12/19/2022 1:37 PM T [facility] ERV PRE 0.38(L) 0.74 - 0.74 L 12/19/2022 1:37 PM T [facility] IC PRE 2.10(H) 1.60 - 1.60 L 12/19/2022 1:37 PM T [facility] RAW PRE 5.76(H) 3.06 - 3.06 cmH2O*s/L 12/19/2022 1:37 PM T [facility] BF RES 25.26 BPM 12/19/2022 1:37 PM T [facility] VTG RAW 2.54 L 12/19/2022 1:37 PM T [facility] VTG 2.60 L 12/19/2022 1:37 PM [facility] Anatomical Region Laterality Modality PFT 12/19/2022 12:3 9 PM CDT Narrative 12/19/2022 10:35 PM CDT Spirometry is normal. ?? Flow volume loop looks normal. ?? Lung volumes are normal. ?? Gas exchange capacity is mildly reduced but corrects to normal for alveolar volume. ?? Patient did not require supplemental oxygen ambulatory oximetry test. Electronically signed by Sunny Crowell MD us Autumn Pickett MD PFT ORDERABLES Final Result documented in this encounter Visit Diagnoses Diagnosis Dyspnea and respiratory abnormalities documented in this encounter Care Teams Director Of Product Development Relationship Specialty Start Date End Date Steven Lizama MD PCP - General Family Practice 08/25/22 documented as of this encounter
--- OUTSIDE RECORDS SUMMARY | 2024-05-25 00:09 | XMS_ITS | Encounter Summary ---
Author Organization [facility] Address [address] [place] [address] Care Team Providers Care Welding Supervisor Name Role Phone Steven Lizama MD Primary Care Provider [phone] Encounter Details Date Type Department Care Team (Late st Contact Info) Description 08/25/2022 Orders Only [facility] Information Management [address] [place] [address] Scanning, Provider Social History Tobacco Use Types Packs/Day Years Used Date Smoking Tobacco: Never Assessed Personal Safety Answer Date Recorded Getting School Help Needed Not on file 06/15 Comments Unknown Sex and Gender Information Value Date Recorded Sex Assigned at Not on file 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 Gender Identity Not on file Sexual Orientation Not on file documented as of this encounter Plan of Treatment Not on file documented as of this encounter Procedures Procedure Name Priority Date/Time Associated Diagnosis Comments SCAN - RADIOLOGY/IMAGING 08/25/2022 documented in this encounter Results * SCAN - RADIOLOGY/IMAGING (08/25/2022) Anatomical Region Laterality Modality Other us Provider Scanning Edited Result - Final documented in this encounter Visit Diagnoses Not on filedocumented in this encounter Care Teams Welding Supervisor Relationship Specialty Start Date End Date Steven Lizama MD PCP - General Family Practice 08/25/22 documented as of this encounter
--- OUTSIDE RECORDS SUMMARY | 2024-05-25 00:09 | XMS_ITS | Encounter Summary ---
Author Organization [facility] Address [address] [place] [address] Care Team Providers Care Bed Machine Operator Name Role Phone Steven Lizama MD Primary Care Provider [phone] Reason for Visit * Reason Onset Date Comments Prior Auth 10/07/2022 Encounter Details Date Type Department Care Team (Late st Contact Info) Description 10/07/2022 Telephone [facility] Pulmonology 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 * Telephone Encounter - Autumn Pickett MD - 10/13/2022 3:24 PM CDT That's fine. Can use fluticasone * Telephone Encounter - Ellis Carl MA - 10/13/2022 2:38 PM CDT Patient's insurance denied Azelastine-Fluticasone, they prefer Fluticasone propionate. Please advise. * Telephone Encounter - Ellis Carl MA - 10/07/2022 4:57 PM CDT PA submitted for Azelastine-Fluticasone 137-50MCG/ACT suspension on CMM. documented in this encounter Plan of Treatment Not on file documented as of this encounter Visit Diagnoses Not on filedocumented in this encounter Discontinued Medications Medication Sig Discontinue Reason Start Date End Da te azelastine-fluticasone 137-50 mcg/spray spray,non-aerosolIndic ations:Chronic rhinitis Administer 1 spray into affected nostril(s) 2 (two) times a day 10/02/2022 10/13/2022 documented as of this encounter Care Teams Bed Machine Operator Relationship Specialty Start Date End Date Steven Lizama MD PCP - General Family Practice 08/25/22 documented as of this encounter
--- OUTSIDE RECORDS SUMMARY | 2024-05-25 00:09 | XMS_ITS | Encounter Summary ---
Author Organization [facility] Address [address] [place] [address] Care Team Providers Care Non Destructive Evaluation Manager Name Role Phone Steven Lizama MD Primary Care Provider [phone] Reason for Visit * Reason Comments Hospital Follow Up 1 week follow up. Encounter Details Date Type Department Care Team (Late st Contact Info) Description 09/05/2022 1:45 PM CDT Office Visit [facility] Cardiology [address] [place] [address] Ramos Carvalho MD [address] [address] Coronary artery disease involving igiugig heart without angina pectoris, unspecified vessel or lesion type (Primary Dx); Morbid (severe) obesity due to excess calories (HCC); Body mass index 40.0-44.9, adult (CMS/HCC) (HCC) Social History Tobacco Use Types Packs/Day Years Used Date Smoking Tobacco: Every Day Cigarettes 1 30 Smokeless Tobacco: Never Comments Unknown Sex and Gender Information Value Date Recorded Sex Assigned at Not on file Legal Sex Female 9:37 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 Gender Identity Not on file Sexual Orientation Not on file documented as of this encounter Last Filed Vital Signs Vital Sign Reading Time Taken Comments Blood Pressure 130/90 09/05/2022 1:35 PM CDT Pulse 79 09/05/2022 1:35 PM CDT Temperature - - Respiratory Rate - - Oxygen Saturation 99% 09/05/2022 1:35 PM CDT Inhaled Oxygen Concentration - - Weight 94.3 kg (208 lb) 09/05/2022 1:35 PM CDT Height 152.4 cm (5') 09/05/2022 1:35 PM CDT Body Mass Index 40.62 09/05/2022 1:35 PM CDT documented in this encounter Progress Notes * Ramos Carvalho MD - 09/05/2022 1:45 PM CDT Cardiology Clinic Note CHIEF COMPLAINT / Reason For Visit: Hospital follow up visit HISTORY: Angeline Caraballo is a 61 y.o. female who presents for a hospital follow up visit. She has ahistory of coronary artery disease with a reported PR in the past, hypertension, type 2 diabetes mellitus, history of breast cancer s/p radiation therapy. We saw her in consultation at [facility] for abnormal stress test. She presented to [...] days ago. Accompanied by her daughter today. PAST MEDICAL HISTORY: Past Medical History: Diagnosis Date Cancer (CMS/HCC) (HCC) Diabetes mellitus (HCC) Hyperlipidemia Hypertension PAST SURGICAL HISTORY: History reviewed. No pertinent surgical history. FAMILY HISTORY: Family History Problem Relation Age of Onset Breast cancer Mother Cancer Father Heart attack Sister Hypertension Sister Colon cancer Sister Cancer Brother SOCIAL HISTORY: Social History Tobacco Use Smoking status: Every Day Packs/day: 1.00 Years: 30.00 Pack years: 30.00 Types: Cigarettes Smokeless tobacco: Never Substance and Sexual Activity Drug use: None Sexual activity: None Alcohol Use: Not on file No Known Allergies: Current Outpatient Medications Medication Sig Dispense Refill amLODIPine (NORVASC) 10 mg tablet aspirin 81 mg enteric coated tablet Take 1 tablet (81 mg total) by mouth every morning atorvastatin (LIPITOR) 40 mg tablet Take 1 tablet (40 mg total) by mouth daily cefdinir (OMNICEF) 300 mg capsule TAKE 1 CAPSULE BY MOUTH EVERY 12 HOURS FOR 5 DAYS metFORMIN (GLUCOPHAGE) 500 mg tablet No current facility-administered medications for this visit. : REVIEW OF SYSTEMS: GENERAL: As per HPI HEENT: No headaches, blurred vision, impaired hearing, postnasal drip, throat congestion CVS: As per HPI PULMONARY: No cough, asthma, bronchitis, or pneumonia GI: No GERD, PUD, hernia, hemorrhoid, diverticula, or change in bowel habits : No difficulty voiding, stones, tumors, or kidney disease VASCULAR: No intermittent claudication, no discoloration of the extremities NEURO: No motor weakness, sensory loss, headache, visual changes, impaired speech, gait disturbance, syncope, TIA, or seizures RHEUM: No joint swelling, neck pain, back pain, hip pain, or knee pain DERM: No rash HEME: No bruising, no anemia PHYSICAL EXAMINATION: BP 130/90 (BP Location: Left arm, Patient Position: Sitting) Pulse 79 Ht 152.4 cm (5') Wt 94.3 kg (208 lb) SpO2 99% BMI 40.62 kg/m?? Body mass index is 40.62 kg/m??. GENERAL: Alert, oriented to person, place, and time HEAD: Normocephalic EYES: Extra ocular movement intact ENT: Unremarkable NECK: Supple with midline trachea, no JVD, no carotid bruit CHEST: Clear to auscultation, no wheezes, rales or rhonchi, symmetric air entry CARDIAC: RRR, S1 S2 normal, no murmur, rub, heaves, thrills or gallops ABDOMEN: Soft, non-tender, non distended EXTREMITIES: No edema PERIPHERAL PULSES: Peripheral pulses symmetrical SKIN: Normal coloration and turgor, no rashes, no suspicious skin lesions noted LABS: No results found for: WBC, HGB, HCT, MCV, PLT No lab exists for component: LABALBU No results found for: CHOL No results found for: HDL No results found for: LDLCALC No results found for: TRIG No results found for: CHOLHDL ASSESSMENT/PLAN: Coronary artery disease, prior myocardial infarction Hyperlipidemia Hypertension Type 2 diabetes mellitus Continue ASA and statin for CAD. Continue Amlodipine for hypertension. Will obtain repeat lipid panel in 8 weeks for reassessment. Check CMP ? The above information was discussed at length with Angeline Caraballo who was also given ample opportunity to ask questions and verbalized understanding the plan. The appropriate follow up has been arranged. I have advised the patient to contact me if any questions/problems arise prior to the follow up. Ramos Carvalho M.D. Interventional Cardiology documented in this encounter Miscellaneous Notes * Addendum Note - Roxanne Acuna MA - 09/05/2022 1:45 PM CDTAddended by: ROXANNE ACUNA on: 09/05/2022 02:51 PM Modules accepted: Orders * Addendum Note - Latosha Thomas MA - 09/05/2022 1:45 PM CDTAddended by: LATOSHA THOMAS on: 09/09/2022 05:48 PM Modules accepted: Orders * Addendum Note - Apirl Preston CLT - 09/05/2022 1:45 PM CDTAddended by: APRIL PRESTON on: 10/30/2022 12:33 PM Modules accepted: Orders * Addendum Note - Yuko Grewal - 09/05/2022 1:45 PM CDTAddended by: YUKO GREWAL on: 10/30/2022 12:42 PM Modules accepted: Orders documented in this encounter Plan of Treatment Not on file documented as of this encounter Procedures Procedure Name Priority Date/Time Associated Diagnosis Comments LIPID PANEL Routine 09/05/2022 Coronary artery disease involving igiugig heart without angina pectoris, unspecified vessel or lesion type ECG 12-LEAD Routine 09/05/2022 Coronary artery disease involving igiugig heart without angina pectoris, unspecified vessel or lesion type documented in this encounter Results * Lipid panel (09/05/2022) SCRIBED Cholesterol, Total 171 <200 EXTERNAL LAB SCRIBED HDL 46 >40 EXTERNAL LAB SCRIBED LDL 95 <100 EXTERNAL LAB SCRIBED Triglycerides 114 <150 EXTERNAL LAB Blood 09/05/2022 Ramos Carvalho MD LAB BLOOD ORDERABLES [facility] Result EXTERNAL LAB * ECG 12 lead (09/05/2022) us Ramos Carvalho MD ECG ORDERABLES Final R esult documented in this encounter Visit Diagnoses Diagnosis Coronary artery disease involving igiugig heart without angina pectoris, unspecified vessel or lesion type- Primary Morbid (severe) obesity due to excess calories ([facility]) Body mass index 40.0-44.9, adult ([facility]/HCC) ([facility]) Body Mass Index 40.0-44.9, adult documented in this encounter Historical Medications * This list may reflect changes made after this encounter. metFORMIN (GLUCOPHAGE) 500 mg tablet 08/28/2022 amLODIPine (NORVASC) 10 mg tablet 08/28/2022 aspirin 81 mg enteric coated tablet Take 1 tablet (81 mg total) by mouth every morning 08/27/2022 cefdinir (OMNICEF) 300 mg capsule TAKE 1 CAPSULE BY MOUTH EVERY 12 HOURS FOR 5 DAYS 08/27/2022 10/02/2022 atorvastatin (LIPITOR) 40 mg tablet Take 1 tablet (40 mg total) by mouth daily 08/27/2022 02/05/2024 added in this encounter Care Teams Non Destructive Evaluation Manager Relationship Specialty Start Date End Date Steven Lizama MD PCP - General Family Practice 08/25/22 documented as of this encounter
--- OUTSIDE RECORDS SUMMARY | 2024-05-25 00:09 | XMS_ITS | Encounter Summary ---
Author Organization [facility] Address [address] [place] [address] Care Team Providers Care Mower Mechanic Name Role Phone Steven Lizama MD Primary Care Provider [phone] Encounter Details Date Type Department Care Team (Late st Contact Info) Description 08/26/2022 Orders Only [facility] Cardiology [address] [place] [address] Ramos Carvalho MD [address] [address] Social History Tobacco Use Types Packs/Day Years Used Date Smoking Tobacco: Never Assessed Personal Safety Answer Date Recorded Getting School Help Needed Not on file 06/15 Comments Unknown Sex and Gender Information Value Date Recorded Sex Assigned at Not on file 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 Gender Identity Not on file Sexual Orientation Not on file documented as of this encounter Plan of Treatment Not on file documented as of this encounter Procedures Procedure Name Priority Date/Time Associated Diagnosis Comments CARDIOLOGY DOCUMENT SCAN Routine 08/26/2022 documented in this encounter Results * Cardiology Document Scan (08/26/2022) Anatomical Region Laterality Modality Other [facility] Jessa Carvalho MD CV CARDIAC SERVICES PRO CEDURES Final Result documented in this encounter Visit Diagnoses Not on filedocumented in this encounter Care Teams Mower Mechanic Relationship Specialty Start Date End Date Steven Lizama MD PCP - General Family Practice 08/25/22 documented as of this encounter
--- OUTSIDE RECORDS SUMMARY | 2024-05-25 00:09 | XMS_ITS | Encounter Summary ---
Author Organization [facility] Address [address] [place] [address] Care Team Providers Care Candy Decorator Name Role Phone Steven Lizama MD Primary Care Provider [phone] Reason for Visit * Reason Onset Date Comments Med Change Request 12/23/2022 Encounter Details Date Type Department Care Team (Late st Contact Info) Description 12/23/2022 Telephone [facility] Pulmonology [address] [place] [id number] Marily Carl MA Med Change Request Social History Tobacco Use Types Packs/Day Years Used Date Smoking Tobacco: Every Day Cigarettes 1 30 Smokeless Tobacco: Never Comments Unknown Sex and Gender Information Value Date Recorded Sex Assigned at Not on file Legal Sex Female 9:37 PM PSYCHOLOGY CLINICIAN Gender Identity Not on file Sexual Orientation Not on file documented as of this encounter Ordered Prescriptions Prescription Sig Dispense Quantity Refills Last Filled Start Date End Date Advair HFA 115-21 mcg/actuation inhaler Inhale 2 puffs 2 (two) times a day Rinse mouth with water after use. Do not swallow. 12 g 3 12/23/2022 documented in this encounter Miscellaneous Notes * Telephone Encounter - Marily Carl MA - 12/23/2022 3:28 PM CDT Recd a fax from [employer] stating that the patient's insurance does not cover generic Advair, sent for brand name Advair HFA. Other alternatives are Breo, Dulera, or Symbicort brand name. documented in this encounter Plan of Treatment Not on file documented as of this encounter Visit Diagnoses Not on filedocumented in this encounter Discontinued Medications Medication Sig Discontinue Reason Start Date End Da te fluticasone propion-salmeteroL (Advair HFA) 115-21 mcg/actuation inhalerIndications:Mode rate persistent asthma without complication,Panlobular emphysema (HCC) Inhale 2 puffs 2 (two) times a day as needed (coughing, wheezing, shortness of breath) Rinse mouth with water after use. Do not swallow. 12/23/2022 12/23/2022 documented as of this encounter Care Teams Candy Decorator Relationship Specialty Start Date End Date Steven Lizama MD PCP - General Family Practice 08/25/22 documented as of this encounter
--- OUTSIDE RECORDS SUMMARY | 2024-05-25 00:09 | XMS_ITS | Encounter Summary ---
Author Organization [facility] Address [address] [place] [address] Care Team Providers Care Astronomy Instructor Name Role Phone Steven Lizama MD Primary Care Provider [phone] Encounter Details Date Type Department Care Team (Late st Contact Info) Description 08/26/2022 Orders Only [facility] Cardiology [address] [place] [phone] Ramos Carvalho MD [address] [id number] Social History Tobacco Use Types Packs/Day Years Used Date Smoking Tobacco: Never Assessed Comments Unknown Sex and Gender Information Value Date Recorded Sex Assigned at Not on file 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 Sex Female 9:37 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 Gender Identity Not on file Sexual Orientation Not on file documented as of this encounter Plan of Treatment Not on file documented as of this encounter Procedures Procedure Name Priority Date/Time Associated Diagnosis Comments CARDIOLOGY DOCUMENT SCAN Routine 08/26/2022 documented in this encounter Results * Cardiology Document Scan (08/26/2022) Anatomical Region Laterality Modality Other Ramos Carvalho MD CV CARDIAC SERVICES PRO CEDURES Final Result documented in this encounter Visit Diagnoses Not on filedocumented in this encounter Care Teams Astronomy Instructor Relationship Specialty Start Date End Date Steven Lizama MD PCP - General Family Practice 08/25/22 documented as of this encounter
--- OUTSIDE RECORDS SUMMARY | 2024-05-25 00:09 | XMS_ITS | Encounter Summary ---
Author Organization [facility] Address [address] [place] [address] Care Team Providers Care Trial Examiner Name Role Phone Steven Lizama MD Primary Care Provider [phone] Encounter Details Date Type Department Care Team (Late st Contact Info) Description 08/27/2022 Orders Only [facility] Cardiology [address] [place] [phone] Ramos Carvalho MD [address] [id number] Social History Tobacco Use Types Packs/Day Years Used Date Smoking Tobacco: Never Assessed Comments Unknown Sex and Gender Information Value Date Recorded Sex Assigned at Not on file 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 Gender Identity Not on file Sexual Orientation Not on file documented as of this encounter Plan of Treatment Not on file documented as of this encounter Procedures Procedure Name Priority Date/Time Associated Diagnosis Comments CARDIOLOGY DOCUMENT SCAN Routine 08/27/2022 documented in this encounter Results * Cardiology Document Scan (08/27/2022) Anatomical Region Laterality Modality Other Ramos Caravlho MD CV CARDIAC SERVICES PRO CEDURES Final Result documented in this encounter Visit Diagnoses Not on filedocumented in this encounter Care Teams Trial Examiner Relationship Specialty Start Date End Date Steven Lizama MD PCP - General Family Practice 08/25/22 documented as of this encounter
--- OUTSIDE RECORDS SUMMARY | 2024-05-25 00:09 | XMS_ITS | Encounter Summary ---
Author Organization [facility] Address [address] [place] [address] Care Team Providers Care Clinical Dermatologist Name Role Phone Steven Lizama MD Primary Care Provider [phone] Encounter Details Date Type Department Care Team (Latest Contact Info) Description 10/30/2022 12:44 PM CDT - 10/30/2022 11:59 PM CDT Hospital Encounter [facility] [id number] [place] [address] Chronic rhinitis Discharge Disposition: Discharge to home or self care Social History Tobacco Use Types Packs/Day Years Used Date Smoking Tobacco: Every Day Cigarettes 1 30 Smokeless Tobacco: Never Comments Unknown Sex and Gender Information Value Date Recorded Sex Assigned at Not on file 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 Gender Identity Not on file Sexual [...] Procedure Name Priority Date/Time Associated Diagnosis Comments DIFFERENTIAL AUTO Routine 10/30/2022 12: 44 PM CDT Chronic rhinitis ALLERGEN PENICILLIUM CHRYSOGENUM (MOLD) IGE Routine 10/30/2022 12:44 PM CDT Chronic rhinitis CBC WITH AUTO DIFFERENTIAL Routine 10/30/2022 12:44 PM CDT Chronic rhinitis ALLERGEN CLADOSPORIUM HERBARUM (MOLD) IGE Routine 10/30/2022 12:44 PM CDT Chronic rhinitis ALLERGEN ALTERNARIA TENUIS (MOLD) IGE Routine 10/30/2022 12:44 PM CDT Chronic rhinitis ALLERGEN ASPERGILLUS FUMIGATUS (MOLD) IGE Routine 10/30/2022 12:44 PM CDT Chronic rhinitis ALLERGEN DERMATOPHAGOIDES PTERONYSSINUS (INSECT) IGE Routine 10/30/2022 12:44 PM CDT Chronic rhinitis ALLERGEN DERMATOPHAGOIDES FARINAE (INSECT) IGE Routine 10/30/2022 12:44 PM CDT Chronic rhinitis ALLERGEN EPITHELIA/DANDER DOG (ANIMAL) IGE Routine 10/30/2022 12:44 PM CDT Chronic rhinitis ALLERGEN COCKROACH BRUNEIAN (INSECT) IGE Routine 10/30/2022 12:44 PM CDT Chronic rhinitis ALLERGEN EPITHELIA/DANDER CAT (ANIMAL) IGE Routine 10/30/2022 12:44 PM CDT Chronic rhinitis ALLERGEN RAGWEED SHORT/COMMON (WEED) IGE Routine 10/30/2022 12:44 PM CDT Chronic rhinitis ALLERGEN PIGWEED ROUGH (WEED) IGE Routine 10/30/2022 12:44 PM CDT Chronic rhinitis ALLERGEN NETTLE (WEED) IGE Routine 10/30/2022 12:44 PM CDT Chronic rhinitis IGE Routine 10/30/2022 12:44 PM CDT Chronic rhinitis documented in this encounter Results * (ABNORMAL) Differential, auto (10/30/2022 12:44 PM CDT) Neutrophil abs 4.5 1.7 - 6.5 K/cumm [facility] Imm gran abs 0.0 0.0 - 0.1 K/cumm [facility] CH Lymphocyte abs 3.9(H) 0.8 - 3.3 K/cumm [facility] CH Monocyte abs 0.4 0.2 - 0.8 K/cumm [facility] CH Eosinophil abs 0.2 0.0 - 0.5 K/cumm [facility] Basophil abs 0.1 0.0 - 0.1 K/cumm [facility] Neutrophil pct 49.8 % [facility] Comment: Interpretive Data Percent cell count reference ranges are not reported, since discordance with absolute values may lead to misinterpretation of CBC data. Current Interpretive Data was last revised on 2017. Imm gran pct 0.3 % [facility] Comment: Interpretive Data Percent cell count reference ranges are not reported, since discordance with absolute values may lead to misinterpretation of CBC data. Current Interpretive Data was last revised on 2017. Lymphocyte pct 42.8 % [facility] Comment: Interpretive Data Percent cell count reference ranges are not reported, since discordance with absolute values may lead to misinterpretation of CBC data. Current Interpretive Data was last revised on 2017. Monocyte pct 4.6 % [facility] Comment: Interpretive Data Percent cell count reference ranges are not reported, since discordance with absolute values may lead to misinterpretation of CBC data. Current Interpretive Data was last revised on 2017. Eosinophil pct 1.8 % [facility] Comment: Interpretive Data Percent cell count reference ranges are not reported, since discordance with absolute values may lead to misinterpretation of CBC data. Current Interpretive Data was last revised on 2017. Basophil pct 0.7 % [facility] Comment: Interpretive Data Percent cell count reference ranges are not reported, since discordance with absolute values may lead to misinterpretation of CBC data. Current Interpretive Data was last revised on 2017. Blood 10/30/2022 12:4 4 PM CDT 10/30/2022 6:54 PM CDT us Autumn Pickett MD LAB BLOOD ORDERABLES Final Re sult [facility] [id number] [address] Department [place] [address] * (ABNORMAL) CBC with auto differential (10/30/2022 12:44 PM CDT) WBC 9.1 3.8 - 9.9 K/cumm [facility] Hgb 14.9 11.9 - 15.5 g/dL [facility] Hct 47.8(H) 35.6 - 45.5 % [facility] Plt 333 150 - 400 K/cumm [facility] MPV 12.1 9.1 - 12.3 fL [facility] RBC 5.25(H) 3.90 - 5.20 M/cumm [facility] MCV 91.0 81.3 - 96.4 fL [facility] MCH 28.4 27.1 - 33.3 pg [facility] MCHC 31.2(L) 32.3 - 35.7 g/dL [facility] RDW CV 14.6 11.1 - 14.9 % [facility] RDW SD 48.7(H) 35.7 - 48.1 fL [facility] NRBC abs 0.00 0.00 - 0.01 K/cumm [facility] Blood 10/30/2022 12:4 4 PM CDT 10/30/2022 6:54 PM CDT Autumn Pickett MD LAB BLOOD ORDERABLES Final Re sult [facility] [address] [address] Department [place] [address] * (ABNORMAL) IgE (10/30/2022 12:44 PM CDT) IgE 720.0(H) 1.0 - 100.0 IUnits/mL LINDA Comment:Testing performed by : [facility], [address] [place] [address]., [address] Blood 10/30/2022 12:4 4 PM CDT 10/31/2022 12:51 PM CDT Autumn Pickett MD LAB BLOOD ORDERABLES Final Re sult Performing Organization Address [facility]/ZIP Co de Phone Number [facility] [address] [address] [place] [address] * Allergen Epithelia/dander dog (animal) IgE (10/30/2022 12:44 PM CDT) Dog dander IgE 0.22 0.00 - 0.34 kUnits/L [facility]DA Comment:Testing performed by : [facility], [place]., [address] Blood 10/30/2022 12:4 4 PM CDT 10/31/2022 12:54 PM CDT Autumn Pickett MD LAB BLOOD ORDERABLES Final Re sult [facility] [address] [address] Department [place] [address] * (ABNORMAL) Allergen Dermatophagoides pteronyssinus (insect) IgE (10/30/2022 12:44 PM CDT) Dermatophyton pteronyssinus IgE 14.50(H) 0.00 - 0.34 kUnits/L [facility] Comment:Testing performed by : [facility], [place]., [address] Blood 10/30/2022 12:4 4 PM CDT 10/31/2022 12:54 PM CDT Autumn Pickett MD LAB BLOOD ORDERABLES Final Re sult Performing Organization Address [facility] Co de Phone Number [facility] [address] [address] [facility] [place] [address] * (ABNORMAL) Allergen Dermatophagoides farniae (insect) IgE (10/30/2022 12:44 PM CDT) Dermatophyton farinae IgE 14.60(H) 0.00 - 0.34 kUnits/L LINDA Comment:Testing performed by : [facility], [place]., [address] Blood 10/30/2022 12:4 4 PM CDT 10/31/2022 12:54 PM CDT Autumn Pickett MD LAB BLOOD ORDERABLES Final Re sult Performing Organization Address [facility] Co de Phone Number [facility] [address] [address] [facility] [place] [address] * (ABNORMAL) Allergen Cockroach filipino (insect) IgE (10/30/2022 12:44 PM CDT) Cockroach IgE 5.22(H) 0.00 - 0.34 kUnits/L [facility] Comment:Testing performed by : [facility], [place]., [address] Blood 10/30/2022 12:4 4 PM CDT 10/31/2022 12:54 PM CDT Autumn Pickett MD LAB BLOOD ORDERABLES Final Re sult Performing Organization Address City/[facility]/ZIP Co de Phone Number LINDA ENRIQUEZ [address] [address] [facility] [place] [address] * (ABNORMAL) Allergen Epithelia/dander cat (animal) IgE (10/30/2022 12:44 PM CDT) Cat dander IgE 0.38(H) 0.00 - 0.34 kUnits/L [facility] Comment:Testing performed by : [place]., [address] Blood 10/30/2022 12:4 4 PM CDT 10/31/2022 12:54 PM CDT Autumn Pickett MD LAB BLOOD ORDERABLES Final Re sult Performing Organization Address [facility] Co de Phone Number [facility] [address] [address] [facility] [place] [address] * (ABNORMAL) Allergen Penicillium chrysogenum (mold) IgE (10/30/2022 12:44 PM CDT) Penicillium chrysogenum IgE 0.90(H) 0.00 - 0.34 kUnits/L [facility] Comment:Testing performed by : [place]., [address] Blood 10/30/2022 12:4 4 PM CDT 10/31/2022 12:54 PM CDT Autumn Pickett MD LAB BLOOD ORDERABLES Final Re sult Performing Organization Address City/[facility] Co de Phone Number LINDA ENRIQUEZ [address] [address] [facility] [place] [address] * (ABNORMAL) Allergen Cladosporium herbarum (mold) IgE (10/30/2022 12:44 PM CDT) Cladosporium herbarum IgE 0.57(H) 0.00 - 0.34 kUnits/L [facility] Comment:Testing performed by : [place]., [address] Blood 10/30/2022 12:4 4 PM CDT 10/31/2022 12:54 PM CDT Autumn Pickett MD LAB BLOOD ORDERABLES Final Re sult Performing Organization Address [facility] Co de Phone Number [facility] [address] [facility] Department [place] [address] * (ABNORMAL) Allergen Aspergillus fumigatus (mold) IgE (10/30/2022 12:44 PM CDT) Aspergillus fumigatus IgE 4.34(H) 0.00 - 0.34 kUnits/L [facility] Comment:Testing performed by : [facility], [place]., [address] Blood 10/30/2022 12:4 4 PM CDT 10/31/2022 12:54 PM CDT Result [facility] Autumn Pickett MD LAB BLOOD ORDERABLES Final Re sult Performing Organization Address [facility] Co de Phone Number [facility] [address] [facility] Department [place] [address] * (ABNORMAL) Allergen Alternaria tenuis (mold) IgE (10/30/2022 12:44 PM CDT) Alternaria tenius IgE 0.53(H) 0.00 - 0.34 kUnits/L [facility] Comment:Testing performed by : [place]., [address] Blood 10/30/2022 12:4 4 PM CDT 10/31/2022 12:54 PM CDT Autumn Pickett MD LAB BLOOD ORDERABLES Final Re sult Performing Organization Address City/[facility] Co de Phone Number LINDA [phone] [address] [place] [address] * (ABNORMAL) Allergen Nettle (weed) IgE (10/30/2022 12:44 PM CDT) Nettle IgE 2.40(H) 0.00 - 0.34 kUnits/L [facility] Comment:Testing performed by : [facility], [place]., [address] Blood 10/30/2022 12:4 4 PM CDT 10/31/2022 12:54 PM CDT Autumn Pickett MD LAB BLOOD ORDERABLES Final Re sult Performing Organization Address [facility] Co de Phone Number [facility] [address] [address] [place] [address] * (ABNORMAL) Allergen Ragweed short/common (weed) IgE (10/30/2022 12:44 PM CDT) Ragweed common IgE 1.21(H) 0.00 - 0.34 kUnits/L [facility] Comment:Testing performed by : [place]., [address] Blood 10/30/2022 12:4 4 PM CDT 10/31/2022 12:54 PM CDT Autumn Pickett MD LAB BLOOD ORDERABLES Final Re sult Performing Organization Address City/[facility]/ZIP Co de Phone Number LINDA [address] [place] [address] * (ABNORMAL) Allergen Pigweed, rough (weed) IgE (10/30/2022 12:44 PM CDT) Pigweed rough IgE 1.02(H) 0.00 - 0.34 kUnits/L [facility]DA Comment:Testing performed by : [facility], [place]., [address] Blood 10/30/2022 12:4 4 PM CDT 10/31/2022 12:54 PM CDT us Autumn Pickett MD LAB BLOOD ORDERABLES Final Re sult [facility] [address] [address] Department [place] [address] documented in this encounter Visit Diagnoses Diagnosis Chronic rhinitis documented in this encounter Care Teams Clinical Dermatologist Relationship Specialty Start Date End Date Steven Lizama MD PCP - General Family Practice 08/25/22 documented as of this encounter
--- OUTSIDE RECORDS SUMMARY | 2024-05-25 00:15 | XMS_ITS | Encounter Summary ---
Author Organization [facility] Address [address] [place] [address] Care Team Providers Care News Anchor Name Role Phone Steven Lizama MD Primary Care Provider Reason for Referral * Radiology Services (Routine) - Closed Specialty Diagnoses / Procedures Referred By Annalise koo Referred To Contact Diagnoses Malignant neoplasm of lower-inner quadrant of right breast of female, estrogen receptor positive Procedures [place] [address] [facility] [address] [place] [phone] Referral ID Status Reason Start Date Expiration Date Visits Re quested Visits Authorized [id number] Closed 09/03/2022 10/04/2023 1 1 Reason for Visit * Radiology Services (Routine) - Closed Specialty Diagnoses / Procedures Referred By Annalise koo Referred To Contact Diagnoses Malignant neoplasm of lower-inner quadrant of right breast of female, estrogen receptor positive Procedures MAMMO BREAST US RIGHT [facility] [place] [address] [facility] [address] [place] [address] Referral ID Status Reason Start Date Expiration Date Visits Re quested Visits Authorized [id number] Closed 09/03/2022 10/04/2023 1 1 Encounter Details Date Type Department Care Team (Latest Contact Info) Description 09/03/2022 10:34 AM CDT - 09/03/2022 11:59 PM CDT Hospital Encounter [facility] [address] [place] [address] [place] [address] [place] [address] Discharge Disposition: Home or Self Care Social History Tobacco Use Types Packs/Day Years Used Date Smoking Tobacco: Every Day Cigarettes Smokeless Tobacco: Never Alcohol Use Standard Drinks/Week Comments Never 0 (1 standard drink = 0.6 oz pur e alcohol) Sex and Gender Information Value Date Recorded Sex Assigned at Not on file Gender Identity Not on file Sexual Orientation Not on file COVID-19 Exposure Response Date Recorded In the last 10 days, have yo u been in contact with someone who was confirmed or suspected to have Coronavirus/COVID-19? No / Unsure 09/03/2022 8:48 AM CDT documented as of this encounter Medications at Time of Discharge Medication Sig Dispensed Refills Start Date End Date amLODIPine (NORVASC) 10 mg tablet 06/12/2022 carvediloL (COREG) 12.5 mg tablet 06/11/2022 simvastatin (ZOCOR) 20 mg tablet Take 20 mg by mouth daily at bedtime. 06/29/2020 metFORMIN (GLUCOPHAGE) 500 mg tablet Take 500 mg by mouth daily with breakfast. 06/29/2020 documented as of this encounter Plan of Treatment Not on file documented as of this encounter Procedures Procedure Name Priority Date/Time Associated Diagnosis Comments MAMMO BREAST US RIGHT LTD Routine 09/03/2022 11:07 AM CDT Malignant neoplasm of lower-inner quadrant of right breast of female, estrogen receptor positive documented in this encounter Results * (ABNORMAL) MAMMO BREAST US RIGHT LTD (09/03/2022 11:07 AM CDT) Anatomical Region Laterality Modality Right Ultrasound 09/03/2022 11:0 8 AM CDT Impressions 09/03/2022 1:16 PM CDT IMPRESSION: Hypoechoic lesion in the right lumpectomy bed may represent complex postsurgical fluid collection versus recurrent mass. RECOMMENDATIONS: Right breast aspiration with possible biopsy. The patient has been informed. DICTATION LOCATION: [facility], [place] Narrative 09/03/2022 1:16 PM CDT EXAM: 1. BILATERAL DIAGNOSTIC FULL-FIELD DIGITAL MAMMOGRAPHY WITH CAD WITH 3D TOMOSYNTHESIS 2. LIMITED RIGHT BREAST ULTRASOUND DATE: 09/03/2022 10:27 AM HISTORY: Personal history of right-sided breast cancer, status post breast conservation therapy. TECHNIQUE: Mediolateral oblique and craniocaudal views of both breasts were performed using full field digital mammography. Low-dose full-field digital breast tomosynthesis examination was performed with 3D acquisitions. ??Examination is read in conjunction with computer aided detection. Limited right breast ultrasound was also performed. COMPARISON: Mammograms dating back to 06/29/2020. BREAST COMPOSITION: There are scattered areas of fibroglandular density. FINDINGS: No suspicious abnormality is seen in the left breast. Postsurgical changes are seen in the right breast. There is a rounded focal asymmetry in the lumpectomy bed measuring 2.8 cm, 1 cm from the nipple. ??Targeted ultrasound of the right breast demonstrates hypoechoic lesion in the right breast at 4:00 in the subareolar position, measuring 2.2 x 2.0 x 3.0 cm. Surgical clips are seen adjacent to this. No internal vascularity is seen. The internal echogenicity does not appear mobile. OVERALL FINAL ASSESSMENT: ??BI-RADS CATEGORY 4B: Suspicious Findings (Moderate suspicion). ?? Procedure Note Cassidy Moe MD - 09/03/2022 EXAM: 1. BILATERAL DIAGNOSTIC FULL-FIELD DIGITAL MAMMOGRAPHY WITH CAD WITH 3D TOMOSYNTHESIS 2. LIMITED RIGHT BREAST ULTRASOUND DATE: 09/03/2022 10:27 AM HISTORY: Personal history of right-sided breast cancer, status post breast conservation therapy. TECHNIQUE: Mediolateral oblique and craniocaudal views of both breasts were performed using full field digital mammography. Low-dose full-field digital breast tomosynthesis examination was performed with 3D acquisitions. Examination is read in conjunction with computer aided detection. Limited right breast ultrasound was also performed. COMPARISON: Mammograms dating back to 06/29/2020. BREAST COMPOSITION: There are scattered areas of fibroglandular density. FINDINGS: No suspicious abnormality is seen in the left breast. Postsurgical changes are seen in the right breast. There is a rounded focal asymmetry in the lumpectomy bed measuring 2.8 cm, 1 cm from the nipple. Targeted ultrasound of the right breast demonstrates hypoechoic lesion in the right breast at 4:00 in the subareolar position, measuring 2.2 x 2.0 x 3.0 cm. Surgical clips are seen adjacent to this. No internal vascularity is seen. The internal echogenicity does not appear mobile. OVERALL FINAL ASSESSMENT: BI-RADS CATEGORY 4B: Suspicious Findings (Moderate suspicion). IMPRESSION: Hypoechoic lesion in the right lumpectomy bed may represent complex postsurgical fluid collection versus recurrent mass. RECOMMENDATIONS: Right breast aspiration with possible biopsy. The patient has been informed. DICTATION LOCATION: [facility], [place] Paula Bae MD MAMMO ORDERABLES documented in this encounter Visit Diagnoses Diagnosis Malignant neoplasm of lower-inner quadrant of right breast of female, estrogen receptor positive documented in this encounter Care Teams News Anchor Relationship Specialty Start Date End Date Steven Lizama MD [address] [place] [phone] PCP - General Emergency Medicine 08/13/20 documented as of this encounter
--- OUTSIDE RECORDS SUMMARY | 2024-05-25 00:15 | XMS_ITS | Encounter Summary ---
Author Organization [facility] Address [address] [place] [address] Care Team Providers Care Glass Inspector Name Role Phone Steven Lizama MD Primary Care Provider [phone] Reason for Visit * Auth/Cert Specialty Diagnoses / Procedures Referred By Annalise t Referred To Contact Diagnoses Invasive ductal carcinoma of breast, female, right Invasive ductal carcinoma of breast, female, right [C50.911] Procedures IA MASTECTOMY, PARTIAL IA BX/REMV,LYMPH NODE,DEEP AXILL IA INTRAOPERATIVE SENTINEL LYMPH NODE ID W DYE INJECTION CHG LYMPHATICS & LYMPH GLANDS IMAGING RIGHT BREAST LUMPECTOMY WITH NEEDLE LOCALIZATION RIGHT AXILLARY SENTINEL [place] [address] [place] [address] Referral ID Status Reason Start Date Expiration Date Visits Re quested Visits Authorized [id number] 08/16/2020 1 1 Encounter Details Date Type Department Care Team (Latest Contact Info) Description 08/28/2020 9:51 AM CDT - 08/28/2020 11:59 PM CDT Hospital Encounter [facility] [place] [address] [place] [phone] [place] [address] [place] [address] Discharge Disposition: Home or Self [...] have Coronavirus / COVID-19? 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 06/29/2020 metFORMIN (GLUCOPHAGE) 500 mg tablet Take 500 mg by mouth daily with breakfast. 06/29/2020 HYDROcodone-acetaminoph en (NORCO) 5-325 mg tabletIndications:Invas yen ductal carcinoma of breast, female, right Take 1 Tablet by mouth every 6 hours as needed for Pain. Max Daily Amount: 4 Tablets. Do not take with tylenol or acetaminophen. No driving on pain medication. 15 Tablet 08/28/2020 07/09/2022 ergocalciferol (VITAMIN D2) 50,000 unit capsule TAKE 1 CAPSULE BY MOUTH WEEKLY 05/31/2020 07/09/2022 amLODIPine (NORVASC) 5 mg tablet Take 5 mg by mouth daily. 07/01/2020 07/09/2022 documented as of this encounter Plan of Treatment Not on file documented as of this encounter Procedures Procedure Name Priority Date/Time Associated Diagnosis Comments MAMMO US GUIDED BREAST LOCAL Routine 08/28/2020 11:12 AM CDT Invasive ductal carcinoma of breast, female, right documented in this encounter Results * MAMMO US GUIDE NEEDLE PLACEMENT (08/28/2020 11:12 AM CDT) Anatomical Region Laterality Modality Breast N/A Ultrasound 08/28/2020 11:1 2 AM CDT Impressions 08/28/2020 4:49 PM CDT IMPRESSION: Needle localization for a tiny biopsy-proven cancer 6:00 subareolar right breast. Final pathology pending. DICTATION LOCATION: [facility] Narrative 08/28/2020 4:49 PM CDT NEEDLE LOCALIZATION ULTRASOUND GUIDED RIGHT BREAST, TWO-VIEW MAMMOGRAM AND SPECIMEN RADIOGRAPH 08/28/2020 ?? CLINICAL HISTORY: ?? Tiny invasive cancer periareolar right breast A sonographically guided needle localization of a tiny residual mass and postbiopsy clip in the 6:00 subareolar right breast was performed. The overlying skin was cleansed with ChloraPrep. 1% lidocaine buffered with sodium bicarbonate was injected for superficial and some deep anesthesia. Under sonographic guidance a 5 cm localization needle was placed with the tip posterior to the mass. A small amount of methylene blue was injected and the wire was deployed and taped in place. Follow-up two-view mammogram demonstrated the wire to be in satisfactory position. Films were labeled and printed and sent to the OR. A specimen radiograph was obtained demonstrating the wire, clip and residual mass. Findings called to the OR. Paula Bae MD MAMMO ORDERABLES documented in this encounter Visit Diagnoses Diagnosis Invasive ductal carcinoma of breast, female, right documented in this encounter Administered Medications Inactive Administered Medications - up to 3 most recent administrations Medication Order MAR Action Action Date Dose Rate Site lidocaine PF 1% (XYLOCAINE MPF) injection 30 mL 30 mL, See Admin Instructions, ONE TIME ONLY, 1 dose, On 08/28/20 at 1030, Routine Admin by Another Clinician (Comment) 08/28/2020 10:15 AM CDT 10 mL Operative Site methylene blue (UROLENE BLUE) 1 % (10 mg/mL) injection 100 mg 100 mg (10 mL), See Admin Instructions, ONE TIME ONLY, 1 dose, On 08/28/20 at 1030, Routine Admin by Another Clinician (Comment) 08/28/2020 10:15 AM CDT 0.5 mg Operative Site sodium bicarbonate 4.2 % (0.5 mEq/mL) syringe 5 mEq 5 mEq, See Admin Instructions, ONE TIME ONLY, 1 dose, On 08/28/20 at 1030, Routine Bolus 08/28/2020 10:15 AM CDT 2 mEq Operative Site documented in this encounter Care Teams Glass Inspector Relationship Specialty Start Date End Date Steven Lizama MD [address] [place] [phone] PCP - General Emergency Medicine 08/13/20 documented as of this encounter
--- OUTSIDE RECORDS SUMMARY | 2024-05-25 00:15 | XMS_ITS | Encounter Summary ---
Author Organization [facility] Address [address] [place] [address] Care Team Providers Care Biblical Languages Professor Name Role Phone Steven Lizama MD Primary Care Provider [phone] Encounter Details Date Type Department Care Team (Late st Contact Info) Description 07/24/2023 External Device Data [facility] ABSTRACTION Provider, Abstract NO ADDRESS ON FILE Social History Tobacco Use Types Packs/Day Years [...] on filedocumented in this encounter Care Teams Biblical Languages Professor Relationship Specialty Start Date End Date Steven Lizama MD [address] [place] [phone] PCP - General Emergency Medicine 08/13/20 documented as of this encounter
--- OUTSIDE RECORDS SUMMARY | 2024-05-25 00:15 | XMS_ITS | Encounter Summary ---
Author Organization [facility] Address [address] [place] [address] Care Team Providers Care Tire Sorter Name Role Phone Steven Lizama MD Primary Care Provider [phone] Reason for Referral * Radiology Services (Routine) - Closed Specialty Diagnoses / Procedures Referred By Annalise koo Referred To Contact Nuclear Medicine Diagnoses Invasive ductal carcinoma of breast, female, right Procedures [place] [address] [facility] [address] [place] [address] Referral ID Status Reason Start Date Expiration Date V isits Requested Visits Authorized [id number] Closed Ordering Dept to Review 08/14/2020 09/14/2021 1 1 Reason for Visit * Auth/Cert Specialty Diagnoses / Procedures Referred By Annalise koo Referred To Contact Diagnoses Invasive ductal carcinoma of breast, female, right Invasive ductal carcinoma of breast, female, right [C50.911] Procedures KS MASTECTOMY, PARTIAL KS BX/REMV,LYMPH NODE,DEEP AXILL KS INTRAOPERATIVE SENTINEL LYMPH NODE ID W DYE INJECTION CHG LYMPHATICS & LYMPH GLANDS IMAGING RIGHT BREAST LUMPECTOMY WITH NEEDLE LOCALIZATION RIGHT AXILLARY SENTINEL [place] [address] [facility] [address] [place] [address] Referral ID Status Reason Start Date Expiration Date Visits Re quested Visits Authorized [id number] 08/16/2020 1 1 Encounter Details Date Type Department Care Team (Latest Contact Info) Description 08/28/2020 10:46 AM CDT - 08/28/2020 11:59 PM CDT Hospital Encounter [facility] Nuclear Medicine [address] [place] [id number] [place] [address] [place] [address] Discharge Disposition: Home or Self [...] COVID-19? 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 ? [facility] IMS NM Medication and Flush Protocol [facility] Approved by: [facility] - Medical Executive Committee Approval Date: 04/27/2020 ORDERS ARE ENTERED ???PER PROTOCOL?? Enter the protocol in the patient's electronic health record using smartphrase: .imagingnucmedicineprotocol Communication Orders: ??? For ordered imaging procedures requiring intravenous access: ??? Initiate a peripheral IV, if not already in place, and discontinue IV prior to discharge (if outpatient). ??? Enter order if needed: Insert Peripheral IV Medication Orders: o Local Anesthetic for use to initiate IV ADULT ??? Lidocaine 4% (L.M.X.4) applied topically ONE TIME prior to IV catheter insertion PRN (L.M.X.4 %should be applied 15 minutes prior to procedure) ??? Chart RBCTAGGINGSTL and/or WBCTAGGINGSTL smartphrase as appropriate PEDIATRIC ??? Lidocaine 4% (L.M.X.4) applied topically ONE TIME prior to IV catheter insertion PRN (apply 15 minutes prior to procedure) ??? Sucrose 24% (Tootsweet; Sweet-Ease) oral solution 0.2 mL oral (apply to tongue on pacifier or clean, gloved finger), ONE TIME 2 minutes prior to painful procedure. May repeat dose x1 PRN to complete procedure. o Sodium chloride 0.9% (normal saline) flush 10 mLs PRN for saline lock or medication administration. o For respiratory distress, initiate oxygen and/or increase O2 to maintain saturation greater than 90% Procedure Specific Medications: Adult Procedures & Dosages: o Note: Radiopharmaceuticals dosages with a range are determined by transportation department supervisor calibration o Note: In acute Tc99m shortages, radiopharmaceutical dosages may be decreased with approval and documentation within department from medical aides teacher/AU. PROCEDURE DOSAGE Bone Marrow Imaging Nu78z-Wixrawgi Sulfur Colloid (Mzibedgwma19i- filtered sulfur colloid), Administer 8mCi, IV, ONE TIME. Bone Scan Imaging (Whole Body, Limited, 3-Phase, or SPECT) Sq73c-ULV (Nozipabvot11p-ahwbrewcg diphosphonate), Administer 25mCi, IV, ONE TIME. OR Vw56e-ZPH (Hawtuwxnrw79n-aexxiktxbxqnfjih diphosphonate), Administer 25mCi, IV, ONE TIME. Brain Imaging Uk41z-DTYH (Zasmksonue23g-msuucmosay-bdkwibfe-uypsbmsiqurh), Administer 20mCi, IV, ONE TIME. Brain SPECT Imaging Zg26i-MXXVG (Ceretec) (Mbdyvhphqw94d-upptkshtgnpivhdqqdn amine oxime), Administer 20mCi, IV, ONE TIME. OR Tl-201 (Thallium Chloride-201), Administer 6mCi, IV, ONE TIME. C14 Urea Breath Test (PY Test) J18-Lync (Carbon-14 Urea), Administer 1uCi capsule, Orally, ONE TIME. Cisternogram Imaging In-111 DTPA (Indium-111 kubiwenhkv-gieuqloi-jdmjlkqdkhqp), Neuroradiologist toadminister 0.5mCi, Intrathecally, ONE TIME. Cystogram Imaging Tc-99m Pertechnetate (Xoitrklnir40k-xkzjivvwygnzw) Administer 1mCi Uv35n-hjxrtirezwzlu, intra-hendrix catheter, ONE TIME AND Administer NS per calculated expected bladder volume, intra-hendrix catheter, ONE TIME. DaTscan Imaging I-123 Ioflupane (Iodine-123 ioflupane), Administer 5mCi, IV, ONE TIME. AND Administer SSKI (Potassium Iodide) drops, 130mg, Orally, ONE TIME 30 minutes prior to radiopharmaceutical injection. Diverticulum/Meckel's Imaging Tc-99m Pertechnetate (Nwhxcwopqz67g- pertechnetate), Administer 15mCi,IV, ONE TIME. Esophageal Reflux Imaging Qd17d-Pgembk Colloid (Deankzngtu79e-xpcuum colloid), Administer 1mCi in 1oz whole milk. Follow with additional 7oz whole milk, Orally, ONE TIME. Ga-67 Citrate - Planar Imaging Ga-67 Citrate (Gallium-67 Citrate), Administer 5mCi, IV, ONE TIME. Ga-67 Citrate - SPECT Imaging Ga-67 Citrate (Gallium-67 Citrate), Administer 10mCi, IV, ONE TIME. Gastric Empty Imaging - Liquid Meal Is37w-DCCA (Cyjbwvqsxv56i-vlrysvddqi-gkbqtjpp-repwunugqra), Administer 1mCi in 300mL tap water, Orally, ONE TIME. Gastric Empty Imaging - Solid Meal Jv88k-Enubsx Colloid (Rmjmbzynxe76d-nhsnje colloid), Administer 0.5mCi in 4 oz egg beaters or in 1 package of cooked instant oatmeal, Orally, ONE TIME. GI Bleed Imaging (GI Blood Loss) Tc-99m Pertechnetate (Amnvstaihi68z- pertechnetate), Administer 22mCi heparinized RBCs, IV, ONE TIME. Hepatic Blood Pool Imaging Tc-99m Pertechnetate (Gyctmhwojs47o-rkqaihbrgceau), Administer 22mCi heparinized RBCs, IV, ONE TIME. Hepatic Hemangioma Imaging Tc-99m Pertechnetate (Wylpsxqqzm49s-zcpaquejwmyzj), Administer 22mCi heparinized RBCs, IV, ONE TIME. Hepatobiliary Scan Imaging Tc-99m Mebrofenin (Bunpaggfss94m-ftraiksrzz), Administer 5 mCi IV, ONE TIME *For inpatients only, if bilirubin >5mg/dL, Administer 8 mCi IV, ONE TIME *For inpatients only, if bilirubin > 8mg/dL, consult nuclear medicine physician prior to administering radiopharmaceutical Hepatobiliary Scan with Ejection Fraction Imaging Tc-99m Mebrofenin (Oyiwevggkc89z-wqdpiyzfmb), Administer 5 mCi IV, ONE TIME. *For inpatients only, if bilirubin >5mg/dL, Administer 8 mCi IV, ONE TIME *For inpatients only, if bilirubin > 8mg/dL, consult nuclear medicine physician prior to administering radiopharmaceutical AND For immediate use - Sincalide (Kinevac) 0.02 mcg/kg IV, ONE TIME, diluted with NS to a total infused volume of 30 mLs. Infuse via an infusion device over 30 minutes. *If Sincalide unavailable, 240mL (8oz) Ensure Plus, Orally, ONE TIME. Hepatobiliary Scan with Pre-Treatment Imaging Tc-99m Mebrofenin (Vhxnjqemcx85z- mebrofenin), Administer 5 mCi IV, ONE TIME. *For inpatients only, if bilirubin >5mg/dL, Administer 8 mCi IV, ONE TIME *For inpatients only, if bilirubin > 8mg/dL, consult nuclear medicine physician prior to administering radiopharmaceutical AND For immediate use - Sincalide (Kinevac) 0.01 mcg/kg IV, ONE TIME, diluted with NS to a total infused volume of 5 mLs, Infuse via hand push over 5 minutes. In-111 Dual Isotope Imaging In-111 Oxine (Indium-111 Oxine), Administer at least 300uCi, up to 600uCi, heparanized WBC, IV, ONE TIME. AND Mu77u-OUF (Hqbxiowrdw57h-lurbbhgjs diphosphonate), Administer 20mCi for BMI < 35; Administer 25 mCi for BMI >= 35, IV, ONE TIME. OR In-111 Oxine (Indium-111 Oxine), Administer at least 300uCi, up to 600uCi, heparanized WBC, IV, ONETIME. AND Ro13b-Avpnlhdk Sulfur Colloid (Rslrvfcpsc71e-gojfhbno sulfur colloid), Administer 8mCi, IV, ONE TIME. In-111 WBC Imaging In-111 Oxine (Indium-111 Oxine), Administer at least 300uCi, up to 600uCi, heparanized WBC, IV, ONE TIME. Liver/Spleen Imaging Hz07n-Jvtrno Colloid (Bxqwlhqrrr69m-onecge colloid), Administer 5mCi, IV, ONE TIME. Lung Aerosol Perfusion Imaging Tc-99m MAA (Uvoybamxki40r-ijqprwruqkurzgu albumin), Administer 5mCi,IV, ONE TIME. Lung Xenon Perfusion Imaging (normal or quantitative) Tc-99m MAA (Jobqpxoeyk84q- macroaggregated albumin), Administer 4mCi, IV, ONE TIME. Lung Aerosol Ventilation Imaging Fm93s-ADWI (Vqspxmkikn12f-aozysvoukd-pkchgass-xssvxxmyxiky), Administer 40mCi in 2mL NS via aerosol delivery device, Inhalation, ONE TIME. Lung Xenon Ventilation Imaging (normal or quantitative) Xe-133 (Xenon-133), Administer at least 10 mCi, up to 30 mCi, Inhalation, ONE TIME. Lung Perfusion Imaging (normal or quantitative) Tc-99m MAA (Qgioeqoxbr94l- macroaggregated albumin),Administer 4mCi, IV, ONE TIME. Lung Perfusion SPECT Quantitative Tc-99m MAA (Wbvpiqewyh71g-yumlvszjsaanace albumin), Administer 7mCi, IV, ONE TIME Lung Perfusion Imaging - Patient (normal or quantitative) Tc-99m MAA (Vaixhhqkdr42h-atbevjjlkxdrryh albumin), Administer 2mCi, IV, ONE TIME. Lymphoscintigraphy - Breast Cancer, Next Day Surgery Aw80m-Blekhnxfzn (Wcqsjfnyof76l-recwxlayka), Administer 2mCi in 2 divided doses of 1mCi each, intradermal, ONE TIME. Lymphoscintigraphy - Breast Cancer, Same Day Surgery Ga57y-Edrsjnesou (Cfqajgumgh87h-vbqnppogbl), Administer 0.5mCi in 2 divided doses of 250uCi each, intradermal, ONE TIME. Lymphoscintigraphy - Lymphedema Wj64g-Fspdgrnwox (Pwgsgliixj67b-wquwnatnsk), For each extremity, administer 2mCi in 2 divided doses of 1mCi each, subcutaneous, ONE TIME. Lymphoscintigraphy - Head & Neck Cancer, Next Day Surgery Zk94g-Qygsknpvzt (Lhmnaybeaj37w-ouwypbnyns), Administer 2mCi in 2 divided doses of 1mCi each, intradermal, ONE TIME. Lymphoscintigraphy - Head & Neck Cancer, Same Day Surgery Pt55b-Fsoowuxgrf (Azyteqcfxz69i-ndlcavvxax), Administer 0.5mCi in 2 divided doses of 250uCi each, intradermal, ONE TIME. Lymphoscintigraphy - Skin Cancer, Next Day Surgery Ig28j-Norjsvtyhx (Tqupiproqu62p-dmwbudfgtd), Administer 2mCi in 4 divided doses of 0.5mCi each, intradermal, ONE TIME. Lymphoscintigraphy - Skin Cancer, Same Day Surgery Af77z-Ymbhlfjibr (Axblqbxoja62r-hixbulflvx), Administer 0.5mCi in 4 divided doses of 125uCi each, intradermal, ONE TIME. Lymphoscintigraphy - Skin Cancer, Small Body Area, Next Day Surgery Tc99m- Lymphoseek (Laywoskktd57l-yixpnfakrg), Administer 2mCi in 2 divided doses of 1mCi each, intradermal, ONE TIME. Lymphoscintigraphy - Skin Cancer, Small Body Area, Same Day Surgery Tc99m- Lymphoseek (Blyeoqvscw99k-gutmbscwvq), Administer 0.5mCi in 2 divided doses of 250uCi each, intradermal, ONE TIME. Lymphoscintigraphy - Vulvar Melanoma Next Day Surgery Uu30a-Zhyrqxuiva (Tsstsfmkvj98w-txkkllvnxn), Administer 2mCi in 1 dose, intradermal, ONE TIME. Lymphoscintigraphy - Vulvar Melanoma, Same Day Surgery Mc70z-Jyhkvxqhtb (Iukcstbbhs32m-aiuzzjzjsf),Administer 0.5mCi in 1 dose, intradermal, ONE TIME. MIBG Imaging I-123 MIBG (Iodine-123 metaiodobenzylguandidine), Administer 10mCi, IV, ONE TIME. AND Administer SSKI (Potassium Iodide) drops, 130mg, Orally, ONE TIME 30 minutes prior to radiopharmaceutical injection. Microsphere Mapping (Y90 Mapping) Tc-99m MAA (Clkhfhdczh28a-rccjhbvgmkurpwq albumin), Interventional Radiologist to administer (1) 2mCi in in 2mL NS, intra- arterial via catheter, ONE TIME. OR Tc-99m MAA (Oycpelbavs84x-dcdkkwsoflbvesw albumin), Interventional Radiologist to administer (2) 2mCi in in 2mL NS, intra-arterial via catheter, ONE TIME. MUGA/RVG Imaging Tc-99m Pertechnetate (Cccliicphv63y-dljeunopjteqb), Administer 22mCi heparinized RBCs, IV, ONE TIME. Myocardial Amyloid Scintigraphy (Hot PYP Scan) Bn91y-EDL (Exxqwyyqcn93a- pyrophosphate), Administer 15mCi, IV, ONE TIME. Myocardial Dual Isotope Imaging Tl-201 (Thallium Chloride-201) AND Pu18g-Budqeva (Pzlsmdutwt45j-qkhqvvm), Administer 3mCi Tl-201for resting images, IV, ONE TIME AND Administer Hy80p-Pjjlirj (Qgednbzxem66h-bnhadxt), for stress images based on patient's weight, IV, ONE TIME. Male or Female Patients: <180lbs: 12mCi Male or Female Patients: 181-240lbs: 15mCi Female Patients 241-265lbs: 18mCi Male Patients 241-330lbs: 18mCi Female Patients >265lbs: 24mCi Male Patients >330lbs: 24mCi Myocardial Planar Imaging (for patients >= 400 lbs) Ou37g-Auhdlck (Dxijzcckow88n-Uziupga), Administer 30mCi, IV, ONE TIME for rest images, ONE TIME for stress images. Myocardial Rest Imaging - SPECT Imaging Tl-201 (Thallium Chloride-201), Administer 4mCi, IV, ONE TIME. OR Em54x-Wnxhsbd (Paffzlzctu09a-Cgpcqzw), Administer 4mCi for patients <180 lbs, IV, ONE TIME. OR Dc96n-Cfphczc (Ibskjciszt52p-Fpsepwx), Administer 5mCi for patients 181-240 lbs, IV, ONE TIME. OR Zc60t-Mgbynws (Rbeezgeosp92t-Voayxbv), Administer 6mCi for female patients 241- 265 lbs, IV, ONE TIME. OR Ny12x-Skcgmda (Otafjwxfpx22e-Vxvsvgo), Administer 6mCi for male patients 241-330 lbs, IV, ONE TIME. OR Ub51s-Zlluydq (Icjgirmpyo65y-Xiyamfl), Administer 8mCi for female patients 266- 399 lbs, IV, ONE TIME. OR In32v-Prtvtdp (Ejcdhqfmii33o-Fbmfvyq), Administer 8mCi for male patients 331-399 lbs, IV, ONE TIME. Myocardial Stress - SPECT Imaging Qg31y-Lukijsy (Ciqywhgwdv04r-Xcvxvxj), Administer 12mCi for patients <180 lbs, IV, ONE TIME. OR Ne54b-Innvmha (Jhallqqyqr43o-Eimphfk), Administer 15mCi for patients 181-240 lbs, IV, ONE TIME. OR An36b-Rkqhsow (Kschjzkydj04f-Rbzuqej), Administer 18mCi for female patients 241- 265 lbs, IV, ONE TIME. OR Ju66y-Klneftg (Gbdbhywpap89l-Kcpkhih), Administer 18mCi for male patients 241- 330 lbs, IV, ONE TIME. OR Hr40g-Gosoqse (Kqajocolfm19h-Cvkrgue), Administer 24mCi for female patients 266- 399 lbs, IV, ONE TIME. OR Rd36t-Xcehgzw (Eqhbuvgcga91s-Zdaoxzs), Administer 24mCi for male patients 331- 399 lbs, IV, ONE TIME. Myocardial Viability Imaging Tl-201 (Thallium Chloride-201), Administer 3mCi, IV, ONE TIME. AND Administer 1mCi, IV, ONE TIME 3.5 hours post rest injection. Octreoscan In-111 Pentetreotide (Indium-111 Pentetreotide), Administer 6mCi, IV, ONE TIME. Parathyroid Imaging Ol82b-Pssbfscld (Lasazzrjcw98x-boeiqpfqp), Administer 20mCi, IV, ONE TIME. Peritoneal Cavity Scintigraphy Xi55h-Gnavvo Colloid (Mboababubl24b-vzsoie colloid), Administer 2mCiin 3mL NS, via peritoneal dialysis, ONE TIME. Peritoneovenous Shunt Scintigraphy Tc-99m MAA (Vadgxjphjn64r-icrkykbhkisvaqf albumin), Physician toadminister 5mCi in 3mL NS, Intraperitoneal, ONE TIME. PET/CT Axumin F-18 Axumin (Ulqwckan78-swnunpdvgyqq), Administer 10mCi, IV, ONE TIME. PET/CT Bone Scan F18-NaF (Odfeddxm81-qibqjk fluoride), Administer at least 8mCi, up to 11mCi, IV, ONE TIME. PET/CT Brain Imaging (Amyvid) F18- florbetapir [Amyvid??, (E)-4-(2-(6-(2-(2-(2[F-18]- (fluoroethoxy)ethoxy)ethoxy)tfytrcvz-4-sw)vinyl)-N-methylbenzamine], Administer 10mCi, IV, ONE TIME. PET/CT Brain Imaging (FDG) F18-FDG (Nusemtsj30-offjuqdbdgvcnwyuk), Administer 10mCi, IV, ONE TIME. PET/CT Dotatate Imaging Ga-68 Dotatate (Gallium-68 Dotatate), Administer 5.4mCi, IV, ONE TIME. PET/CT Limited, Standard, or Whole-Body Oncology Imaging F18-FDG (Ljuplyyx78- flurodeoxyglucose), Administer 0.11mC/kg, with at least 8mCi, up to 17mCi, IV, ONE TIME. PET/CT Myocardial Scan (Sarcoidosis or Viability) F18-FDG (Qealmino53- flurodeoxyglucose), Administer 0.11mCi/kg with at least 8mCi, up to 17mCi, IV, ONE TIME. Renal Scintigraphy (AYLIN-Inhibitor Renal Scan) Bm92c-CGW9 (Avgtzrrwem61z- mercaptoacetyltriglcine), Administer 5mCi, IV, ONE TIME. AND Administer Enalaprilat (Vasotec) 2.5mg, IV, ONE TIME. Dilute to 5mL total volume with normal salineand infuse via hand push injection over 5 minutes. OR Administer Captopril, 50mg capsule crushed and dissolved in 150mL tap water, Orally, ONE TIME. Renal Scintigraphy (Cortical Imaging) Gj71o-VPCB (Tpetqivcjk90b- dimercaptosuccinic acid), Administer 5mCi, IV, ONE TIME. Renal Scintigraphy (Diuretic Renal Scan) Zu63m-MSAL (Vlfzndgjci15l-uhaemffewp-sasvxasp-oxsorlvbwbhb), Administer 5mCi, IV, ONE TIME. AND Administer Lasix (furosemide) 40mg, IV push over 2 minutes, ONE TIME. OR Aq59i-WLL4 (Ankeucipay80j-cceuaasrqpoblrahrtjcjvr), Administer 5mCi, IV, ONE TIME. AND Administer Lasix (furosemide), 40mg, IV push over 2 minutes, ONE TIME. Renal Scintigraphy (Flow and Function Scan) Lj33y-MGTX (Rnvfccqxxi36o-mmemzrcecr-ikitckmk-ggkysaqigulj), Administer 5mCi, IV, ONE TIME. OR Dg31v-TDO7 (Fyuqjhebtg40o-uelcymmbnreluyzogvszmhx), Administer 5mCi, IV, ONE TIME. Renal Scintigraphy (Renal Transplant Scan) Oy18o-NYGV (Sdwyunmcrj00q-saezkzurrd-xoppfxpv-uthkpeivkntf), Administer 5mCi, IV, ONE TIME. OR Po19p-RSQ6 (Vqrjxgqkai19y-byctcqmznyochorjenqrtlk), Administer 5mCi, IV, ONE TIME. Salivary Imaging Tc-99m Pertechnetate (Hcchsdvzpy59l-ocdgnkojglish), Administer 5mCi, Orally, ONE TIME. Shunt Patency Imaging (CSF Shunt Imaging) Be26g-OJGD (Aaumogjyim54m-dhdvhfrvis-zqqknecb-fflhdthzgxey), Neurosurgeon or neurosurgeon's PA to administer 0.5mCi, intra-shunt reservoir, ONE TIME. Splenic Imaging Tc-99m Pertechnetate (Bauodfpwpu05h-hjwjnkhdvwahq), Administer 6mCi heparinized, heat damaged RBCs, IV, ONE TIME. Lv06m-NZB Imaging Ox68l-Cmwlzzy (Wfebrfywdu43n-Cdmvize), Administer 15mCi heparinized WBC, IV, ONE TIME. Thyrogen Injection Thyrogen (thyrotopin glen), Administer 0.9mg, deep IM, every 24 hours for 2 doses. Thyroid Imaging Tc-99m Pertechnetate (Xfdrurezrn46b-xwdylicbkrxbb), Administer 10mCi, IV, ONE TIME. OR I-123 Na Iodide (Iodide-123 Na Iodide), Administer 200 uCi capsule, Orally, ONE TIME. Thyroid Scan & Uptake I-123 Na Iodide (Iodide-123 Na Iodide), Administer 200 uCi capsule, Orally, ONE TIME. Thyroid Uptake I-123 Na Iodide (Iodide-123 Na Iodide), Administer 200 uCi capsule, Orally, ONE TIME. OR I-131 Na Iodide (Iodide-131 Na Iodide), Administer at least 5 uCi, up to 25 uCi, Orally, ONE TIME. Whole Body I-131 Imaging I-131 Na Iodide (Iodide-131 Na Iodide), Administer 3 mCi capsule or solution, Orally, ONE TIME. Pediatric Procedures & Dosages: o Note: Radiopharmaceuticals dosages with a range are determined by transportation department supervisor calibration o Note: In acute Tc99m shortages, radiopharmaceutical dosages may be decreased with approval and documentation within department from medical aides teacher/AU. PROCEDURE DOSAGE Bone Marrow Imaging Jp48i-Iqonihbq Sulfur Colloid (Jdpzpskmeh68q-cymrhebo sulfur colloid), Administer 0.14mCi/kg with at least 1mCi, up to 8mCi, IV, ONE TIME. Bone Scan Imaging (Whole Body, Limited, 3-Phase, or SPECT) Lh06p-QKI (Xdzywlcxbv36l-fpjqrfntw diphosphonate), Administer 0.25mCi/kg with at least 1mCi, up to 25mCi, IV, ONE TIME. OR Oz80e-LUZ (Ghdlvmfmgy52d-noasdabwaruaejek diphosphonate), Administer 0.25mCi/kg with at least 1mCi,up to 25mCi, IV, ONE TIME Brain Imaging Eo41p-GDPC (Laqpbxkwdz21t-hbjzvbokky-cguwtakb-keroclatgivw), Administer 0.3mCi/kg with at least 5mCi, up to 20mCi, IV, ONE TIME. Brain SPECT Imaging Pc10z-BKKUL (Ceretec) (Ozhmkulmzo31r-djzndpdjpnzedpcwvhq amine oxime), Administer 0.3mCi/kg with at least 3mCi, up to 20mCi, IV, ONE TIME. C14 Urea Breath Test (PY Test) M99-Obdi (Carbon-14 Urea), Administer 1uCi capsule, Orally, ONE TIME. Cisternogram Imaging In-111 DTPA (Indium-111 jlwwcxduvc-rptfukta-geudctgpbmzj), Neuroradiologist toadminister 0.07mCi/kg with at least 0.1mCi, up to 0.5mCi, Intrathecally, ONE TIME. Cystogram Imaging Tc-99m Pertechnetate (Chvkhypyrn26h-lfeztqgdxtjfc) Administer 1mCi, intra-hendrix catheter, ONE TIME AND Administer NS per calculated expected bladder volume, intra-hendrix catheter, ONE TIME. Diverticulum/Meckel's Imaging Tc-99m Pertechnetate (Yvxiufclvr35i- pertechnetate), Administer 0.05mCi/kg with at least 0.25mCi, up to 15mCi, IV, ONE TIME. Esophageal Reflux Imaging - <1yoa Qt93a-Hhawlb Colloid (Wmtcctgvfv71r-zbdcvd colloid), Administer 0.1mCi for patients <3.5lbs, Orally, ONE TIME. OR Administer 0.2mCi for patients 3.5-6.5lbs, Orally, ONE TIME. OR Administer 0.3mCi for patients >6.5lbs, Orally, ONE TIME. *For all administrations, determine amount of formula or breast milk patient consumes in 1 hour by dividing their normal feed amount by 4. Then, take this calculated amount and divide into 2 so that you can tag ?with the radiopharmaceutical and feed the remaining ?? 'cold'; feed the radioacti ve labeled formula/milk and then 'cold' formula/milk over a 10-minute total period of time. Esophageal Reflux Imaging - >1yoa Eo37h-Ykmsme Colloid (Cooyhwgbxx38z-hkdmgb colloid), Administer 0.5mCi in 1 oz whole milk, Orally, ONE TIME. Follow with 7 oz whole milk. Ga-67 Citrate - Planar Imaging Ga-67 Citrate (Gallium-67 Citrate), Administer 0.07mCi/kg with at least 0.5mCi, up to 5mCi, IV, ONE TIME. Ga-67 Citrate - SPECT Imaging Ga-67 Citrate (Gallium-67 Citrate), Administer 0.14mCi/kg with at least 1mCi, up to 10mCi, IV, ONE TIME. Gastric Empty Imaging - Liquid Meal Cn87s-Jezjyf Colloid (Hyecsjqjlz01s-msqxlp colloid), Administer7 uCi/kg with at least 250uCi, up to 500uCi, Orally, ONE TIME. *For all administrations, determine amount of formula or breast milk patient consumes in 1 hour by dividing their normal feed amount by 4. Then, take this calculated amount and divide into 2 so that you can tag ?with the radiopharmaceutical and feed the remaining ?? 'cold'; feed the infant radioacti ve labeled formula/milk and then 'cold' formula/milk over a 10-minute total period of time.OR Hz13m-QVZQ (Xrmqunitvo10g-ikcztxnqpl-cvmikisx-lqwkpxsuxjc), Administer 1mCi in 300mL tap water, Orally, ONE TIME. *Follow Fq67p-MJYG dosing if the pediatric patient is not an and consumes water. Gastric Empty Imaging - Solid Meal Pt33h-Beutdq Colloid (Ixuycgbkht57e-dxnwpo colloid), Administer 7uCi/kg with at least 250uCi, up to 500uCi in 4 oz egg beaters or in 1 package of cooked instant oatmeal, Orally, ONE TIME. GI Bleed Imaging (GI Blood Loss) Tc-99m Pertechnetate (Xcpqrpmcoc55n- pertechnetate), Administer 0.32mCi heparinized RBCs with at least 2mCi, up to 22mCi, IV, ONE TIME. Hepatic Blood Pool Imaging Tc-99m Pertechnetate (Wggqsyqdkc56q-pxhnedkcrmuqb), Administer 0.32mCi heparinized RBCs with at least 2mCi, up to 22mCi, IV, ONE TIME. Hepatic Hemangioma Imaging Tc-99m Pertechnetate (Azjflisizg76n-ktcezixhqwluf), Administer 0.32mCi heparinized RBCs with at least 2mCi, up to 22mCi, IV, ONE TIME. Hepatobiliary Scan Imaging Tc-99m Mebrofenin (Czwurkoskk08j-kemljrrgcv), Administer 0.05mCi/kg withat least 0.5mCi, up to 5mCi, IV, ONE TIME *For inpatients only, if bilirubin >5mg/dL, Administer 0.08mCi/kg with at least 1mCi, up to 8mCi, IV, ONE TIME *For inpatients only, if bilirubin > 8mg/dL, consult nuclear medicine physician prior to administering radiopharmaceutical Hepatobiliary Scan Imaging for in Jaundice Tc-99m Mebrofenin (Jyxrcvezlj73w-iibnikngfg), Administer 0.08mCi/kg with at least 1mCi, up to 8mCi, IV, ONE TIME AND Administer Phenobarbital 5mg/kg/day (may be administered in 2 divided doses) for 5 days prior to imaging, IV, ONE TIME PER DAY. Hepatobiliary Scan with Ejection Fraction Imaging Tc-99m Mebrofenin ([id number]), Administer 0.05mCi/kg with a at least 0.5mCi, up to 5mCi IV, ONE TIME *For inpatients only, if bilirubin >5mg/dL, Administer 0.08mCi/kg with at least 1mCi, up to 8mCi, IV, ONE TIME *For inpatients only, if bilirubin > 8mg/dL, consult nuclear medicine physician prior to administering radiopharmaceutical AND For immediate use - Sincalide (Kinevac) 0.02 mcg/kg IV, ONE TIME, diluted with NS to a total infused volume of 30 mLs. Infuse via an infusion device over 30 minutes. *If Sincalide unavailable, 3.5ml/kg, up to 240mL (8oz) Ensure Plus, Orally, ONE TIME. Hepatobiliary Scan with Pre-Treatment Imaging Tc-99m Mebrofenin ([id number]), Administer 0.05mCi/kg with a at least 0.5mCi, up to 5mCi IV, ONE TIME *For inpatients only, if bilirubin >5mg/dL, Administer 0.08mCi/kg with at least 1mCi, up to 8mCi, IV, ONE TIME *For inpatients only, if bilirubin > 8mg/dL, consult nuclear medicine physician prior to administering radiopharmaceutical AND For immediate use - Sincalide (Kinevac) 0.01 mcg/kg IV, ONE TIME, diluted with NS to a total infused volume of 5 mLs., Infuse via hand push over 5 minutes. In-111 Dual Isotope Imaging In-111 Oxine (Indium-111 Oxine), Administer 5uCi/kg with at least 300uCi, up to 500uCi, heparanized WBC, IV, ONE TIME. AND Jw40o-RNB (Lsrnthxosq93d-ejmjqtzkp diphosphonate), Administer 0.25mCi/kg with at least 1mCi, up to 20mCi, IV, ONE TIME. OR In-111 Oxine (Indium-111 Oxine), Administer 5uCi/kg with at least 300uCi, up to 500uCi, heparanizedWBC, IV, ONE TIME. AND Nh52l-Hyhhqlfd Sulfur Colloid (Ydkehewptk72m-upgzcjsc sulfur colloid), Administer 0.14mCi/kg with at least 1mCi, up to 8mCi, IV, ONE TIME. In-111 WBC Imaging In-111 Oxine (Indium-111 Oxine), Administer 5uCi/kg with at least 300uCi, up to 500uCi, heparanized WBC, IV, ONE TIME. Liver/Spleen Imaging Vu82u-Monoia Colloid (Xdrsdvrtyy16l-autzuh colloid), Administer 0.05mCi/kg with at least 0.5mCi, up to 5mCi, IV, ONE TIME. Lung Aerosol Perfusion Imaging Tc-99m MAA (Jswenqdypz31j-evsjkgevjkqqlvo albumin), Administer 0.03mCi/kg, with at least 0.4mCi, up to 4mCi IV, ONE TIME. Lung Xenon Perfusion Imaging (normal or quantitative) Tc-99m MAA (Aibeukqbya98j- macroaggregated albumin), Administer 0.03mCi/kg, with at least 0.4mCi, up to 4mCi IV, ONE TIME. Lung Aerosol Ventilation Imaging Nh89x-SQGI (Pmqmhsmdox34h-wmtvgqwmst-sbpolyvs-xajxjvxyhjtl), Administer 40mCi in 2mL NS via aerosol delivery device, Inhalation, ONE TIME. Lung Xenon Ventilation Imaging (normal or quantitative) Xe-133 (Xenon-133), Administer 10 mCi, inhalation, ONE TIME. Lung Perfusion Imaging (normal or quantitative) Tc-99m MAA (Uleivbpaay71e- macroaggregated albumin),Administer 0.03mCi/kg, with at least 0.4mCi, up to 4mCi IV, ONE TIME. Lung Perfusion Imaging - Patient (normal or quantitative) Tc-99m MAA (Mfunpouskb25x-dpimielcjckacks albumin), Administer 0.03mCi/kg, with at least 0.4mCi, up to 2mCi IV, ONE TIME. MIBG Imaging I-123 MIBG (Iodine-123 metaiodobenzylguandidine), Administer 0.14mCi/kg with at least 1mCi, up to 10mCi, IV, ONE TIME AND Administer SSKI (Potassium Iodide) drops 30 minutes prior to radiopharmaceutical injection. ??? * to 1 month: 16mg, Orally, ONE TIME. ??? * 1 month to 3 years of age: 32mg, Orally, ONE TIME. ??? * Greater than 3 years to 17 years of age: 65mg, Orally, ONE TIME. MUGA/RVG Imaging Tc-99m Pertechnetate (Eqxzazwdqb54r-uwnpscoiqdoyj), Administer 0.32mCi/kg heparinized RBCs with at least 2mCi, up to 22mCi, IV, ONE TIME. Myocardial Amyloid Scintigraphy (Hot PYP Scan) Ho96h-ELH (Jjdqwbqwhq00b- pyrophosphate), Administer 0.28mCi/kg, with at least 2.5mCi, up to 15mCi IV, ONE TIME. Myocardial Rest Imaging - SPECT Imaging Is08k-Tkcbtle (Hbjuxohjfk36x-Wbqvfye), Administer 0.15mCi/kg, with at least 2mCi, up to 8mCi IV, ONE TIME. Myocardial Stress Imaging - SPECT Imaging Wo05t-Oaduhzv (Hvzlkdiypj18z-Ouvmbaj), Administer 0.45mCi/kg, with at least 6mCi, up to 24mCi IV, ONE TIME. Octreoscan In-111 Pentetreotide (Indium-111 Pentetreotide), Administer 0.08mCi/kg with at least 1mCi, up to 6mCi, IV, ONE TIME. Parathyroid Imaging Ir11d-Buvffjnym (Tixwhplfse77a-obwwqvrjh), Administer 0.25mCi/kg, with at wknml9nTl, up to 20mCi IV, ONE TIME. Peritoneal Cavity Scintigraphy Tt49h-Evcpnk Colloid (Xkpwrgokgq95z-taixwn colloid), Administer 0.07mCi/kg in 2mL NS with at least 1mCi, up to 2mCi, via peritoneal dialysis, ONE TIME. Peritoneovenous Shunt Scintigraphy Tc-99m MAA (Ydvnsmpasv34i-hitvpmkorksrcfv albumin), Physician toadminister 0.07mCi/kg with at least 1mCi, up to 5mCi in 2mL NS, Intraperitoneal, ONE TIME. PET/CT Bone Scan F18-NaF (Odkzyyra37-oodgfv fluoride), Administer 0.11mCi/kg with at least 2mCi, upto 11mCi, IV, ONE TIME. PET/CT Brain Imaging (FDG) F18-FDG (Pfhuobzq37-wzungyvdjvfteyzvq), Administer 0.10mCi/kg with at least 2mCi, up to 10mCi, IV, ONE TIME. PET/CT Limited, Standard, or Whole-Body Oncology Imaging F18-FDG (Zwwjlqkd83- flurodeoxyglucose), Administer 0.11mCi/kg with at least 2mCi, up to 10mCi, IV, ONE TIME. PET/CT Dotatate Imaging Ga-68 Dotatate (Gallium-68 Dotatate), Administer 0.054mCi/kg up to 5.4mCi, IV, ONE TIME. (Minimum dose determined by AU). Renal Scintigraphy (AYLIN-Inhibitor Renal Scan) Wr04s-THO4 (Uddptixdyv17r- mercaptoacetyltriglcine), Administer 0.1mCi/kg with at least 1mCi, up to 5mCi, IV, ONE TIME. AND Administer Enalaprilat (Vasotec) 0.04mg/kg with a maximum dose of 2.5mg, IV, ONE TIME. Dilute to 5mL total volume with normal saline and infuse via hand push over 5 minutes. Renal Scintigraphy (Cortical Imaging) Vt28v-JORA (Ubblqfucsn57q- dimercaptosuccinic acid), Administer 0.05mCi/kg with at least 0.5mCi, up to 5mCi, IV, ONE TIME. Renal Scintigraphy (Diuretic Renal Scan) Dc93i-WNPM (Yuzmphgidg00v-poweptjitu-pxhrprfm-edblcmmtblbf), Administer 0.2mCi/kg with at least 2mCi, up to 5mCi, IV, ONE TIME. AND Administer Lasix (furosemide), 1mg/kg, up to 40mg, IV push over 2 minutes, ONE TIME. A reduced dosage of 0.5mg/kg may be used per direction of nuclear medicine physician. OR Tl47n-BOL3 (Ifarkeqeta63w-rruoctwgajiwffjmvdjbstd), Administer 0.1mCi/kg with at least 1mCi, up to 5mCi, IV, ONE TIME. AND Administer Lasix (furosemide), 1mg/kg, up to 40mg, IV push over 2 minutes, ONE TIME. A reduced dosage of 0.5mg/kg may be used per direction of the nuclear medicine physician. Renal Scintigraphy (Flow and Function Scan) Rz15w-SDVD (Tlsotyzsib04r-iahweijzhf-gndsdrhv-vfpnafbalrvp), Administer 0.2mCi/kg with at least 2mCi, up to 5mCi OR Bt88m-DVN3 (Wgrpeaifgf52v-wxqvnwlimmsizaxeoreyblg), Administer 0.1mCi/kg with at least 1mCi, up to 5mCi, IV, ONE TIME. Renal Scintigraphy (Renal Transplant Scan) Ro85w-VMEQ (Ycilpmobmb29r-vthjluvodo-jurbadny-erecsuxrcefl), Administer 0.2mCi/kg with at least 2mCi, up to 5mCi OR Ww38o-ZQN0 (Yeyihdbxcn55u-ywmmxmobblpupxaegsnapfc), Administer 0.1mCi/kg with at least 1mCi, up to 5mCi, IV, ONE TIME. Salivary Imaging Tc-99m Pertechnetate (Husnjvbbsk22e-himmizfmfgtjj), Administer 0.05mCi/kg with at least 0.25mCi, up to 5mCi, Orally, ONE TIME. Shunt Patency Imaging (CSF Shunt Imaging) Lt42i-KYJC (Cfsvxownqy02h-wugyjqhxki-cvgogokd-jpznytpsmrcs), Neurosurgeon or neurosurgeon's PA to administer 0.01mCi/kg with at least 0.4mCi, up to 0.5mCi, intra-shunt reservoir, ONE TIME. Splenic Imaging Tc-99m Pertechnetate (Sxreyvyqre45h-orbqiezoqtyml), Administer 0.03mCi/kg with at least 0.5mCi, up to 6mCi heparinized, heat damaged RBCs, IV, ONE TIME. Cl78g-IVU Imaging In25l-Eukdgwh (Jrneqzagba32g-Mgojlhg), Administer 0.2mCi/kg with at least 2mCi, up to 15mCi, heparinized WBC, IV, ONE TIME. Thyroid Imaging Tc-99m Pertechnetate (Ytobldmwzr29b-uxhkqgdeporey), Administer 0.07mCi/kg with at least 1mCi, up to 10mCi, IV, ONE TIME. Thyroid Scan & Uptake I-123 Na Iodide (Iodide-123 Na Iodide), Administer dosage per treating AU& fill out special prescription form, Orally, ONE TIME. Thyroid Uptake I-123 Na Iodide (Iodide-123 Na Iodide), Administer dosage per treating AU & fillout special prescription form, Orally, ONE TIME. OR I-131 Na Iodide (Iodide-131 Na Iodide), Administer dosage per treating AU & fill out special prescription form, Orally, ONE TIME. Whole Body I-131 Imaging I-131 Na Iodide (Iodide-131 Na Iodide), Administer 0.07uCi/kg, up to 3mCi capsule or solution (minimum dose per treating AU), Orally, ONE TIME. documented in this encounter Plan of Treatment Not on file documented as of this encounter Procedures Procedure Name Priority Date/Time Associated Diagnosis Comments NM LYMPHOSCINTIGRAPHY Routine 08/28/2020 11:25 AM CDT Invasive ductal carcinoma of breast, female, right documented in this encounter Results * NM LYMPHOSCINTIGRAPHY (08/28/2020 11:25 AM CDT) Anatomical Region Laterality Modality Nuclear Medicine 08/28/2020 11:2 7 AM CDT Impressions 08/28/2020 11:31 AM CDT IMPRESSION: ??[place] lymph node identified. Dictated by Dr. Glenn Miranda MD DICTATION LOCATION: 1 Narrative 08/28/2020 11:31 AM CDT SENT[facility] LYMPH NODE IMAGING DATE: 08/28/2020 11:25 AM HISTORY: Invasive ductal carcinoma involving the 6:00 position of the right breast. PROCEDURE: Skin preparation with chloraprep wipes. Technetium Lymphoseek was injected as 2 intradermal injections around the periareolar region. [place] lymph node in the axilla identified. RADIOPHARMACEUTICAL: 0.52 mCi 99m-Technetium Lymphoseek INCIDENTAL FINDINGS: ??None. Procedure Note Glenn Miranda MD - 08/28/2020 [facility]ENT[facility] LYMPH NODE IMAGING DATE: 08/28/2020 11:25 AM HISTORY: Invasive ductal carcinoma involving the 6:00 position of the right breast. PROCEDURE: Skin preparation with chloraprep wipes. Technetium Lymphoseek was injected as 2 intradermal injections around the periareolar region. [place] lymph node in the axilla identified. RADIOPHARMACEUTICAL: 0.52 mCi 99m-Technetium Lymphoseek INCIDENTAL FINDINGS: None. IMPRESSION: [place] lymph node identified. Dictated by Dr. Glenn Miranda MD DICTATION LOCATION: 1 Paula Bae MD NM ORDERABLES documented in this encounter Visit Diagnoses Diagnosis Invasive ductal carcinoma of breast, female, right documented in this encounter Care Teams Tire [employer]orter Relationship Specialty Start Date End Date Steven Lizama MD [address] [place] [phone] PCP - General Emergency Medicine 08/13/20 documented as of this encounter
--- OUTSIDE RECORDS SUMMARY | 2024-05-25 00:15 | XMS_ITS | Encounter Summary ---
Author Organization [facility] Address [address] [place] [address] Care Team Providers Care Translator Name Role Phone Steven Lizama MD Primary Care Provider [phone] Reason for Visit * Auth/Cert Specialty Diagnoses / Procedures Referred By Contregino t Referred To Contact Diagnoses Invasive ductal carcinoma of breast, female, right Invasive ductal carcinoma of breast, female, right [C50.911] Procedures DE MASTECTOMY, PARTIAL DE BX/REMV,LYMPH NODE,DEEP AXILL DE INTRAOPERATIVE SENTINEL LYMPH NODE ID W DYE INJECTION CHG LYMPHATICS & LYMPH GLANDS IMAGING RIGHT BREAST LUMPECTOMY WITH NEEDLE LOCALIZATION RIGHT AXILLARY SENTINEL [place] [address] [facility] [address] [place] [address] Referral ID Status Reason Start Date Expiration Date Visits Re quested Visits Authorized [id number] 08/16/2020 1 1 Encounter Details Date Type Department Care Team (Late st Contact Info) Description 08/28/2020 12:27 PM CDT Anesthesia Event [facility] Operating Room [address] [place] [address] Elizabeth Muhammad MD [address] [place] [address] Anesthesia Record Procedure Summary Procedure Name Responsible Anesthesiologist Anesthesia Start Time Anesthesia Stop Time BREAST LUMPECTOMY WITH NEEDLE LOCALIZATION AT 1000 (Right: Breast) Elizabeth Muhammad MD 08/28/20 1227 08/28/20 1401 Events Date Time Event Comment 08/28/2020 0917 AN Equip Check Anesthesia eq uipment and materials checked in accordance with local policy. 0929 1227 An Start 1230 In Room This event disp lays the In Room time documented in the Surgical Log. Deleting this event will not remove it from the log but will remove it from the Grid and Graph timeline. 1231 An Start Data 1236 Pre-Induction Immediate pre- induction anesthetic assessment performed. Vital signs as noted on graphic. 1241 An Induction 1242 An Intubation 1246 Anesthesia Ready 1252 Procedure Start This event d isplays the Procedure Start time documented in the Surgical Log. Deleting this event will not remove it from the log but will remove it from the Grid and Graph timeline. 1258 An ESU 1345 Procedure Stop This event di splays the Procedure Stop time documented in the Surgical Log. Deleting this event will not remove it from the log but will remove it from the Grid and Graph timeline. 1355 An Extubation Emergence unev entful Awake, spontaneous respirations. Adequate muscle strength demonstrated Adequate tidal volume. Orapharynx suctioned. Extubated with positive pressure ventilation. 1357 an stop data 1400 Out of Room This event disp lays the Out of Room time documented in the Surgical Log. Deleting this event will not remove it from the log but will remove it from the Grid and Graph timeline. 1401 An Stop 1401 Hand-off to Receiving Clinic kalen Post-Anesthetic transfer of care report elements to appropriate post-anesthesia recovery environment completed in accordance with procedure. Meds Name Total midazolam PF (VERSED) 1 mg/mL injection 2 mg fentaNYL (SUBLIMAZE) PF 50??mcg/mL injec tion 125 mcg lidocaine PF (XYLOCAINE MPF) 20 mg/mL sy ringe 120 mg propofol (DIPRIVAN) 10??mg/mL injection 180 mg propofol (DIPRIVAN) 10??mg/mL injection 117.75 mg succinylcholine (ANECTINE) 100 mg/5 mL i v syringe 140 mg ketorolac (TORADOL) 30??mg/mL injection 15 mg dexamethasone (DECADRON) 4 mg/mL injecti on 4 mg ondansetron (ZOFRAN) 4??mg/2 mL injectio n 4 mg diphenhydrAMINE (BENADRYL) 50 mg/mL inje ction 12.5 mg ceFAZolin in sterile water ( ANCEF) 2 gram/20 mL IV Syringe (PREMIX) 2,000 mg 2,000 mg glycopyrrolate (ROBINUL) 0.6 mg/3 mL (0. 2 mg/mL) syringe 0.2 mg lactated ringers infusion 800 mL * Agents Name Air Sevoflurane % Sevoflurane O2 N2O Inspired N2O O2 * Blood No blood administrations on file. Lines, Drains, and Airways Type Details Placement Removal Peripheral IV Pre-Hospital Start: No; Orientation: Left; Location: Hand; Device: Angiocath; Gauge: 20 gauge; Insertion Attempts: 1; Patient Tolerance: tolerated well, appears comfortable 08/28/20 0948 by Wendy Armas RN 08/28/20 1608 by Radha Connell RN Endotracheal Airway Type: ETT (heron flex); Size: 7; Attempts: 1; Verification: Auscultated bilateral breath sounds, Equal chest movement, Continuous waveform capnography 08/28/20 1242 by Jane Peck AA-C 08/28/20 1355 by Jane Peck AA-C Incision 08/28/20; 1344; surgical incision; Right; breast; 08/29/20; 0410 08/28/20 1344 by Hailey Martínez RN 08/29/20 0410 by PROVIDER, DISCHARGE PATIENT documented in this encounter Social History Tobacco Use Types Packs/Day Years [...] COVID-19? 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 Pain Rating: Anesthesia Post Evaluation Patient location during evaluation: PACU Patient participation: patient was able to participate in the post op evaluation Level of consciousness: 1 = not alert but arousable by minor stimulation to obey, answer or respond Pain management: adequate Airway patency: patent Nausea or Vomiting: none Anesthetic complications: no Cardiovascular status: regular rate and rhythm Respiratory status: no respiratory symptoms Hydration status: well hydrated Comments: Phase I Postanesthesia Evaluation Including Modified Geri Score Patient seen and evaluated: Modified Geri Score: Score: 9 (08/28/201418) COMMENTS: No apparent Anesthesia related complications RESPIRATORY FUNCTION: Respiration: able to breath and cough freely (08/28/201418) (2=able to breathe and cough freely, 1=dyspnea, limited breathing or tachypnea, 0=apnea or mechanicventilator) O2 Saturation: able to maintain O2 saturation greater than 92% on room air (08/28/201418) (2=able to maintain O2 saturation greater than 92% on room air, 1=needs O2 inhalation to maintain O2 saturation greater than 90%, 0=O2 saturation less than 90% even with O2 supplement) Resp: 17 (08/28/201429)SpO2: 99 % (08/28/201429) CARDIOVASCULAR FUNCTION: Heart Rate: 83 bpm (08/28/201429) BP: (!) 140/79 (08/28/20 1415) Circulation: BP within 20% of preanesthetic level (08/28/201418) (2=BP within 20% of preanesthetic level, 1=BP within 20-49% of preanesthetic level, 0=BP within 50%of preanesthetic level) MENTAL STATUS, NEURO, ACTIVITY: PATIENT PARTICIPATION IN EVALUATION:yes Consciousness: arousable on calling (08/28/201418) (2=fully awake, 1=arousable on calling, 0=not responding) Activity: able to move 4 extremities voluntarily or on command (08/28/201418) (2=able to move 4 extremities voluntarily or on command, 1=able to move 2 extremities voluntarily or on command, 0=unable to move extremities voluntarily or on command) TEMPERATURE: Temp: 36.2 ??C (08/28/20 1401) PAIN: NAUSEA AND VOMITING: no nausea and no vomiting POSTOPERATIVE HYDRATION: well hydrated Intake/Output Summary (Last 24 hours) at 08/28/20 1432 Last data filed at 08/28/20 1345 Gross per 24 hour Intake: 800 ml Output: 20 ml Net : 780 ml Elizabeth Muhammad MD 08/28/2020 2:32 PM Elizabeth Muhammad MD * Anesthesia Handoff - Jane Peck AA-C - 08/28/2020 2:01 PM CDT Post-Anesthetic transfer of care report elements to appropriate post-anesthesia recovery environment completed in accordance with procedure. I completed my handoff to the receiving nurse during which we: 1. Identified the patient 2. Identified the responsible provider 3. Reviewed the pertinent medical history 4. Discussed the surgical course 5. Reviewed intra-op anesthesia management and issues during anesthesia 6. Set expectations for post-procedure period 7. Orders as necessary and appropriate for continuation of care are present in Epic. 8. Allowed opportunity for questions and acknowledgement of understanding. Vital Signs: BP: 122/88 (08/28/2020 2:01 PM) Pulse: 76 (08/28/2020 9:24 AM) Heart Rate: 83 bpm (08/28/2020 2:01 PM) Temp: 36.2 ??C (08/28/2020 2:01 PM) Resp: 16 (08/28/2020 2:01 PM) SpO2: 99 % (08/28/2020 2:01 PM) 2:05 PM RAO Lynn * Anesthesia Procedure Notes - Jane Peck AA-C - 08/28/2020 12:58 PM CDT Associated Order(s): Airway Airway Date/Time: 08/28/2020 12:42 PM Location: OR Plan: routine intubation Patient Identity Confirmed by: Verbally with patient and armband Airway: not difficult Performed by: Anesthesiologist: Elizabeth Muhammad MD AA: Jane Peck AA-C Indications and Patient Condition: Indications for Airway Management: Anesthesia Preoxygenated: Yes Patient Position: Sniffing and ramp Mask Difficulty Assessment: 1 - vent by mask Plan to extubate at end of case: Yes Final Airway Details: Final Airway Type: Endotracheal airway Final Endotracheal Airway: ETT (heron flex) Cuffed: Yes Cuff Volume (mL): 8 Technique Used for Successful ETT Placement: Video laryngoscopy Devices/Methods Used in Placement: Curved blade Insertion Site: Oral Laryngoscope Blade/Videolaryngoscope Blade Size: 4 ETT Size (mm): 7.0 Measured from: Lips ETT to Lips (cm): 22 Tube secured with: Tape Placement Verified by: auscultation, end tidal CO2 and chest rise Cormack-Lehane Classification: Grade IIa - partial view of glottis Number of Attempts at Approach: 1 * Anesthesia Preprocedure Evaluation - Elizabeth Muhammad MD - 08/28/2020 5:53 AM CDT Images from the original note were not included. Relevant Problems No relevant active problems Anesthesia Evaluation Patient summary reviewed and Nursing notes reviewed Airway Mallampati: III TM distance: <3 FB Neck ROM: full Dental Pulmonary (+) sleep apnea (STOP BANG 4), decreased breath sounds, ROS comment: Covid 19 neg 08/20/20 Smoking 1 ppd. No MDIs Cardiovascular - normal exam (+) hypertension, ROS comment: HLD 1 fos et, cleans home Neuro/Psych - negative ROS GI/Hepatic/Renal (+) GERD (occasional), Endo/Other (+) diabetes mellitus type 2 well controlled, Comments: Breast ca Abdominal Comments: BMI 40.43 Anesthesia History No history of anesthetic complications. Anesthesia Plan ASA Final: 3 General Intravenous induction Oral ETT airway maintenance NPO status > 8 hours Anesthetic plan and risks discussed with Patient and Patient Designated Director Sports. Use of blood products: consented to blood products. Plan discussed with Surgeon, Other and Anesthesiologist Company Laundry Worker. Post-op Pain Control Plan to use IV or IM medication for post-op pain control. documented in this encounter Plan of Treatment Not on file documented as of this encounter Procedures Procedure Name Priority Date/Time Associated Diagnosis Comments DE ANES INSERT ENDOTRACHEAL AIRWAY Routine 08/28/2020 12:42 PM CDT documented in this encounter Results * DE ANES INSERT ENDOTRACHEAL AIRWAY (08/28/2020 12:42 PM CDT) Narrative Jane Peck AA-C - 08/28/2020 12:42 PM CDT Jane Peck AA-C ? 08/28/2020 ??1:00 PM Airway Date/Time: 08/28/2020 12:42 PM Location: OR Plan: routine intubation Patient Identity Confirmed by: ??Verbally with patient and armband Airway: not difficult Performed by: Anesthesiologist: ??Elizabeth Muhammad MD AA: ??Jane ePck AA-C Indications and Patient Condition: ??Indications for Airway Management: ??Anesthesia ??Preoxygenated: Yes ?Patient Position: ??Sniffing and ramp ??Mask Difficulty Assessment: ??1 - vent by mask ??Plan to extubate at end of case: Yes ?? Final Airway Details: ??Final Airway Type: ??Endotracheal airway ??Final Endotracheal Airway: ??ETT (heron flex) ??Cuffed: Yes ?Cuff Volume (mL): ??8 ??Technique Used for Successful ETT Placement: ??Video laryngoscopy ??Devices/Methods Used in Placement: ??Curved blade ??Insertion Site: ??Oral ??Laryngoscope Blade/Videolaryngoscope Blade Size: ??4 ??ETT Size (mm): ??7.0 ??Measured from: ??Lips ??ETT to Lips (cm): ??22 ??Tube secured with: ??Tape ??Placement Verified by: auscultation, end tidal CO2 and chest rise ?Cormack-Lehane Classification: ??Grade IIa - partial view of glottis ??Number of Attempts at Approach: ??1 Elizabeth Muhammad MD PROCEDURE/MINOR SURG ICAL ORDERABLES documented in this encounter Visit Diagnoses Not on filedocumented in this encounter Administered Medications Inactive Administered Medications - up to 3 most recent administrations Medication Order MAR Action Action Date Dose Rate Site ceFAZolin in sterile water (ANCEF) 2 gram/20 mL IV Syringe (PREMIX) 2,000 mg 2,000 mg, IV, PRE-PROCEDURE ONCE, 1 dose, Starting on Thu08/28/20 at 0916, Until Thu08/28/20 at 1251, Routine, Pre-op, Antibiotic Indication: Surgical prophylaxis Given 08/28/2020 12:46 PM CDT 2,000 mg dexamethasone (DECADRON) 4 mg/mL injection IV, INTRA-PROCEDURE PRN, Starting on Thu08/28/20 at 1249, Until Thu08/28/20 at 1405, Routine, Anesthesia Intra-op Given 08/28/2020 12:49 PM CDT 4 mg diphenhydrAMINE (BENADRYL) injection IV, INTRA-PROCEDURE PRN, Starting on Thu08/28/20 at 1250, Until Thu08/28/20 at 1405, Routine, Anesthesia Intra-op Given 08/28/2020 12:50 PM CDT 12.5 mg fentaNYL PF (SUBLIMAZE) 50 mcg/mL injection IV, INTRA-PROCEDURE PRN, Starting on Thu08/28/20 at 1241, Until Thu08/28/20 at 1405, Routine, Anesthesia Intra-op Given 08/28/2020 1:12 PM CDT 50 mcg Given 08/28/2020 1:10 PM CDT 25 mcg Given 08/28/2020 12:41 PM CDT 50 mcg glycopyrrolate (ROBINUL) syringe IV, INTRA-PROCEDURE PRN, Starting on Thu08/28/20 at 1344, Until Thu08/28/20 at 1405, Routine, Anesthesia Intra-op Given 08/28/2020 1:44 PM CDT 0.2 mg ketorolac (TORADOL) injection IV, INTRA-PROCEDURE PRN, Starting on Thu08/28/20 at 1341, Until Thu08/28/20 at 1405, Routine, Anesthesia Intra-op Given 08/28/2020 1:41 PM CDT 15 mg lactated ringers infusion IV, at 150 mL/hr, CONTINUOUS, Starting on Thu08/28/20 at 0930, Until Thu08/28/20 at 1810, Routine Restarted 08/28/2020 12:29 PM CDT New Bag 08/28/2020 9:48 AM CDT 150 mL/hr lidocaine (PF) (XYLOCAINE MPF) 60 mg/3 mL (2 %) injection syringe IV, INTRA-PROCEDURE PRN, Starting on Thu08/28/20 at 1241, Until Thu08/28/20 at 1405, Routine, Anesthesia Intra-op Given 08/28/2020 1:53 PM CDT 60 mg Given 08/28/2020 12:41 PM CDT 60 mg midazolam (PF) (VERSED) injection IV, INTRA-PROCEDURE PRN, Starting on Thu08/28/20 at 1229, Until Thu08/28/20 at 1405, Routine, Anesthesia Intra-op Given 08/28/2020 12:29 PM CDT 2 mg ondansetron (ZOFRAN) 4 mg/2 mL injection IV, INTRA-PROCEDURE PRN, Starting on Thu08/28/20 at 1341, Until Thu08/28/20 at 1405, Routine, Anesthesia Intra-op Given 08/28/2020 1:41 PM CDT 4 mg propofoL (DIPRIVAN) injection IV, INTRA-PROCEDURE PRN, Starting on Thu08/28/20 at 1241, Until Thu08/28/20 at 1405, Anesthesia Intra-op Given 08/28/2020 12:41 PM CDT 180 mg propofoL (DIPRIVAN) injection IV, INTRA-PROCEDURE CONTINUOUS PRN, Starting on Thu08/28/20 at 1246, Until Thu08/28/20 at 1405, Anesthesia Intra-op New Bag 08/28/2020 12:46 PM CDT 25 mcg/kg/min 14.13 mL/hr succinylcholine (ANECTINE) 100 mg/5 mL (20 mg/mL) iv syringe IV, INTRA-PROCEDURE PRN, Starting on Thu08/28/20 at 1241, Until Thu08/28/20 at 1405, Routine, Anesthesia Intra-op Given 08/28/2020 12:41 PM CDT 140 mg documented in this encounter Care Teams Translator Relationship Specialty Start Date End Date Steven Lizama MD [address] [place] [phone] PCP - General Emergency Medicine 08/13/20 documented as of this encounter
--- OUTSIDE RECORDS SUMMARY | 2024-05-25 00:15 | XMS_ITS | Encounter Summary ---
Author Organization [facility] Address [address] [place] [address] Care Team Providers Care Meat Press Operator Name Role Phone Steven Lizama MD Primary Care Provider Reason for Visit * Reason Comments Breast Cancer Encounter Details Date Type Department Care Team ([facility] Contact Info) Description 08/28/2020 Chart Note [facility] Oncology Patient Navigation [address] [place] [address] Angeline Saunders, RN Breast Cancer Social History Tobacco Use Types Packs/Day Years [...] COVID-19? 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 Bae's office in [facility]. This RN me with patient and patient's daughter and walked them to outpatient surgery registration. Gave intro to navigation. Discussed Cancer Support Services that are available as needed and that the Navigator role is designed to help as a resource person as well as an educator when needed. Pt has contact info for this RN and will reach out with any needs. This RN to follow up post op. Eileen Saunders, RN, Nurse Navigator documented in this encounter Plan of Treatment Not on file documented as of this encounter Visit Diagnoses Not on filedocumented in this encounter Care Teams Meat Press Operator Relationship Specialty Start Date End Date Steven Lizama MD [address] [place] [phone] PCP - General Emergency Medicine 08/13/20 documented as of this encounter
--- OUTSIDE RECORDS SUMMARY | 2024-05-25 00:15 | XMS_ITS | Encounter Summary ---
Author Organization [facility] Address [address] [place] [address] Care Team Providers Care Food Concession Manager Name Role Phone Steven Lizama MD Primary Care Provider [phone] Encounter Details Date Type Department Care Team (Late st Contact Info) Description 08/28/2023 External Device Data [facility] ABSTRACTION Provider, Abstract [...] on filedocumented in this encounter Care Teams Food Concession Manager Relationship Specialty Start Date End Date Steven Lizama MD [address] [place] [phone] PCP - General Emergency Medicine 08/13/20 documented as of this encounter
--- OUTSIDE RECORDS SUMMARY | 2024-05-25 00:15 | XMS_ITS | Encounter Summary ---
Author Organization [facility] Address [address] [place] [address] Care Team Providers Care Manager Casino Name Role Phone Steven Lizama MD Primary Care Provider [phone] Reason for Visit * Reason Onset Date Comments Results 09/04/2020 Encounter Details Date Type Department Care Team (Late st Contact Info) Description 09/04/2020 Telephone [facility] [address] [facility] [address] [place] [address] Emily Patel, RN Results Social History Tobacco Use Types Packs/Day Years [...] have Coronavirus / COVID-19? No / Unsure 09/04/2020 10:19 AM CDT documented as of this encounter Miscellaneous Notes * Telephone Encounter - Emily Patel, RN - 09/04/2020 11:41 AM CDT Spoke with patient and gave her pathology results. She will follow up in clinic with Dr. Bae on09/19 for post op. FINAL DIAGNOSIS A. Breast, right, lumpectomy: - Invasive carcinoma of no special type (ductal), with the following features: 1. Size: 6 mm. 2. Equinunk score: 4/9 (Grade I). 3. Margins: Negative. 4. Lymphvascular invasion: Not identified. 5. Stage: pT1b, pN0(sn). 6. Biomarkers: ER, OK, and HER2 positive (previously performed on [id number]). - Ductal carcinoma in situ, with the following features: 1. Extent: At least 1.2 cm. 2. Grade: Intermediate. 3. Margins: Narrowly negative; DCIS <1 mm from the anterior margin, and 2.5 mm from medial. - Biopsy site changes present. - Microcalcifications present, associated with invasive carcinoma. - Fibrocystic changes. B. Lymph nodes, sentinel, right axillary, excision: - Three lymph nodes, negative for malignancy (0/3). documented in this encounter Plan of Treatment Not on file documented as of this encounter Visit Diagnoses Not on filedocumented in this encounter Care Teams Manager Casino Relationship Specialty Start Date End Date Steven Lizama MD [address] [place] [phone] PCP - General Emergency Medicine 08/13/20 documented as of this encounter
--- OUTSIDE RECORDS SUMMARY | 2024-05-25 00:15 | XMS_ITS | Encounter Summary ---
Author Organization [facility] Address [address] [facility] Attn: Epic Prelude ADT [place] [address] Care Team Providers Care Timber Management Technician Name Role Phone Steven Lizama MD Primary Care Provider [phone] Encounter Details Date Type Department Care Team (Latest Contact Info) Description 09/04/2020 Travel Social History Tobacco Use Types Packs/Day [...] AM CDT documented as of this encounter Plan of Treatment Not on file documented as of this encounter Visit Diagnoses Not on filedocumented in this encounter Care Teams Timber Management Technician Relationship Specialty Start Date End Date Steven Lizama MD [address] [place] [phone] PCP - General Emergency Medicine 08/13/20 documented as of this encounter
--- OUTSIDE RECORDS SUMMARY | 2024-05-25 00:15 | XMS_ITS | Encounter Summary ---
Author Organization [facility] Address [address] [facility] Attn: Epic Prelude ADT [place] [address] Care Team Providers Care Belt Maker Helper Name Role Phone Steven Lizama MD Primary Care Provider [phone] Encounter Details Date Type Department Care Team (Latest Contact Info) Description 09/14/2022 Travel Social History Tobacco Use Types Packs/Day [...] on filedocumented in this encounter Care Teams Belt Maker Helper Relationship Specialty Start Date End Date Steven Lizama MD [address] [place] [phone] PCP - General Emergency Medicine 08/13/20 documented as of this encounter
--- OUTSIDE RECORDS SUMMARY | 2024-05-25 00:15 | XMS_ITS | Encounter Summary ---
Author Organization [facility] Address [address] [place] [address] Care Team Providers Care Flow Nurse Name Role Phone Steven Lizama MD Primary Care Provider [phone] Reason for Referral * Radiology Services (Routine) - Closed Specialty Diagnoses / Procedures Referred By Contac t Referred To Contact Radiology Diagnoses Malignant neoplasm of lower-inner quadrant of right breast of female, estrogen receptor positive Procedures MAMMO DIAG BILAT 3D REBA W OR WO CAD CHG DIAGNOSTIC MAMMOGRAPHY COMPUTER-AIDED DETCJ BI CHG DIGITAL BREAST [place] [id number] [place] [address] [facility] [place] [address] [place] [address] Referral ID Status Reason Start Date Expiration Date Visits Re quested Visits Authorized [id number] Closed 07/09/2022 08/09/2023 1 1 FILLER OPERATOR Reason for Visit * Reason Comments Follow Up Encounter Details Date Type Department Care Team (Late st Contact Info) Description 07/09/2022 10:15 AM BASE FILLER OPERATOR Office Visit [facility] Breast Surgery [facility] - [address] [place] [address] [place] [address] [place] [address] Malignant neoplasm of lower-inner quadrant of right breast of female, estrogen receptor positive (Primary Dx) Social History Tobacco Use Types Packs/Day Years Used Date Smoking Tobacco: Every Day Cigarettes Smokeless Tobacco: Never Tobacco Cessation:Ready to Q uit: Not Asked; Counseling Given: Not Answered Alcohol Use Standard Drinks/Week Comments Never 0 [...] suspected to have Coronavirus/COVID-19? No / Unsure 07/09/2022 10:05 AM BASE FILLER OPERATOR documented as of this encounter Last Filed Vital Signs Vital Sign Reading Time Taken Comments Blood Pressure 155/87 07/09/2022 10:29 AM BASE FILLER OPERATOR Pulse 79 07/09/2022 10:27 AM BASE FILLER OPERATOR Temperature 36.7 ??C (98 ??F) 07/09/2022 10:27 AM BASE FILLER OPERATOR Respiratory Rate - - Oxygen Saturation 100% 07/09/2022 10:27 AM BASE FILLER OPERATOR Inhaled Oxygen Concentration - - Weight 95.3 kg (210 lb) 07/09/2022 10:29 AM BASE FILLER OPERATOR Height 152.4 cm (5') 07/09/2022 10:29 AM BASE FILLER OPERATOR Body Mass Index 41.01 07/09/2022 10:29 AM BASE FILLER OPERATOR documented in this encounter Progress Notes * Paula Bae MD - 07/09/2022 10:46 AM CST Subjective: Angeline Caraballo is a 61 y.o. female who is seen today for followup of breast cancer. She has not followed up since 2020. Course since her last visit has been stable. The breast cancer is stage I. Genetic testing negative. Surgical therapies completed to date include lumpectomy right with sentinel lymph node biopsy (date- 08/2020). She has completed radiation therapy to right breast. She declined endocrine therapy Treatment side effects: no complaints. Patient Active Problem List Diagnosis Code Diabetes mellitus E11.9 HTN (hypertension) I10 Hyperlipidemia E78.5 Tobacco use Z72.0 Malignant neoplasm of lower-inner quadrant of right breast of female, estrogen receptor positive C50.311, Z17.0 Patient Active Problem List Diagnosis Date Noted Malignant neoplasm of lower-inner quadrant of right breast of female, estrogen receptor positive 09/11/2020 Tobacco use 08/13/2020 Diabetes mellitus HTN (hypertension) Hyperlipidemia Current Outpatient Medications on File Prior to Visit Medication Sig Dispense Refill amLODIPine (NORVASC) 10 mg tablet carvediloL (COREG) 12.5 mg tablet [DISCONTINUED] HYDROcodone-acetaminophen (NORCO) 5-325 mg tablet Take 1 Tablet by mouth every 6 hours as needed for Pain. Max Daily Amount: 4 Tablets. Do not take with tylenol or acetaminophen. No driving on pain medication. 15 Tablet 0 simvastatin (ZOCOR) 20 mg tablet Take 20 mg by mouth daily at bedtime. metFORMIN (GLUCOPHAGE) 500 mg tablet Take 500 mg by mouth daily with breakfast. [DISCONTINUED] ergocalciferol (VITAMIN D2) 50,000 unit capsule TAKE 1 CAPSULE BY MOUTH WEEKLY [DISCONTINUED] amLODIPine (NORVASC) 5 mg tablet Take 5 mg by mouth daily. No current facility-administered medications on file prior to visit. No Known Allergies Past Medical History: Diagnosis Date Diabetes mellitus Genetic testing 08/2020 MyRisk negative HTN (hypertension) Hyperlipidemia Past Surgical History: Procedure Laterality Date HX SECTION X2 HX HERNIA REPAIR X2 HX HYSTERECTOMY DC BX/EXC LYMPH NODE OPEN SUPERFICIAL Right 08/28/2020 AXILLARY SENTINEL LYMPH NODE BIOPSY WITH NUC MED AT 1100 performed by Paula Bae MD at [facility] DC MASTECTOMY PARTIAL Right 08/28/2020 BREAST LUMPECTOMY WITH NEEDLE LOCALIZATION AT 1000 performed by Paula Bae MD at [facility] OR [facility] Family History Problem Relation Name Age of Onset Breast Cancer Mother 69 Cancer Mother Social History Tobacco Use Smoking status: Every Day Packs/day: 0.50 Types: Cigarettes Smokeless tobacco: Never Substance Use Topics Alcohol use: Never No history on file. Review of Systems Allergic/Immunologic: negative. Behavioral/Psych: negative. Cardiovascular: negative. Constitutional: negative. Ears, nose, mouth, throat, and face: negative. Endocrine: negative. Eyes: negative. Gastrointestinal: negative. Genitourinary:negative. Hematologic/lymphatic: negative. Integument/breast: negative. Musculoskeletal:negative. Neurological: negative. Respiratory: negative. Objective: BP (!) 155/87 (BP Location: Left arm, Patient Position (BP): Sitting) Pulse 79 Temp 98 ??F (36.7 ??C) Ht 5' (1.524 m) Wt 95.3 kg (210 lb) LMP (LMP Unknown) SpO2 100% BMI 41.01 kg/m?? General appearance: alert, in no distress Lungs: normal respiratory effort Heart: Regular rate Abdomen: Soft, non-tender. Non distended. No masses, no organomegaly. Lymph Nodes: Cervical, supraclavicular, and axillary nodes normal. Right Breast: examined in upright and supine position, normal without suspicious masses, skin or nipple changes or axillary nodes, well healed scars Left Breast: examined in upright and supine position, normal without suspicious masses, skin or nipple changes or axillary nodes Pathology: FINAL DIAGNOSIS A. Breast, right, lumpectomy: - Invasive carcinoma of no special type (ductal), with the following features: 1. Size: 6 mm. 2. [place] score: 4/9 (Grade I). 3. Margins: Negative. 4. Lymphvascular invasion: Not identified. 5. Stage: pT1b, pN0(sn). 6. Biomarkers: ER, DC, and HER2 positive (previously performed on [id number]). - Ductal carcinoma in situ, with the [...] Three lymph nodes, negative for malignancy (0/3). Assessment: 61 y/o F s/p R BCT. No clinical evidence malignancy. Plan: Will obtain bilateral diagnostic mammogram as Ms. Caraballo has not followed up in clinic or had a mammogram since surgery. If benign, follow-up in one year for clinical exam and mammogram. Scar care with daily moisturizer and massage Supportive bra Risk reducing lifestyle modifications including regular exercise four times a week or more for 30-45 minutes, a healthy moderate diet, and avoidance of tobacco products reviewed and encouraged. FILLER OPERATOR documented in this encounter Plan of Treatment Not on file documented as of this encounter Results * (ABNORMAL) MAMMO DIAG BILAT 3D REBA W OR WO CAD (09/03/2022 10:27 AM CDT) Anatomical Region Laterality Modality Breast Bilateral Mammography 09/03/2022 10:2 7 AM CDT Impressions 09/03/2022 1:16 PM CDT IMPRESSION: Hypoechoic lesion in the right lumpectomy bed may represent complex postsurgical fluid collection versus recurrent mass. RECOMMENDATIONS: Right breast aspiration with possible biopsy. The patient has been informed. DICTATION LOCATION: [facility] Narrative 09/03/2022 1:16 PM CDT EXAM: 1. [...] The patient has been informed. DICTATION LOCATION: [facility] Paula Bae MD MAMMO ORDERABLES documented in this encounter Visit Diagnoses Diagnosis Malignant neoplasm of lower-inner quadrant of right breast of female, estrogen receptor positive- Primary Malignant neoplasm of lower-inner quadrant of right breast of female, estrogen receptor positive documented in this encounter Care Teams Flow Nurse Relationship Specialty Start Date End Date Steven Lizama MD [address] [place] [id number] PCP - General Emergency Medicine 08/13/20 documented as of this encounter
--- OUTSIDE RECORDS SUMMARY | 2024-05-25 00:15 | XMS_ITS | Encounter Summary ---
Author Organization [facility] Address [address] [place] [address] Care Team Providers Care Multimedia Journalist Name Role Phone Steven Lizama MD Primary Care Provider [phone] Reason for Visit * Auth/Cert Specialty Diagnoses / Procedures Referred By Annalise t Referred To Contact Diagnoses Invasive ductal carcinoma of breast, female, right Invasive ductal carcinoma of breast, female, right [C50.911] Procedures AZ MASTECTOMY, PARTIAL AZ BX/REMV,LYMPH NODE,DEEP AXILL AZ INTRAOPERATIVE SENTINEL LYMPH NODE ID W DYE INJECTION CHG LYMPHATICS & LYMPH GLANDS IMAGING RIGHT BREAST LUMPECTOMY WITH NEEDLE LOCALIZATION RIGHT AXILLARY SENTINEL [place] [id number] [place] [address] Referral ID Status Reason Start Date Expiration Date Visits Re quested Visits Authorized [id number] 08/16/2020 1 1 Encounter Details Date Type Department Care Team (Late st Contact Info) Description 08/28/2020 11:49 AM CDT - 08/28/2020 1:55 PM CDT Surgery [facility] Operating Room [address] [place] [id number] [place] [id number] [place] [address] BREAST LUMPECTOMY WITH NEEDLE LOCALIZATION AT 1000 Surgery Details Date/Time Status Location OR Service Patient Class Case Class Case Type Trauma Case? 08/28/2020 11:49 AM Posted [facility] OR MAIN OR General Surgery Surgical OP/Extended Care Elective No Panel 1 Procedure LRB Anes Op Region Wound Class Comments BREAST LUMPECTOMY WITH NEEDL E LOCALIZATION AT 1000 Right General Breast Clean-I AXILLARY SENTINEL LYMPH NODE BIOPSY WITH NUC MED AT 1100 Right General Axilla Clean-I Surgeon Surgeon Role Service Panel Paula Bae MD Primary General Surgery 1 documented in this encounter Social History Tobacco [...] COVID-19? 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 documented as of this encounter Last Filed Vital Signs Vital Sign Reading Time Taken Comments Blood Pressure 148/86 08/28/2020 9:24 AM CDT Pulse 76 08/28/2020 9:24 AM CDT Temperature 36.1 ??C (97 ??F) 08/28/2020 9:24 AM CDT Respiratory Rate 18 08/28/2020 9:24 AM CDT Oxygen Saturation 97% 08/28/2020 9:24 AM CDT Inhaled Oxygen Concentration - - Weight 94.2 kg (207 lb 9.6 oz) 08/28/2020 9:24 A M CDT Height 152.4 cm (5') 08/28/2020 9:24 AM CDT Body Mass Index 40.54 08/28/2020 9:24 AM CDT documented in this encounter Discharge Instructions * Discharge Instructions* Radha Connell RN - 08/28/2020 2:42 PM CDT POSTOPERATIVE INSTRUCTIONS AFTER BREAST SURGERY It is helpful to use an ice bag intermittently on the area. You may be more comfortable wearing a sports bra or other soft supportive bra. No strenuous activity for 4-5 days. No heavy lifting over 20 lbs for 2 weeks. Walking is encouraged. May remove outer bandage and shower after 24 hours. Pat incision dry. Allow white tapes or blue appearing glue to fall or flake off on their own. Do not pull off tapes or glue. No submersion of wounds for 2 weeks. No [address] on pain medication. Your urine may be blue or green due to a special dye used during surgery. This is normal and will resolve on its own. You may notice some yellow or blue bruising around you breast. This is normal and should resolve onits own. It is also normal to have some mild redness, lumpiness/firmness or possible numbness around you incisions or on the inside of your arm. Follow-up in clinic in 1-2 weeks after surgery for evaluation and to discuss pathology results. Call if you have any foul drainage or pus from incisions, fever of 101.4 or higher, or urgent breast questions at [phone]. Report to the Emergency Room if any chest pain, shortness of breath, or trouble breathing. SAFETY For the next 24 hours, you may feel sleepy due to medicines used during your procedure. For the next 24 hour period or while you are on pain medication, DO NOT make any important decisions or sign any important papers. DO NOT drink any alcoholic beverages, including beer. DO NOT drive a car or operate machinery and power tools. For your safety and protection, we strongly recommend that a responsible adult be with you today and throughout the night. Medication Pain Medication _Tylenol given at __9:44pm . Next dose due at __1:44pm____, if needed. Toradol was given at _1:40pm . This medication is an IV form of Motrin/Ibuprofen. You must wait 6 hrs before taking any Motrin/ Ibuprofen products . You may resume or take an oral form of Motrin/Ibuprofen at __7:40pm , if prescribed. ADDITIONAL INFORMATION Once you are home, if you develop any of the following symptoms, call your physician. Difficulty in breathing, persistent nausea or vomiting, pain that is unusual, excessive swelling orredness at incision site, trouble swallowing, inability to void, temperature greater than 101 degrees, excessive bleeding at incision site. If you cannot contact your physician, call or come to the Emergency Room at [facility] ([phone]) or the nearest Emergency Room. In an emergency, Call 911. documented in this encounter Medications at Time of Discharge [...] 07/01/2020 07/09/2022 documented as of this encounter H&P Notes * Paula Bae MD - 08/28/2020 1:45 PM CDT Breast Needle Localized Lumpectomy with Sentinal Node Biopsy Procedure Note Indications: This patient presents with history of right breast cancer with clinically negative axillary lymph node exam. Pre-operative Diagnosis: right breast cancer Post-operative Diagnosis: right breast cancer Surgeon: Paula Bae MD Anesthesia: General endotracheal anesthesia ASA Class: 3 Procedure Details The patient was seen in the Holding Room. The risks, benefits, complications, treatment options, and expected outcomes were discussed with the patient. The possibilities of reaction to medication, pulmonary aspiration, bleeding, infection, the need for additional procedures, failure to diagnose a condition, and creating a complication requiring transfusion or operation were discussed with the patient. The patient concurred with the proposed plan, giving informed consent. The site of surgery properly noted/marked. The patient was taken to Operating Room # 22, identified as Angeline Caraballo and the procedure verified as Breast Needle Localized Lumpectomy and Sentinal Node Biopsy. A Time Out was held and the above information confirmed. After induction of anesthesia, the right arm, breast, and chest were prepped and draped in standardfashion. Three cc isosulfan blue dye were injected subareolar on the right and gently massaged for three minutes. Using a hand-held gamma probe, axillary sentinel nodes were identified transcutaneously. An oblique incision was created below the axillary hairline. Dissection was carried through the clavipectoral fascia. 2 blue and hot level I axillary sentinel nodes were removed and submitted to pathology. Highest gamma probe count 1392 and background 15. Inspection and palpation of level one and two of the axillar demonstrated no additional blue, hot or abnormally enlarged axillary lymph nodes . The wound was irrigated and hemostasis achieved with cautery and surgiflow. The clavipectoral fascia was closed with 3-0 Vicryl sutures. The axillary incision was closed with a 3-0 Vicryl deep dermal and 4-0 Biosyn subcuticular closure in layers. The lumpectomy was performed by creating a ravindra-areolar incision over the 6 o'clock of the breast. Subdermal flaps were raised 3 cm superiorly and then 2 to inferiorly to the level of the previously placed localization guidewire which was brought into the field. Dissection was carried down around the localized area. Orientation sutures were placed short stitch superior and long stitch lateral. Specimen radiography confirmed inclusion of the mass, clip and wire. Wound irrigated and hemostasis was achieved with cautery and surgiflow. Clips placed to myke the cavity for adjuvant radiation. The cavity measured 3 cm in size. The cavity was closed utilizing level one oncoplastic technique. The pre viously mobilized superior and inferior flaps of breast tissue were re- approxiated to the midline in layers deep to anterior with 3-0 Vicryl sutures obliterating the defect. This required an additional 10 minutes of operative time. The skin was closed with a 3-0 Vicryl deep dermal and 4-0 Biosyn sub cuticular closure in layer. Sterile dressings were applied. At the end of the operation, all sponge, instrument, and needle counts were correct x 2. Findings: grossly clear surgical margins Estimated Blood Loss: less than 50 ml Drains: None Total IV Fluids: per anesthesia ml Specimens: right breast NL lumpectomy, right axillary sentinel lymph node biopsy Complications: None; patient tolerated the procedure well. Disposition: PACU - hemodynamically stable. Condition: stable Attending Attestation: I performed the procedure * Paula Bae MD - 08/28/2020 11:54 AM CDT H and P reviewed from office visit and no additions or changes. Will proceed to OR for right breastNL lumpectomy with SLN biopsy. documented in this encounter OR Notes * Operative Report - Paula Bae MD - 08/28/2020 5:30 PM CDT Breast Needle Localized Lumpectomy with Sentinal Node Biopsy Procedure Note Indications: This patient presents with history of right breast cancer with clinically negative axillary lymph node exam. Pre-operative Diagnosis: right breast cancer Post-operative Diagnosis: right breast cancer Surgeon: Paula Bae MD Anesthesia: General endotracheal anesthesia ASA Class: 3 Procedure Details The patient was seen in the Holding Room. The risks, benefits, complications, treatment options, and expected outcomes were discussed with the patient. The possibilities of reaction to medication, pulmonary aspiration, bleeding, infection, the need for additional procedures, failure to diagnose a condition, and creating a complication requiring transfusion or operation were discussed with the patient. The patient concurred with the proposed plan, giving informed consent. The site of surgery properly noted/marked. The patient was taken to Operating Room # 22, identified as Angeline Caraballo and the procedure verified as Breast Needle Localized Lumpectomy and Sentinal Node Biopsy. A Time Out was held and the above information confirmed. After induction of anesthesia, the right arm, breast, and chest were prepped and draped in standardfashion. Three cc isosulfan blue dye were injected subareolar on the right and gently massaged for three minutes. Using a hand-held gamma probe, axillary sentinel nodes were identified transcutaneously. An oblique incision was created below the axillary hairline. Dissection was carried through the clavipectoral fascia. 2 blue and hot level I axillary sentinel nodes were removed and submitted to pathology. Highest gamma probe count 1392 and background 15. Inspection and palpation of level one and two of the axillar demonstrated no additional blue, hot or abnormally enlarged axillary lymph nodes . The wound was irrigated and hemostasis achieved with cautery and surgiflow. The clavipectoral fascia was closed with 3-0 Vicryl sutures. The axillary incision was closed with a 3-0 Vicryl deep dermal and 4-0 Biosyn subcuticular closure in layers. The lumpectomy was performed by creating a ravindra-areolar incision over the 6 o'clock of the breast. Subdermal flaps were raised 3 cm superiorly and then 2 to inferiorly to the level of the previously placed localization guidewire which was brought into the field. Dissection was carried down around the localized area. Orientation sutures were placed short stitch superior and long stitch lateral. Specimen radiography confirmed inclusion of the mass, clip and wire. Wound irrigated and hemostasis was achieved with cautery and surgiflow. Clips placed to myke the cavity for adjuvant radiation. The cavity measured 3 cm in size. The cavity was closed utilizing level one oncoplastic technique. The pre viously mobilized superior and inferior flaps of breast tissue were re- approxiated to the midline in layers deep to anterior with 3-0 Vicryl sutures obliterating the defect. This required an additional 10 minutes of operative time. The skin was closed with a 3-0 Vicryl deep dermal and 4-0 Biosyn sub cuticular closure in layer. Sterile dressings were applied. At the end of the operation, all sponge, instrument, and needle counts were correct x 2. Findings: grossly clear surgical margins Estimated Blood Loss: less than 50 ml Drains: None Total IV Fluids: per anesthesia ml Specimens: right breast NL lumpectomy, right axillary sentinel lymph node biopsy Complications: None; patient tolerated the procedure well. Disposition: PACU - hemodynamically stable. Condition: stable Attending Attestation: I performed the procedure * Ravindra-OP - Milagros Horne RN - 08/17/2020 1:21 PM CST Pt states she will be getting covid test @ [facility], ordered by her PCP. Instructed pt that Dr. Bae's office should receive results by dos and should be on a computer generated/lab letterhead form. Suggested pt bring hard copy with her day of surgery if possible. Pt was encouraged to call [facility] dept if she needs futher assistance. Pt states she has Dr. Bae's fax number on [employer]. 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 Enter the protocol in the patient's electronic health record using [employer]: .anesthesiologyroutineordersprotocol Screening Protocol: ; Surgical Procedures o Hematocrit/Hemoglobin: for surgical cases with potential for high blood loss ; Day of Procedure/Anesthesiology Care Screening o Urine bHCG (Lab 144, if unable to obtain urine, may obtain serum Lab 142) Female of menses, or age > 12 y/o o POC glucose for diabetics ; Notify provider for any POC glucose or serum glucose less than 70 mg/dL. If POC Glucose results are critical, do not delay treatment. If appropriate, may confirm POC with: Nursing Only [id number] (this lab can be obtained at no cost to the patient when confirming a critical high or Critical low POC glucose. ; When receiving report on an inpatient, confirm if patient is receiving dextrose containing fluidsto prevent hypoglycemia. Communicate with the anesthesiologist and request glucose containing fluids be continued or added to intraoperative fluids. ; POC glucose within 30 minutes of discharge or transfer to another unit (the time-based intra-procedure POC check may be deferred during short procedures at the discretion of the provider. Testing Protocol*: ; Laboratory exams obtained within 3 months prior to surgery are acceptable if normal, or at baseline. ; Continue any test ordered in [facility]. ; Hematocrit/Hemoglobin ([id number]) o Cases of expected major blood loss in patients of any age as evidenced by an order for Type and Cross or Type and Screen. ; BMP (Lab15) o Patients with: o Diabetes o Renal disease o Dialysis patients: Day of Surgery; If dialysis on day of surgery, Post-dialysis o Patients taking the following medications: - Digoxin - Diuretics - Steroids ; BUN (Trv467)/ Serum Cr (Lab66) o When use of intravenous contrast dye is planned ; Liver function panel (Lab20) in any patient with: o Jaundice, or active liver disease EKG (EKG1) 12 lead EKG EKG obtained within the last 3 months for the following: Known cardiac disease (CAD, CHF, moderate or worse valvular disease Patients undergoing cardiac, thoracic, or vascular surgery CIED Cardiac Symptoms: Angina, dysrhythmia, palpitations, SOB, PND, S3 Moderate or greater risk surgery with any of the following: Stroke/TIA/CVD, PAD/PVD, CKD (Cr>2), DM, EBL > 1000 cc, or Drugs or toxins that alter conduction (e.g., digoxin, cocaine, MAOIs,antiarrhythmics, antipsychotics, TCAs) ; Assessment of Valvular function: As indicated in current ACC/AHA Guideline on Perioperative Cardiovascular Evaluation and Managementof Patients Undergoing Noncardiac Surgery CONTACT PROVIDER TO CONSIDER DEXTROSE CONTAINING FLUIDS FOR RESCUE ORDERS FOR O NPO patients who have received PO or injectable antihyperglycemic agents and glucose is less [id number] mg/dl O NPO patients who have NOT received PO or injectable antihyperglycemic agents and POC glucose is less than 70 mg/dL. See Medication Orders Section below for Rescue Orders *Additional testing maybe indicated based upon patient co-morbidities and planned procedure. Blood Bank ; For surgical procedures, prepare blood per surgical Blood Bank process unless additional blood orblood products have been ordered by the provider, then follow provider order. Monitoring ; Obtain and record vital signs on admission to pre-operative area ; Continuous vital signs (Non-invasive blood pressure, pulse oximetry and EKG) for: o All patients in the H OR o All inpatients o Patients for Acute Pain Service procedures o Ambulatory or same day admit patients currently taking beta-blockers o Ambulatory or same day admit patients diagnosed with/or at risk for sleep apnea (e.g., STOP-BANG greater than or equal to 4) Warming ; [place] forced air warming in accordance with the ST Perioperative Policy Medications Orders: Entered by Nursing Intravenous Line ; Place #18 gauge IV in non-dominant, non-operative or not otherwise excluded upper extremity (Preferred minimum IV gauge: 16 or greater in [facility] OR, 18 or greater in Main OR, 20 or greater in Non-OR settings). ; For patients with difficult IV access notify anesthesiologist. ; For patients with difficult IV access and an implanted infusion port, access the port. Local Anesthetic for use to initiate IV line ; 2%Lidocaine 0.3mL intradermal ONE TIME to numb area of IV catheter insertion PRN. IV Fluid Adult patients (age 18 years or greater) ; Lactated ringer's solution to infuse at 150mL/hr, may discontinue upon discharge from OR area o If patient has a serum creatinine >2 or history of renal failure, RN shall change fluid to NS at 10mL/hr RESCUE ORDERS - entered by the Pharmacist or the concrete floor installer Orders Patient has IV access and UNCONCIOUS, UNWILLING to swallow or NPO Glucose Level Treatment 40-69 mg/dL Dextrose 50% IV, give 12.5 grams (25 ml), IV push ONE TIME Less than 40 mg/dL Dextrose 50% IV, give 25 grams (50 ml), IV push ONE TIME Patient has no IV access, patient UNCONCIOUS, unable to swallow or NPO Glucose Level Treatment Less than 70 mg/dL Administer IM GLUCAGON 1 mg one time. After administration of glucagon is complete insert peripheral IV and notify physician. Patient is CONCIOUS and able to swallow and no longer NPO Glucose Level Treatment 40-69 mg/dL Give 15 gram food choice such as: Regular soda (6 oz), Apple juice (4 oz), or 1/2 cup regular jello Less Than 40 mg/dL Give 30 gram food choice such as: Regular soda (12 oz), Apple juice (8 oz), or 1cup regular jello Nursing Communication for Subsequent Care: ??? Check POC glucose 15 minutes after rescue. ??? Recheck and retreat every 15 minutes until blood glucose is greater than or equal to 70 mg/dL. ??? Once POC glucose result is 70 mg/dL or greater: o Check POC glucose every 30 minutes for 3 occurrences o Resume previous POC Glucose check orders. After Hypoglycemic Symptoms Subside, Give a Snack or Ask Provider for Dextrose Containing Fluids SNACK CHOICES: 1 carb and 1 fat servin saltine crackers and 2 teaspoons peanut butter; or 1 slice of bread and 2 teaspoons peanut butter; or 1 oz cheese and 6 saltine crackers; or 1 cup 2% milk and 6 saltine crackers. 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 Please report to the: [x] Surgery Center [] [facility] (2nd Floor) [] Other: Date of Procedure: 08/28/20 Arrive at the time your surgeon's office has instructed. If you are unsure of the arrival time, please call your surgeon's office 24-48 hours before your surgery to confirm. PLEASE NOTIFY your surgeon promptly if you begin to feel ill prior to your surgery. A cold, sore throat, fever, or flu may require postponing the surgery to another date for your safety. Please follow these important instructions PRE-PROCEDURE ORAL INTAKE INSTRUCTIONS - DIETARY INSTRUCTIONS Follow your surgeon's instructions regarding oral intake prior to your scheduled procedure. If no specific instructions were given from your surgeon's office; below are the guidelines from the anesthesia department: Based on your health history and/or scheduled procedure, the following pre- procedure dietary instructions should be followed: * Do not eat food or drink liquids after midnight prior to your procedure. *Oral Hygiene: Adult patients are encouraged to brush teeth, without swallowing, on the day of the procedure. *Use of gum or hard candy on the day of a procedure is discouraged. Patients using gum or hard candy upon presentation to the facility shall be directed to remove the product and not resume use. WITHIN 24 HOURS PRIOR TO SURGERY ?? SHOWER AND SHAMPOO before bed and the morning of surgery (using provided soap if instructed and follow directions on the product or using anti-bacterial soap. ?? DO NOT SHAVE near the surgical area for 24 hours prior. ?? After showering the morning of surgery, DO NOT APPLY body lotions, deodorants, colognes, lipstick, make-up, hairspray, mousse, gel, or powder. ?? DO NOT WEAR JEWELRY (rings, earrings, and body piercings), wigs, or hair pieces to the hospital. ?? SMOKING AND USE OF TOBACCO PRODUCTS We recommend patients abstain from smoking for as long as possible before and after surgery, but even quitting for a brief period is still beneficial. DO NOT SMOKE OR USE TOBACCO PRODUCTS 12 hours before arrival to hospital. ?? PLEASE DO NOT EAT anything--including GUM, CANDY, or MINTS--after midnight. You may BRUSH YOUR TEETH but do not swallow water. DAY OF SURGERY INSTRUCTIONS ?? YOU WILL NEED A RESPONSIBLE ADULT FAMILY MEMBER or FRIEND with YOU UPON DISCHARGE. YOUR SURGERY MAY BE CANCELLED IF YOU DO NOT HAVE A RESPONSIBLE ADULT WITH YOU AT DISCHARGE TO TAKE YOU HOME. ?? BRING PRESCRIBED INHALERS to the hospital with you but DO NOT BRING ANY OTHER MEDICATIONS to thespital (unless otherwise instructed). ?? WEAR comfortable, loose fitting clothes to the hospital that will fit over dressings after your surgery. ?? WEAR GLASSES instead of contact lenses to the hospital; bring a case if possible for glasses, dentures, and hearing aids as you will be asked to remove these items before your surgery. ?? BRING your insurance cards and lyft driver's license or photo ID. DO NOT BRING VALUABLES or large amounts of carrillo with you to the hospital. ?? BRING any medical devices you need to the hospital, including CPAP, BIPAP, or WOUND VAC machines ?? Surgical times are estimates and can vary depending on numerous factors. ?? Expect a minimum post-op recovery of 1 hour. The medical staff will provide updates to family and/or friends as appropriate. ??? For surgical procedures, patients may be allowed one visitor. Special consideration for pediatric patients under the age of 18 years. ??? Patient and any permitted visitor should arrive to the facility with a mask. If arriving to regional medical center without a mask, one will be provided. Special consideration for pediatric patients under the age of 2 years. ??? Patient and visitor will go through facility entry screening ??? Patients will wear a mask from the time they enter, throughout the entire procedure, and will remain in a mask until they leave the facility or admitted. ??? Visitors are not allowed in the hospital. During your hospital stay you will receive a personal passcode to help protect your health information. This will be a number that you may share with anyone you choose to receive your protected health information (PHI). Family and friends will need to ask for you by name and use the passcode beforeyour care team can share information, either in person or by phone. Please ask those who have your passcode to protect it. .ADVANCED PLANNING FOR MEDICATION USE STOP Seven to fourteen (7-14) DAYS PRIOR TO SURGERY the use of all vitamins, herbal supplements, and other alternative substances. STOP Seven (7) DAYS PRIOR TO SURGERY the use of any UNPRESCRIBED Asprin, Excedrin and NSAIDs which include Motrin, Ibuprofen, Aleve, and Naprosyn. For Diabetic Patients: Patient instructions: ?? Check your blood sugar level when you wake on the morning of surgery and every 4 hours until youarrive at the hospital. ?? If you have a blood sugar less than 70 mg/dL during the time you are fasting, drink 4 oz. (1/2 cup) of a clear, sugar-containing drink that you are able to see through such as apple juice or regular Sprite - like product (No juice with pulp). No orange juice. ?? If your blood sugar level is greater than 250 mg/dL, contact your physician. CURRENT MEDICATION LIST Pre-Surgery Instructions: Medication Instructions ??? simvastatin (ZOCOR) 20 mg tablet Continue taking as prescribed ??? metFORMIN (GLUCOPHAGE) 500 mg tablet Do not take day of surgery ??? ergocalciferol (VITAMIN D2) 50,000 unit capsule Do not take day of surgery ??? amLODIPine (NORVASC) 5 mg tablet Take morning of surgery with sip of water OGRAPHIC DRAFTER * Ravindra-OP - Milagros Horne RN - 08/17/2020 1:12 PM CST Approved by: [facility] - Medical Executive Committee Approval Date: 10/28/2019 ORDERS ARE ENTERED ???PER PROTOCOL?? Enter the protocol in the patient's electronic health record using smartphrase:.preanesthesiadiabetesprotocol Nursing Orders: o Nurse should instruct patient to do the followin. If patient regularly checks blood sugar levels at home, instruct patient to check fasting blood sugar level upon wakening the morning of surgery and every 4 hours until patient arrives at the hospital 2. If patient has a blood sugar less than 70mg/dl during the time patient is fasting, the patient shoud drink 4 oz. (1/2 cup) of a clear, sugar-containing drink that patient is able to see through such as apple juice or regular Sprite???-like product. (No juice with pulp). No orange juice. 3. If patient's blood sugar level is greater than 250 mg/dL, patient should contact his/her physician. o Review diabetes medication regimen (night before and morning of procedure) with the patient basedon what the patient is currently taking at home Medication Orders If you take: Night before procedure Morning of procedure ORAL ANTI DIABETIC AGENTS Actos, Actoplus Met, Amaryl, Avandamet, Avandia, Cycloset, Duetact, Farxiga, Galvus, Glipizide, Glucovance, Glyburide, Glyset, Glyxambi, Invokamet, Invokana, Januvia, Janumet, Jardiance, Jentadueto, Kombiglyze, Metaglip, Metformin, Nesina, Onglyza, Prandin, Precose, Starlix, Synjardy, Tradjenta, Welchol, Xigduo The following medications need to be stopped 3 days prior to surgery: - Farxiga - Invokana - Jardiance - Synjardy - Glyxambi - Invokamet Take usual dose Do NOT take Xultophy, Soliqua Take 70% of usual dose if regularly scheduled at bedtime (current dose x 0.7 = new dose) Take 50% (1/2) of usual dose if regularly scheduled in the morning Basaglar, Lantus, Levemir, Toujeo, Tresiba Take 70% of usual dose if regularly scheduled at bedtime (current dose x 0.7 = new dose) Take 50% (1/2) of usual dose if regularly scheduled in the morning NPH insulin Take 70% of usual evening dose (current dose x 0.7 = new dose) Take 50% (1/2) of usual morning dose Humulin R U-500 Contact prescribing doctor Contact prescribing doctor Apidra, Fiasp, Humalog, Novolog, HumulinR, Novolin R Take usual dose at dinner (supper) Contact your prescribing provider for specific instructions. Premixed insulin: Humalog Mix 75/25, Humalog Mix 50/50, Humulin 70/30, Novolin 70/30, Novolog Mix 70/30 Take usual dose at dinner (supper) Do NOT take Byetta, Victoza, Symlin, Bydureon, Trulicity, Tanzeum, Ozempic Take usual dose Do NOT take Subcutaneous Insulin Pump Non-adjustable, V-GO insulin pump, will need to be removed prior to surgery. Please contact provider for alternate insulin source DO NOT REMOVE PUMP- Decrease basal rate by 20% using temporary basal rate features of the insulin pump. Example: (your rate x 0.8 = your new rate) Additional instructions if you use an insulin pump: ??? Change your insertion site and reservoir the day before surgery and bring extra supplies with you. (example: infusion set, reservoirs, credit or loans officer set if needed, PDM device). Insulin is provided by the hospital pharmacy. ??? For procedures involving your abdominal area, move your infusion site to an area outside the surgical field. ??? Tell nursing staff that you are wearing an insulin pump when you arrive. ??? If you need further assistance in calculating your basal rates, please call your doctor who manages your pump or the 1-800 number listed on your pump. Patients with type 1 diabetes: ??? Require insulin at all times. ??? 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 If a medication is not listed above, contact your prescribing physician for instructions. OGRAPHIC DRAFTER documented in this encounter Miscellaneous Notes * Care Plan - Radha Connell RN - 08/28/2020 2:38 PM CDT Knowledge deficit related to post-discharge care Interventions: Assess learning needs and willingness to learn; give clear, concise explanations of the care required post-discharge; address patient/family questions and concerns; provide teaching asindicated Expected Outcome: Patient and/or family/significant other demonstrate(s) behaviors required for performance of activities enhancing recovery post-discharge Outcome Met: Discharge instructions reviewed with patient. Verbalized understanding. Potential for pain related to surgical/procedural intervention Interventions: Assess level of pain/comfort utilizing verbal/nonverbal pain scales; assess culturalor mosque indicators attached to pain; administer pain medications as prescribed; utilize non-pharmacologic pain control and comfort measures Expected Outcome: Patient demonstrates and reports adequate pain control Outcome Met: Met * Joy Smith - Rahul Macias RN - 08/28/2020 2:13 PM CDT Potential for pain related to surgical/procedural intervention Interventions: Assess level of pain/comfort utilizing verbal/nonverbal pain scales; assess culturalor mosque indicators attached to pain; administer pain medications as prescribed; utilize non-pharmacologic pain control and comfort measures Expected Outcome: Patient demonstrates and reports adequate pain control Outcome Met: pain addressed Potential for alteration in thermoregulatory, circulatory, respiratory fluid & electrolyte status Interventions: Perform ongoing physical assessment; maintenance of airway or mechanical ventilation; monitor level of consciousness; initiate safety measures; observe patient???s respiratory status and oxygen saturation; obtain measurements of ongoing hemodynamic parameters, cardiac rhythm, and temperature; monitor intake and output; inspect wound dressings and/or drain output; perform prescribedtherapeutic regimens, treatments and tests; document and/or communicate care given Expected Outcome: Patient will maintain functional status compatible with preoperative status Outcome Met: vss. Drainage noted on surgical dressing. * Joy Smith - Wendy Armas RN - 08/28/2020 9:20 AM CDT Potential for anxiety related to surgical intervention Interventions: convey caring/supportive attitude; offer emotional support as needed; provide comfort measures (warm blanket, pillow, quiet environment); allow patient opportunity to verbalize concerns/fears/questions; explore coping behaviors; allow age-specific/special needs family support Expected Outcome: Patient will demonstrate decreased anxiety or adaptive coping strategies Outcome Met: comfort measures offered Potential for pain related to surgical/procedural intervention Interventions: Assess level of pain/comfort utilizing verbal/nonverbal pain scales; assess culturalor mosque indicators attached to pain; administer pain medications as prescribed; utilize non-pharmacologic pain control and comfort measures Expected Outcome: Patient demonstrates and reports adequate pain control Outcome Met: denies any pain documented in this encounter Plan of Treatment Not on file documented as of this encounter Procedures Procedure Name Priority Date/Time Associated Diagnosis Comments POC GLUCOSE Routine 08/28/2020 2:03 PM CDT PATHOLOGY Pathology 08/28/2020 1:05 PM CDT Invasive ductal carcinoma of breast, female, right SENTINEL LYMPH NODE BIOPSY 08/28/2020 11:49 AM CDT Invasive ductal carcinoma of breast, female, right BREAST LUMPECTOMY 08/28/2020 11: 49 AM CDT Invasive ductal carcinoma of breast, female, right BASIC METABOLIC PANEL Stat 08/28/2020 10:54 AM CDT POC GLUCOSE Routine 08/28/2020 9:22 AM CDT documented in this encounter Results * POC GLUCOSE (08/28/2020 2:03 PM CDT) [facility] GLUCOSE POC 96 74 - 99 mg/dL 08/28/2020 2:03 PM CDT [facility] HIRE CAR DRIVER NAME POC RAHUL MACIAS 08/28/2020 2:03 PM CDT [facility] Blood, whole 08/28/2020 2:03 PM CDT 08/28/2020 2:11 PM CDT Paula Bae MD POINT OF CARE TESTIN G [facility] CLIA# [id number] [address] [place] [address] * PATHOLOGY (08/28/2020 1:05 PM CDT) CASE REPORT Surgical Pathology Report ? Case: [id number] ? Authorizing Provider: ??Paula Bae MD ? Collected: ? 08/28/2020 01:05 PM ? Ordering Location: ? [facility] ?Received: ?08/29/2020 07:14 AM ? Operating Room ? Pathologist: ? Shukri Caruso MD ? Specimens: ?? A) - Breast, right, right breast needle localized lumpectomy; short stitch superior, ? long stitch lateral ? B) - Comfort Lymph Node, right axillary sentinel lymph node biopsy ? 09/04/2020 9:20 AM CDT [facility] FINAL DIAGNOSIS A. Breast, right, lumpectomy: - Invasive carcinoma of no special type (ductal), with the following features: 1. Size: 6 mm. 2. Eloy score: 4/9 (Grade I). 3. Margins: Negative. 4. Lymphvascular invasion: Not identified. 5. Stage: pT1b, pN0(sn). 6. Biomarkers: ER, [place], and HER2 positive (previously performed on [id number]). - Ductal carcinoma in situ, with the [...] Three lymph nodes, negative for malignancy (0/3). 09/04/2020 9:20 AM CDT [facility] S DESCRIPTION Received are two containers labeled Angeline Caraballo . Received in the first container labeled right breast needle localized is a 4.3 (S-I) by 4.0 (M-L) by 2.7 (8-P) centimeter excision of partially blue dye stained fibroadipose tissue which is oriented with sutures as stated on the requisition. The needle localization wire is extending into the anterior aspect and is in place within the excision. The margins are inked as follows: Medial-yellow, lateral-green, anterior-blue and posterior-black. The specimen is serially sectioned from superior to inferior into 8 levels to demonstrate a a 1.9 x 1.4 x 1.3 cm area of hemorrhage, induration and fat necrosis, consistent with the previous biopsy site, involving levels 4 through 7. This area abuts the blue inked margin and level 5 and comes to within 0.3 cm from black, 0.3 cm from yellow, 1.9 cm from green, 1.4 cm from superior and 0.6 cm from inferior. A heart-shaped biopsy clip is present within this area in level 5. The remainder the cut surface consists of scant fibrous tissue intermixed with adipose tissue and is diffusely blue dye stained. No additional distinct lesions or biopsy sites are identified. The specimen is sequentially, entirely submitted from superior to inferior as follows: A1-A2-level 1 (superior margin), perpendicularly sectioned and submitted from anterior to posterior; A3-A4-level 2; A5-A6-level 3; A7-A9-level 4; W96-[id number]-hanwp 5; A13-A 15-level 6; 16-A 18-level 7; A 19-A 22-level 8 (inferior margin), perpendicularly sectioned. The specimen is received with a radiograph labeled with the patient's name and interpreted by Dr. DINH as mass and clip. Received in second container labeled right axillary sentinel lymph node is a 4.0 x 3.5 x 1.4 cm aggregate of adipose tissue. 4 potential lymph nodes are identified ranging from 0.6 and 2 1.7 cm in greatest dimension. The largest lymph node is partially blue dye stained. All are submitted as follows: B1-2 potential lymph nodes bisected; B2-1 lymph node trisected; W6-X8-zdopmks lymph node trisected. 09/04/2020 9:20 AM [facility]ORY SERVICES [facility] MICROSCOPIC DESCRIPTION The slides are labeled [id number] and Angeline Caraballo. The lumpectomy specimen shows focal invasive ductal carcinoma, characterized by infiltrative tubules and occasional cords (tubule score 1) showing cells with mild to moderately atypical, hyperchromatic nuclei (nuclear score 2). The mitotic rate is low, with 6 mitotic figures in 10 high-power elder (mitotic score 1). While the gross measurement was 1.9 cm in greatest dimension, the carcinoma measures 6 mm microscopically, with surrounding biopsy site changes likely attributing to the impression of a larger lesion grossly. Invasive carcinoma is 5 mm or greater from margins, with the closest margin being 8 mm to the green inked lateral margin. A minimal amount of ductal carcinoma in situ is present, extending away from the focus of invasive carcinoma. DCIS shows an intermediate nuclear grade, with conspicuous nucleoli and a varying degree of irregular nuclear contours. Focal necrosis is present. DCIS shows apparent pagetoid extension along a large duct, and comes to less than 1 mm from the blue inked anterior margin, and focally 2.5 mm from medial margin. The largest area of involvement by DCIS spans 1.2 cm. Areas of DCIS show increased staining for ER, and a lack of staining for CK5/6. Membranous E-cadherin staining is retained in both invasive and in situ carcinoma. Microcalcifications are present, associated with invasive carcinoma. The background breast tissue shows fibrocystic changes including columnar cell change and apocrine metaplasia. The right axillary sentinel lymph nodes show 3 lymph nodes, negative for malignancy. Cytokeratin immunostains are negative. 09/04/2020 9:20 AM [facility] OPERATIVE PROCEDURE BREAST LUMPECTOMY SENTINEL LYMPH NODE BIOPSY 09/04/2020 9:20 AM [facility] CLINICAL INFORMATION Invasive ductal carcinoma of breast, female, right [C50.911] C50.911-Invasive ductal carcinoma of breast, female, right 09/04/2020 9:20 AM [facility] SYNOPTIC REPORT INVASIVE CARCINOMA OF THE BREAST: Resection ??(INVASIVE CARCINOMA OF THE BREAST: COMPLETE EXCISION - All Specimens) 8th Edition - Protocol posted: 08/03/2019 SPECIMEN ?? Procedure: ?Excision (less than total mastectomy) ?? Specimen Laterality: ?Right TUMOR ?? Histologic Type: ?Invasive carcinoma of no special type (ductal) ?? Glandular (Acinar) / Tubular Differentiation: ?Score 2 ?? Nuclear Pleomorphism: ?Score 1 ?? Mitotic Rate: ?Score 1 ?? Overall Grade: ?Grade 1 (scores of 3, 4 or 5) ?? Tumor Size: ?Greatest dimension of largest invasive focus (Millimeters): 6 mm ?? Tumor Focality: ?Single focus of invasive carcinoma ?? Ductal Carcinoma In Situ (DCIS): ?Present ? : ?Negative for extensive intraductal component (EIC) ? Size (Extent) of DCIS: ?Estimated size (extent) of DCIS is at least (Millimeters): 12 mm ? Architectural Patterns: ?Solid ? Architectural Patterns: ?Pagetoid ? Nuclear Grade: ?Grade II (intermediate) ? Necrosis: ?Present, focal (small foci or single cell necrosis) ?? Tumor Extent: ? Lymphovascular Invasion: ?Not identified ?? Microcalcifications: ?Present in invasive carcinoma ?? Treatment Effect in the Breast: ?No known presurgical therapy MARGINS ?? Invasive Carcinoma Margins: ?Uninvolved by invasive carcinoma ? Distance from Closest Margin (Millimeters): ?8 mm ? Closest Margin(s): ?Lateral ?? DCIS Margins: ?Uninvolved by DCIS ? Distance from Closest Margin (Millimeters): ?Less than: 1 mm ? Closest Margin(s): ?Anterior ? Distance from Other Margins: ? Medial Margin (Millimeters): ?2.5 mm LYMPH NODES ?? Regional Lymph Nodes: ?Uninvolved by tumor cells ? Total Number of Lymph Nodes Examined: ?3 ? Number of Comfort Nodes Examined: ?3 PATHOLOGIC STAGE CLASSIFICATION (pTNM, AJCC 8th Edition) ? Primary Tumor (pT): ?pT1b ?? Regional Lymph Nodes Modifier: ?(sn): Comfort node(s) evaluated. ?? Regional Lymph Nodes (pN): ?pN0 09/04/2020 9:20 AM CDT [facility] COMMENT Special stain and/or immunohistochemical results are interpreted with controls that demonstrate appropriate staining reactions. Note on use of immunocytochemistry reagents: This test was developed and its performance characteristics determined by [facility], Department of Laboratory Medicine. It has not been cleared or approved by the U.S. Food and Drug Administration. The FDA has determined that such clearance or approval is not necessary. The test is used for clinical purposes. It should not be regarded as investigational or for research. This laboratory is certified to perform high complexity testing. Cases may have been signed out in part or completely in the following laboratories: [facility], CLIA #[id number] [address] [place] [id number] [facility], CLIA #[id number] [address] [place] [id number] [place] [address], CLIA #[id number] [address], [place] [address]. 09/04/2020 9:20 AM CDT [facility] Tissue RIGHT BREAST STRUCTURE / Unknown Collection / Unknown 08/28/2020 1:05 PM CDT 08/29/2020 7:14 AM CDT Tissue specimen (specimen) (Comfort Lymph Node) Collection / Unknown 08/28/2020 1:20 PM CDT 08/29/2020 7:14 AM CDT Paula Bae MD PATHOLOGY/CYTOLOGY O RDERABLES [facility] - [facility] CLIA# [id number] [address] [place] [address] * BASIC METABOLIC PANEL (08/28/2020 10:54 AM CDT) SODIUM 141 136 - 145 mmol/L 08/28/2020 12:33 PM CDT [facility] POTASSIUM 4.3 3.5 - 5.0 mmol/L 08/28/2020 12:33 PM CDT [email or web address] - . [facility] CHLORIDE 104 98 - 107 mmol/L 08/28/2020 12:33 PM CDT [email or web address] - [facility] CO2 27 22 - 29 mmol/L 08/28/2020 12:33 PM CDT [email or web address] - . [facility] CALCIUM 9.3 8.6 - 10.2 mg/dL 08/28/2020 12:33 PM CDT [facility] - [facility] BUN 8 6 - 20 mg/dL 08/28/2020 12:33 PM CDT [email or web address] - . [facility] CREATININE 0.60 0.51 - 0.95 mg/dL 08/28/2020 12:33 PM CDT [email or web address] - . [facility] GLUCOSE 99 74 - 99 mg/dL 08/28/2020 12:33 PM CDT [email or web address] - . [facility] GFR >60 >=60 mL/min/1.7 3 sq meter 08/28/2020 12:33 PM CDT [facility] - [facility] Comment: eGFR has not been validated for use in the elderly (> 70 years of age), women, patients with serious co-morbid conditions, or persons with extremes of body size or muscle mass and should also be interpreted with caution in patients with acute kidney failure, dialysis dependent patients, patients reporting exceptional dietary intake (e.g. vegetarian diet, high protein diets, creatine supplementation), and patients with severe liver disease. Based on National Kidney Disease Education Program If patient is , please refer to the GFR result. GFR, >60 >=60 mL/min/1.7 3 sq meter 08/28/2020 12:33 PM CDT [facility] ANION GAP 10 8 - 16 mmol/L 08/28/2020 12:33 PM T [facility] Blood Venipuncture / Unknown 08/28/2020 10:54 AM CDT 08/28/2020 11:55 AM CDT Augustin Brantley MD CHEMISTRY ORDERABLES Performing Organization Address City/[facility]/ZIP Co de Phone Number [facility]# [id number] [address] [place] [address] [place] [address] * (ABNORMAL) POC GLUCOSE (08/28/2020 9:22 AM CDT) GLUCOSE POC 102(H) 74 - 99 mg/dL 08/28/2020 9:22 AM CDT [facility] COMMENT, GLU POC Notified RN/MD 08/28/2020 9:22 AM CDT [facility] HIRE CAR DRIVER NAME POC DEJA Chau 08/28/2020 9:22 AM CDT [facility] Blood, whole 08/28/2020 9:22 AM CDT 08/28/2020 9:33 AM CDT Paula Bae MD POINT OF CARE TESTIN G Performing Organization Address City/[facility]/ZIP Co de Phone Number [facility]# [id number] [address] [place] [address] documented in this encounter Visit Diagnoses Diagnosis Invasive ductal carcinoma of breast, female, right Invasive ductal carcinoma of breast, female, right documented in this encounter Administered Medications Inactive Administered Medications - up to 3 most recent administrations Medication Order MAR Action Action Date Dose Rate Site acetaminophen (TYLENOL) tablet 1,000 mg 1,000 mg, Oral, PRE-PROCEDURE ONCE, 1 dose, Starting on Thu08/28/20 at 0920, Until Thu08/28/20 at 0944, Routine, Pre-op Now Given 08/28/2020 9:44 AM CDT 1,000 mg bupivacaine (MARCAINE, SENSORCAINE) 2.5 mg/mL (0.25%) 62.5 mg, lidocaine 1 % (XYLOCAINE) 250 mg INJECTION Infiltration, INTRA-PROCEDURE PRN, Starting on Thu08/28/20 at 1035, Until Thu08/28/20 at 1810, per surgeon, Routine, Intra-op Given 08/28/2020 1:54 PM CDT 20 mL enoxaparin (LOVENOX) injection 40 mg 40 mg, subCUT, ONE TIME ONLY, 1 dose, On Thu08/28/20 at 0930, Routine, Pre-op, Indication: Prophylaxis of VTE Given 08/28/2020 9:46 AM CDT 40 mg Abdomen, Right Lower Quadrant fentaNYL PF (SUBLIMAZE) 50 mcg/mL injection 25 mcg 25 mcg, IV, POST-PROCEDURE Q 3 MINUTES PRN, 4 doses, Starting on Thu08/28/20 at 0933, Until Thu08/28/20 at 1810, Pain, Routine, PACU HYDROmorphone (DILAUDID) 2 mg/mL injection 0.2 mg 0.2 mg, IV, POST-PROCEDURE Q 5 MINUTES PRN, 3 doses, Starting on Thu08/28/20 at 0934, Until Thu08/28/20 at 1810, Pain, Routine, PACU isosulfan blue (LYMPHAZURIN) injection INTRA-PROCEDURE PRN, Starting on Thu08/28/20 at 1320, Until Thu08/28/20 at 1400, Routine, Intra-op Given 08/28/2020 1:20 PM CDT 3 mL Operative Site lactated ringers infusion IV, at 150 mL/hr, CONTINUOUS, Starting on Thu08/28/20 at 0930, Until Thu08/28/20 at 1810, Routine Restarted 08/28/2020 12:29 PM CDT New Bag 08/28/2020 9:48 AM CDT 150 mL/hr lactated ringers infusion IV, at 125 mL/hr, POST-PROCEDURE CONTINUOUS, Starting on Thu08/28/20 at 0945, Until Thu08/28/20 at 1810, Routine, PACU Started by Another Clinician 08/28/2020 2:39 PM CDT 125 mL/hr lidocaine PF 2% (XYLOCAINE MPF) injection 0.3 mL 0.3 mL, Infiltration, ONE TIME ONLY, 1 dose, On Thu08/28/20 at 0930, Routine Given 08/28/2020 9:49 AM CDT 0.3 mL naloxone (NARCAN) 0.4 mg/mL injection 0.1 mg 0.1 mg, IV, SEE ADMIN INSTRUCTIONS, Starting on Thu08/28/20 at 0930, Until Thu08/28/20 at 1810, Routine, PACU ondansetron (ZOFRAN) 4 mg/2 mL injection 4 mg 4 mg, IV, POST-PROCEDURE ONCE PRN, 1 dose, Starting on Thu08/28/20 at 0934, Until Thu08/28/20 at 1445, Nausea/Emesis, Routine, PACU Given 08/28/2020 2:45 PM CDT 4 mg prochlorperazine (COMPAZINE) injection 5 mg 5 mg, IV, POST-PROCEDURE ONCE PRN, 1 dose, Starting on Thu08/28/20 at 0935, Until Thu08/28/20 at 1512, Nausea/Emesis, Routine, PACU Given 08/28/2020 3:12 PM CDT 5 mg sodium chloride 0.9 % irrigation solution INTRA-PROCEDURE PRN, Starting on Thu08/28/20 at 1320, Until Thu08/28/20 at 1400, Routine, Intra-op Given 08/28/2020 1:20 PM CDT 1,000 mL Operative Site documented in this encounter Active and Recently Administered Medications Times are shown in CDT. Scheduled Medication Order 08/26/2020 08/27/2020 08/28/2020 acetaminophen (TYLENOL) tablet 1,000 mg (COMPLETED) 1,000 mg, Oral, PRE-PROCEDURE ONCE, 1 dose, Starting on Thu08/28/20 at 0920, Until Thu08/28/20 at 0944, Routine, Pre-op Now 0944 (Given - Provid er: Wendy Armas RN) ceFAZolin in sterile water (ANCEF) 2 gram/20 mL IV Syringe (PREMIX) 2,000 mg (COMPLETED) 2,000 mg, IV, PRE-PROCEDURE ONCE, 1 dose, Starting on Thu08/28/20 at 0916, Until Thu08/28/20 at 1251, Routine, Pre-op, Antibiotic Indication: Surgical prophylaxis 1246 (Given - Provid er: RAO Lynn)1251 (Stopped - Provider: RAO Lynn) enoxaparin (LOVENOX) injection 40 mg (COMPLETED)(Linked Group 1) 40 mg, subCUT, ONE TIME ONLY, 1 dose, On Thu08/28/20 at 0930, Routine, Pre-op, Indication: Prophylaxis of VTE 0946 (Given - Provid er: Wendy Armas RN) lidocaine PF 2% (XYLOCAINE MPF) injection 0.3 mL (COMPLETED) 0.3 mL, Infiltration, ONE TIME ONLY, 1 dose, On Thu08/28/20 at 0930, Routine 0949 (Given - Provid er: Wendy Armas RN) naloxone (NARCAN) 0.4 mg/mL injection 0.1 mg 0.1 mg, IV, SEE ADMIN INSTRUCTIONS, Starting on Thu08/28/20 at 0930, Until Thu08/28/20 at 1810, Routine, PACU Continuous Medication Order 08/26/2020 08/27/2020 08/28/2020 lactated ringers infusion IV, at 150 mL/hr, CONTINUOUS, Starting on Thu08/28/20 at 0930, Until Thu08/28/20 at 1810, Routine 0948 (New Bag - Prov ider: Wendy Armas RN)1228 (Paused - Provider: RAO Lynn - Comment: Switch to gravity)1229 (Restarted - Provider: RAO Lynn)1344 (Fluid Volume - Provider: RAO Lynn) lactated ringers infusion IV, at 125 mL/hr, POST-PROCEDURE CONTINUOUS, Starting on Thu08/28/20 at 0945, Until Thu08/28/20 at 1810, Routine, PACU 1439 (Started by Ano ther Clinician - Provider: Rahul Macias RN - Comment: 200ml left in this bag) PRN Medication Order 08/26/2020 08/27/2020 08/28/2020 bupivacaine (MARCAINE, SENSORCAINE) 2.5 mg/mL (0.25%) 62.5 mg, lidocaine 1 % (XYLOCAINE) 250 mg INJECTION Infiltration, INTRA-PROCEDURE PRN, Starting on Thu08/28/20 at 1035, Until Thu08/28/20 at 1810, per surgeon, Routine, Intra-op 1354 (Given - Provid er: Paula Bae MD) diphenhydrAMINE (BENADRYL) injection 12.5 mg 12.5 mg, IV, POST-PROCEDURE ONCE PRN, Starting on Thu08/28/20 at 0935, Until Thu08/28/20 at 1134, Itching, Routine, PACU fentaNYL PF (SUBLIMAZE) 50 mcg/mL injection 25 mcg 25 mcg, IV, POST-PROCEDURE Q 3 MINUTES PRN, 4 doses, Starting on Thu08/28/20 at 0933, Until Thu08/28/20 at 1810, Pain, Routine, PACU HYDROmorphone (DILAUDID) 2 mg/mL injection 0.2 mg 0.2 mg, IV, POST-PROCEDURE Q 5 MINUTES PRN, 3 doses, Starting on Thu08/28/20 at 0934, Until Thu08/28/20 at 1810, Pain, Routine, PACU isosulfan blue (LYMPHAZURIN) injection (CANCELED) INTRA-PROCEDURE PRN, Starting on Thu08/28/20 at 1320, Until Thu08/28/20 at 1400, Routine, Intra-op 1320 (Given - Provid er: Paula Bae MD) ondansetron (ZOFRAN) 4 mg/2 mL injection 4 mg (COMPLETED) 4 mg, IV, POST-PROCEDURE ONCE PRN, 1 dose, Starting on Thu08/28/20 at 0934, Until Thu08/28/20 at 1445, Nausea/Emesis, Routine, PACU 1445 (Given - Provid er: Rahul Macias RN) prochlorperazine (COMPAZINE) injection 5 mg (COMPLETED) 5 mg, IV, POST-PROCEDURE ONCE PRN, 1 dose, Starting on Thu08/28/20 at 0935, Until Thu08/28/20 at 1512, Nausea/Emesis, Routine, PACU 1512 (Given - Provid er: Radha Connell RN) sodium chloride 0.9 % irrigation solution (CANCELED) INTRA-PROCEDURE PRN, Starting on Thu08/28/20 at 1320, Until Thu08/28/20 at 1400, Routine, Intra-op 1320 (Given - Provid er: Paula Bae MD - Comment: on the field for PRN use) Linked Groups Order Group 1: enoxaparin (LOVENOX) injection 40 mg (COMPLETED)Jump to med 40 mg, subCUT, ONE TIME ONLY, 1 dose, On Thu08/28/20 at 0930, Routine, Pre-op, Indication: Prophylaxis of VTE And Nursing Communication - Anticoagulant Administration (CANCELED) Routine, ONE TIME, On Thu08/28/20 at 0920, For 1 occurrence, Prior to the administration of anticoagulation medications confirm whether the patient will receive regional anesthesia or a regional analgesia/acute pain procedure. If yes, confirm with the anesthesia provider/steam fitter supervisor and/or the acute pain/regional analgesia service (if applicable) that the planned procedure has been completed prior to administration., Pre-op documented in this encounter Care Teams Multimedia Journalist Relationship Specialty Start Date End Date Steven Lizama MD [address] [place] [phone] PCP - General Emergency Medicine 08/13/20 documented as of this encounter
--- OUTSIDE RECORDS SUMMARY | 2024-05-25 00:15 | XMS_ITS | Encounter Summary ---
Author Organization [facility] Address [address] [place] [address] Care Team Providers Care It Infrastructure Manager Name Role Phone Steven Lizama MD Primary Care Provider [phone] Encounter Details Date Type Department Care Team (Late st Contact Info) Description 07/27/2023 External Device Data STL ABSTRACTION Provider, Abstract [...] on filedocumented in this encounter Care Teams It Infrastructure Manager Relationship Specialty Start Date End Date Steven Lizama MD [address] [place] [phone] PCP - General Emergency Medicine 08/13/20 documented as of this encounter
--- OUTSIDE RECORDS SUMMARY | 2024-05-25 00:15 | XMS_ITS | Encounter Summary ---
Author Organization [facility] Address [address] [place] [address] Care Team Providers Care Windshield Technician Name Role Phone Steven Lizama MD Primary Care Provider [phone] Encounter Details Date Type Department Care Team (Late st Contact Info) Description 08/22/2020 Orders Only [facility] BREAST SURGERY - [place] [facility] [address] [place] [address] [place] [address] [place] [address] Invasive ductal carcinoma of breast, female, right Social History Tobacco Use Types Packs/Day Years [...] COVID-19? No / Unsure 08/17/2020 1:08 PM HOME HEALTH PROVIDER documented as of this encounter Plan of Treatment Not on file documented as of this encounter Procedures Procedure Name Priority Date/Time Associated Diagnosis Comments 2019 NOVEL CORONAVIRUS (COVID-19) PCR DETECTION Routine 08/20/2020 Invasive ductal carcinoma of breast, female, right documented in this encounter Results * 2019 NOVEL CORONAVIRUS (COVID-19) PCR DETECTION (08/20/2020) Upper Respiratory ENTIRE NASOPHARYNX / Unknown Paula Bae MD MICROBIOLOGY - [facility] AL ORDERABLES [facility]# [id number] [address] [place] [address] documented in this encounter Visit Diagnoses Diagnosis Invasive ductal carcinoma of breast, female, right documented in this encounter Care Teams Windshield Technician Relationship Specialty Start Date End Date Steven Lizama MD [address] [place] [phone] PCP - General Emergency Medicine 08/13/20 documented as of this encounter
--- OUTSIDE RECORDS SUMMARY | 2024-05-25 00:15 | XMS_ITS | Encounter Summary ---
Author Organization [facility] Address [address] [facility] Attn: Epic Prelude ADT [place] [phone] Care Team Providers Care Labeling Strategist Name Role Phone Steven Lizama MD Primary Care Provider [phone] Encounter Details Date Type Department Care Team (Latest Contact Info) Description 07/09/2022 Travel Social History Tobacco Use Types Packs/Day [...] Coronavirus/COVID-19? 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
--- OUTSIDE RECORDS SUMMARY | 2024-05-25 00:15 | XMS_ITS | Encounter Summary ---
Author Organization [facility] Address [address] [place] [address] Care Team Providers Care Resource Technician Name Role Phone Steven Lizama MD Primary Care Provider [phone] Encounter Details Date Type Department Care Team (Late st Contact Info) Description 08/27/2020 Chart Note [facility] BREAST SURGERY - [place] [facility] [address] [place] [address] [place] [address] [place] [address] Social History Tobacco Use Types Packs/Day Years [...] COVID-19? No / Unsure 08/17/2020 1:08 PM OFFICE ASSOCIATE documented as of this encounter Plan of Treatment Not on file documented as of this encounter Visit Diagnoses Not on filedocumented in this encounter Care Teams Resource Technician Relationship Specialty Start Date End Date Steven Lizama MD [address] [place] [phone] PCP - General Emergency Medicine 08/13/20 documented as of this encounter
--- OUTSIDE RECORDS SUMMARY | 2024-05-25 00:15 | XMS_ITS | Encounter Summary ---
Author Organization [facility] Address [address] [place] [address] Care Team Providers Care Press Worker Helper Name Role Phone Steven Lizama MD Primary Care Provider [phone] Reason for Referral * Radiology Services (Routine) - Closed Specialty Diagnoses / Procedures Referred By Annalise koo Referred To Contact Radiology Diagnoses Malignant neoplasm of lower-inner quadrant of right breast of female, estrogen receptor positive Procedures MAMMO DIAG BILAT 3D REBA W OR WO CAD CHG DIAGNOSTIC MAMMOGRAPHY COMPUTER-AIDED DETCJ BI CHG DIGITAL BREAST [place] B[place] [address] [address] [facility] [address] [place] [address] [facility] [place] [address] [place] [address] Referral ID Status Reason Start Date Expiration Date Visits Re quested Visits Authorized [id number] Closed 07/09/2022 08/09/2023 1 1 Reason for Visit * Radiology Services (Routine) - Closed Specialty Diagnoses / Procedures Referred By Annalise koo Referred To Contact Radiology Diagnoses Malignant neoplasm of lower-inner quadrant of right breast of female, estrogen receptor positive Procedures MAMMO DIAG BILAT 3D REBA W OR WO CAD CHG DIAGNOSTIC MAMMOGRAPHY COMPUTER-AIDED DETCJ BI CHG DIGITAL BREAST [place] B[place] [address] [facility] [address] [place] [address] [facility] [place] [address] [place] [address] Referral ID Status Reason Start Date Expiration Date Visits Re quested Visits Authorized [id number] Closed 07/09/2022 08/09/2023 1 1 Encounter Details Date Type Department Care Team (Latest Contact Info) Description 09/03/2022 8:59 AM CDT - 09/03/2022 11:59 PM CDT Hospital Encounter [facility] [address] [place] [address] [place] [address] [place] [address] Discharge Disposition: Home or Self [...] Name Priority Date/Time Associated Diagnosis Comments MAMMO DIAG BILAT 3D REBA W OR WO CAD Routine 09/03/2022 10:27 AM CDT Malignant neoplasm of lower-inner quadrant of right breast of female, estrogen receptor positive documented in this encounter Results * (ABNORMAL) MAMMO DIAG [...] The patient has been informed. DICTATION LOCATION: [facility] Narrative 09/03/2022 1:16 PM CDT EXAM: 1. [...] The patient has been informed. DICTATION LOCATION: [facility] Paula Bae MD MAMMO ORDERABLES documented in this encounter Visit Diagnoses Diagnosis Malignant neoplasm of lower-inner quadrant of right breast of female, estrogen receptor positive documented in this encounter Care Teams Press Worker Helper Relationship Specialty Start Date End Date Steven Lizama MD [address] [place] [phone] PCP - General Emergency Medicine 08/13/20 documented as of this encounter
--- OUTSIDE RECORDS SUMMARY | 2024-05-25 00:15 | XMS_ITS | Encounter Summary ---
Author Organization [facility] Address [address] [place] [address] Care Team Providers Care Detective Name Role Phone Steven Lizama MD Primary Care Provider [phone] Reason for Referral * Radiology Services (Routine) - Closed Specialty Diagnoses / Procedures Referred By Annalise koo Referred To Contact Diagnoses Invasive ductal carcinoma of breast, female, right Procedures MAMMO [place] [address] [place] [address] Referral ID Status Reason Start Date Expiration Date Visits Re quested Visits Authorized [id number] Closed 08/14/2020 09/14/2021 1 1 Reason for Visit * Auth/Cert Specialty Diagnoses / Procedures Referred By Annalise koo Referred To Contact Diagnoses Invasive ductal carcinoma of breast, female, right Invasive ductal carcinoma of breast, female, right [C50.911] Procedures MT MASTECTOMY, PARTIAL MT BX/REMV,LYMPH NODE,DEEP AXILL MT INTRAOPERATIVE SENTINEL LYMPH NODE ID W DYE INJECTION CHG LYMPHATICS & LYMPH GLANDS IMAGING RIGHT BREAST LUMPECTOMY WITH NEEDLE LOCALIZATION RIGHT AXILLARY SENTINEL [place] [address] [place] [address] Referral ID Status Reason Start Date Expiration Date Visits Re quested Visits Authorized [id number] 08/16/2020 1 1 Encounter Details Date Type Department Care Team (Latest Contact Info) Description 08/28/2020 9:51 AM CDT - 08/28/2020 11:59 PM CDT Hospital Encounter [facility] [place] [address] [place] [address] Discharge Disposition: Home or Self Care Social [...] COVID-19? No / Unsure 08/17/2020 1:08 PM PRESSURE CONTROL SUPERVISOR documented as of this encounter Medications at [...] Name Priority Date/Time Associated Diagnosis Comments MAMMO POST PROCEDURE MAMMO RIGHT Routine 08/28/2020 11:13 AM CDT Invasive ductal carcinoma of breast, female, right documented in this encounter Results * MAMMO POST PROCEDURE MAMMO RIGHT (08/28/2020 11:13 AM CDT) Anatomical Region Laterality Modality Breast Right Mammography 08/28/2020 11:1 3 AM CDT Impressions 08/28/2020 4:49 PM CDT IMPRESSION: Needle localization for a tiny biopsy-proven cancer 6:00 subareolar right breast. Final pathology pending. DICTATION LOCATION: [facility] Narrative 08/28/2020 4:49 PM CDT NEEDLE LOCALIZATION [...] residual mass. Findings called to the OR. Procedure Note Liliana Roblero MD - 08/28/2020 NEEDLE LOCALIZATION ULTRASOUND GUIDED RIGHT BREAST, TWO-VIEW MAMMOGRAM AND SPECIMEN RADIOGRAPH 08/28/2020 CLINICAL HISTORY: Tiny invasive cancer periareolar right breast A [...] residual mass. Findings called to the OR. IMPRESSION: Needle localization for a tiny biopsy-proven cancer 6:00 subareolar right breast. Final pathology pending. DICTATION LOCATION: [facility] Paula Bae MD MAMMO ORDERABLES documented in this encounter Visit Diagnoses Diagnosis Invasive ductal carcinoma of breast, female, right documented in this encounter Care Teams Detective Relationship Specialty Start Date End Date Steven Lizama MD [address] [place] [phone] PCP - General Emergency Medicine 08/13/20 documented as of this encounter
--- OUTSIDE RECORDS SUMMARY | 2024-05-25 00:15 | XMS_ITS | Encounter Summary ---
Author Organization [facility] Address [address] [place] [address] Care Team Providers Care Box Turner Name Role Phone Steven Lizama MD Primary Care Provider [phone] Reason for Visit * Reason Comments Nurse Navigation Encounter Details Date Type Department Care Team ([facility] st Contact Info) Description 09/25/2020 Chart Note [facility] Oncology Patient Navigation [address] [place] [address] Angeline Saunders, RN Nurse Navigation Social History Tobacco Use Types Packs/Day Years [...] have Coronavirus / COVID-19? No / Unsure 09/19/2020 8:59 AM CDT documented as of this encounter Progress Notes * Angeline Suanders, RN - 09/25/2020 9:47 AM CDT Navigation Assessment Note Attempted to touch base with patient about radiation start date and to go over what to expect with radiation. Also wanted to ensure pt did not have any transportation concerns. Pt has contact info for this RN and will reach out with any non-emergent needs. This RN to follow up. Eileen Saunders RN, Nurse Navigator documented in this encounter Plan of Treatment Not on file documented as of this encounter Visit Diagnoses Not on filedocumented in this encounter Care Teams Box Turner Relationship Specialty Start Date End Date Steven Lizama MD [address] [place] [phone] PCP - General Emergency Medicine 08/13/20 documented as of this encounter
--- OUTSIDE RECORDS SUMMARY | 2024-05-25 00:15 | XMS_ITS | Encounter Summary ---
Author Organization [facility] Address [address] [place] [address] Care Team Providers Care Sensor Operator Name Role Phone Steven Lizama MD Primary Care Provider Reason for Visit * Reason Comments Nurse Navigation Encounter Details Date Type Department Care Team ([facility] st Contact Info) Description 09/19/2020 Chart Note [facility] Oncology Patient Navigation [address] [place] [address] Angeline Saunders, RN Nurse Navigation Social History [...] Progress Notes * Angeline Saunders RN - 09/19/2020 1:47 PM CDT Navigation Assessment Note Reached out to patient via telephone to touch base following consults with medical oncologist and radiation oncologist. Pt did not feel like talking about either appointment and ended conversation abruptly. Pt has contact info for this RN and will reach out with any non-emergent needs. This RN to follow up. Eileen Saunders RN, Nurse Navigator documented in this encounter Plan of Treatment Not on file documented as of this encounter Visit Diagnoses Not on filedocumented in this encounter Care Teams Sensor Operator Relationship Specialty Start Date End Date Steven Lizama MD [address] [place] [phone] PCP - General Emergency Medicine 08/13/20 documented as of this encounter
--- OUTSIDE RECORDS SUMMARY | 2024-05-25 00:15 | XMS_ITS | Encounter Summary ---
Author Organization [facility] Address [address] [facility] Attn: Epic Prelude ADT [place] [address] Care Team Providers Care Ferryboat Captain Name Role Phone Steven Lizama MD Primary Care Provider [phone] Encounter Details Date Type Department Care Team (Latest Contact Info) Description 09/03/2022 Travel Social History Tobacco Use Types Packs/Day [...] on filedocumented in this encounter Care Teams Ferryboat Captain Relationship Specialty Start Date End Date Steven Lizama MD [address] [place] [phone] PCP - General Emergency Medicine 08/13/20 documented as of this encounter
--- OUTSIDE RECORDS SUMMARY | 2024-05-25 00:15 | XMS_ITS | Encounter Summary ---
Author Organization [facility] YAIMA G[facility] Address [address] [place] [address] Care Team Providers Care Quality Control Chemist Name Role Phone Steven Lizama MD Primary Care Provider [phone] Reason for Visit * Reason Comments Establish Care Establish care as ne w patient for Breasts Cancer Encounter Details Date Type Department Care Team (Late st Contact Info) Description 09/11/2020 10:30 AM CDT Office Visit [facility] - [place] [address] [place] [address] [address] [place] [address] Karl Schmid MD [address] [facility] [address] [place] [address] Malignant neoplasm of lower-inner quadrant of right [...] have Coronavirus / COVID-19? No / Unsure 09/11/2020 10:03 AM CDT documented as of this encounter Last Filed Vital Signs Vital Sign Reading Time Taken Comments Blood Pressure 135/78 09/11/2020 11:07 AM CDT Pulse 83 09/11/2020 11:07 AM CDT Temperature 36.7 ??C (98.1 ??F) 09/11/2020 11:07 AM C DT Respiratory Rate - - Oxygen Saturation 92% 09/11/2020 11:07 AM CDT Inhaled Oxygen Concentration - - Weight 95.8 kg (211 lb 4.8 oz) 09/11/2020 11:07 AM CDT Height 152.4 cm (5') 09/11/2020 11:07 AM CDT Body Mass Index 41.27 09/11/2020 11:07 AM CDT documented in this encounter Progress Notes * Karl Schmid MD - 09/11/2020 1:20 PM CDT Hematology-oncology consult Note Requesting Physician Steven Lizama MD Primary Care Physician Steven Lizama MD Problem list Patient Active Problem List Diagnosis Code ??? Diabetes mellitus E11.9 ??? HTN (hypertension) I10 ??? Hyperlipidemia E78.5 ??? Tobacco use Z72.0 Previous TREATMENT ? Measurable Disease ? Reason for Visit Angeline Caraballo is a 59 y.o. female who was referred for consultation for breast cancer. History of present illness This is a 59-year-old obese -Sy[place] female who was seen by the primary care physician in July 2020 and screening mammogram was performed. Prior to that patient had no mammogram done. Screening mammogram came back abnormal. That led to the bilateral diagnostic mammogram done on 2020 that showed 6 mm hypoechoic mass at 6 o'clock position in the right breast. Patient had right breast core biopsy done on August 01 that showed invasive ductal carcinoma grade 1. Cancer wasER/SC positive and HER-2/thais positive. Patient was seen by Dr. Paula Bae and had right-sided lumpectomy done on August 28, 2020. Genetic testing came back negative for mutations. She is recoveringwell from the surgery. She denies any other new complaints. Past Medical History Past Medical History: Diagnosis Date ??? Diabetes mellitus ??? Genetic testing 08/2020 Reynask negative ??? HTN (hypertension) ??? Hyperlipidemia Surgical History Past Surgical History: Procedure Laterality Date ??? HX SECTION X2 ??? HX HERNIA REPAIR X2 ??? HX HYSTERECTOMY ??? SC BIOPSY/EXCISION, LYMPH NODE(S) Right 08/28/2020 AXILLARY SENTINEL LYMPH NODE BIOPSY WITH NUC MED AT 1100 performed by Paula Bae MD at [facility] OR [facility] ??? SC MASTECTOMY, PARTIAL Right 08/28/2020 BREAST LUMPECTOMY WITH NEEDLE LOCALIZATION AT 1000 performed by Paula Bae MD at [facility] OR [facility] Medications Current Outpatient Medications Medication Sig Dispense Refill ??? HYDROcodone-acetaminophen (NORCO) 5-325 mg tablet Take 1 Tablet by mouth every 6 hours as needed for Pain. Max Daily Amount: 4 Tablets. Do not take with tylenol or acetaminophen. No driving on pain medication. 15 Tablet 0 ??? simvastatin (ZOCOR) 20 mg tablet Take 20 mg by mouth daily at bedtime. ??? metFORMIN (GLUCOPHAGE) 500 mg tablet Take 500 mg by mouth daily with breakfast. ??? ergocalciferol (VITAMIN D2) 50,000 unit capsule TAKE 1 CAPSULE BY MOUTH WEEKLY ??? amLODIPine (NORVASC) 5 mg tablet Take 5 mg by mouth daily. No current facility-administered medications for this visit. Allergies No Known Allergies Immunizations: There is no immunization history on file for this patient. Family History Family History Problem Relation Name Age of Onset ??? Breast Cancer Mother 69 ??? Cancer Mother Social History Social History Tobacco Use ??? Smoking status: Current Every Day Smoker Packs/day: 0.50 Types: Cigarettes ??? Smokeless tobacco: Never Used Substance Use Topics ??? Alcohol use: Never Review of Systems Constitutional: No fever; no night sweats; no anorexia; no weight loss; no fatique NEENT: No headache; no change in vision; no change in hearing; no sore throat; no dysphagia Respiratory: No shortness of breath; no pleuritic chest pain; no cough; no hemoptysis Cardiac: No cardiac-like chest pain; no palpitations; no orthopnea; no PND; no YANG Breasts: No tenderness; no masses GI: No abdominal pain; no nausea; no vomiting; no diarrhea; no hematochezia; no melena : No dysuria; no frequency; no hesitancy; no hematuria CARVING MACHINE OPERATOR: Musculosketetal: no bone pain; no arthralgia; no joint swelling; no myalgia; Skin: no pruritis; no rash; no petechiae; no ecchymoses Endocrine: no polydipsia; no polyuria; no unusual weight gain Neuro: No headache; no change in vision; no sensory changes; no muscle weakness; no confusion; no seizures Psych: no anxiety; no depression; Physical Exam Vitals: As per nursing note Constitutional: Well developed, well nourished, no acute distress, non-toxic appearance Teeth and gum. No signs of infection or swelling. Eyes: PERRL, conjunctiva normal HEENT: Atraumatic, external ears normal, nose normal, oropharynx moist, no pharyngeal exudates. no sinus tenderness Neck- normal range of motion, no tenderness, supple Respiratory: No respiratory distress, normal breath sounds, no rales, no wheezing Breasts: Left breast no masses lymphadenopathy. Right breast postoperative changes with some tenderness and swelling without any axillary lymphadenopathy and masses. Cardiovascular: Normal rate, normal rhythm, no murmurs, no gallops, no rubs GI: Soft, nondistended, normal bowel sounds, nontender, no splenomegaly, no hepatomegaly, no mass, no rebound, no guarding : No costovertebral angle tenderness Musculoskeletal: No edema, no tenderness, no deformities. Back- no tenderness Integument: Well hydrated, no rash, Digits and nails inspection normal Lymphatic: No lymphadenopathy noted Neurologic: Alert & oriented x 3, CN 2-12 normal, normal motor function, normal sensory function, no focal deficits noted Psychiatric: Speech and behavior appropriate ? labs No results found for this or any previous visit (from the past 24 hour(s)). Pathology ? Imaging & Other Studies Performance Status? Assessment / Plan: ? T1b N0 M0 stage I invasive ductal carcinoma of the right breast status post right-sided lumpectomy and sentinel right axillary lymph node excision done on August 28, 2020. Tumor was 6 mm in size grade1 margins negative without any lymphovascular invasion. ER/SC positive and HER-2/thais positive. There was associated DCIS measures 1.2 cm. All 3 right axillary sentinel lymph nodes were negative for malignancy. I have discussed the NCCN guideline for 6 mm invasive ductal carcinoma with HER- 2/thais positive status. Benefit of adjuvant chemotherapy for small HER-2/thais positive tumor is negligible especially if hormone receptor status is positive. NCCN recommended options are are just endocrine therapy or endocrine therapy after adjuvant chemotherapy along with Herceptin. After long discussion patient decided to proceed without any chemotherapy. Patient is going to see Dr. Becerra for radiation therapy. After completion of radiation therapy I will start her on anastrozole 1 mg daily. I have also discussedthe surveillance for newly diagnosed breast cancer in detail and answered all the questions to patient satisfaction. Type 2 diabetes. Patient is on Metformin. Hyperlipidemia. Patient is on simvastatin. Hypertension. Patient is on amlodipine. Thank you very much for allowing me to participate in Angeline Caraballo's evaluation and management. Please feel free to contact if I can be of any further assistance in your patient???s care requiringhematology or oncology evaluation. Sincerely, ? ? Karl Schmid M.D. cell TOBACCO COUNSELING She is not a tobacco user. Karl Schmid MD ,09/11/2020 1:20 PM ? Total time spent 80 minutes, two third of the total time spent counseling patient [id number]. CC:?Steven Lizama MD documented in this encounter Plan of Treatment Not on file documented as of this encounter Visit Diagnoses Diagnosis Malignant neoplasm of lower-inner quadrant of right breast of female, estrogen receptor positive- Primary documented in this encounter Care Teams Quality Control Chemist Relationship Specialty Start Date End Date Steven Lizama MD [address] [address] PCP - General Emergency Medicine 08/13/20 documented as of this encounter
--- OUTSIDE RECORDS SUMMARY | 2024-05-25 00:15 | XMS_ITS | Encounter Summary ---
Author Organization [facility] Address [address] [facility] [address] Attn: Epic Prelude ADT [place] [address] Care Team Providers Care Gore Seamer Name Role Phone Steven Lizama MD Primary Care Provider [phone] Encounter Details Date Type Department Care Team (Latest Contact Info) Description 09/11/2020 Travel Social History Tobacco Use Types Packs/Day [...] on filedocumented in this encounter Care Teams Gore Seamer Relationship Specialty Start Date End Date Steven Lizama MD [address] [place] [phone] PCP - General Emergency Medicine 08/13/20 documented as of this encounter
--- OUTSIDE RECORDS SUMMARY | 2024-05-25 00:15 | XMS_ITS | Encounter Summary ---
Author Organization [facility] Address [address] [place] [address] Care Team Providers Care Cloth Worker Name Role Phone Steven Lizama MD Primary Care Provider [phone] Reason for Referral * Radiology Services (Routine) - Closed Specialty Diagnoses / Procedures Referred By Annalise koo Referred To Contact Diagnoses Malignant neoplasm of lower-inner quadrant of right breast of female, estrogen receptor positive Procedures MAMMO [place]AST [place] [address] [facility] [address] [place] [address] Referral ID Status Reason Start Date Expiration Date Visits Re quested Visits Authorized [id number] Closed 09/15/2022 12/14/2022 1 1 Reason for Visit * Radiology Services (Routine) - Closed Specialty Diagnoses / Procedures Referred By Annalise koo Referred To Contact Diagnoses Malignant neoplasm of lower-inner quadrant of right breast of female, estrogen receptor positive Procedures MAMMO [place] [address] [facility] [address] [place] [address] Referral ID Status Reason Start Date Expiration Date Visits Re quested Visits Authorized [id number] Closed 09/15/2022 12/14/2022 1 1 Encounter Details Date Type Department Care Team (Latest Contact Info) Description 09/15/2022 12:17 PM CDT - 09/15/2022 11:59 PM CDT Hospital Encounter [facility] [address] [place] [address] [place] [address] [place] [address] Discharge Disposition: Home or Self [...] suspected to have Coronavirus/COVID-19? No / Unsure 09/15/2022 12:14 PM CDT documented as of this encounter Medications [...] breakfast. 06/29/2020 documented as of this encounter Progress Notes * Rajinder Rucker MD - 09/15/2022 12:30 PM CDT Breast Biopsy/Aspiration Brief Procedure Note Patient: Angeline Caraballo Surgeons: Rajinder Rucker MD Central Service Tech(s): Description of Procedure: aspiration complicated post-op collection Pre-operative diagnosis: abnormal ultrasound Post-operative diagnosis: Same as pre-operative diagnosis Brief Procedure Details aspiration fluid collection Anesthesia: local Complications: None Estimated Blood Loss: Minimal Specimens removed: post op fluid Disposition of specimens: discarded Additional Comments: Rajinder Rucker MD 09/15/2022 1:07 PM documented in this encounter H&P Notes * Rajinder Rucker MD - 09/15/2022 12:30 PM CDT Angeline Caraballo is a 61 y.o. female who presents with a chief complaint of right breast fluid collection. Past Medical History: Diagnosis Date Diabetes mellitus Genetic testing 08/2020 MyRisk negative HTN (hypertension) Hyperlipidemia Past Surgical History: Procedure Laterality Date HX SECTION X2 HX HERNIA REPAIR X2 HX HYSTERECTOMY TN BX/EXC LYMPH NODE OPEN SUPERFICIAL Right 08/28/2020 AXILLARY SENTINEL LYMPH NODE BIOPSY WITH NUC MED AT 1100 performed by Paula Bae MD at [facility] OR [facility] [place] MASTECTOMY PARTIAL Right 08/28/2020 BREAST LUMPECTOMY WITH NEEDLE LOCALIZATION AT 1000 performed by Paula Bae MD at [facility] OR [facility] Current Outpatient Medications: amLODIPine (NORVASC) 10 mg tablet, , Disp: , Rfl: carvediloL (COREG) 12.5 mg tablet, , Disp: , Rfl: simvastatin (ZOCOR) 20 mg tablet, Take 20 mg by mouth daily at bedtime. , Disp: , Rfl: metFORMIN (GLUCOPHAGE) 500 mg tablet, Take 500 mg by mouth daily with breakfast. , Disp: , Rfl: Current Facility-Administered Medications: lidocaine PF 1% (XYLOCAINE MPF) injection 30 mL, 300 mg, Infiltration, ONE time only, Melania Langley MD No Known Allergies RECENT LABS: No results found for this visit on 09/15/22 (from the past 24 hour(s)). REVIEW OF SYSTEMS: negative for weight changes, fever PHYSICAL EXAM: General appearance: alert, well appearing, and in no distress DIAGNOSTIC IMPRESSIONS: Right breast fluid collection Rajinder Rucker MD 09/15/2022 1:08 PM documented in this encounter Plan of Treatment Not on file documented as of this encounter Procedures Procedure Name Priority Date/Time Associated Diagnosis Comments MAMMO BREAST CYST US ASPIRATION RIGHT Routine 09/15/2022 1:08 PM CDT Malignant neoplasm of lower-inner quadrant of right breast of female, estrogen receptor positive documented in this encounter Results * MAMMO BREAST CYST US ASPIRATION RIGHT (09/15/2022 1:08 PM CDT) Anatomical Region Laterality Modality Breast Right Ultrasound Aspirate SPECIMEN FROM BREAST / Unknown 09/15/2022 1:08 PM CDT Impressions 09/15/2022 2:37 PM CDT IMPRESSION: Successful aspiration of the fluid collection at the postoperative site. OVERALL FINAL ASSESSMENT: ??BI-RADS CATEGORY 2: Benign findings DICTATION LOCATION: [facility] Narrative 09/15/2022 2:37 PM CDT ULTRASOUND-GUIDED RIGHT BREAST FLUID COLLECTION ASPIRATION DATE: 09/15/2022 1:08 PM INDICATION: Complicated fluid collection at prior surgical site. The procedure was explained to the patient. Her consent was given. Ultrasound was used to localize the hypoechoic collection. The skin was prepped. Lidocaine was given as local anesthetic. An 18-gauge needle was directed into the collection. About 6 cc of thick brown fluid returned. The collection collapsed. There were no complications and she tolerated the procedure without incident. The fluid was discarded. Procedure Note Rajinder Rucker MD - 09/15/2022 ULTRASOUND-GUIDED RIGHT BREAST FLUID COLLECTION ASPIRATION DATE: 09/15/2022 1:08 PM INDICATION: Complicated fluid collection at prior surgical site. The procedure was explained to the patient. Her consent was given. Ultrasound was used to localize the hypoechoic collection. The skin was prepped. Lidocaine was given as local anesthetic. An 18-gauge needle was directed into the collection. About 6 cc of thick brown fluid returned. The collection collapsed. There were no complications and she tolerated the procedure without incident. The fluid was discarded. IMPRESSION: Successful aspiration of the fluid collection at the postoperative site. OVERALL FINAL ASSESSMENT: BI-RADS CATEGORY 2: Benign findings DICTATION LOCATION: [facility] Paula Bae MD MAMMO ORDERABLES documented in this encounter Visit Diagnoses Diagnosis Malignant neoplasm of lower-inner quadrant of right breast of female, estrogen receptor positive documented in this encounter Care Teams Cloth Worker Relationship Specialty Start Date End Date Steven Lizama MD [address] [place] [phone] PCP - General Emergency Medicine 08/13/20 documented as of this encounter
--- OUTSIDE RECORDS SUMMARY | 2024-05-25 00:15 | XMS_ITS | Encounter Summary ---
Author Organization [facility] Address [address] [place] [address] Care Team Providers Care Workers' Compensation Hearings Officer Name Role Phone Steven Lizama MD Primary Care Provider [phone] Reason for Visit * Reason Comments Post-op Visit Encounter Details Date Type Department Care Team (Late st Contact Info) Description 09/19/2020 9:15 AM CDT Office Visit [facility] - [place] [address] [place] [address] [place] [address] [place] [address] Malignant neoplasm of lower-inner quadrant [...] Sign Reading Time Taken Comments Blood Pressure 134/74 09/19/2020 9:23 AM CDT Pulse - - Temperature - - Respiratory Rate - - Oxygen Saturation - - Inhaled Oxygen Concentration - - Weight 95.7 kg (211 lb) 09/19/2020 9:23 AM CDT Height 152.4 cm (5') 09/19/2020 9:23 AM CDT Body Mass Index 41.21 09/19/2020 9:23 AM CDT documented in this encounter Progress Notes * Paula Bae MD - 09/19/2020 9:24 AM CDT Patient comes in today for f/u on right lumpectomy and SNB done on 08/29/2020. She saw Dr. Schmid on09/[address] Becerra for RT. Vitals: 09/19/20 0923 BP: 134/74 Incisions healing well. Tenderness. No erythema. Results for orders placed or performed during the hospital encounter of 08/28/20 PATHOLOGY Result Value Ref Range CASE REPORT Surgical Pathology Report Case: [id number] Authorizing Provider: Paula Bae MD Collected: 08/28/2020 01:05 PM Ordering Location: [facility] Received: 08/29/2020 07:14 AM Operating Room Pathologist: Shukri Caruso MD Specimens: A) - Breast, right, right breast needle localized lumpectomy; short stitch superior, long stitch lateral B) - Clayton Lymph Node, right axillary sentinel lymph node biopsy FINAL DIAGNOSIS A. Breast, right, lumpectomy: - Invasive carcinoma of no special type (ductal), with the following features: 1. Size: 6 mm. 2. Armagh score: 4/9 (Grade I). 3. Margins: Negative. 4. Lymphvascular invasion: Not identified. 5. Stage: pT1b, pN0(sn). 6. Biomarkers: ER, PA, and HER2 positive (previously performed on [id number]). - Ductal carcinoma in situ, with the [...] Three lymph nodes, negative for malignancy (0/3). GROSS DESCRIPTION Received are two containers labeled Angeline Caraballo . Received in the first container labeled right breast needle localized is a 4.3 (S-I) by 4.0 (M-L) by 2.7 (8-P) centimeter excision of partially blue dye stained fibroadipose tissue which is oriented with sutures as stated on the requisition.The needle localization wire is extending into the [...] inked margin and level 5 and comes towithin 0.3 cm from black, 0.3 cm from [...] posterior; A3-A4-level 2; A5-A6-level 3; A7-A9-level 4; A28-N05-txmbj 5; A13-A 15-level 6; 16-A 18-level 7; [...] lymph nodes bisected; B2-1 lymph node trisected; N9-B7-byqcxdl lymph node trisected. MICROSCOPIC DESCRIPTION The slides are labeled [id number] and Angeline Caraballo. The lumpectomy specimen shows focal invasive ductal carcinoma, characterized by infiltrative tubules and occasional cords (tubule score 1) showing cells with mild to moderately atypical, hyperchromatic nuclei (nuclear score 2). The mitotic rate is low, with 6 mitotic figures in 10 high-power elder(mitotic score 1). While the gross measurement was 1.9 cm in greatest dimension, the carcinoma measures 6 mm microscopically, with surrounding biopsy site changes likely attributing to the impressionof a larger lesion grossly. Invasive carcinoma is [...] invasive carcinoma. The background breast tissue shows fibrocyst ic changes including columnar cell change and apocrine metaplasia. The right axillary sentinel lymph nodes show 3 lymph nodes, negative for malignancy. Cytokeratin immunostains are negative. OPERATIVE PROCEDURE BREAST LUMPECTOMY SENTINEL LYMPH NODE BIOPSY CLINICAL INFORMATION Invasive ductal carcinoma of breast, female, right [C50.911] C50.911-Invasive ductal carcinoma of breast, female, right SYNOPTIC REPORT INVASIVE CARCINOMA OF THE BREAST: Resection (INVASIVE CARCINOMA OF THE BREAST: COMPLETE EXCISION - All Specimens) 8th Edition - Protocol posted: 08/03/2019 SPECIMEN Procedure: Excision (less than total mastectomy) Specimen Laterality: Right TUMOR Histologic Type: Invasive carcinoma of no special type (ductal) Glandular (Acinar) / Tubular Differentiation: Score 2 Nuclear Pleomorphism: Score 1 Mitotic Rate: Score 1 Overall Grade: Grade 1 (scores of 3, 4 or 5) Tumor Size: Greatest dimension of largest invasive focus (Millimeters): 6 mm Tumor Focality: Single focus of invasive carcinoma Ductal Carcinoma In Situ (DCIS): Present : Negative for extensive intraductal component (EIC) Size (Extent) of DCIS: Estimated size (extent) of DCIS is at least (Millimeters): 12 mm Architectural Patterns: Solid Architectural Patterns: Pagetoid Nuclear Grade: Grade II (intermediate) Necrosis: Present, focal (small foci or single cell necrosis) Tumor Extent: Lymphovascular Invasion: Not identified Microcalcifications: Present in invasive carcinoma Treatment Effect in the Breast: No known presurgical therapy MARGINS Invasive Carcinoma Margins: Uninvolved by invasive carcinoma Distance from Closest Margin (Millimeters): 8 mm Closest Margin(s): Lateral DCIS Margins: Uninvolved by DCIS Distance from Closest Margin (Millimeters): Less than: 1 mm Closest Margin(s): Anterior Distance from Other Margins: Medial Margin (Millimeters): 2.5 mm LYMPH NODES Regional Lymph Nodes: Uninvolved by tumor cells Total Number of Lymph Nodes Examined: 3 Number of Clayton Nodes Examined: 3 PATHOLOGIC STAGE CLASSIFICATION (pTNM, AJCC 8th Edition) Primary Tumor (pT): pT1b Regional Lymph Nodes Modifier: (sn): Clayton node(s) evaluated. Regional Lymph Nodes (pN): pN0 COMMENT Special stain and/or immunohistochemical results are interpreted with controls that demonstrate appropriate staining reactions. Note on use of immunocytochemistry reagents: This test was developed and its performance characteristics determined by [facility], Department of Laboratory Medicine. It has not [...] part or completely in the following laboratories: [facility], CLIA #[id number] [address] [place] [address] [facility], CLIA #[id number] [address] [place] [address] [facility] Goran/Kannan [place] #[id number] [address] [place] [address]. -Pathology reviewed. Scar care with daily moisturizer. Supportive bra. Risk reducing lifestyle modifications including regular exercise four times a week or more for 30-45 minutes, a healthy moderatediet, and avoidance of tobacco products reviewed and encouraged. Follow-up in 6 months for clinicalexam and bilateral diagnostic mammogram. documented in this encounter Plan of Treatment Not on file documented as of this encounter Visit Diagnoses Diagnosis Malignant neoplasm of lower-inner quadrant of right breast of female, estrogen receptor positive- Primary documented in this encounter Care Teams Workers' Compensation Hearings Officer Relationship Specialty Start Date End Date Steven Lizama MD [address] [place] [phone] PCP - General Emergency Medicine 08/13/20 documented as of this encounter
--- OUTSIDE RECORDS SUMMARY | 2024-05-25 00:15 | XMS_ITS | Encounter Summary ---
Author Organization [facility] Address [address] [place] [address] Care Team Providers Care Metal Container Maker Name Role Phone Steven Lizama MD Primary Care Provider [phone] Reason for Visit * Reason Comments Nurse Navigation Encounter Details Date Type Department Care Team ([facility] st Contact Info) Description 08/30/2020 Chart Note [facility] Oncology Patient Navigation [address] [place] [address] Angeline Saunders, RN Nurse Navigation Social History [...] COVID-19? No / Unsure 08/17/2020 1:08 PM HOOKING MACHINE OPERATOR documented as of this encounter Progress Notes * Angeline Saunders, RN - 08/30/2020 9:31 AM CDT Navigation Assessment Note Spoke with patient post surgery. Pt reports doing overall well. Pain well tolerated, eating and drinking without difficulty. Denies needs and concerns at this time. Pt is aware that pathology typically takes 4-6 business days. Pt asked when she would need to follow up with Dr. Bae. Reassured pt that Catalino's office willschedule her follow up when they call with pathology results. Pt has contact info for this RN and will reach out with any needs. This RN to follow up. Eileen Saunders, RN, Nurse Navigator documented in this encounter Plan of Treatment Not on file documented as of this encounter Visit Diagnoses Not on filedocumented in this encounter Care Teams Metal Container Maker Relationship Specialty Start Date End Date Steven Lizama MD [address] [place] [phone] PCP - General Emergency Medicine 08/13/20 documented as of this encounter
--- OUTSIDE RECORDS SUMMARY | 2024-05-25 00:15 | XMS_ITS | Encounter Summary ---
Author Organization [facility] Address [address] [place] [address] Care Team Providers Care Sulfonator Operator Name Role Phone Steven Lizama MD Primary Care Provider [phone] Encounter Details Date Type Department Care Team (Late st Contact Info) Description 05/23/2023 External Device Data ST[facility] ABSTRACTION Provider, Abstract [...] on filedocumented in this encounter Care Teams Sulfonator Operator Relationship Specialty Start Date End Date Steven Lizama MD [address] [place] [phone] PCP - General Emergency Medicine 08/13/20 documented as of this encounter
--- OUTSIDE RECORDS SUMMARY | 2024-05-25 00:15 | XMS_ITS | Encounter Summary ---
Author Organization [facility] Address [address] Attn: Epic Prelude ADT [place] [address] Care Team Providers Care Paunch Trimmer Name Role Phone Steven Lizama MD Primary Care Provider [phone] Encounter Details Date Type Department Care Team (Latest Contact Info) Description 09/19/2020 Travel Social History Tobacco Use Types Packs/Day [...] on filedocumented in this encounter Care Teams Paunch Trimmer Relationship Specialty Start Date End Date Steven Lizama MD [address] [place] [phone] PCP - General Emergency Medicine 08/13/20 documented as of this encounter
--- OUTSIDE RECORDS SUMMARY | 2024-05-25 00:15 | XMS_ITS | Encounter Summary ---
Author Organization [facility] Address [address] [place] [address] Care Team Providers Care Reimbursement Auditor Name Role Phone Steven Lizama MD Primary Care Provider [phone] Reason for Visit * Auth/Cert Specialty Diagnoses / Procedures Referred By Annalise t Referred To Contact Diagnoses Invasive ductal carcinoma of breast, female, right Invasive ductal carcinoma of breast, female, right [C50.911] Procedures NV MASTECTOMY, PARTIAL NV BX/REMV,LYMPH NODE,DEEP AXILL NV INTRAOPERATIVE SENTINEL LYMPH NODE ID W DYE INJECTION CHG LYMPHATICS & LYMPH GLANDS IMAGING RIGHT BREAST LUMPECTOMY WITH NEEDLE LOCALIZATION RIGHT AXILLARY SENTINEL [place] [address] [place] [address] Referral ID Status Reason Start Date Expiration Date Visits Re quested Visits Authorized [id number] 08/16/2020 1 1 Encounter Details Date Type Department Care Team (Latest Contact Info) Description 08/28/2020 8:58 AM CDT - 08/28/2020 4:10 PM T Hospital Encounter [facility] [address] [place] [address] [place] [phone] [place] [address] [place] [address] Invasive ductal carcinoma of breast, female, right Discharge Disposition: Home or Self Care Social [...] COVID-19? No / Unsure 08/17/2020 1:08 PM SENIOR SUPPORT ENGINEER documented as of this encounter Last Filed Vital Signs Vital Sign Reading Time Taken Comments Blood Pressure 156/92 08/28/2020 4:08 PM CDT Pulse 85 08/28/2020 4:03 PM CDT Temperature 36.1 ??C (96.9 ??F) 08/28/2020 4:03 PM CD T Respiratory Rate 16 08/28/2020 4:03 PM CDT Oxygen Saturation 100% 08/28/2020 4:03 PM CDT Inhaled Oxygen Concentration - - [...] or higher, or urgent breast questions at [phone]. Report to the Emergency Room if any [...] or come to the Emergency Room at [facility] ([phone]) or the nearest Emergency Room. In an [...] she will be getting covid test @ [facility], ordered by her PCP. Instructed pt that Dr. Bae's office should receive results by dos and should be on a computer generated/lab letterhead form. Suggested pt bring hard copy with her day of surgery if possible. Pt was encouraged to call pace dept if she needs futher assistance. Pt states she has Dr. Bae's fax number on eSNF. OR SUPPORT ENGINEER * Ravindra-OP - Milagros Horne RN - 08/17/2020 1:17 PM CST ?Anesthesiology Routine Orders Protocol - [facility] (includes Main OR, Heart & Vascular OR and Minor Procedure Non-PATIENT SAFETY TECH OR) Approved by: [facility] - Medical Executive Committee Approval Date: 11/30/2019 ORDERS ARE ENTERED ???PER PROTOCOL?? Enter the protocol in the patient's electronic health record using Skifte: .anesthesiologyroutineordersprotocol Screening Protocol: ; Surgical Procedures o [...] appropriate, may confirm POC with: Nursing Only [id number] (this lab can be obtained at no [...] any test ordered in PACE. ; Hematocrit/Hemoglobin (Xvh7911) o Cases of expected major blood loss in patients of any age as evidenced by an order for Type and Cross or Type and Screen. ; BMP (Lab15) o Patients with: o Diabetes o Renal disease o Dialysis patients: Day of Surgery; If dialysis on day of surgery, Post-dialysis o Patients taking the following medications: - Digoxin - Diuretics - Steroids ; BUN (Xws951)/ Serum Cr (Lab66) o When use of [...] injectable antihyperglycemic agents and glucose is less trre374 mg/dl O NPO patients who have NOT [...] EKG) for: o All patients in the [facility] OR o All inpatients o Patients for Acute Pain Service procedures o Ambulatory or same day admit patients currently taking beta-blockers o Ambulatory or same day admit patients diagnosed with/or at risk for sleep apnea (e.g., STOP-BANG greater than or equal to 4) Warming ; [place] forced air warming in accordance with the STL Perioperative Policy Medications Orders: Entered by Nursing Intravenous Line ; Place #18 gauge IV in non-dominant, non-operative or not otherwise excluded upper extremity (Preferred minimum IV gauge: 16 or greater in Heart and Vascular [facility] OR, 18 or greater in Main OR, [...] - entered by the Pharmacist or the vaccine customer representative Orders Patient has IV access and UNCONCIOUS, [...] cup 2% milk and 6 saltine crackers. OR SUPPORT ENGINEER * Ravindra-OP - Milagros Horne RN - 08/17/2020 1:13 PM CST Pre-Procedure Instructions [facility] Name: Angeline Caraballo Age: 59 y.o. Please report to the: [x] Surgery Center [] [facility] (2nd Floor) [] Other: Date of Procedure: [...] DO NOT [facility] (unless otherwise [facility] ?? WEAR comfortable, loose fitting clothes to the hospital that will fit over dressings after your surgery. ?? WEAR GLASSES instead of contact lenses to the hospital; bring a case if possible for glasses, dentures, and hearing aids as you will be asked to remove these items before your surgery. ?? BRING your insurance cards and bookmobile driver's license or photo ID. DO NOT [...] facility with a mask. If arriving to [facility] without a mask, one will be provided. [...] morning of surgery with sip of water OR SUPPORT ENGINEER * Ravindra-OP - Milagros Horne RN - 08/17/2020 1:12 PM CST Approved by: [facility] - Medical Executive Committee Approval Date: 10/28/2019 [...] dose at dinner (supper) Do NOT take Erik Varela Symlin, Brian, Misty, Tanzjenniferm, Ozempic Take usual dose Do NOT take [...] supplies with you. (example: infusion set, reservoirs, inserter promotional item set if needed, PDM device). Insulin is [...] insulin at all times. ??? For minor promotions representative procedures where breakfast is likely only delayed, patients may delay taking their usual morning insulin until after the procedure and before eating. If a medication is not listed above, contact your prescribing physician for instructions. OR SUPPORT ENGINEER documented in this encounter Miscellaneous Notes * [...] pain/comfort utilizing verbal/nonverbal pain scales; assess culturalor nondenominational indicators attached to pain; administer pain medications as prescribed; utilize non-pharmacologic pain control and comfort measures Expected Outcome: Patient demonstrates and reports adequate pain control Outcome Met: Met * Care Plan - Rahul Macias RN - 08/28/2020 2:13 PM CDT Potential for pain related to surgical/procedural intervention Interventions: Assess level of pain/comfort utilizing verbal/nonverbal pain scales; assess culturalor nondenominational indicators attached to pain; administer pain medications [...] vss. Drainage noted on surgical dressing. * Care Plan - Wendy Armas RN - 08/28/2020 9:20 [...] pain/comfort utilizing verbal/nonverbal pain scales; assess culturalor nondenominational indicators attached to pain; administer pain medications [...] * POC GLUCOSE (08/28/2020 2:03 PM CDT) GLUCOSE POC 96 74 - 99 mg/dL 08/28/2020 2:03 PM CDT [facility] HOME BASED ASSISTANT NAME POC RAHUL MACIAS 08/28/2020 2:03 PM CDT [facility] Blood, whole 08/28/2020 2:03 PM CDT 08/28/2020 2:11 PM CDT Paula Bae MD POINT OF CARE TESTIN G [facility]# [id number] [address] [place] [address] * PATHOLOGY (08/28/2020 1:05 PM CDT) CASE REPORT Surgical Pathology Report ? Case: [id number] ? Authorizing Provider: ??Paula Bae MD ? Collected: ? 08/28/2020 01:05 PM ? Ordering Location: ? [facility] ?Received: ?08/29/2020 07:14 AM ? Operating Room ? Pathologist: ? Shukri Caruso MD ? Specimens: ?? A) - Breast, right, right breast needle localized lumpectomy; short stitch superior, ? long stitch lateral ? B) - Manila Lymph Node, right axillary sentinel lymph node biopsy ? 09/04/2020 9:20 AM CDT [facility] FINAL DIAGNOSIS A. Breast, right, lumpectomy: - Invasive carcinoma of no special type (ductal), with the following features: 1. Size: 6 mm. 2. Mandi score: 4/9 (Grade I). 3. Margins: Negative. 4. Lymphvascular invasion: Not identified. 5. Stage: pT1b, pN0(sn). 6. Biomarkers: ER, NV, and HER2 positive (previously performed on [id number]). - Ductal carcinoma in situ, with the [...] negative for malignancy (0/3). 09/04/2020 9:20 AM T [facility] [employer] [facility] S DESCRIPTION Received are two containers labeled [...] posterior; A3-A4-level 2; A5-A6-level 3; A7-A9-level 4; V94-P39-sfrxq 5; A13-A 15-level 6; 16-A 18-level 7; [...] lymph nodes bisected; B2-1 lymph node trisected; M6-Z4-itrgdvs lymph node trisected. 09/04/2020 9:20 AM [facility] [employer] [facility] MICROSCOPIC DESCRIPTION The slides are labeled [id number] and Angeline Caraballo. The lumpectomy specimen shows [...] Cytokeratin immunostains are negative. 09/04/2020 9:20 AM [facility] [employer] [facility] OPERATIVE PROCEDURE BREAST LUMPECTOMY SENTINEL LYMPH NODE BIOPSY 09/04/2020 9:20 AM [facility] CLINICAL INFORMATION Invasive ductal carcinoma of breast, female, right [C50.911] C50.911-Invasive ductal carcinoma of breast, female, right 09/04/2020 9:20 AM [facility] SYNOPTIC REPORT INVASIVE CARCINOMA OF THE [...] Lymph Nodes Examined: ?3 ? Number of [place] Nodes Examined: ?3 PATHOLOGIC STAGE CLASSIFICATION (pTNM, AJCC 8th Edition) ? Primary Tumor (pT): ?pT1b ?? Regional Lymph Nodes Modifier: ?(sn): [place] node(s) evaluated. ?? Regional Lymph Nodes (pN): ?pN0 09/04/2020 9:20 AM T [facility] COMMENT Special stain and/or immunohistochemical results are interpreted with controls that demonstrate appropriate staining reactions. Note on use of immunocytochemistry reagents: This test was developed and its performance characteristics determined by [facility], Department of Laboratory Medicine. [...] part or completely in the following laboratories: [facility], CLIA #[id number] [address] [place] [address] [facility], [place] #[id number] [address] [place] [address] [facility]/[place], [place] #[id number] [address] [place] [address]. 09/04/2020 9:20 AM T [facility] Tissue RIGHT BREAST STRUCTURE / Unknown Collection / Unknown 08/28/2020 1:05 PM CDT 08/29/2020 7:14 AM CDT Tissue specimen (specimen) ([place] Lymph Node) Collection / Unknown 08/28/2020 1:20 PM CDT 08/29/2020 7:14 AM CDT Paula Bae MD PATHOLOGY/CYTOLOGY O [place] [facility]OR[facility]ORY SERVICES - [facility]# [id number] [address] [place] [address] * BASIC METABOLIC PANEL (08/28/2020 10:54 AM CDT) SODIUM 141 136 - 145 mmol/L 08/28/2020 12:33 PM CDT [employer] LABORATORY SERVICES - . MARK POTASSIUM 4.3 3.5 - 5.0 mmol/L 08/28/2020 12:33 PM CDT [facility] SERVICES - . [facility] CHLORIDE 104 98 - 107 mmol/L 08/28/2020 12:33 PM CDT [employer] LABORATORY SERVICES - . MARK CO2 27 22 - 29 mmol/L 08/28/2020 12:33 PM T [facility]ORY SERVICES - . MARK CALCIUM 9.3 8.6 - 10.2 mg/dL 08/28/2020 12:33 PM T [facility]OR[facility]ORY SERVICES - . MARK BUN 8 6 - 20 mg/dL 08/28/2020 12:33 PM T [facility]OR[facility]ORY SERVICES - . [facility] CREATININE 0.60 0.51 - 0.95 mg/dL 08/28/2020 12:33 PM T [facility] - . [facility] GLUCOSE 99 74 - 99 mg/dL 08/28/2020 12:33 PM T [employer] LABORATORY SERVICES - . [facility] GFR >60 >=60 mL/min/1.7 3 sq meter 08/28/2020 12:33 PM T [employer] LABORATORY SERVICES - [facility] Comment: eGFR has not been validated for [...] 3 sq meter 08/28/2020 12:33 PM CDT [facility] LABORATORY SERVICES [facility] ANION GAP 10 8 - 16 mmol/L 08/28/2020 12:33 PM CDT [facility]OR[facility]ORY SERVICES [facility] Blood Venipuncture / Unknown 08/28/2020 10:54 AM CDT 08/28/2020 11:55 AM CDT Augustin Brantley MD CHEMISTRY ORDERABLES Performing Organization Address [facility]/ZIP Co de Phone Number [facility] [employer] [facility]# [id number] [address] [place] [address] * (ABNORMAL) POC GLUCOSE (08/28/2020 9:22 AM CDT) GLUCOSE POC 102(H) 74 - 99 mg/dL 08/28/2020 9:22 AM CDT [facility] SERVICES [facility] COMMENT, GLU POC Notified RN/MD 08/28/2020 9:22 AM T [facility] HOME BASED ASSISTANT NAME POC DEJA Chau 08/28/2020 9:22 AM CDT [facility] SERVICES [facility] Blood, whole 08/28/2020 9:22 AM CDT 08/28/2020 9:33 AM CDT Paula Bae MD POINT OF CARE TESTIN G Performing Organization Address [facility]/ZIP Co de Phone Number [facility] [employer] [facility]# [id number] [address] [place] [address] documented in this encounter Visit Diagnoses Diagnosis [...] Until Thu08/28/20 at 1810, Pain, Routine, PACU lactated ringers infusion IV, at 150 mL/hr, [...] Given 08/28/2020 3:12 PM CDT 5 mg documented in this encounter Active and Recently [...] procedure. If yes, confirm with the anesthesia provider/seo team lead and/or the acute pain/regional analgesia service (if applicable) that the planned procedure has been completed prior to administration., Pre-op documented in this encounter Care Teams Reimbursement Auditor Relationship Specialty Start Date End Date Steven Lizama MD [address] [place] [phone] PCP - General Emergency Medicine 08/13/20 documented as of this encounter
--- OUTSIDE RECORDS SUMMARY | 2024-05-25 00:15 | XMS_ITS | Encounter Summary ---
Author Organization [facility] Address [address] [place] [address] Care Team Providers Care Aadc Plans Staff Officer Name Role Phone Steven Lizama MD Primary Care Provider [phone] Encounter Details Date Type Department Care Team (Late st Contact Info) Description 09/13/2020 Chart Note [facility] Radiation Therapy [address] [place] [address] [place] [address] [place] [address] Social History Tobacco Use Types Packs/Day Years [...] on filedocumented in this encounter Care Teams Aadc Plans Staff Officer Relationship Specialty Start Date End Date Steven Lizama MD [address] [place] [phone] PCP - General Emergency Medicine 08/13/20 documented as of this encounter
--- OUTSIDE RECORDS SUMMARY | 2024-05-25 00:15 | XMS_ITS | Encounter Summary ---
Author Organization [facility] Address [address] [place] [address] Care Team Providers Care Slunk Skinner Name Role Phone Steven Lizama MD Primary Care Provider [phone] Encounter Details Date Type Department Care Team (Late st Contact Info) Description 08/25/2022 Orders Only [facility] Breast Surgery [facility] - [address] [address] [facility] [address] [place] [address] [place] [address] [facility] [address] [place] [address] Malignant neoplasm of lower-inner quadrant [...] as of this encounter Progress Notes * Juana Nelson RN - 08/25/2022 8:58 AM CDT [facility] scheduling called asking for an US order to go with the mammogram order. States that the [facility] performs the appointments this way and it will need to be entered to be scheduled. Order placed. documented in this encounter Plan of Treatment Not on file documented as of this encounter Visit Diagnoses Diagnosis Malignant neoplasm of lower-inner quadrant of right breast of female, estrogen receptor positive- Primary documented in this encounter Care Teams Slunk Skinner Relationship Specialty Start Date End Date Steven Lizama MD [address] [place] [phone] PCP - General Emergency Medicine 08/13/20 documented as of this encounter
--- OUTSIDE RECORDS SUMMARY | 2024-05-25 00:15 | XMS_ITS | Clinical Summary ---
Author Organization [facility] [place] Address [address] [place] [address] Phone Care Team Providers Care Federal Judicial Law Clerk Name Role Phone Steven Lizama MD Primary Care Provider Allergies No known active allergies Medications Medication Sig Dispensed Refills Start Date End Date Status simvastatin (ZOCOR) 20 mg tablet Take 20 mg by mouth daily at bedtime. 06/29/2020 Active metFORMIN (GLUCOPHAGE) 500 mg tablet Take 500 mg by mouth daily with breakfast. 06/29/2020 Active amLODIPine (NORVASC) 10 mg tablet 06/12/2022 Active carvediloL (COREG) 12.5 mg tablet 06/11/2022 Active Active Problems Patient Care Coordination No te Formatting of this note migh t be different from the original. Primary Care: Steven Lizama MD Referring Provider: No referring provider defined for this encounter. Other: Dr Paula Bae MD Problem Noted Date Diagnosed Date Malignant neoplasm of lower- inner quadrant of right breast of female, estrogen receptor positive 09/11/2020 Tobacco use 08/13/2020 Diabetes mellitus HTN (hypertension) Hyperlipidemia Family History Medical History Relation Name Comments Breast Cancer Mother Cancer Mother Relation Name Status Comments Mother Social History Tobacco Use Types Packs/Day Years [...] Comments Blood Pressure 155/87 07/09/2022 10:29 AM DIRECTOR AUDIENCE MARKETING Pulse 79 07/09/2022 10:27 AM DIRECTOR AUDIENCE MARKETING Temperature 36.7 ??C (98 ??F) 07/09/2022 10:27 AM DIRECTOR AUDIENCE MARKETING Respiratory Rate 16 08/28/2020 4:03 PM CDT Oxygen Saturation 100% 07/09/2022 10:27 AM DIRECTOR AUDIENCE MARKETING Inhaled Oxygen Concentration - - Weight 95.3 kg (210 lb) 07/09/2022 10:29 AM DIRECTOR AUDIENCE MARKETING Height 152.4 cm (5') 07/09/2022 10:29 AM DIRECTOR AUDIENCE MARKETING Body Mass Index 41.01 07/09/2022 10:29 AM DIRECTOR AUDIENCE MARKETING Plan of Treatment Health Maintenance Due Date Last Done Comments PNEUMOCOCCAL VACCINE 0-64 YE ARS (1 of 2 - PCV) 10/20/1967 DIABETES ANNUAL FOOT EXAM 10/20/1979 DIABETES ANNUAL RETINAL EXAM 10/20/1979 DIABETES HBA1C Q 6 MONTHS 10/20/1979 DIABETES MICROALBUMIN ANNUAL SCREEN 10/20/1979 LDL CHOLESTEROL ANNUAL 10/20/1979 DTAP/TDAP/TD VACCINES (1 - Tdap) 1980 CERVICAL CANCER SCREENING 10/20/1991 COLORECTAL SCREENING 2006 Colorectal Cancer Screening 2006 FIT-DNA Q 3 years 2006 FIT/FOBT Q 1 year 2006 Flex Sig/CT Colonography Q 5 years 2006 ZOSTER VACCINE (1 of 2) 10/20/2011 BREAST CANCER SCREENING 09/04/2023 09/04/19, 07/23/2020, 06/29/2020 INFLUENZA VACCINE (#1) 2024 RSV VACCINE (60+ or ) (1 - 1-dose 75+ series) 2036 Medical Devices Implanted Type Area Assistant Quality Manager Device Identifier Shelf Expiration Date Model / Serial / Lot [employer] [employer] Clip Surgiclip Iii Ti Chandan Sm 9 [id number] - [id number] Implanted:Qty : 1 on 08/28/2020 by Paula Bae MD at [facility] Clip Right: Breast [employer] - [employer] [id number] 03/07/2025 [id number] / / [id number] Hemostatic Surgiflo 8ml W/Thrombin [id number] - [id number] Implanted:Qty : 1 on 08/28/2020 by Paula Bae MD at [facility] Right: Breast [employer] 12/05/2021 [id number] / / [id number] Procedures Procedure Name Priority Date/Time Associated Diagnosis Comments MAMMO DIAG BILAT 3D REBA W OR WO CAD Routine 09/03/2022 10:27 AM CDT Malignant neoplasm of lower-inner quadrant of right breast of female, estrogen receptor positive from Last 3 Months or Most Recently Relevant to Health Maintenance Results * (ABNORMAL) MAMMO DIAG BILAT 3D [...] The patient has been informed. DICTATION LOCATION: [facility] Narrative 09/03/2022 1:16 PM CDT EXAM: 1. [...] The patient has been informed. DICTATION LOCATION: [facility] Paula Bae MD MAMMO ORDERABLES from Last 3 Months or Most Recently Relevant to Health Maintenance Care Teams Federal Judicial Law Clerk Relationship Specialty Start Date End Date Steven Lizama MD [address] [place] [phone] PCP - General Emergency Medicine 08/13/20
--- OUTSIDE RECORDS SUMMARY | 2024-05-25 00:15 | XMS_ITS | Encounter Summary ---
Author Organization [facility] Address [address] [facility] Attn: Epic Prelude ADT [place] [address] Care Team Providers Care Clinical Program Consultant Name Role Phone Steven Lizama MD Primary Care Provider [phone] Encounter Details Date Type Department Care Team (Latest Contact Info) Description 09/15/2022 Travel Social History Tobacco Use Types Packs/Day [...] on filedocumented in this encounter Care Teams Clinical Program Consultant Relationship Specialty Start Date End Date Steven Lizama MD [address] [place] [phone] PCP - General Emergency Medicine 08/13/20 documented as of this encounter
--- OUTSIDE RECORDS SUMMARY | 2024-05-25 00:16 | XMS_ITS | Encounter Summary ---
Author Organization [facility] Address [address] [place] [address] Care Team Providers Care Ice Skating Teacher Name Role Phone Steven Lizama MD Primary Care Provider [phone] Reason for Visit * Reason Comments Nurse Navigation Encounter Details Date Type Department Care Team ([facility] st Contact Info) Description 08/22/2020 Chart Note [facility] Oncology Patient Navigation [address] [place] [address] Angeline Saunders, RN Nurse Navigation Social History [...] COVID-19? No / Unsure 08/17/2020 1:08 PM SHIP PILOT DISPATCHER documented as of this encounter Progress Notes * Angeline Saunders RN - 08/22/2020 11:00 AM CDT Navigation Assessment Note Called pt and left message on voice mail introducing self. Will reach back out prior to lumpectomy to check on patient and give introduction to Navigation. Pt has contact info for this RN and will reach out with any non-emergent needs. This RN to follow up. Eileen Saunders RN, Nurse Navigator documented in this encounter Plan of Treatment Not on file documented as of this encounter Visit Diagnoses Not on filedocumented in this encounter Care Teams Ice Skating Teacher Relationship Specialty Start Date End Date Steven Lizama MD [address] [place] [phone] PCP - General Emergency Medicine 08/13/20 documented as of this encounter
--- OUTSIDE RECORDS SUMMARY | 2024-05-25 00:16 | XMS_ITS | Encounter Summary ---
Author Organization [facility] Address [address] [place] [address] Care Team Providers Care Meat Boner And Slicer Name Role Phone Steven Lizama MD Primary Care Provider [phone] Reason for Referral * Laboratory Services (Routine) - Closed Specialty Diagnoses / Procedures Referred By Annalise t Referred To Contact Diagnoses Invasive ductal carcinoma of breast, female, right Procedures BRCA1/[place] [address] [place] [address] Referral ID Status Reason Start Date Expiration Date Visits Re quested Visits Authorized [id number] Closed 08/13/2020 09/13/2021 1 1 [facility] Encounter Details Date Type Department Care Team (Late st Contact Info) Description 08/13/2020 Orders Only [facility] BREAST SURGERY - [place] [facility] [address] [place] [phone] [place] [address] [place] [address] Invasive ductal carcinoma of breast, female, right (Primary Dx) Social History Tobacco Use Types [...] have Coronavirus / COVID-19? No / Unsure 08/16/2020 10:56 AM DIRECTOR MEDICAL AFFAIRS documented as of this encounter Plan of Treatment Not on file documented as of this encounter Procedures Procedure Name Priority Date/Time Associated Diagnosis Comments BRCA1/BRCA2 Routine 08/23/2020 Invasive ductal carcinoma of breast, female, right documented in this encounter Results * BRCA1/BRCA2 (08/23/2020) Blood Paula Bae MD CHEMISTRY ORDERABLES NON [facility] * (ABNORMAL) CBC WITH DIFFERENTIAL (08/13/2020 3:59 PM DIRECTOR MEDICAL AFFAIRS) WBC 12.4(H) 4.0 - 9.8 K/uL 08/13/2020 7:29 PM DIRECTOR MEDICAL AFFAIRS [employer] [facility] RBC 5.08(H) 3.90 - 4.90 M/uL 08/13/2020 7:29 PM DIRECTOR MEDICAL AFFAIRS [employer] [facility] HEMOGLOBIN 14.2 11.8 - 14.8 g/dL 08/13/2020 7:29 PM DIRECTOR MEDICAL AFFAIRS [employer] [facility] HEMATOCRIT 46.6(H) 35.5 - 44.0 % 08/13/2020 7:29 PM DIRECTOR MEDICAL AFFAIRS [employer] [facility] MCV 91.7 82.0 - 99.0 fL 08/13/2020 7:29 PM DIRECTOR MEDICAL AFFAIRS [employer] [facility] MCH 28.0 27.2 - 32.6 pg 08/13/2020 7:29 PM DIRECTOR MEDICAL AFFAIRS [employer] [facility] MCHC 30.5(L) 31.5 - 35.5 g/dL 08/13/2020 7:29 PM DIRECTOR MEDICAL AFFAIRS [employer] [facility] RDW 13.1 11.5 - 14.5 % 08/13/2020 7:29 PM DIRECTOR MEDICAL AFFAIRS [employer] [facility] RDW-STDEV 44.1 37.1 - 48.7 fL 08/13/2020 7:29 PM DIRECTOR MEDICAL AFFAIRS [employer] [facility] PLATELETS 419(H) 140 - 350 K/uL 08/13/2020 7:29 PM [facility] [employer] LABORATORY SERVICES [facility] MPV 11.2 9.3 - 12.4 fL 08/13/2020 7:29 PM [facility] NEUTROPHILS 57 % 08/13/2020 7:29 PM [facility] [employer] [facility] LYMPHOCYTES 35 % 08/13/2020 7:29 PM [facility] [employer] [facility] MONOCYTES 5 % 08/13/2020 7:29 PM [facility] [employer] [facility] EOSINOPHILS 2 % 08/13/2020 7:29 PM DIRECTOR MEDICAL AFFAIRS [employer] [facility] BASOPHILS 1 % 08/13/2020 7:29 PM [facility] [employer] [facility] IMMATURE GRANULOCYTES 1 % 08/13/2020 7:29 PM [facility] [employer] [facility] Comment:IG (Immature Granulo cyte) count includes Metamyelocytes, Myelocytes, and Promyelocytes NEUTROPHIL ABSOLUTE 7.10(H) 1.90 - 7.00 K/uL 08/13/2020 7:29 PM [facility] [employer] [facility] LYMPHOCYTE ABSOLUTE 4.34 0.70 - 4.50 K/uL 08/13/2020 7:29 PM [facility] [employer] [facility] MONOCYTE ABSOLUTE 0.57 0.10 - 1.30 K/uL 08/13/2020 7:29 PM DIRECTOR MEDICAL AFFAIRS [employer] [facility] EOSINOPHIL ABSOLUTE 0.27 0.00 - 0.70 K/uL 08/13/2020 7:29 PM DIRECTOR MEDICAL AFFAIRS [employer] [facility] BASOPHILS ABSOLUTE 0.10 0.00 - 0.20 K/uL 08/13/2020 7:29 PM DIRECTOR MEDICAL AFFAIRS [employer] [facility] IMMATURE GRANULOCYTES ABSOLUTE 0.06(H) 0.00 - 0.03 K/uL 08/13/2020 7:29 PM [facility] [employer] [facility] Blood Venipuncture / Unknown 08/13/2020 3:59 PM DIRECTOR MEDICAL AFFAIRS 08/13/2020 3:59 PM DIRECTOR MEDICAL AFFAIRS Paula Bae MD [facility]OLOGY [facility]ABLE [facility]# [id number] [address] [place] [address] documented in this encounter Visit Diagnoses Diagnosis Invasive ductal carcinoma of breast, female, right- Primary documented in this encounter Care Teams Meat Boner And Slicer Relationship Specialty Start Date End Date Steven Lizama MD [address] [place] [phone] PCP - General Emergency Medicine 08/13/20 documented as of this encounter
--- OUTSIDE RECORDS SUMMARY | 2024-05-25 00:16 | XMS_ITS | Encounter Summary ---
Author Organization [facility] Address [address] [place] [address] Care Team Providers Care Class B Truck Driver Name Role Phone Unavailable Primary Care Provider Unavailabl e Encounter Details Date Type Department Care Team (Latest Contact Info) Description 07/23/2020 10:10 AM PYTHON ENGINEER - 07/23/2020 11:59 PM PYTHON ENGINEER Hospital Encounter [facility] [address] [place] [address] [facility], External Provider [address] [place] [address] Discharge Disposition: Home or Self Care Social [...] mg by mouth daily with breakfast. 06/29/2020 ergocalciferol (VITAMIN D2) 50,000 unit capsule TAKE 1 CAPSULE BY MOUTH WEEKLY 05/31/2020 07/09/2022 amLODIPine (NORVASC) 5 mg tablet Take 5 mg by mouth daily. 07/01/2020 07/09/2022 documented as of this encounter Plan of Treatment Not on file documented as of this encounter Procedures Procedure Name Priority Date/Time Associated Diagnosis Comments MAMMO PRIOR STUDY Routine 07/23/2020 10: 10 AM PYTHON ENGINEER Equivocal imaging test findings documented in this encounter Results * MAMMO PRIOR STUDY (07/23/2020 10:10 AM PYTHON ENGINEER) Narrative 09/03/2022 10:04 AM CDT This exam was auto finalized to allow images to be scanned to PACS. External Provider [facility] DIAGNOSTIC IMAGIN G ORDERABLES documented in this encounter Visit Diagnoses Diagnosis Equivocal imaging test findings Other nonspecific (abnormal) findings on radiological and other examinations of body structure documented in this encounter
--- OUTSIDE RECORDS SUMMARY | 2024-05-25 00:16 | XMS_ITS | Encounter Summary ---
Author Organization [facility] Address [address] [place] [address] Care Team Providers Care Tie Binder Name Role Phone Steven Lizama MD Primary Care Provider [phone] Reason for Visit * Reason Comments Cancer Talk right breast invasiv e ductal carcinoma Encounter Details Date Type Department Care Team (Late st Contact Info) Description 08/13/2020 2:45 PM PROCESS ASSISTANT Office Visit [facility] BREAST SURGERY - [place] [facility] [address] [place] [address] [place] [address] [place] [address] Malignant neoplasm of right female breast, unspecified estrogen receptor status, unspecified site of breast (Primary Dx); Essential hypertension; Pure hypercholesterolemia ; Tobacco use Social History Tobacco Use Types Packs/Day Years [...] have Coronavirus / COVID-19? No / Unsure 08/13/2020 1:48 PM PROCESS ASSISTANT documented as of this encounter Last Filed Vital Signs Vital Sign Reading Time Taken Comments Blood Pressure 154/86 08/13/2020 2:54 PM PROCESS ASSISTANT Pulse - - Temperature - - Respiratory Rate - - Oxygen Saturation - - Inhaled Oxygen Concentration - - Weight 94.8 kg (209 lb) 08/13/2020 2:54 PM PROCESS ASSISTANT Height 157.5 cm (5' 2 ) 08/13/2020 2:54 PM PROCESS ASSISTANT Body Mass Index 38.23 08/13/2020 2:54 PM PROCESS ASSISTANT documented in this encounter Progress Notes * Paula Bea MD - 08/13/2020 2:53 PM CST PATIENT: Angeline Caraballo : 1960 DATE: 08/13/2020 Stage: Clinical Stage I Date of diagnosis: 07/2020 Diagnosis: Right breast cancer Surgeon: Paula Bae MD CHIEF COMPLAINT: Newly diagnosed right breast cancer HISTORY OF PRESENT ILLNESS: Angeline Caraballo is a 59 y.o. female who presents to clinic for evaluation and recommendations regarding a newly diagnosed right breast cancer. Ms. Ponce states that the area was discovered on her annual mammogram. She denies any masses, skin changes, or nipple discharge. Menarche age 14 Menopausal age 29 No oral contraceptive pills. No hormone replacement therapy No previous breast biopsies No chest wall radiation Family history of mother with breast cancer age 69. PMH: Past Medical History: Diagnosis Date ??? Diabetes mellitus ??? HTN (hypertension) ??? Hyperlipidemia PSH: Past Surgical History: Procedure Laterality Date ??? HX HERNIA REPAIR ??? HX HYSTERECTOMY ALLERGY: No Known Allergies MEDS: Current Outpatient Medications Medication Sig Dispense Refill ??? simvastatin (ZOCOR) 20 mg tablet ??? metFORMIN (GLUCOPHAGE) 500 mg tablet ??? ergocalciferol (VITAMIN D2) 50,000 unit capsule TAKE 1 CAPSULE BY MOUTH WEEKLY ??? amLODIPine (NORVASC) 5 mg tablet No current facility-administered medications for this visit. FHX: Family History Problem Relation Name Age of Onset ??? Breast Cancer Mother 69 ??? Cancer Mother SOC: Social History Socioeconomic History ??? Marital status: Not on file Spouse name: Not on file ??? Number of children: Not on file ??? Years of education: Not on file ??? Highest education level: Not on file Occupational History ??? Not on file Social Needs ??? Financial resource strain: Not on file ??? Food insecurity Worry: Not on file Inability: Not on file ??? Transportation needs Medical: Not on file Non-medical: Not on file Tobacco Use ??? Smoking status: Current Every Day Smoker Packs/day: 1.00 Types: Cigarettes ??? Smokeless tobacco: Never Used Substance and Sexual Activity ??? Alcohol use: Never Frequency: Never ??? Drug use: Never ??? Sexual activity: Not on file Lifestyle ??? Physical activity Days per week: Not on file Minutes per session: Not on file ??? Stress: Not on file Relationships ??? Social connections Talks on phone: Not on file Gets together: Not on file Attends druze service: Not on file Active member of club or organization: Not on file Attends meetings of clubs or organizations: Not on file Relationship status: Not on file ??? Intimate partner violence Fear of current or ex partner: Not on file Emotionally abused: Not on file Physically abused: Not on file Forced sexual activity: Not on file Other Topics Concern ??? Not on file Social History Narrative Age @ onset of menses:14 Age @ first live :29 ROS: Constitutional: Negative for fever, weight loss and malaise/fatigue. Respiratory: Negative for cough. Cardiovascular: Negative for chest pain and leg swelling. Gastrointestinal:. Negative for abdominal pain. Genitourinary: Negative for dysuria. Musculoskeletal: Negative for myalgias and joint pain. Skin: Negative for rash. Neurological: Negative for dizziness and headaches. Psychiatric/Behavioral: Negative for depression Female: OB History No obstetric history on file. The remainder of the review of systems including cardiovascular, pulmonary, GI/, neurologic, and endocrine are negative except as noted above. Immunizations: non-contributory PHYSICAL EXAM: Vitals: 08/13/20 1454 BP: (!) 154/86 LMP (LMP Unknown) General: well-developed, well-nourished HEENT: normocephalic/atraumatic. Extra-occular movements are intact. Sclera anicteric. Neck is supple without masses. Mask in place. No lymphadenopathy. Cardiovascular: Regular rate Lungs - normal respiratory effort Abdomen: Soft, non-tender. Non distended. No masses. Extremities: Equal range of motion Neurologic: sensory and motor grossly intact. Alert and oriented x 3. Breasts: Examined in upright and supine position. Breast symmetric. Breast size DDD. Nipples are everted. Nipples are of normal caliber and projection. No masses, skin changes, or nipple discharge. Biopsy site right breast 2 o'clock ravindra-areolar healing well Lymphatics: no axillary, cervical, or supraclavicular adenopathy IMAGING: I personally reviewed imaging dated: 07/23/20 Bilateral diagnostic mammogram/right breast ultrasound. BIRADS IV. 6 mm hypoechoic mass right breast 6 o'clock PATHOLOGY: 08/01/20 Right breast core biopsy. Invasive ductal carcinoma, Moore[place] score Grade 1, receptors pending. ASSESSMENT AND PLAN: 59 y/o F with newly diagnosed right breast cancer, Clinical Stage I (T1, N0, M0), receptors pending. -I personally reviewed the imaging and pathology results with the patient. -Breast cancer treatment occurs along two fronts, local and systemic. The multidisciplinary treatment of breast cancer was reviewed including surgery, radiation, chemotherapy, endocrine therapy, genetics, and reconstruction. Likewise the surgical treatments of breast cancer were also reviewed including breast conservation with lumpectomy and adjuvant radiation, total mastectomy, skin/nipple sparing mastectomy with immediate reconstruction with plastic surgery with tissue motocross racer/implant/autologous tissue, sentinel lymph node biopsy, and axillary lymph node dissection. Clinically, Ms. Caraballo is a candidate for breast conservation and is interested in breast conservation. She is amenable to adjuvant radiation. There is no survival difference between breast conservation and mastectomy. Will plan for right breast needle localized lumpectomy with Biozorb marker placement for improved radiation accuracy and sentinel lymph node biopsy for axillary staging. -The risks, benefits, and alternatives to the procedure including, but not limited to, bleeding, infection, hematoma, seroma, cosmetic alteration, paresthesias, lymphedema, neurovascular injury, and need for further surgery or procedures were discussed with Ms. Caraballo and she consents to the procedure. -CBC pre-op -Genetic testing. -All patient questions encouraged and answered to her satisfaction. She is encouraged to call, message, or return to clinic if any additional questions or concerns. Paula Bae MD cc: Steven Lizama MD ESS ASSISTANT documented in this encounter Plan of Treatment Not on file documented as of this encounter Visit Diagnoses Diagnosis Malignant neoplasm of right female breast, unspecified estrogen receptor status, unspecified site of breast- Primary Essential hypertension Unspecified essential hypertension Pure hypercholesterolemia Tobacco use Tobacco use disorder documented in this encounter Care Teams Tie Binder Relationship Specialty Start Date End Date Steven Lizama MD [address] [place] [phone] PCP - General Emergency Medicine 08/13/20 documented as of this encounter
--- OUTSIDE RECORDS SUMMARY | 2024-05-25 00:16 | XMS_ITS | Encounter Summary ---
Author Organization [facility] Address [address] [place] [address] Care Team Providers Care Retail Interior Designer Name Role Phone Unavailable Primary Care Provider Unavailabl e Encounter Details Date Type Department Care Team (Latest Contact Info) Description 06/29/2020 10:05 AM ELECTRICAL ENGINEERING DRAFTSPERSON - 06/29/2020 11:59 PM ELECTRICAL ENGINEERING DRAFTSPERSON Hospital Encounter [facility] [address] [place] [address] [facility], External Provider [address] [place] [address] Discharge Disposition: Home or Self Care Social [...] 1 CAPSULE BY MOUTH WEEKLY 05/31/2020 07/09/2022 documented as of this encounter Plan of Treatment Not on file documented as of this encounter Procedures Procedure Name Priority Date/Time Associated Diagnosis Comments MAMMO PRIOR STUDY Routine 06/29/2020 10: 05 AM ELECTRICAL ENGINEERING DRAFTSPERSON Equivocal imaging test findings documented in this encounter Results * MAMMO PRIOR STUDY (06/29/2020 10:05 AM ELECTRICAL ENGINEERING DRAFTSPERSON) Narrative 09/03/2022 10:04 AM CDT This exam was auto finalized to allow images to be scanned to PACS. External Provider [facility] DIAGNOSTIC IMAGIN G ORDERABLES documented in this encounter Visit Diagnoses Diagnosis Equivocal imaging test findings Other nonspecific (abnormal) findings on radiological and other examinations of body structure documented in this encounter
--- OUTSIDE RECORDS SUMMARY | 2024-05-25 00:16 | XMS_ITS | Encounter Summary ---
Author Organization [facility] Address [address] [facility] Attn: Epic Prelude ADT [place] [address] Care Team Providers Care Retail Department Supervisor Name Role Phone Steven Lizama MD Primary Care Provider [phone] Encounter Details Date Type Department Care Team (Latest Contact Info) Description 08/16/2020 Travel Social History Tobacco Use Types Packs/Day [...] COVID-19? No / Unsure 08/16/2020 10:56 AM BRUSH OR BROOM CUTTER documented as of this encounter Plan of Treatment Not on file documented as of this encounter Visit Diagnoses Not on filedocumented in this encounter Care Teams Retail Department Supervisor Relationship Specialty Start Date End Date Steven Lizama MD [address] [place] [phone] PCP - General Emergency Medicine 08/13/20 documented as of this encounter
--- OUTSIDE RECORDS SUMMARY | 2024-05-25 00:16 | XMS_ITS | Encounter Summary ---
Author Organization [facility] Address [address] [facility] Attn: Epic Prelude ADT [place] [address] Care Team Providers Care Sand Slinger Name Role Phone Steven Lizama MD Primary Care Provider Encounter Details Date Type Department Care Team (Latest Contact Info) Description 08/13/2020 Travel Social History Tobacco Use Types Packs/Day [...] COVID-19? No / Unsure 08/13/2020 1:48 PM SUSTAINABLE DESIGN COORDINATOR documented as of this encounter Plan of Treatment Not on file documented as of this encounter Visit Diagnoses Not on filedocumented in this encounter Care Teams Sand Slinger Relationship Specialty Start Date End Date Steven Lizama MD [address] [place] [phone] PCP - General Emergency Medicine 08/13/20 documented as of this encounter
--- OUTSIDE RECORDS SUMMARY | 2024-05-25 00:16 | XMS_ITS | Encounter Summary ---
Author Organization [facility] Address [address] [facility] Attn: Epic Prelude ADT [place] [address] Care Team Providers Care Communications Agent Name Role Phone Steven Lizama MD Primary Care Provider [phone] Encounter Details Date Type Department Care Team (Latest Contact Info) Description 08/17/2020 Travel Social History Tobacco Use Types Packs/Day [...] COVID-19? No / Unsure 08/17/2020 1:08 PM COLLAR SHAPER OPERATOR documented as of this encounter Plan of Treatment Not on file documented as of this encounter Visit Diagnoses Not on filedocumented in this encounter Care Teams Communications Agent Relationship Specialty Start Date End Date Steven Lizama MD [address] [place] [phone] PCP - General Emergency Medicine 08/13/20 documented as of this encounter
--- OUTSIDE RECORDS SUMMARY | 2024-05-25 00:16 | XMS_ITS | Encounter Summary ---
Author Organization [facility] Address [address] [place] [address] Care Team Providers Care Annual Giving Officer Name Role Phone Unavailable Primary Care Provider Unavailabl e Encounter Details Date Type Department Care Team (Latest Contact Info) Description 07/23/2020 10:05 AM GAMEPLAY ENGINEER - 07/23/2020 11:59 PM GAMEPLAY ENGINEER Hospital Encounter [facility] [address] [place] [address] [facility], External Provider [address] [place] [address] Discharge Disposition: Home or Self Care Social [...] Comments MAMMO PRIOR STUDY Routine 07/23/2020 10: 05 AM GAMEPLAY ENGINEER Equivocal imaging test findings documented in this encounter Results * MAMMO PRIOR STUDY (07/23/2020 10:05 AM GAMEPLAY ENGINEER) Narrative 09/03/2022 10:03 AM CDT This exam was auto finalized to allow images to be scanned to PACS. External Provider [facility] DIAGNOSTIC IMAGIN G ORDERABLES documented in this encounter Visit Diagnoses Diagnosis Equivocal imaging test findings Other nonspecific (abnormal) findings on radiological and other examinations of body structure documented in this encounter
--- OUTSIDE RECORDS SUMMARY | 2024-05-25 00:16 | XMS_ITS | Encounter Summary ---
Author Organization [facility] Address [address] [place] [address] Care Team Providers Care Mechanical Piping Designer Name Role Phone Steven Lizama MD Primary Care Provider [phone] Reason for Referral * Radiology Services (Routine) - Closed Specialty Diagnoses / Procedures Referred By Annalise koo Referred To Contact Diagnoses Invasive ductal carcinoma of breast, female, right Procedures MAMMO US GUIDE NEEDLE PLACEMENT MAMMO [place] [address] [place] [address] Referral ID Status Reason Start Date Expiration Date V isits Requested Visits Authorized [id number] Closed Ordering Dept to Review 08/14/2020 09/14/2021 1 1 GE ATTENDANT * Radiology Services (Routine) - Closed Specialty Diagnoses / Procedures Referred By Annalise koo Referred To Contact Nuclear Medicine Diagnoses Invasive ductal carcinoma of breast, female, right Procedures [place] [address] [place] [address] Referral ID Status Reason Start Date Expiration Date V isits Requested Visits Authorized [id number] Closed Ordering Dept to Review 08/14/2020 09/14/2021 1 1 GE ATTENDANT * Radiology Services (Routine) - Closed Specialty Diagnoses / Procedures Referred By Contac t Referred To Contact Diagnoses Invasive ductal carcinoma of breast, female, right Procedures MAMMO POST [place] [address] [place] [address] Referral ID Status Reason Start Date Expiration Date Visits Re quested Visits Authorized [id number] Closed 08/14/2020 09/14/2021 1 1 GE ATTENDANT Encounter Details Date Type Department Care Team (Late st Contact Info) Description 08/14/2020 Prep for Surgery [facility] BREAST SURGERY - [place] [address] [place] [address] [place] [address] [place] [address] Invasive ductal carcinoma of breast, [...] COVID-19? No / Unsure 08/17/2020 1:08 PM CHARGE ATTENDANT documented as of this encounter Plan of Treatment Not on file documented as of this encounter Results * NM LYMPHOSCINTIGRAPHY (08/28/2020 11:25 AM CDT) Anatomical Region Laterality Modality Nuclear Medicine 08/28/2020 11:2 7 AM CDT Impressions 08/28/2020 11:31 AM CDT IMPRESSION: ??[place] lymph node identified. Dictated by Dr. Glenn Miranda MD DICTATION LOCATION: 1 Narrative 08/28/2020 11:31 AM CDT SENTINEL LYMPH NODE IMAGING DATE: 08/28/2020 11:25 AM HISTORY: Invasive ductal carcinoma involving the 6:00 position of the right breast. PROCEDURE: Skin preparation with chloraprep wipes. Technetium Lymphoseek was injected as 2 intradermal injections around the periareolar region. [place] lymph node in the axilla identified. RADIOPHARMACEUTICAL: 0.52 mCi 99m-Technetium Lymphoseek INCIDENTAL FINDINGS: ??None. Procedure Note Glenn Miranda MD - 08/28/2020 SENTINEL LYMPH NODE IMAGING DATE: 08/28/2020 11:25 AM HISTORY: Invasive ductal carcinoma involving the 6:00 position of the right breast. PROCEDURE: Skin preparation with chloraprep wipes. Technetium Lymphoseek was injected as 2 intradermal injections around the periareolar region. [place] lymph node in the axilla identified. RADIOPHARMACEUTICAL: 0.52 mCi 99m-Technetium Lymphoseek INCIDENTAL FINDINGS: None. IMPRESSION: [place] lymph node identified. Dictated by Dr. Glenn Miranda MD DICTATION LOCATION: 1 Paula Bae MD NM ORDERABLES * MAMMO POST PROCEDURE MAMMO RIGHT (08/28/2020 11:13 AM CDT) Anatomical Region Laterality Modality Breast Right Mammography 08/28/2020 11:1 3 AM CDT Impressions 08/28/2020 4:49 PM CDT IMPRESSION: Needle localization for a tiny biopsy-proven cancer 6:00 subareolar right breast. Final pathology pending. DICTATION LOCATION: [facility] Narrative 08/28/2020 4:49 PM CDT NEEDLE LOCALIZATION [...] right breast. Final pathology pending. DICTATION LOCATION: [facility] Paula Bae MD MAMMO ORDERABLES * MAMMO US GUIDE NEEDLE PLACEMENT (08/28/2020 11:12 AM CDT) Anatomical Region Laterality Modality Breast N/A Ultrasound 08/28/2020 11:1 2 AM CDT Impressions 08/28/2020 4:49 PM CDT IMPRESSION: Needle localization for a tiny biopsy-proven cancer 6:00 subareolar right breast. Final pathology pending. DICTATION LOCATION: [facility] Narrative 08/28/2020 4:49 PM CDT NEEDLE LOCALIZATION [...] the OR. Paula Bae MD MAMMO ORDERABLES * 2019 NOVEL CORONAVIRUS (COVID-19) PCR DETECTION (08/20/2020) Upper Respiratory ENTIRE NASOPHARYNX / Unknown Paula Bae MD MICROBIOLOGY - [facility] ORDERABLES Performing Organization Address City/State/[facility] Co de Phone Number [facility] LABORATORY SERVICES [facility]# [id number] [address] [place] [address] documented in this encounter Visit Diagnoses Diagnosis Invasive ductal carcinoma of breast, female, right- Primary Invasive ductal carcinoma of breast, female, right Invasive ductal carcinoma of breast, female, right Invasive ductal carcinoma of breast, female, right documented in this encounter Care Teams Mechanical Piping Designer Relationship Specialty Start Date End Date Steven Lizama MD [address] [place] [phone] PCP - General Emergency Medicine 08/13/20 documented as of this encounter
--- OUTSIDE RECORDS SUMMARY | 2024-05-25 00:16 | XMS_ITS | Encounter Summary ---
Author Organization [facility] Address [address] [place]: Epic Prelude ADT [place] [address] Care Team Providers Care Physical Therapy Teacher Name Role Phone Unavailable Primary Care Provider Unavailabl e Encounter Details Date Type Department Care Team (Latest Contact Info) Description 08/03/2020 Travel Social History Tobacco Use Types Packs/Day [...] have Coronavirus / COVID-19? No / Unsure 08/03/2020 10:27 AM PAYROLL TAX ANALYST documented as of this encounter Plan of Treatment Not on file documented as of this encounter Visit Diagnoses Not on filedocumented in this encounter
--- OUTSIDE RECORDS SUMMARY | 2024-05-25 00:16 | XMS_ITS | Encounter Summary ---
Author Organization [facility] Address [address] [place] [address] Care Team Providers Care Podopediatrician Name Role Phone Steven Lizama MD Primary Care Provider [phone] Reason for Visit * Auth/Cert Specialty Diagnoses / Procedures Referred By Annalise t Referred To Contact Laboratory [facility] Outpatient [facility] [address] [place] [address] Referral ID Status Reason Start Date Expiration Date Visits Re quested Visits Authorized [id number] 1 1 Encounter Details Date Type Department Care Team (Latest Contact Info) Description 08/13/2020 3:49 PM STEELWORKER - 08/13/2020 11:59 PM STEELWORKER Hospital Encounter [facility] Outpatient Laboratory Services [address] [place] [address] [place] [address] [place] [address] Discharge Disposition: Home or Self [...] COVID-19? No / Unsure 08/13/2020 1:48 PM STEELWORKER documented as of this encounter Medications at [...] Procedure Name Priority Date/Time Associated Diagnosis Comments CBC WITH DIFFERENTIAL Routine 08/13/2020 3:59 PM STEELWORKER Invasive ductal carcinoma of breast, female, right PATHOLOGY Pathology 08/13/2020 12:30 PM STEELWORKER documented in this encounter Results * (ABNORMAL) CBC WITH DIFFERENTIAL (08/13/2020 3:59 PM STEELWORKER) WBC 12.4(H) 4.0 - 9.8 K/uL 08/13/2020 7:29 PM STEELWORKER [facility] RBC 5.08(H) 3.90 - 4.90 M/uL 08/13/2020 7:29 PM STEELWORKER [facility] HEMOGLOBIN 14.2 11.8 - 14.8 g/dL 08/13/2020 7:29 PM STEELWORKER [facility] HEMATOCRIT 46.6(H) 35.5 - 44.0 % 08/13/2020 7:29 PM STEELWORKER [facility] MCV 91.7 82.0 - 99.0 fL 08/13/2020 7:29 PM STEELWORKER [facility] MCH 28.0 27.2 - 32.6 pg 08/13/2020 7:29 PM STEELWORKER [facility] MCHC 30.5(L) 31.5 - 35.5 g/dL 08/13/2020 7:29 PM STEELWORKER [facility] RDW 13.1 11.5 - 14.5 % 08/13/2020 7:29 PM STEELWORKER [facility] RDW-STDEV 44.1 37.1 - 48.7 fL 08/13/2020 7:29 PM [facility] [employer] LABORATORY SERVICES - [facility] PLATELETS 419(H) 140 - 350 K/uL 08/13/2020 7:29 PM [facility] LABORATORY SERVICES - [facility] MPV 11.2 9.3 - 12.4 fL 08/13/2020 7:29 PM [facility] [employer] LABORATORY SERVICES - . [facility] NEUTROPHILS 57 % 08/13/2020 7:29 PM [facility] - . [facility] LYMPHOCYTES 35 % 08/13/2020 7:29 PM [facility] - . [facility] MONOCYTES 5 % 08/13/2020 7:29 PM [facility] - . [facility] EOSINOPHILS 2 % 08/13/2020 7:29 PM [facility] - . [facility] BASOPHILS 1 % 08/13/2020 7:29 PM [facility] - . [facility] IMMATURE GRANULOCYTES 1 % 08/13/2020 7:29 PM [facility] Comment:IG (Immature Granulo cyte) count includes Metamyelocytes, Myelocytes, and Promyelocytes NEUTROPHIL ABSOLUTE 7.10(H) 1.90 - 7.00 K/uL 08/13/2020 7:29 PM [facility] [employer] LABORATORY SERVICES - . [facility] LYMPHOCYTE ABSOLUTE 4.34 0.70 - 4.50 K/uL 08/13/2020 7:29 PM [facility] - . [facility] MONOCYTE ABSOLUTE 0.57 0.10 - 1.30 K/uL 08/13/2020 7:29 PM [facility] - . [facility] EOSINOPHIL ABSOLUTE 0.27 0.00 - 0.70 K/uL 08/13/2020 7:29 PM [facility] - . [facility] BASOPHILS ABSOLUTE 0.10 0.00 - 0.20 K/uL 08/13/2020 7:29 PM [facility] - . [facility] IMMATURE GRANULOCYTES ABSOLUTE 0.06(H) 0.00 - 0.03 K/uL 08/13/2020 7:29 PM [facility] Blood Venipuncture / Unknown 08/13/2020 3:59 PM STEELWORKER 08/13/2020 3:59 PM STEELWORKER Paula Bae MD HEMATOLOGY ORDERABLE S [facility]# [id number] [address] [place] [address] * PATHOLOGY (08/13/2020 12:30 PM STEELWORKER) CASE REPORT Surgical Pathology Report ? Case: [id number] ? Authorizing Provider: ??Paula Bae MD ? Collected: ? 08/13/2020 12:30 PM ? Ordering Location: ? [facility] Out[facility] ? Received: ?08/17/2020 12:30 PM ? Laboratory Services ? [address] ? Pathologist: ? Edelmira Ray MD ? Specimen: ?Other, specify, 9 slides, labeled: [id number] ? 08/31/2020 9:50 AM [facility] [employer] [facility] ADDENDUM 1 This addendum is issued to report the result of HER2 FISH: Positive for gene amplification (see hyperlink below for scan of outside report). 08/31/2020 9:50 AM [employer] [facility] Addendum electronically signed by Edelmira Ray MD on 08/31/2020 at 9:50 AM FINAL DIAGNOSIS Breast, right, 6:00 subareolar, core biopsy: - Invasive ductal carcinoma, with the following features: 1. Size: 5 mm. 2. [place] score: 5/9. 3. Lymphvascular invasion: Not identified. 4. Stage: pT1a. 5. Biomarker results: ER 8/8, ID 6/8, Her2 IHC 3+ (positive) (see microscopic). - Calcifications. 08/31/2020 9:50 AM [facility] [employer] [facility] OSCOPIC DESCRIPTION The submitted slides labeled [id number] represent a core biopsy from the right breast at 6:00 subareolar region. Sections reveal a 5 mm greatest dimension invasive ductal carcinoma. The malignant cells are present as aggregates with approximately 40% discrete tubule formation (2), low to intermediate grade nuclear features (2), and a low mitotic rate (1), for a Mandi score 5. There is associated densely fibrotic stroma and calcifications. Angiolymphatic invasion is not definitively seen. An in situ component is not observed. The submitted breast biomarker results by IHC are as follows: ER 8/8, ID 6/8, Her2 IHC 3+ (positive). Outside interpretation of Her2 IHC was 2+ equivocal, with reflex to Her2 FISH. The FISH result is not included in the report received. Ki-67 proliferation index demonstrates nuclear positivity in 10-20% of the tumor. 08/31/2020 9:50 AM T [facility] OPERATIVE PROCEDURE Core biopsy 08/31/2020 9:[address] [facility] CLINICAL INFORMATION No Dx found. 08/31/2020 9:[address] [facility] SUBMITTED BY Dr. Paula Bae, [address], [address]; [facility] [address] [facility], Department of Pathology, [address] [place] [address], [place] [address] 08/31/2020 9:[address] [facility] MATERIAL RECEIVED Received are 9 slides labeled [id number] (2 H&E, 1 ER, 1 ID, 1 Ki-67, 1 HER-2, 1 HER-2 control, 2 negative controls). There is a corresponding pathology report from [place], [place]. The slides are returned after review. 08/31/2020 9:[address] [facility] COMMENT Special stain and/or immunohistochemical results are interpreted with controls that demonstrate appropriate staining reactions. Note on use of immunocytochemistry reagents: This test was developed and its performance characteristics determined by [facility], Department of Laboratory Medicine. It [...] part or completely in the following laboratories: [facility], [place] #[id number] [address] [place] [address] [facility], CLIA #[id number] [address] [place] [id number] [place] [address] Goran/Kannan, [place] #[id number] [address] [place] [address]. 08/31/2020 9:[address] [facility] Tissue (Other, specify) 08/13/2020 12:30 PM STEELWORKER 08/17/2020 12:30 PM STEELWORKER Paula Bae MD PATHOLOGY/CYTOLOGY O RDERABLES [facility] LABORATORY SERVICES [facility]# [id number] [address] [place] [address] documented in this encounter Visit Diagnoses Diagnosis Invasive ductal carcinoma of breast, female, right documented in this encounter Care Teams Podopediatrician Relationship Specialty Start Date End Date Steven Lizama MD [address] [place] [phone] PCP - General Emergency Medicine 08/13/20 documented as of this encounter
--- OUTSIDE RECORDS SUMMARY | 2024-05-25 00:16 | XMS_ITS | Encounter Summary ---
Author Organization [facility] Address [address] [place] [address] Care Team Providers Care Building Drafter Name Role Phone Unavailable Primary Care Provider Unavailabl e Encounter Details Date Type Department Care Team (Latest Contact Info) Description 08/01/2020 1:40 PM COBOL MAINFRAME DEVELOPER - 08/01/2020 11:59 PM COBOL MAINFRAME DEVELOPER Hospital Encounter [facility] [address] [place] [address] [facility], External Provider [address] [place] [address] Discharge Disposition: Home or Self Care Social [...] Associated Diagnosis Comments MAMMO PRIOR STUDY Routine 08/01/2020 1:4 0 PM COBOL MAINFRAME DEVELOPER Follow up documented in this encounter Results * MAMMO PRIOR STUDY (08/01/2020 1:40 PM COBOL MAINFRAME DEVELOPER) Narrative 08/14/2020 1:33 PM COBOL MAINFRAME DEVELOPER This exam was auto finalized to allow images to be scanned to PACS. External Provider [facility] DIAGNOSTIC IMAGI NG ORDERABLES documented in this encounter Visit Diagnoses Diagnosis Follow up documented in this encounter
--- OUTSIDE RECORDS SUMMARY | 2024-05-25 00:16 | XMS_ITS | Encounter Summary ---
Author Organization [facility] Address [address] [place] [address] Care Team Providers Care Torpedoman'S Mate Name Role Phone Steven Lizama MD Primary Care Provider [phone] Encounter Details Date Type Department Care Team (Late st Contact Info) Description 08/13/2020 Orders Only [facility] BREAST SURGERY - [place] [facility] [address] [address] [place] [address] Provider, Abstract NO ADDRESS ON FILE Social [...] COVID-19? No / Unsure 08/16/2020 10:[address] MAGISTRATE documented as of this encounter Plan of Treatment Not on file documented as of this encounter Procedures Procedure Name Priority Date/Time Associated Diagnosis Comments MAMMO 3D REBA SCREEN BILAT W OR WO CAD Routine 06/29/2020 documented in this encounter Results * MAMMO SCRN BILAT 3D REBA W OR WO CAD (06/29/2020) Anatomical Region Laterality Modality Breast Bilateral Other Abstract Provider MAMMO ORDERABLES documented in this encounter Visit Diagnoses Not on filedocumented in this encounter Care Teams Torpedoman'S Mate Relationship Specialty Start Date End Date Steven Lizama MD [address] [place] [phone] PCP - General Emergency Medicine 08/13/20 documented as of this encounter
--- OUTSIDE RECORDS SUMMARY | 2024-05-25 00:16 | XMS_ITS | Encounter Summary ---
Author Organization [facility] Address [address] [place] [address] Care Team Providers Care Belt Notcher Name Role Phone Unavailable Primary Care Provider Unavailabl e Encounter Details Date Type Department Care Team (Latest Contact Info) Description 08/01/2020 1:35 PM DUMP ATTENDANT - 08/01/2020 11:59 PM DUMP ATTENDANT Hospital Encounter [facility] [address] [place] [address] [facility], External Provider [address] [place] [address] Discharge Disposition: Home or Self Care Social [...] Diagnosis Comments MAMMO PRIOR STUDY Routine 08/01/2020 1:3 5 PM DUMP ATTENDANT Follow up documented in this encounter Results * MAMMO PRIOR STUDY (08/01/2020 1:35 PM DUMP ATTENDANT) Narrative 08/14/2020 1:32 PM DUMP ATTENDANT This exam was auto finalized to allow images to be scanned to PACS. External Provider [facility] DIAGNOSTIC IMAGI NG ORDERABLES documented in this encounter Visit Diagnoses Diagnosis Follow up documented in this encounter
--- OUTSIDE RECORDS SUMMARY | 2024-05-25 00:16 | XMS_ITS | Encounter Summary ---
Author Organization [facility] Address [address] [place] [address] Care Team Providers Care Dress Fitter Name Role Phone Steven Lizama MD Primary Care Provider [phone] Encounter Details Date Type Department Care Team (Latest Contact Info) Description 08/13/2020 3:45 PM COMPETITIVE SHOPPER - 08/13/2020 11:59 PM COMPETITIVE SHOPPER Hospital Encounter [facility] Outpatient Laboratory Services [address] [place] [address] [place] [address] [place] [address] Discharge Disposition: Home or Self [...] COVID-19? No / Unsure 08/13/2020 1:48 PM COMPETITIVE SHOPPER documented as of this encounter Medications at [...] Procedure Name Priority Date/Time Associated Diagnosis Comments REFERENCE LAB PROCESSING FEE Routine 08/13/2020 3:59 PM COMPETITIVE SHOPPER Encounter for general adult medical examination with abnormal findings documented in this encounter Results * REFERENCE LAB PROCESSING FEE (08/13/2020 3:59 PM COMPETITIVE SHOPPER) REFERENCE LAB SENDOUT Sent to Ref Lab 08/13/2020 5:01 PM COMPETITIVE SHOPPER [facility] Other, specify BLOOD SPECIMEN / Unknown Collection / Unknown 08/13/2020 3:59 PM COMPETITIVE SHOPPER 08/13/2020 3:59 PM COMPETITIVE SHOPPER Paula Bae MD CHEMISTRY ORDERABLES [facility] CLIA# [id number] [address] [place] [address] documented in this encounter Visit Diagnoses Diagnosis Encounter for general adult medical examination with abnormal findings- Primary Routine general medical examination at a health care facility documented in this encounter Care Teams Dress Fitter Relationship Specialty Start Date End Date Steven Lizama MD [address] [place] [phone] PCP - General Emergency Medicine 08/13/20 documented as of this encounter
== END 2024-05-21 08:48 | disposition home or self-care (01) ==
LOC: ANHLAB 08:48
PROVIDERS: PCP Emergency Medicine; Visit Provider Psychiatry & Neurology Neurology
DX: I63.9 Cerebral infarction, unspecified (principal); E66.09 Other obesity due to excess calories; R06.83 Snoring; F17.200 Nicotine dependence, unspecified, uncomplicated; C50.311 Malignant neoplasm of lower-inner quadrant of right female breast
CPT/HCPCS: 36415; 80053; 80061; 85025

== ENCOUNTER 2024-06-10 10:03 | Outpatient (CLI) | payer OTHER, SELFPAY ==
[2024-06-11 08:04] LABS: Alpha-1-Antitrypsin, QN 171 mg/dL (83-199)
== END 2024-06-10 10:04 | disposition home or self-care (01) ==
PROVIDERS: PCP Emergency Medicine; Visit Provider Emergency Medicine
DX: R94.5 Abnormal results of liver function studies (principal)
CPT/HCPCS: 36415; 82103

== ENCOUNTER 2024-06-14 08:22 | Outpatient (CLI) | payer OTHER, SELFPAY ==
--- NOTE | ~2024-06-14 | US_ITS ---
US right upper quadrant INDICATION: Elevated alkaline phosphatase PROCEDURE: Realtime right upper abdominal ultrasound. COMPARISON: No prior studies for comparison. FINDINGS: The pancreas is normal without focal mass or pancreatic ductal dilation. Liver echotexture is increased, consistent with fatty infiltration. There is normal directional flow in the portal ve in. There are gallstones. No gallbladder wall thickening or pericholecystic fluid. Common bile duct eal ures 6 mm. No sonographic Jennings's sign. IMPRESSION: 1: Cholelithiasis. 2: Fatty infiltration of the liver. Reviewed, dictated and finalized at location B. CUTTING MACHINE OPERATOR
--- NOTE | ~2024-06-14 | MM_ITS ---
EXAMINATION: MM screening mi BI w davis HISTORY: Screening. History of right breast cancer status post lumpectomy. TECHNIQUE: Craniocaudal and mediolateral oblique 3-D tomosynthesis images were obtained and synthetic 2-D images were generated. CAD analysis was submitted and interpreted. COMPARISON: Comparison to multiple prior studies sequentially, with oldest reviewed study dated 06/29. BREAST PARENCHYMAL COMPOSITION: Not dense: There are scattered areas of fibroglandular density. FINDINGS: There is a subareolar mass of the right breast with adjacent tissue markers. There is incre ased reticulation surrounding the mass compared with prior examination. The left breast is stable wit hout evidence for malignancy. IMPRESSION: 1. Subareolar mass of the right breast with surrounding increased density. These may represent postop erative surgical/radiation therapy changes, although residual/recurrent neoplasm is not excluded. Rec ommend correlation with prior postoperative examinations to assess stability. 2. Recommend correlation with prior outside postoperative examinations to assess stability. BI-RADS Category 0: Incomplete: Needs additional imaging evaluation. Reviewed, dictated and finalized at location B. SPREADER IMPRESSION: 1. Subareolar mass of the right breast with surrounding increased density. Thes e may represent postoperative surgical/radiation therapy changes, although resi dual/recurrent neoplasm is not excluded. Recommend correlation with prior posto perative examinations to assess stability. 2. Recommend correlation with prior outside postoperative examinations to asses s stability. BI-RADS Category 0: Incomplete: Needs additional imaging evaluation.
--- OUTSIDE RECORDS SUMMARY | 2024-06-20 21:53 | XMS_ITS | Encounter Summary ---
Author Organization [facility] Healthcare Address [address] [place] [address] Care Team Providers Care Livestock Dealer Name Role Phone Steven Lizama MD Primary Care Provider [phone] Reason for Referral * Cardiology (Routine) - Closed Specialty Diagnoses / Procedures Referred By Contac t Referred To Contact Diagnoses Recent cerebrovascular accident (CVA) Procedures Event Monitor Urvashi Baldwin NP [address] [address] Phone: tel: fax: [facility] Referral ID Status Reason Start Date Expiration Date Visits Re quested Visits Authorized [id number] Closed 02/05/2024 03/06/2025 1 1 Reason for Visit * Reason Comments Hospital Follow Up Encounter Details Date Type Department Care Team (Late st Contact Info) Description 02/05/2024 10:00 AM CDT Office Visit [facility] Cardiology [address] [facility] [address] [id number] Urvashi Baldwin NP [address] [facility] [address] [id number] Recent cerebrovascular accident (CVA); Coronary artery disease involving pra[place] coronary artery of [place] heart without angina pectoris; Hospital discharge follow-up; [...] file Legal Sex Female 9:37 PM PRINCIPAL CONSULTING ENGINEER Gender Identity Not on file Sexual Orientation [...] documented in this encounter Progress Notes * Uvrashi Baldwin NP - 02/05/2024 10:00 AM CDT Images from the original note were not included. [facility] Cardiology [address] [place] [address] Date of Visit: 02/05/2024 Patient ID: Angeline [...] of coronary artery disease with a reported [place] in the past, hypertension, type 2 diabetes mellitus, history of breast cancer s/p radiation therapy. We saw her in consultation at [facility] for abnormal stress test. She presented to [...] 2 days. 02/05/2024 hospital follow-up visit with [employer] EXECUTIVE PRODUCER: She was hospitalized at [facility] 12/26/23-12/29/23 for stroke. MRI showed multiple small [...] Event Monitor; Future Coronary artery disease involving prairie island coronary artery of [place] heart without angina pectoris Hospital discharge follow-up [...] cessation. 02/05/2024 SUSHIL Landeros- Nurse Practitioner with [facility] Cardiology This note is dictated and transcribed using [employer] Direct Software. Wood Boring Machine Operator variancesmay occur. Despite proofreading, typographical errors may [...] Other Narrative 04/01/2024 7:37 AM CDT [facility] REPORT Patient Name: Angeline Caraballo Date of : 1960 ?? Requesting Physician: ??Carvalho Date of interpretation: 04/01/24 Type of monitor : ??30 day event monitor Date of the study/Enrollment period: ??02/05/2024 Indication: ??CVA Quality of the study: ??Favorable Interpretation: ??The basic cardiac rhythm is sinus with normal PA interval. ??QRS duration is 0.12 seconds QT [...] was used to complete this document, therefore, kaiawhina kura kaupapa maori variances may occur. David Mueller MD [facility] 04/01/24 Procedure Note David Mueller MD - 04/01/2024 [facility] REPORT Patient Name: Angeline Caraballo Date of [...] software was used to complete this document, therefore,kaiawhina kura kaupapa maori variances may occur. David Mueller MD [facility] 04/01/24 Urvashi Baldwin NP CV CARDIAC [...] cerebrovascular accident (CVA) Coronary artery disease involving prairie island coronary artery of [place] heart without angina pectoris Hospital discharge follow-up [...] 02/01/2024 added in this encounter Care Teams Livestock Dealer Relationship Specialty Start Date End Date Steven Lizama MD PCP - General Family Practice 08/25/22 documented as of this encounter
--- OUTSIDE RECORDS SUMMARY | 2024-06-20 21:53 | XMS_ITS | Encounter Summary ---
Author Organization [facility] Healthcare Address [address] [place] [address] Care Team Providers Care Diabetes Solutions Specialist Name Role Phone Steven Lizama MD Primary Care Provider [phone] Encounter Details Date Type Department Care Team (Latest Contact Info) Description 10/30/2022 12:44 PM CDT - 10/30/2022 11:59 PM CDT Hospital Encounter [facility] [id number] [place] [id number] Chronic rhinitis Discharge Disposition: Discharge to home or self care Social History Tobacco Use Types Packs/Day Years Used Date Smoking Tobacco: Every Day Cigarettes 1 30 Smokeless Tobacco: Never Comments Unknown Sex and Gender Information Value Date Recorded Sex Assigned at Not on file 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 Eosinophil pct 1.8 % [facility] Comment: Interpretive Data Percent cell count reference ranges are not reported, since discordance with absolute values may lead to misinterpretation of CBC data. Current Interpretive Data was last revised on 2017. Basophil pct 0.7 % [facility] Comment: Interpretive Data Percent cell count reference ranges are not reported, since discordance with absolute values may lead to misinterpretation of CBC data. Current Interpretive Data was last revised on 2017. Blood 10/30/2022 12:4 4 PM CDT 10/30/2022 6:54 PM CDT us Autumn Pickett MD LAB BLOOD ORDERABLES Final Re sult [facility] [id number] Department [place] [address] * (ABNORMAL) CBC with auto differential (10/30/2022 12:44 PM CDT) WBC 9.1 3.8 - 9.9 K/cumm [facility] Hgb 14.9 11.9 - 15.5 g/dL [facility] Hct 47.8(H) 35.6 - 45.5 % [facility] Plt 333 150 - 400 K/cumm [facility] MPV 12.1 9.1 - 12.3 fL [facility] RBC 5.25(H) 3.90 - 5.20 M/cumm [facility] MCV 91.0 81.3 - 96.4 fL [facility] MCH 28.4 27.1 - 33.3 pg [facility] MCHC 31.2(L) 32.3 - 35.7 g/dL [facility] RDW CV 14.6 11.1 - 14.9 % [facility] RDW SD 48.7(H) 35.7 - 48.1 fL [facility] NRBC abs 0.00 0.00 - 0.01 K/cumm [facility] Blood 10/30/2022 12:4 4 PM CDT 10/30/2022 6:54 PM CDT Autumn Pickett MD LAB BLOOD ORDERABLES Final Re sult [facility] [address] [address] Department [place] [address] * (ABNORMAL) IgE (10/30/2022 12:44 PM CDT) IgE 720.0(H) 1.0 - 100.0 IUnits/mL [facility] Comment:Testing performed by : [facility], [address] [place] [address]., [address] Blood 10/30/2022 12:4 4 PM CDT 10/31/2022 12:51 PM CDT Autumn Pickett MD LAB BLOOD ORDERABLES Final Re sult Performing Organization Address [facility]/ZIP Co de Phone Number [facility] [address] [address] [place] [address] * Allergen Epithelia/dander dog (animal) IgE (10/30/2022 12:44 PM CDT) Dog dander IgE 0.22 0.00 - 0.34 kUnits/L [facility] Comment:Testing performed by : , [facility], [place]., [address] Blood 10/30/2022 12:4 4 PM CDT 10/31/2022 12:54 PM CDT Autumn Pickett MD LAB BLOOD ORDERABLES Final Re sult [facility] [address] [address] [place] [address] * (ABNORMAL) Allergen Dermatophagoides pteronyssinus (insect) IgE (10/30/2022 12:44 PM CDT) Dermatophyton pteronyssinus IgE 14.50(H) 0.00 - 0.34 kUnits/L [facility] Comment:Testing performed by : , [place]., [address] Blood 10/30/2022 12:4 4 PM CDT 10/31/2022 12:54 PM CDT Autumn Pickett MD LAB BLOOD ORDERABLES Final Re sult Performing Organization Address [facility]/RUST Co de Phone Number [facility] [address] [address] [facility] [place] [address] * (ABNORMAL) Allergen Dermatophagoides farniae (insect) IgE (10/30/2022 12:44 PM CDT) Dermatophyton farinae IgE 14.60(H) 0.00 - 0.34 kUnits/L [facility] Comment:Testing performed by : , [place]., [address] Blood 10/30/2022 12:4 4 PM CDT 10/31/2022 12:54 PM CDT Autumn Pickett MD LAB BLOOD ORDERABLES Final Re sult Performing Organization Address [facility]/RUST Co de Phone Number [facility] [address] [address] [facility] [place] [address] * (ABNORMAL) Allergen Cockroach ethiopian (insect) IgE (10/30/2022 12:44 PM CDT) Cockroach IgE 5.22(H) 0.00 - 0.34 kUnits/L [facility] Comment:Testing performed by : , [place]., [address] Blood 10/30/2022 12:4 4 PM CDT 10/31/2022 12:54 PM CDT Autumn Pickett MD LAB BLOOD ORDERABLES Final Re sult Performing Organization Address City/[facility]/ZIP Co de Phone Number [facility]DA ENRIQUEZ [address] [address] [facility] [place] [address] * (ABNORMAL) Allergen Epithelia/dander cat (animal) IgE (10/30/2022 12:44 PM CDT) Cat dander IgE 0.38(H) 0.00 - 0.34 kUnits/L [facility] Comment:Testing performed by : [place]., [address] Blood 10/30/2022 12:4 4 PM CDT 10/31/2022 12:54 PM CDT Autumn Pickett MD LAB BLOOD ORDERABLES Final Re sult Performing Organization Address [facility]/RUST Co de Phone Number [facility] [address] [address] [facility] [place] [address] * (ABNORMAL) Allergen Penicillium chrysogenum (mold) IgE (10/30/2022 12:44 PM CDT) Penicillium chrysogenum IgE 0.90(H) 0.00 - 0.34 kUnits/L [facility] Comment:Testing performed by : [place]., [address] Blood 10/30/2022 12:4 4 PM CDT 10/31/2022 12:54 PM CDT Autumn Pickett MD LAB BLOOD ORDERABLES Final Re sult Performing Organization Address City/[facility]/RUST Co de Phone Number LINDA ENRIQUEZ [address] [address] [facility] [place] [address] * (ABNORMAL) Allergen Cladosporium herbarum (mold) IgE (10/30/2022 12:44 PM CDT) Cladosporium herbarum IgE 0.57(H) 0.00 - 0.34 kUnits/L [facility] Comment:Testing performed by : [place]., [address] Blood 10/30/2022 12:4 4 PM CDT 10/31/2022 12:54 PM CDT Autumn Pickett MD LAB BLOOD ORDERABLES Final Re sult Performing Organization Address [facility]/RUST Co de Phone Number [facility] [address] [facility] [place] [address] * (ABNORMAL) Allergen Aspergillus fumigatus (mold) IgE (10/30/2022 12:44 PM CDT) Aspergillus fumigatus IgE 4.34(H) 0.00 - 0.34 kUnits/L [facility] Comment:Testing performed by : , [place]., [address] Blood 10/30/2022 12:4 4 PM CDT 10/31/2022 12:54 PM CDT Result [facility] Autumn Pickett MD LAB BLOOD ORDERABLES Final Re sult Performing Organization Address [facility]/RUST Co de Phone Number [facility] [address] [facility] [place] [address] * (ABNORMAL) Allergen Alternaria tenuis (mold) IgE (10/30/2022 12:44 PM CDT) Alternaria tenius IgE 0.53(H) 0.00 - 0.34 kUnits/L [facility] Comment:Testing performed by : [place]., [address] Blood 10/30/2022 12:4 4 PM CDT 10/31/2022 12:54 PM CDT Autumn Pickett MD LAB BLOOD ORDERABLES Final Re sult Performing Organization Address City/[facility]/RUST Co de Phone Number LINDA [address] [address] [place] [address] * (ABNORMAL) Allergen Nettle (weed) IgE (10/30/2022 12:44 PM CDT) Nettle IgE 2.40(H) 0.00 - 0.34 kUnits/L [facility] Comment:Testing performed by : , [place]., [address] Blood 10/30/2022 12:4 4 PM CDT 10/31/2022 12:54 PM CDT Autumn Pickett MD LAB BLOOD ORDERABLES Final Re sult Performing Organization Address [facility]UST Co de Phone Number [facility] [address] [address] [place] [address] * (ABNORMAL) Allergen Ragweed short/common (weed) IgE (10/30/2022 12:44 PM CDT) Ragweed common IgE 1.21(H) 0.00 - 0.34 kUnits/L [facility] Comment:Testing performed by : [place]., [address] Blood 10/30/2022 12:4 4 PM CDT 10/31/2022 12:54 PM CDT Autumn Pickett MD LAB BLOOD ORDERABLES Final Re sult Performing Organization Address City/[facility]/ZIP Co de Phone Number LINDA [address] [place] [address] * (ABNORMAL) Allergen Pigweed, rough (weed) IgE (10/30/2022 12:44 PM CDT) Pigweed rough IgE 1.02(H) 0.00 - 0.34 kUnits/L [facility] Comment:Testing performed by : [facility], [place]., [address] Blood 10/30/2022 12:4 4 PM CDT 10/31/2022 12:54 PM CDT us Autumn Pickett MD LAB BLOOD ORDERABLES Final Re sult [facility] [address] [address] Department [place] [address] documented in this encounter Visit Diagnoses Diagnosis Chronic rhinitis documented in this encounter Care Teams Diabetes Solutions Specialist Relationship Specialty Start Date End Date Steven Lizama MD PCP - General Family Practice 08/25/22 documented as of this encounter
--- OUTSIDE RECORDS SUMMARY | 2024-06-20 21:53 | XMS_ITS | Encounter Summary ---
Author Organization [facility] Address [address] [facility] [address] [place] [address] Care Team Providers Care Electron Beam Machine Welder Setter Name Role Phone Steven Lizama MD Primary Care Provider [phone] Reason for Referral * MRI/CAT/PET Scan (Routine) - Closed Specialty Diagnoses / Procedures Referred By Annalise t Referred To Contact Diagnoses Pulmonary nodules Procedures CT Chest WO Contrast Autumn Pickett MD [facility] [address] [place] [address] Phone: tel: fax: [facility] [address] [place] [address] Phone: tel: Referral ID Status Reason Start Date Expiration Date Visits Re quested Visits Authorized [id number] Closed 10/02/2022 11/01/2023 1 1 * Procedure (Routine) - Closed Specialty Diagnoses / Procedures Referred By Contregino t Referred To Contact Diagnoses Dyspnea and respiratory abnormalities Procedures Pulmonary Function Test -[facility]; Full PFT in PFT Lab w/Stress Ox/6 Min Walk Test Autumn Pickett MD [address] [facility] [address] [place] [address] Phone: tel: fax: Referral ID Status Reason Start Date Expiration Date Visits Re quested Visits Authorized [id number] Closed 10/02/2022 11/01/2023 1 1 Reason for Visit * Reason Comments New Patient PNA * Consultation (Routine) - Closed Specialty Diagnoses / Procedures Referred By Contac t Referred To Contact Pulmonary Disease / Pulmonology Diagnoses Pneumonia due to infectious organism, unspecified laterality, unspecified part of lung Steven Lizama MD Phone: tel: fax: [facility] Pulmonology [facility] [address] [place] [address] Phone: tel: fax: Referral ID Status Reason Start Date Expiration Date V isits Requested Visits Authorized [id number] Closed Specialty Services Required 09/09/2022 10/09/2023 1 1 Encounter Details Date Type Department Care Team (Late st Contact Info) Description 10/02/2022 10:00 AM CDT Office Visit [facility] Pulmonology [address] [facility] [address] [place] [phone] Autumn Pickett MD [address] [place] [phone] Dyspnea and respiratory abnormalities (Primary Dx); Chronic rhinitis; Pulmonary nodules; Cigarette nicotine dependence without complication Social History Tobacco Use Types Packs/Day Years Used Date Smoking Tobacco: Every Day Cigarettes 1 30 Smokeless Tobacco: Never Comments Unknown Sex and Gender Information Value Date Recorded Sex Assigned at Not on file 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 In August 2022 she went to [facility] for chest pain. Was diagnosed with [...] Function Test - (12/19/2022 1:32 PM CDT) [facility] FVC PRE 2.29 1.69 - 2.91 L 12/19/2022 1:37 PM CDT [facility] FEV1 PRE 1.78 1.34 - 2.35 L 12/19/2022 1:37 PM CDT [facility] [id number] 77.88 68.32 - 92.12 % 12/19/2022 1:37 PM CDT [facility] DUB09-88% PRE 1.58 0.76 - 2.81 L/s 12/19/2022 1:37 PM CDT [facility] PEF PRE 6.83 3.94 - 6.90 L/s 12/19/2022 1:37 PM CDT [facility] FET 100% PRE 5.02 sec 12/19/2022 1:37 PM CDT [facility] FIVC PRE 2.13 1.65 - 3.03 L 12/19/2022 1:37 PM CDT [facility] FIF50% PRE 3.94 L/s 12/19/2022 1:37 PM CDT [facility] DLCOc SB 13.28(L) 14.29 - 25.75 ml/(min*mm Hg) 12/19/2022 1:37 PM CDT [facility] DLCOc SB 13.28(L) 14.29 - 25.75 ml/(min*mm Hg) 12/19/2022 1:37 PM CDT [facility] VA 3.24(L) 4.09 - 4.09 L 12/19/2022 1:37 PM CDT [facility] DLCO/VA PRE 4.10 2.98 - 6.46 ml/(min*mm Hg*L) 12/19/2022 1:37 PM CDT [facility] DLCOc SB 4.10 2.98 - 6.46 ml/(min*mm Hg*L) 12/19/2022 1:37 PM CDT [facility] VC PRE 2.48 1.65 - 3.03 L 12/19/2022 1:37 PM CDT [facility] TLC PRE 4.26 3.25 - 5.23 L 12/19/2022 1:37 PM CDT [facility] RV PRE 1.78 1.15 - 2.30 L 12/19/2022 1:37 PM CDT [facility] FRC PL PRE 2.15 L 12/19/2022 1:37 PM CDT [facility] ERV PRE 0.38(L) 0.74 - 0.74 L 12/19/2022 1:37 PM CDT [facility] IC PRE 2.10(H) 1.60 - 1.60 L 12/19/2022 1:37 PM CDT [facility] RAW PRE 5.76(H) 3.06 - 3.06 cmH2O*s/L 12/19/2022 1:37 PM CDT [facility] BF RES 25.26 BPM 12/19/2022 1:37 PM CDT [facility] VTG RAW 2.54 L 12/19/2022 1:37 PM CDT [facility] VTG 2.60 L 12/19/2022 1:37 PM CDT [facility] Anatomical Region Laterality Modality PFT 12/19/2022 12:3 [...] due to lack of intravenous contrast. ?? Zypq-dq-fadvxlig calcified plaques in the coronary arteries. ??No pericardial thickening or effusion. CORONARY ARTERY CALCIFICATION: ??[id number]. VASCULATURE: ?? The thoracic aorta is atherosclerotic [...] D: ??12/22/2022 10:28 AM T: Report ID: [id number] Reading Location: ??[id number] Procedure Note Markell Mills MD - 12/22/2022 [...] evaluated due to lack of intravenous contrast. Pmxq-kt-oemrsbfx calcified plaques in the coronary arteries. Nopericardial thickening or effusion. CORONARY ARTERY CALCIFICATION: [id number]. VASCULATURE: The thoracic aorta is atherosclerotic at [...] by Markell Castillo M.D. T: Report ID: [id number] Reading Location: [id number] Autumn Pickett MD IM CT PROCEDURES Final Resul t * (ABNORMAL) Allergen Pigweed, rough (weed) IgE (10/30/2022 12:44 PM CDT) Pigweed rough IgE 1.02(H) 0.00 - 0.34 kUnits/L LINDA ENRIQUEZ Comment:Testing performed by : [place]., [address] Blood 10/30/2022 12:4 4 PM CDT 10/31/2022 12:54 PM CDT Result [facility] Autumn Pickett MD LAB BLOOD ORDERABLES Final Re sult Performing Organization Address City/[facility] Co de Phone Number LINDA [address] [place] [address] * (ABNORMAL) Allergen Ragweed short/common (weed) IgE (10/30/2022 12:44 PM CDT) Ragweed common IgE 1.21(H) 0.00 - 0.34 kUnits/L LINDA Comment:Testing performed by : [facility], [place]., [address] Blood 10/30/2022 12:4 4 PM CDT 10/31/2022 12:54 PM CDT Result [facility] Autumn Pickett MD LAB BLOOD ORDERABLES Final Re sult Performing Organization Address [facility] Co de Phone Number LINDA [address] [address] [facility] [place] [address] * (ABNORMAL) Allergen Nettle (weed) IgE (10/30/2022 12:44 PM CDT) Nettle IgE 2.40(H) 0.00 - 0.34 kUnits/L LINDA Comment:Testing performed by : [facility], [place]., [address] Blood 10/30/2022 12:4 4 PM CDT 10/31/2022 12:54 PM CDT Result [facility] Autumn Pickett MD LAB BLOOD ORDERABLES Final Re sult Performing Organization Address City/[facility]/ZIP Co de Phone Number LINDA [address] [place] [address] * (ABNORMAL) Allergen Alternaria tenuis (mold) IgE (10/30/2022 12:44 PM CDT) Alternaria tenius IgE 0.53(H) 0.00 - 0.34 kUnits/L [facility] Comment:Testing performed by : [facility], [place]., [address] Blood 10/30/2022 12:4 4 PM CDT 10/31/2022 12:54 PM CDT Autumn Pickett MD LAB BLOOD ORDERABLES Final Re sult Performing Organization Address City/[facility]/ZIP Co de Phone Number [facility] [address] [address] [facility] [place] [address] * (ABNORMAL) Allergen Aspergillus fumigatus (mold) IgE (10/30/2022 12:44 PM CDT) Aspergillus fumigatus IgE 4.34(H) 0.00 - 0.34 kUnits/L [facility] Comment:Testing performed by : [facility], [place]., [address] Blood 10/30/2022 12:4 4 PM CDT 10/31/2022 12:54 PM CDT Autumn Pickett MD LAB BLOOD ORDERABLES Final Re sult Performing Organization Address City/[facility]/ZIP Co de Phone Number [facility] [address] [address] [facility] [place] [address] * (ABNORMAL) Allergen Cladosporium herbarum (mold) IgE (10/30/2022 12:44 PM CDT) Cladosporium herbarum IgE 0.57(H) 0.00 - 0.34 kUnits/L [facility] Comment:Testing performed by : [facility], [place]., [address] Blood 10/30/2022 12:4 4 PM CDT 10/31/2022 12:54 PM CDT Autumn Pickett MD LAB BLOOD ORDERABLES Final Re sult Performing Organization Address City/[facility]/ZIP Co de Phone Number LINDA ENRIQUEZ [address] [address] [facility] [place] [address] * (ABNORMAL) Allergen Penicillium chrysogenum (mold) IgE (10/30/2022 12:44 PM CDT) Penicillium chrysogenum IgE 0.90(H) 0.00 - 0.34 kUnits/L LINDA Comment:Testing performed by : [place]., [address] Blood 10/30/2022 12:4 4 PM CDT 10/31/2022 12:54 PM CDT Autumn Pickett MD LAB BLOOD ORDERABLES Final Re sult Performing Organization Address [facility] Co de Phone Number ABDULAZIZETELVINA ENRIQUEZ [address] [place] [address] * (ABNORMAL) Allergen Epithelia/dander cat (animal) IgE (10/30/2022 12:44 PM CDT) Cat dander IgE 0.38(H) 0.00 - 0.34 kUnits/L LINDA Comment:Testing performed by : [place]., [address] Blood 10/30/2022 12:4 4 PM CDT 10/31/2022 12:54 PM CDT Autumn Pickett MD LAB BLOOD ORDERABLES Final Re sult LINDA ENRIQUEZ [address] [place] [address] * (ABNORMAL) Allergen Cockroach nepalese (insect) IgE (10/30/2022 12:44 PM CDT) Cockroach IgE 5.22(H) 0.00 - 0.34 kUnits/L CERETELVINA Comment:Testing performed by : [place]., [address] Blood 10/30/2022 12:4 4 PM CDT 10/31/2022 12:54 PM CDT Autumn Pickett MD LAB BLOOD ORDERABLES Final Re sult Performing Organization Address [facility] Co de Phone Number [facility] [address] [place] [address] * (ABNORMAL) Allergen Dermatophagoides farniae (insect) IgE (10/30/2022 12:44 PM CDT) Dermatophyton farinae IgE 14.60(H) 0.00 - 0.34 kUnits/L LINDA Comment:Testing performed by : [facility], [place]., [address] Blood 10/30/2022 12:4 4 PM CDT 10/31/2022 12:54 PM CDT Autumn Pickett MD LAB BLOOD ORDERABLES Final Re sult Performing Organization Address [facility] Co de Phone Number [facility] [address] [place] [address] * (ABNORMAL) Allergen Dermatophagoides pteronyssinus (insect) IgE (10/30/2022 12:44 PM CDT) Dermatophyton pteronyssinus IgE 14.50(H) 0.00 - 0.34 kUnits/L CERETELVINA Comment:Testing performed by : [facility], [place]., [address] Blood 10/30/2022 12:4 4 PM CDT 10/31/2022 12:54 PM CDT Autumn Pickett MD LAB BLOOD ORDERABLES Final Re sult Performing Organization Address City/[facility]/ZIP Co de Phone Number LINDA ENRIQUEZ [address] [place] [address] * (ABNORMAL) IgE (10/30/2022 12:44 PM CDT) IgE 720.0(H) 1.0 - 100.0 IUnits/mL LINDA Comment:Testing performed by : [facility], [address] [place] [address]., [address] Blood 10/30/2022 12:4 4 PM CDT 10/31/2022 12:51 PM CDT Autumn Pickett MD LAB BLOOD ORDERABLES Final Re sult Performing Organization Address [facility] Co de Phone Number LINDA ENRIQUEZ [address] [place] [address] * Allergen Epithelia/dander dog (animal) IgE (10/30/2022 12:44 PM CDT) Pathologist [facility] Dog dander IgE 0.22 0.00 - 0.34 kUnits/L LINDA Comment:Testing performed by : [facility], [facility], [place]., [address] Blood 10/30/2022 12:4 4 PM CDT 10/31/2022 12:54 PM CDT Autumn Pickett MD LAB BLOOD ORDERABLES Final Re sult Performing Organization Address City/[facility]/ZIP Co de Phone Number LINDA ENRIQUEZ [address] [place] [address] * (ABNORMAL) CBC with auto differential (10/30/2022 12:44 PM CDT) WBC 9.1 3.8 - 9.9 K/cumm LINDA Hgb 14.9 11.9 - 15.5 g/dL [facility] Hct 47.8(H) 35.6 - 45.5 % [facility] Plt 333 150 - 400 K/cumm [facility] MPV 12.1 9.1 - 12.3 fL [facility] RBC 5.25(H) 3.90 - 5.20 M/cumm [facility] MCV 91.0 81.3 - 96.4 fL [facility] MCH 28.4 27.1 - 33.3 pg [facility] MCHC 31.2(L) 32.3 - 35.7 g/dL [facility] RDW CV 14.6 11.1 - 14.9 % [facility] RDW SD 48.7(H) 35.7 - 48.1 fL [facility] NRBC abs 0.00 0.00 - 0.01 K/cumm [facility] Blood 10/30/2022 12:4 4 PM CDT 10/30/2022 6:54 PM CDT us Autumn Pickett MD LAB BLOOD ORDERABLES Final Re sult [facility] [address] [address] Department of Laboratories [place] [id number] documented in this encounter Visit Diagnoses Diagnosis [...] 10/02/2022 added in this encounter Care Teams Electron Beam Machine Welder Setter Relationship Specialty Start Date End Date Steven Lizama MD PCP - General Family Practice 08/25/22 documented as of this encounter
--- OUTSIDE RECORDS SUMMARY | 2024-06-20 21:53 | XMS_ITS | Referral Summary ---
Author Organization [facility] Address [address] [place] [address] Care Team Providers Care Cryptographer Name Role Phone Unavailable Primary Care Provider Unavailabl e Source Comments [facility],non-owned Affiliates and Associated Physician Practices is amultiple site organization consisting of ambulatory clinics and hospital sitesin [place], [place], [place] and [place]. This disclosure is being madepursuant to the Care Everywhere program and may not contain all information available regarding this patient. Last updated 18.[facility] [employer] Allergies No known active allergies Social History Tobacco Use Types Packs/Day Years Used Date Smoking Tobacco: Never Assessed Sex and Gender Information Value Date Recorded Sex Assigned at Not on file Gender Identity Not on file Sexual Orientation Not on file Plan of Treatment Not on file Administered Medications
--- OUTSIDE RECORDS SUMMARY | 2024-06-20 21:53 | XMS_ITS | Encounter Summary ---
Author Organization [facility] Address [address] [place] [address] Care Team Providers Care Biazzi Nitrator Operator Name Role Phone Steven Lizama MD Primary Care Provider [phone] Reason for Visit * Reason Onset Date Comments Med Change Request 12/23/2022 Encounter Details Date Type Department Care Team (Late st Contact Info) Description 12/23/2022 Telephone [facility] Pulmonology [address] [facility] [address] [place] [phone] Marily Carl MA Med Change Request Social History Tobacco Use Types Packs/Day Years Used Date Smoking Tobacco: Every Day Cigarettes 1 30 Smokeless Tobacco: Never Comments Unknown Sex and Gender Information Value Date Recorded Sex Assigned at Not on file 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
--- OUTSIDE RECORDS SUMMARY | 2024-06-20 21:53 | XMS_ITS | Encounter Summary ---
Author Organization [facility] Address [address] [place] [address] Care Team Providers Care Flour Mixer Helper Name Role Phone Steven Lizama MD Primary Care Provider [phone] Reason for Referral * MRI/CAT/PET Scan (Routine) - Closed Specialty Diagnoses / Procedures Referred By Annalise koo Referred To Contact Diagnoses Pulmonary nodules Procedures CT Chest WO Contrast Autumn Pickett MD [address] [place] [address] DR [address] [place] [address] Phone: tel: fax: [address] [address] Phone: tel: Referral ID Status Reason Start Date Expiration Date Visits Re quested Visits Authorized [id number] Closed 10/02/2022 11/01/2023 1 1 Reason for Visit * MRI/CAT/PET Scan (Routine) - Closed Specialty Diagnoses / Procedures Referred By Annalise koo Referred To Contact Diagnoses Pulmonary nodules Procedures CT Chest WO Contrast Autumn Pickett MD [address] [place] [address] DR MARCEL[address] [place] [address] Phone: tel: fax: [address] [address] Phone: tel: Referral ID Status Reason Start Date Expiration Date Visits Re quested Visits Authorized [id number] Closed 10/02/2022 11/01/2023 1 1 Encounter Details Date Type Department Care Team (Latest Contact Info) Description 12/19/2022 12:18 PM CDT - 12/19/2022 11:59 PM CDT Hospital Encounter [facility] [address] [place] [address] Pulmonary nodules Discharge Disposition: Discharge to home or self care Social History Tobacco Use Types Packs/Day Years Used Date Smoking Tobacco: Every Day Cigarettes 1 30 Smokeless Tobacco: Never Comments Unknown Sex and Gender Information Value Date Recorded Sex Assigned at Not on file Legal Sex Female 9:37 PM HAIR BALER Gender Identity Not on file Sexual Orientation [...] due to lack of intravenous contrast. ?? Vdzu-cx-ylbrygfh calcified plaques in the coronary arteries. ??No pericardial thickening or effusion. CORONARY ARTERY CALCIFICATION: ??Qiun-ql-jjyocxvd. VASCULATURE: ?? The thoracic aorta is atherosclerotic [...] D: ??12/22/2022 10:28 AM T: Report ID: [id number] Reading Location: ??[id number] Procedure Note Markell Mills MD - 12/22/2022 [...] evaluated due to lack of intravenous contrast. Wdpb-ue-pazctifw calcified plaques in the coronary arteries. Nopericardial thickening or effusion. CORONARY ARTERY CALCIFICATION: Qkgv-qe-khrqgvis. VASCULATURE: The thoracic aorta is atherosclerotic at [...] by Markell Castillo M.D. T: Report ID: [id number] Reading Location: [place] [address] Autumn Pickett MD IMG CT PROCEDURES Final Resul t documented in this encounter Visit Diagnoses Diagnosis Pulmonary nodules Other diseases of lung, not elsewhere classified documented in this encounter Care Teams Flour Mixer Helper Relationship Specialty Start Date End Date Steven Lizama MD PCP - General Family Practice 08/25/22 documented as of this encounter
--- OUTSIDE RECORDS SUMMARY | 2024-06-20 21:53 | XMS_ITS | Encounter Summary ---
Author Organization [facility] Healthcare Address [address] [place] [address] Care Team Providers Care Pit Furnace Operator Name Role Phone Steven Lizama MD Primary Care Provider [phone] Reason for Visit * Cardiology (Routine) - Closed Specialty Diagnoses / Procedures Referred By Contac t Referred To Contact Diagnoses Recent cerebrovascular accident (CVA) Procedures Event Monitor Urvashi Baldwin NP [address] [address] Phone: tel: fax: [facility] Referral ID Status Reason Start Date Expiration Date Visits Re quested Visits Authorized [id number] Closed 02/05/2024 03/06/2025 1 1 Encounter Details Date Type Department Care Team (Latest Contact Info) Description 02/05/2024 10:45 AM CDT Ancillary Procedure [facility] Cardiology [address] [phone] Recent cerebrovascular accident (CVA) Social History Tobacco Use Types Packs/Day Years Used Date Smoking Tobacco: Every Day Cigarettes 1 30 Smokeless Tobacco: Never Personal Safety Answer Date Recorded Getting School Help Needed Not on file 06/15 Comments Unknown Sex and Gender Information Value Date Recorded Sex Assigned at Not on file Legal Sex Female 9:37 PM GLOBAL PROCESS OWNER Gender Identity Not on file Sexual Orientation [...] Other Narrative 04/01/2024 7:37 AM CDT AMBULATORY SPECIALIZED LANGUAGE INSTRUCTOR REPORT Patient Name: Angeline Caraballo Date of : 1960 ?? Requesting Physician: ??Carvalho Date of interpretation: 04/01/24 Type of monitor : ??30 day event monitor Date of the study/Enrollment period: ??02/05/2024 Indication: ??CVA Quality of the study: ??Favorable Interpretation: ??The basic cardiac rhythm is sinus with normal NH interval. ??QRS duration is 0.12 seconds QT [...] was used to complete this document, therefore, clinical education assistant variances may occur. David Mueller MD [facility] 04/01/24 Procedure Note David Mueller MD - 04/01/2024 AMBULATORY SPECIALIZED LANGUAGE INSTRUCTOR REPORT Patient Name: Angeline Caraballo Date of [...] software was used to complete this document, therefore,clinical education assistant variances may occur. David Mueller MD [facility] 04/01/24 Urvashi Baldwin NP CV CARDIAC SERVICES [facility] Final Result documented in this encounter Visit Diagnoses Diagnosis Recent cerebrovascular accident (CVA) documented in this encounter Care Teams Pit Furnace Operator Relationship Specialty Start Date End Date Steven iLzama MD PCP - General Family Practice 08/25/22 documented as of this encounter
--- OUTSIDE RECORDS SUMMARY | 2024-06-20 21:53 | XMS_ITS | Encounter Summary ---
Author Organization [facility] Address [address] [facility] [address] [place] [address] Care Team Providers Care Fish Stringer Assembler Name Role Phone Steven Lizama MD Primary Care Provider [phone] Encounter Details Date Type Department Care Team (Late st Contact Info) Description 08/27/2022 Orders Only [facility] Cardiology [address] [place] [phone] Ramos Carvalho MD [address] [id number] Social History Tobacco Use Types Packs/Day Years Used Date Smoking Tobacco: Never Assessed Comments Unknown Sex and Gender Information Value Date Recorded Sex Assigned at Not on file Legal Sex Female 9:37 PM CHROME TANNER Gender Identity Not on file Sexual Orientation Not on file documented as of this encounter Plan of Treatment Not on file documented as of this encounter Procedures Procedure Name Priority Date/Time Associated Diagnosis Comments CARDIOLOGY DOCUMENT SCAN Routine 08/27/2022 documented in this encounter Results * Cardiology Document Scan (08/27/2022) Anatomical Region Laterality Modality Other Ramos Carvalho MD CV CARDIAC SERVICES PRO CEDURES Final Result documented in this encounter Visit Diagnoses Not on filedocumented in this encounter Care Teams Fish Stringer Assembler Relationship Specialty Start Date End Date Steven Lizama MD PCP - General Family Practice 08/25/22 documented as of this encounter
--- OUTSIDE RECORDS SUMMARY | 2024-06-20 21:53 | XMS_ITS | Encounter Summary ---
Author Organization [facility] Address [address] [place] [address] Care Team Providers Care Training Designer Name Role Phone Steven Lizama MD Primary Care Provider [phone] Encounter Details Date Type Department Care Team (Late st Contact Info) Description 08/27/2022 Orders Only [facility] Health Information Management [address] [place] [address] Scanning, Provider Social History Tobacco Use Types Packs/Day Years Used Date Smoking Tobacco: Never Assessed Personal Safety Answer Date Recorded Getting School Help Needed Not on file 06/15 Comments Unknown Sex and Gender Information Value Date Recorded Sex Assigned at Not on file Legal Sex Female 9:37 PM PRINT PRESS OPERATOR Gender Identity Not on file Sexual [...] on filedocumented in this encounter Care Teams Training Designer Relationship Specialty Start Date End Date Steven Lizama MD PCP - General Family Practice 08/25/22 documented as of this encounter
--- OUTSIDE RECORDS SUMMARY | 2024-06-20 21:53 | XMS_ITS | Encounter Summary ---
Author Organization [facility] Address [address] [place] [address] Care Team Providers Care Asbestos Abatement Technician Name Role Phone Unavailable Primary Care Provider Unavailabl e Reason for Visit * Reason Onset Date Comments Appointment 06/26/2020 Referral 06/26/2020 Encounter Details Date Type Department Care Team (Late st Contact Info) Description 06/26/2020 Telephone [facility] - Rheumatology [address], [address] [place] [address] Tommy Patel MD [address] [place] [address] Appointment; Referral Social History Tobacco [...] too far. Referral scanned into pt's chart. ERCIAL DIVER documented in this encounter Plan of Treatment Not on file documented as of this encounter Visit Diagnoses Not on filedocumented in this encounter
--- OUTSIDE RECORDS SUMMARY | 2024-06-20 21:53 | XMS_ITS | Clinical Summary ---
Author Organization [facility] [address] Address [address] [place] [address] Care Team Providers Care Core Drill Operator Name Role Phone Steven Lizama MD Primary Care Provider [phone] Allergies No known active allergies Medications aspirin [...] (CMS/HCC) 09/05 Coronary artery disease invo lving [place] heart without angina pectoris 09/05/2022 Medical History [...] on file Legal Sex Female 9:37 PM SCREWHEAD POLISHER Gender Identity Not on file Sexual Orientation [...] Other Narrative 04/01/2024 7:37 AM CDT AMBULATORY SPRAY OPERATOR REPORT Patient Name: Angeline Caraballo Date of : 1960 ?? Requesting Physician: ??Deven Date of interpretation: 04/01/24 Type of monitor : ??30 day event monitor Date of the study/Enrollment period: ??02/05/2024 Indication: ??CVA Quality of the study: ??Favorable Interpretation: ??The basic cardiac rhythm is sinus with normal [place] interval. ??QRS duration is 0.12 seconds QT [...] was used to complete this document, therefore, school librarian variances may occur. David Mueller MD [facility] 04/01/24 Procedure Note David Mueller MD - 04/01/2024 AMBULATORY SPRAY OPERATOR REPORT Patient Name: Angeline Caraballo Date of [...] software was used to complete this document, therefore,school librarian variances may occur. David Mueller MD [facility] 04/01/24 Urvashi Baldwin NP CV CARDIAC SERVICES [facility] Final Result * POCT lipid panel (02/05/2024 [...] Most Recently Relevant to Health Maintenance Insurance [facility] Address: [address] [place] [id number] [employer] [facility] H[facility]/PPO Address: [address] [address] [place] [address] [facility]PPO Address: [place] [address] Care Teams Core Drill Operator Relationship Specialty Start Date End Date Steven Lizama MD PCP - General Family Practice 08/25/22
--- OUTSIDE RECORDS SUMMARY | 2024-06-20 21:53 | XMS_ITS | Encounter Summary ---
Author Organization [facility] Address [address] [place] [address] Care Team Providers Care Carburetor Repairer Name Role Phone Unavailable Primary Care Provider Unavailabl e Reason for Visit * Reason Onset Date Comments Encounter Opened In Error 05/15/2020 Encounter Details Date Type Department Care Team (Late st Contact Info) Description 05/15/2020 Telephone [facility] Medical [facility] - Internal Medicine [address], [address] [place] [address] [place] [address] [place] [address] Encounter Opened In Error Social History Tobacco [...] COVID-19? No / Unsure 05/15/2020 10:03 AM C D AREA SUPERVISOR documented as of this encounter Plan of Treatment Not on file documented as of this encounter Visit Diagnoses Not on filedocumented in this encounter
--- OUTSIDE RECORDS SUMMARY | 2024-06-20 21:53 | XMS_ITS | Clinical Summary ---
Author Organization [facility] Address [address] [place] [address] Care Team Providers Care Guard Museum Name Role Phone Unavailable Primary Care Provider Unavailabl e Source Comments [facility],non-owned Affiliates and Associated Physician Practices is amultiple site organization consisting of ambulatory clinics and hospital sitesin [place], [place], [place] and [place]. This disclosure is being madepursuant to the Care Everywhere program and may not contain all information available regarding this patient. Last updated 18.[facility] Allergies No known active allergies Social History [...] 10/15/1979 DTAP/TDAP/TD VACCINES (1 - Tdap) 1980 PNEUMOCOCCAL VACCINE 50+ (1 of 1 - PCV) 10/20/2011 ZOSTER VACCINE (1 of 2) 10/20/2011 COVID-19 VACCINE (3 - 2023-2 5 season) 2024 01/20/2021, 12/30/2020 INFLUENZA VACCINE (#1) 2024 DEPRESSION SCREENING 06/08/2024 Respiratory Syncytial Virus (RSV) Vaccine Pt: or [...] patient's age to complete this topic MENINGOCOCCAL (Group B) VACCINE Aged Out No longer eligible b ased on patient's age to complete this topic MENINGOCOCCAL VACCINE Aged Out No krista amy eligible based on patient's age to complete this topic PNEUMOCOCCAL VACCINE Aged Out No long er eligible based on patient's age to complete this topic
--- OUTSIDE RECORDS SUMMARY | 2024-06-20 21:53 | XMS_ITS | Encounter Summary ---
Author Organization [facility] Address [address] [place] [address] Care Team Providers Care Fructose Loader Name Role Phone Unavailable Primary Care Provider Unavailabl e Reason for Visit * Reason Comments PPD SKIN TEST READ Encounter Details Date Type Department Care Team (Late st Contact Info) Description 02/15/2021 3:30 PM CDT Office Visit [facility] AT [address] [phone] Provider, [facility] Encounter for PPD test (Primary Dx) Social [...] Note PPD read and results entered in [employer] Result: 0 mm induration. Interpretation: negative If [...]
--- OUTSIDE RECORDS SUMMARY | 2024-06-20 21:53 | XMS_ITS | Encounter Summary ---
Author Organization [facility] Address [address] [place] [address] Care Team Providers Care Automotive Product Specialist Name Role Phone Steven Lizama MD Primary Care Provider [phone] Reason for Visit * Reason Onset Date Comments Medical Question/Miscellaneous 10/14/2022 Encounter Details Date Type Department Care Team (Late st Contact Info) Description 10/14/2022 Telephone [facility] Pulmonology [address] [place] [phone] Marily Carl MA Medical Question/Miscellaneous Social History Tobacco Use Types Packs/Day Years Used Date Smoking Tobacco: Every Day Cigarettes 1 30 Smokeless Tobacco: Never Comments Unknown Sex and Gender Information Value Date Recorded Sex Assigned at Not on file Legal Sex Female 9:37 PM RN CLINICAL DOCUMENTATION SPECIALIST Gender Identity Not on file Sexual [...] 10/02/2022 added in this encounter Care Teams Automotive Product Specialist Relationship Specialty Start Date End Date Steven Lizama MD PCP - General Family Practice 08/25/22 documented as of this encounter
--- OUTSIDE RECORDS SUMMARY | 2024-06-20 21:53 | XMS_ITS | CONTINUITY OF CARE DOCUMENT ---
Author Name gopal herron Address Unknown Organization [facility] Address [address] [place] [address] [address] [place] [address] Phone [phone] Care Team Providers Care Music Minister Name Role Phone Rajat Covarrubias MD Unavailable [phone] SUSSY BLACK MD Unavailable [phone] SUSSY BLACK MD Unavailable [phone] INSURANCE PROVIDERS Payer name Policy type / Coverage type [employer] red republican ID [id number]
--- OUTSIDE RECORDS SUMMARY | 2024-06-20 21:53 | XMS_ITS | Encounter Summary ---
Author Organization [facility] Address [address] [place] [address] Care Team Providers Care Director Recreation Center Name Role Phone Steven Lizama MD Primary Care Provider [phone] Reason for Visit * Reason Onset Date Comments Prior Auth 10/07/2022 Encounter Details Date Type Department Care Team (Late st Contact Info) Description 10/07/2022 Telephone [facility] Pulmonology [address] [place] [phone] Ellis Carl MA Prior Auth Social History Tobacco Use Types Packs/Day Years Used Date Smoking Tobacco: Every Day Cigarettes 1 30 Smokeless Tobacco: Never Comments Unknown Sex and Gender Information Value Date Recorded Sex Assigned at Not on file Legal Sex Female 9:37 PM FIELD MACHINIST Gender Identity Not on file Sexual Orientation [...] documented as of this encounter Care Teams Director Recreation Center Relationship Specialty Start Date End Date Steven Lizama MD PCP - General Family Practice 08/25/22 documented as of this encounter
--- OUTSIDE RECORDS SUMMARY | 2024-06-20 21:53 | XMS_ITS | Encounter Summary ---
Author Organization [facility] Address [address] [place] [address] Care Team Providers Care Therapist Rrt Name Role Phone Steven Lizama MD Primary Care Provider [phone] Encounter Details Date Type Department Care Team (Latest Contact Info) Description 09/11/2022 8:30 AM CDT - 09/11/2022 11:59 PM CDT Hospital Encounter [facility] [employer] [address] [place] [address] Discharge Disposition: Discharge to home or self care Social History Tobacco Use Types Packs/Day Years Used Date Smoking Tobacco: Every Day Cigarettes 1 30 Smokeless Tobacco: Never Comments Unknown Sex and Gender Information Value Date Recorded Sex Assigned at Not on file Legal Sex Female 9:37 PM BLOOD TYPER Gender Identity Not on file Sexual Orientation [...] on filedocumented in this encounter Care Teams Therapist Rrt Relationship Specialty Start Date End Date Steven Lizama MD PCP - General Family Practice 08/25/22 documented as of this encounter
--- OUTSIDE RECORDS SUMMARY | 2024-06-20 21:53 | XMS_ITS | Encounter Summary ---
Author Organization [facility] Address [address] [place] [address] Care Team Providers Care General Machinist Name Role Phone Steven Lizama MD Primary Care Provider [phone] Encounter Details Date Type Department Care Team (Late st Contact Info) Description 08/26/2022 Orders Only [facility] Cardiology [address] [place] [phone] Ramos Carvalho MD [address] [id number] Social History Tobacco Use Types Packs/Day Years Used Date Smoking Tobacco: Never Assessed Comments Unknown Sex and Gender Information Value Date Recorded Sex Assigned at Not on file Legal Sex Female 9:37 PM CORRECTIONAL OFFICER CAPTAIN Gender Identity Not on file Sexual Orientation [...] on filedocumented in this encounter Care Teams General Machinist Relationship Specialty Start Date End Date Steven Lizama MD PCP - General Family Practice 08/25/22 documented as of this encounter
--- OUTSIDE RECORDS SUMMARY | 2024-06-20 21:53 | XMS_ITS | Encounter Summary ---
Author Organization [facility] Address [address] [place] [address] Care Team Providers Care Boiler House Supervisor Name Role Phone Steven Lizama MD Primary Care Provider [phone] Reason for Visit * Reason Comments Coronary Artery Disease Hypertension Hyperlipidemia 6 mo f/u Encounter Details Date Type Department Care Team (Late st Contact Info) Description 03/06/2023 9:45 AM CDT Office Visit [facility] Cardiology [address] [place] [address] Ramos Carvalho MD [address] [place] [address] Coronary artery disease involving [place] coronary artery of [place] heart without angina pectoris (Primary Dx); Morbid (severe) obesity due to excess calories (HCC) Social History Tobacco Use Types Packs/Day Years Used Date Smoking Tobacco: Every Day Cigarettes 1 30 Smokeless Tobacco: Never Comments Unknown Sex and Gender Information Value Date Recorded Sex Assigned at Not on file Legal Sex Female 9:37 PM PATIENT ACCESS ASSOCIATE Gender Identity Not on file Sexual Orientation [...] of coronary artery disease with a reported [place] in the past, hypertension, type 2 diabetes mellitus, history of breast cancer s/p radiation therapy. We saw her in consultation at [facility] for abnormal stress test. She presented to [...] Visit Diagnoses Diagnosis Coronary artery disease involving [place] coronary artery of [place] heart without angina pectoris- Primary Morbid (severe) obesity due to excess calories (HCC) documented in this encounter Care Teams Boiler House Supervisor Relationship Specialty Start Date End Date Steven Lizama MD PCP - General Family Practice 08/25/22 documented as of this encounter
--- OUTSIDE RECORDS SUMMARY | 2024-06-20 21:53 | XMS_ITS | Encounter Summary ---
Author Organization [facility] Address [address] [place] [address] Care Team Providers Care Geriatric Aide Name Role Phone Steven Lizama MD Primary Care Provider [phone] Reason for Visit * Reason Comments Hospital Follow Up 1 week follow up. Encounter Details Date Type Department Care Team (Late st Contact Info) Description 09/05/2022 1:45 PM CDT Office Visit [facility] Cardiology [address] [place] [address] Ramos Carvalho MD [address] [address] Coronary artery disease involving [place] heart without angina pectoris, unspecified vessel or [...] on file Legal Sex Female 9:37 PM PIANO TEACHER Gender Identity Not on file Sexual Orientation [...] of coronary artery disease with a reported [place] in the past, hypertension, type 2 diabetes mellitus, history of breast cancer s/p radiation therapy. We saw her in consultation at [facility] for abnormal stress test. She presented to [...] above information was discussed at length with Angeilne Caraballo who was also given ample opportunity [...] Modules accepted: Orders * Addendum Note - April Preston CLT - 09/05/2022 1:45 PM CDTAddended [...] PANEL Routine 09/05/2022 Coronary artery disease involving [place] heart without angina pectoris, unspecified vessel or lesion type ECG 12-LEAD Routine 09/05/2022 Coronary artery disease involving [place] heart without angina pectoris, unspecified vessel or lesion type documented in this encounter Results * Lipid panel (09/05/2022) SCRIBED Cholesterol, Total 171 <200 EXTERNAL LAB SCRIBED HDL 46 >40 EXTERNAL LAB SCRIBED LDL 95 <100 EXTERNAL LAB SCRIBED Triglycerides 114 <150 EXTERNAL LAB Blood 09/05/2022 Ramos Carvalho MD LAB BLOOD ORDERABLES [facility] Result EXTERNAL LAB * ECG 12 lead (09/05/2022) us Ramos Carvalho MD ECG ORDERABLES Final R esult documented in this encounter Visit Diagnoses Diagnosis Coronary artery disease involving [place] heart without angina pectoris, unspecified vessel or lesion type- Primary Morbid (severe) obesity due to excess calories ([facility]) Body mass index 40.0-44.9, adult ([facility]/HCC) ([facility]) Body Mass Index 40.0-44.9, adult documented in [...] 02/05/2024 added in this encounter Care Teams Geriatric Aide Relationship Specialty Start Date End Date Steven Lizama MD PCP - General Family Practice 08/25/22 documented as of this encounter
--- OUTSIDE RECORDS SUMMARY | 2024-06-20 21:53 | XMS_ITS | Encounter Summary ---
Author Organization [facility] Address [address] [place] [address] Care Team Providers Care Lead Auditor Name Role Phone Steven Lizama MD Primary Care Provider [phone] Reason for Visit * Reason Comments Follow-up Encounter Details Date Type Department Care Team (Late st Contact Info) Description 12/23/2022 10:15 AM CDT Office Visit [facility] Pulmonology [address] [place] [phone] Autumn Pickett MD [address] [place] [address] Pulmonary nodules (Primary Dx); Moderate persistent asthma without complication; Panlobular emphysema (HCC) Social History Tobacco Use Types Packs/Day Years Used Date Smoking Tobacco: Every Day Cigarettes 1 30 Smokeless Tobacco: Never Comments Unknown Sex and Gender Information Value Date Recorded Sex Assigned at Not on file Legal Sex Female 9:37 PM RENTAL SALES REPRESENTATIVE Gender Identity Not on file Sexual Orientation [...] dyspnea. In August 2022 she went to [facility] for chest pain. Was diagnosed with [...] on Advair Rhinitis Continue Flonase. Can try [id number] Claritin or Rosalba. Did not tolerate Singulair [...] emphysema documented in this encounter Care Teams Lead Auditor Relationship Specialty Start Date End Date Steven Lizama MD PCP - General Family Practice 08/25/22 documented as of this encounter
--- OUTSIDE RECORDS SUMMARY | 2024-06-20 21:53 | XMS_ITS | Encounter Summary ---
Author Organization [facility] Address [address] [place] [address] Care Team Providers Care Transition Program Manager Name Role Phone Steven Lizama MD Primary Care Provider [phone] Encounter Details Date Type Department Care Team (Late st Contact Info) Description 08/25/2022 Orders Only [facility] Health Information Management [address] [place] [address] Scanning, Provider Social History Tobacco Use Types Packs/Day Years Used Date Smoking Tobacco: Never Assessed Personal Safety Answer Date Recorded Getting School Help Needed Not on file 06/15 Comments Unknown Sex and Gender Information Value Date Recorded Sex Assigned at Not on file 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
--- OUTSIDE RECORDS SUMMARY | 2024-06-20 21:53 | XMS_ITS | Encounter Summary ---
Author Organization [facility] Address [address] [place] [address] Care Team Providers Care Property Economist Name Role Phone Unavailable Primary Care Provider [...] COVID-19? No / Unsure 05/15/2020 10:03 AM GREASE REMOVER documented as of this encounter Plan of Treatment Not on file documented as of this encounter Visit Diagnoses Not on filedocumented in this encounter
--- OUTSIDE RECORDS SUMMARY | 2024-06-20 21:53 | XMS_ITS | Patient Health Summary ---
Author Organization [facility] [employer] Address [address] [place] [address] Care Team Providers Care Cooperative Education Coordinator Name Role Phone Unavailable Primary Care Provider Unavailabl e Note from [facility],non-owned Affiliates and Associated Physician Practices is amultiple site organization consisting of ambulatory clinics and hospital sitesin [place], [place], [place] and [place]. This disclosure is being madepursuant to the Care Everywhere program and may not contain all information available regarding this patient. Last updated 18.[facility] [employer] Allergies No known active allergies Social History [...] Unknown 02/15/2021 3:08 PM CDT Jyoti White PLATFORM [facility] - [place] RE ORDERABLES [facility] [address] [place] [address], [facility] [phone]
--- OUTSIDE RECORDS SUMMARY | 2024-06-20 21:53 | XMS_ITS | Referral Summary ---
Author Organization [facility] [address] Address [address] [place] [address] Care Team Providers Care Motor Builder Assembler Name Role Phone Steven Lizama MD Primary Care Provider [phone] Allergies No known active allergies Medications aspirin [...] Diabetes mellitus type 2 without retinopathy ([facility]) 11/23/2023 Assessment & Plan (11/23/2023 12:17 [...] 0 09/05/2022 Body mass index 40.0-44.9, adult ([facility]) 09/05 Coronary artery disease invo lving m[place]gr[place] heart without angina pectoris 09/05/2022 Social History [...] on file Legal Sex Female 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 Requesting Physician: ??Deven Date of interpretation: 04/01/24 Type of monitor : ??30 day event monitor Date of the study/Enrollment period: ??02/05/2024 Indication: ??CVA Quality of the study: ??Favorable Interpretation: ??The basic cardiac rhythm is sinus with normal [place] interval. ??QRS duration is 0.12 seconds QT [...] was used to complete this document, therefore, statistical engineer variances may occur. David Mueller MD [facility] 04/01/24 Procedure Note David Mueller MD - 04/01/2024 AMBULATORY PATIENT ACCOUNTS SPECIALIST REPORT Patient Name: Angeline Caraballo Date of [...] software was used to complete this document, therefore,statistical engineer variances may occur. David Mueller MD [facility] 04/01/24 Urvashi Baldwin NP CV CARDIAC [...] Most Recently Relevant to Health Maintenance Insurance [facility] CHOICE PL[facility] H[facility]PP[facility] Address: [address] [address] [place] [address] [facility] Address: [place] [address] [facility] Address: [address] [address] Care Teams Motor Builder Assembler Relationship Specialty Start Date End Date Steven Lizama MD PCP - General Family Practice 08/25/22
--- OUTSIDE RECORDS SUMMARY | 2024-06-20 21:53 | XMS_ITS | Encounter Summary ---
Author Organization [facility] Address [address] [place] [place] [address] Care Team Providers Care Conservation Assistant Name Role Phone Unavailable Primary Care Provider Unavailabl e Reason for Visit * Reason Comments PPD Skin Test Placement Encounter Details Date Type Department Care Team ([facility] st Contact Info) Description 02/13/2021 3:00 PM CDT Office Visit [facility] AT [address] [phone] Provider, [facility] Encounter for PPD test (Primary Dx) Social [...] this encounter Progress Notes * Jyoti White, RELAY SHOP SUPERVISOR-SPLIT LEATHER MOSSER - 02/13/2021 3:17 PM CDT PPD Placement note Angeline Caraballo, 60 year old female is here [...] POINT OF CA RE ORDERABLES [facility] [address] [phone] documented in this encounter Visit Diagnoses Diagnosis Encounter for PPD test- Primary Screening examination for pulmonary tuberculosis documented in this encounter Administered Medications Administered Medications Medication Order MAR Action Action Date Dose Rate Site PPD Intradermal Given 02/13/2021 15:10 CDT 0.1 mL Left Fore arm documented in this encounter
--- OUTSIDE RECORDS SUMMARY | 2024-06-20 21:53 | XMS_ITS | Encounter Summary ---
Author Organization [facility] Address [address] [place] [address] Care Team Providers Care Clay Pigeon Setter Name Role Phone Steven Lizama MD Primary Care Provider [phone] Encounter Details Date Type Department Care Team (Late st Contact Info) Description 10/30/2022 1:30 PM CDT Lab [facility] Outpatient Lab at [address] [address] Dyspnea and respiratory abnormalities Social History Tobacco Use Types Packs/Day Years Used Date Smoking Tobacco: Every Day Cigarettes 1 30 Smokeless Tobacco: Never Comments Unknown Sex and Gender Information Value Date Recorded Sex Assigned at Not on file Legal Sex Female 9:37 PM UTILIZATION REVIEW COORDINATOR Gender Identity Not on file Sexual Orientation Not on file documented as of this encounter Plan of Treatment Not on file documented as of this encounter Visit Diagnoses Diagnosis Dyspnea and respiratory abnormalities documented in this encounter Care Teams Clay Pigeon Setter Relationship Specialty Start Date End Date Steven Lizama MD PCP - General Family Practice 08/25/22 documented as of this encounter
--- OUTSIDE RECORDS SUMMARY | 2024-06-20 21:53 | XMS_ITS | Encounter Summary ---
Author Organization [facility] Address [address] [place] [address] Phone Care Team Providers Care Wool Batting Worker Name Role Phone Steven Lizama MD Primary Care Provider [phone] Reason for Visit * Reason Comments Diabetic Eye Exam Encounter Details Date Type Department Care Team (Late st Contact Info) Description 11/23/2023 11:00 AM CDT Office Visit [facility] Ophthalmology [facility] [place] [address] Rebeka Cantrell, OD [address] [place] [address] Diabetes mellitus type 2 without [...] on file 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 Stressed [...] Diabetes mellitus type 2 without retinopathy (CMS/HCC) ([facility]) Pt ed. Stressed BG control (HbA1C<7) to reduce the risk for diabetic ocular complications. Unknown HbA1C documented in this encounter Plan of Treatment Not on file documented as of this encounter Visit Diagnoses Diagnosis Diabetes mellitus type 2 without retinopathy (CMS/HCC) ([facility])- Primary Hypertensive retinopathy of both eyes Hypertensive [...] a/v nicking Periphery Normal Normal Care Teams Wool Batting Worker Relationship Specialty Start Date End Date Steven Lizama MD PCP - General Family Practice 08/25/22 documented as of this encounter
--- OUTSIDE RECORDS SUMMARY | 2024-06-20 21:53 | XMS_ITS | Encounter Summary ---
Author Organization [facility] Address [address] [place] [address] Care Team Providers Care Dot Net Architect Name Role Phone Unavailable Primary Care Provider [...]
--- OUTSIDE RECORDS SUMMARY | 2024-06-20 21:53 | XMS_ITS | Encounter Summary ---
Author Organization [facility] Address [address] [place] [address] Care Team Providers Care Paymaster Of Purses Name Role Phone Steven Lizama MD Primary Care Provider [phone] Reason for Visit * Reason Onset Date Comments Scheduling Appointments 08/25/2022 Encounter Details Date Type Department Care Team (Late st Contact Info) Description 08/25/2022 Telephone [facility] [address] [place] [phone] Urvashi Caraballo RN Scheduling Appointments Social History Tobacco Use Types Packs/Day Years Used Date Smoking Tobacco: Never Assessed Comments Unknown Sex and Gender Information Value Date Recorded Sex Assigned at Not on file Legal Sex Female 9:37 PM SOCK KNITTER Gender Identity Not on file Sexual Orientation Not on file documented as of this encounter Miscellaneous Notes * Telephone Encounter - Urvashi Caraballo RN - 08/25/2022 8:46 AM CDT PT CALL WANTING TO SCHEDULE APPT. PT BEING FOLLOWED AT [facility] BY BREAST SURGERY FOR HER HX [...] on filedocumented in this encounter Care Teams Paymaster Of Purses Relationship Specialty Start Date End Date Steven Lizama MD PCP - General Family Practice 08/25/22 documented as of this encounter
--- OUTSIDE RECORDS SUMMARY | 2024-06-20 21:53 | XMS_ITS | Encounter Summary ---
Author Organization [facility] Address [address] [place] [address] Care Team Providers Care Roastmaster Name Role Phone Steven Lizama MD Primary Care Provider [phone] Encounter Details Date Type Department Care Team (Late st Contact Info) Description 08/26/2022 Orders Only [facility] Cardiology [address] [place] [address] Ramos Carvalho MD [address] [address] Social History Tobacco Use Types Packs/Day Years Used Date Smoking Tobacco: Never Assessed Personal Safety Answer Date Recorded Getting School Help Needed Not on file 06/15 Comments Unknown Sex and Gender Information Value Date Recorded Sex Assigned at Not on file Legal Sex Female 9:37 PM MAT MAKER Gender Identity Not on file Sexual Orientation Not on file documented as of this encounter Plan of Treatment Not on file documented as of this encounter Procedures Procedure Name Priority Date/Time Associated Diagnosis Comments CARDIOLOGY DOCUMENT SCAN Routine 08/26/2022 documented in this encounter Results * Cardiology Document Scan (08/26/2022) Anatomical Region Laterality Modality Other [facility] Jessa Carvalho MD CV CARDIAC SERVICES PRO CEDURES Final Result documented in this encounter Visit Diagnoses Not on filedocumented in this encounter Care Teams Roastmaster Relationship Specialty Start Date End Date Steven Lizama MD PCP - General Family Practice 08/25/22 documented as of this encounter
--- OUTSIDE RECORDS SUMMARY | 2024-06-20 21:53 | XMS_ITS | Encounter Summary ---
Author Organization [facility] Healthcare Address [address] [place] [address] Care Team Providers Care Rivet Driver Name Role Phone Steven Lizama MD Primary Care Provider [phone] Reason for Referral * Procedure (Routine) - Closed Specialty Diagnoses / Procedures Referred By Annalise koo Referred To Contact Diagnoses Dyspnea and respiratory abnormalities Procedures Pulmonary Function Test -[facility]; Full PFT in PFT Lab w/Stress Ox/6 Min Walk Test Autumn Pickett MD [address] [place] [address] Phone: tel: fax: Referral ID Status Reason Start Date Expiration Date Visits Re quested Visits Authorized [id number] Closed 10/02/2022 11/01/2023 1 1 Reason for Visit * Procedure (Routine) - Closed Specialty Diagnoses / Procedures Referred By Annalise koo Referred To Contact Diagnoses Dyspnea and respiratory abnormalities Procedures Pulmonary Function Test -[facility]; Full PFT in PFT Lab w/Stress Ox/6 Min Walk Test Autumn Pickett MD [address] [place] [address] Phone: tel: fax: Referral ID Status Reason Start Date Expiration Date Visits Re quested Visits Authorized [id number] Closed 10/02/2022 11/01/2023 1 1 Encounter Details Date Type Department Care Team (Latest Contact Info) Description 12/19/2022 12:15 PM CDT - 12/19/2022 11:59 PM CDT Hospital Encounter [facility] Respiratory 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 Gender Identity Not on file Sexual Orientation [...] this encounter Progress Notes * Micki Plata, FINANCE ASSOCIATE - 12/19/2022 1:31 PM CDT Six minute [...] - 2.91 L 12/19/2022 1:37 PM CDT [facility] FEV1 PRE 1.78 1.34 - 2.35 L 12/19/2022 1:37 PM CDT [facility] [id number] 77.88 68.32 - 92.12 % 12/19/2022 1:37 PM CDT [facility] AUI59-38% PRE 1.58 0.76 - 2.81 L/s 12/19/2022 1:37 PM CDT [facility] PEF PRE 6.83 3.94 - 6.90 L/s 12/19/2022 1:37 PM CDT [facility] FET 100% PRE 5.02 sec 12/19/2022 1:37 PM CDT [facility] FIVC PRE 2.13 1.65 - 3.03 L 12/19/2022 1:37 PM CDT [facility] FIF50% PRE 3.94 L/s 12/19/2022 1:37 PM CDT [facility] DLCOc SB 13.28(L) 14.29 - 25.75 ml/(min*mm Hg) 12/19/2022 1:37 PM CDT [facility] DLCOc SB 13.28(L) 14.29 - 25.75 ml/(min*mm Hg) 12/19/2022 1:37 PM CDT [facility] VA 3.24(L) 4.09 - 4.09 L 12/19/2022 1:37 PM CDT [facility] DLCO/VA PRE 4.10 2.98 - 6.46 ml/(min*mm Hg*L) 12/19/2022 1:37 PM CDT [facility] DLCOc SB 4.10 2.98 - 6.46 ml/(min*mm Hg*L) 12/19/2022 1:37 PM CDT [facility] VC PRE 2.48 1.65 - 3.03 L 12/19/2022 1:37 PM T [facility] TLC PRE 4.26 3.25 - 5.23 L 12/19/2022 1:37 PM T [facility] RV PRE 1.78 1.15 - 2.30 L 12/19/2022 1:37 PM CDT [facility] FRC PL PRE 2.15 L 12/19/2022 1:37 PM T [facility] ERV PRE 0.38(L) 0.74 - 0.74 L 12/19/2022 1:37 PM T [facility] IC PRE 2.10(H) 1.60 - 1.60 L 12/19/2022 1:37 PM T [facility] RAW PRE 5.76(H) 3.06 - 3.06 cmH2O*s/L 12/19/2022 1:37 PM T [facility] BF RES 25.26 BPM 12/19/2022 1:37 PM T [facility] VTG RAW 2.54 L 12/19/2022 1:37 PM T [facility] VTG 2.60 L 12/19/2022 1:37 PM [facility] Anatomical Region Laterality Modality PFT 12/19/2022 12:3 [...] abnormalities documented in this encounter Care Teams Rivet Driver Relationship Specialty Start Date End Date Steven Lizama MD PCP - General Family Practice 08/25/22 documented as of this encounter
--- OUTSIDE RECORDS SUMMARY | 2024-06-20 21:53 | XMS_ITS | Encounter Summary ---
Author Organization [facility] Address [address] [place] [address] Care Team Providers Care Yeast Tender Name Role Phone Steven Lizama MD Primary Care Provider [phone] Encounter Details Date Type Department Care Team (Late st Contact Info) Description 11/05/[address] 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
--- OUTSIDE RECORDS SUMMARY | 2024-06-20 21:57 | XMS_ITS | Data Portability ---
Author Organization [facility] [place] Address [address] [place] [address] Assessment Encounter Date Assessment Date Assessment LastModified [...] By Organization Details Last Modified Time 07/06/2020 [id number] [email or web address] Not available 14:07:06 Reason for Referral [...] Updated DateTime 07/06/2020 157.48 cm 39.7 kg/m2 57289.54 g 142 mm[Hg] 90 mm[Hg] Hanna Garcia [facility] 10:24:11 Social History Question Answer Notes LastModified by Organizat ion Details LastModified Time Tobacco Smoking Status Current Every Day Smoker Hanna Jose [facility] 07/06/2020 10:25:15 What Is Your Level [...] Diagnosis/Indication Diagnosis SNOMED-CT Code Diagnosis ICD10 Code Diagnosis Note 613[address] Carley [address] [facility] [address] [address] 07/06/2020 10:11:46 07/06/2020 14:13:44 Gynecologic examination 90587720 Z01.419 Take Calcium with Vitamin D 12-1500mg daily. Do monthly self breast exams. It is advised to get annual flu shot in the fall and she could obtain at [facility] or [facility] care clinic. If you haven't received the Tdap vaccine in the last 10 years you should obtain one as well. Have mammogram yearly, bone density every 2-3 years and colonoscop y every 5-10 years depending on findings and history. Engage in daily exercise of low impact aerobic exercise 45-60 minutes 4-5 times weekly. Avoid tobacco and illicit drugs as well as using moderation with alcohol intake less than 1-2 8 oz beverages daily. This lifestyle behavior pattern will lead to less health conditions and longer life span. If BMI greater than 25 weight watchers or dietary consult advised. Questions have been answered. Patient appears to understand instructio ns, but if you have any further questions call or respond to this email Denies having any DIRECTOR OF AGRONOMY related issues Having routine screening & other work up for non-printer operator related issues by her PCP per pt. She did complete her mammo & does state she is due to go back for further imaging for a possible mass in her right breast which I was unable to detect on exam today likely b/c breast size makes exam difficult. We discussed that hysterecto my's completed for non-cancer related issues can d/c pap/hpv per recommenda tions of asccp unless otherwise indicated. She was advised to return if having printer operator related issues/nee ds CBE/other well woman related screening or has questions. Health Concerns Section Related Observation LastModified by Organization Detai ls LastModified Time None Recorded Concern Status LastModified by Organization Details LastModified Time None Recorded Advance Directives Directive None Recorded Payers Encounter Date Sequence Insurance Name Policy Number Policy Hamm Covered Member ID Hamm Member ID Guarantor Name 07/06/2020 1 [place] [id number] Angeline Caraballo [id number] Angeline Caraballo Notes Date Note Type Note Provider Name and Address Organization Details Recorded Time 07/06/2020 text/html Annual GYNReport ed bypatient.History: no gynecologic complaints Menstrual cycle:postmenopaus al-Hx of hysterectomy [id number] r indications. Urinary symptoms:No hematuria; No incontinence [...] Colonoscopy, urine testing, bone health screening. Carley Lopez, SARAH- [address], [place], [address], [facility] 07/06/2020 14:07:33 OBGyn Episode Ob Episode Information Episode Created Date Number of Fetuses Patient Bloodtype Patient rh Status Prepregnancy Weight lbs Domestic Partner Domestic Partner Phone Father Name Barrel Raiser Status 07/06/19 21 1 CLOSED Fetus Data First Name Last Name Admitted to NICU Weight (g) Sex Living Outcome Pediatric Complications Fetus ID Race Codes Race Delivery Type Full Term 7548 Primary Kain Calculation Initial Kain Date Initial Exam Date Initial Exam Provider Initial Ultrasound Date Last Menstrual Period Date Ultra Sound Weeks Gestation 0 Eighteen To Twenty Week Kain Update Ultra Sound Date Fundal Height At Umbil Quickening Date Ultra Sound Latest Weeks Gestation Final Kain Confirmed By Final Kain Confirmed Date Final Kain Date Ultra Sound Latest Days Gestation 0 [...] Domestic Partner Domestic Partner Phone Father Name Barrel Raiser Status 07/06/19 21 1 CLOSED Fetus Data First Name Last Name Admitted to NICU Weight (g) Sex Living Outcome Pediatric Complications Fetus ID Race Codes Race Delivery Type Full Term 7549 Primary Kain Calculation Initial Kain Date Initial Exam Date Initial Exam Provider Initial Ultrasound Date Last Menstrual Period Date Ultra Sound Weeks Gestation 0 Eighteen To Twenty Week Kain Update Ultra Sound Date Fundal Height At Umbil Quickening Date Ultra Sound Latest Weeks Gestation Final Kain Confirmed By Final Kain Confirmed Date Final Kain Date Ultra Sound Latest Days Gestation 0 [...]
== END 2024-06-14 08:23 | disposition home or self-care (01) ==
PROVIDERS: PCP Emergency Medicine; Visit Provider Emergency Medicine
DX: Z12.31 Encounter for screening mammogram for malignant neoplasm of breast (principal); R92.8 Other abnormal and inconclusive findings on diagnostic imaging of breast; K80.20 Calculus of gallbladder without cholecystitis without obstruction; K76.0 Fatty (change of) liver, not elsewhere classified; Z98.890 Other specified postprocedural states
CPT/HCPCS: 76705; 77063; 77067

== ENCOUNTER 2024-08-25 09:31 | Outpatient (CLI) | payer OTHER, SELFPAY ==
--- OUTSIDE RECORDS SUMMARY | 2024-08-25 09:54 | XMS_ITS | Encounter Summary ---
Author Organization [facility] Address [address] [place] [address] Care Team Providers Care Housekeeping Department Worker Name Role Phone Steven Lizama MD Primary Care Provider [phone] Encounter Details Date Type Department Care Team (Late Contact Info) Description 09/13/2020 Chart Note [facility] Radiation Therapy [address] [place] [address] [place] [address] [place] [address] Social History Tobacco Use Types Packs/Day Years Used Date Smoking Tobacco: Every Day Cigarettes Smokeless Tobacco: Never Alcohol Use Standard Drinks/Week Comments Never 0 (1 standard drink = 0.6 oz pur e alcohol) Comments No Sex and Gender Information Value Date Recorded Sex Assigned at Not on file Legal Sex Female 10:23 AM PARKING LOT SPOTTER Gender Identity Not on file Sexual Orientation Not on file COVID-19 Exposure Response Date Recorded In the last month, have you been in contact with someone who was confirmed or suspected to have Coronavirus / COVID-19? No / Unsure 09/11/2020 10:03 AM CDT documented as of this encounter Plan of Treatment Upcoming Encounters Date Type Department Care Team (Late Contact Info) Description 09/20/2024 10:30 AM CDT Office Visit [facility] Oncology and Hematology - [place] [address] [facility] [address] [address] Karl Schmid MD [address] [facility] [address] [place] [address] documented as of this encounter Visit Diagnoses Not on filedocumented in this encounter Care Teams Housekeeping Department Worker Relationship Specialty Start Date End Date Steven Lizama MD [address] [place] [address] PCP - General Emergency Medicine 08/13/20 documented as of this encounter
--- OUTSIDE RECORDS SUMMARY | 2024-08-25 09:54 | XMS_ITS | CONTINUITY OF CARE DOCUMENT ---
Author Name gopal herron Address Unknown Organization [facility] Address [address] [place] [address] [address] [place] [address] Phone [phone] Care Team Providers Care Drafter Plumbing Name Role Phone Rajat Covarrubias MD Unavailable [phone] SUSSY BLACK MD Unavailable [phone] SUSSY BLACK MD Unavailable [phone] INSURANCE PROVIDERS Payer name Policy type / Coverage type [place] red green party ID [id number] [id number]
--- OUTSIDE RECORDS SUMMARY | 2024-08-25 09:55 | XMS_ITS | Clinical Summary ---
Author Organization [facility] Address [address] [place] [address] Care Team Providers Care Principal Engineer Name Role Phone Unavailable Primary Care Provider Unavailabl e Source Comments [facility],non-owned Affiliates and Associated Physician Practices is amultiple site organization consisting of ambulatory clinics and hospital sitesin [place], [place], [place] and [place]. This disclosure is being madepursuant to the Care Everywhere program and may not contain all information available regarding this patient. Last updated 18.[facility] Allergies No known active allergies Social History [...] complete this topic MENINGOCOCCAL (Group B) VACCINE SHARED DECISION-MAKING Aged Out No longer eligible based on patient's age to complete this topic MENINGOCOCCAL GROUPS A/C/Y/W VACCINE Aged Out No longer eligible b ased on patient's age to complete this topic PNEUMOCOCCAL VACCINE Aged Out No long er eligible based on patient's age to complete this topic
--- OUTSIDE RECORDS SUMMARY | 2024-08-25 09:55 | XMS_ITS | Clinical Summary ---
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 Gender Identity Not on file Sexual Orientation Not on file Last Filed Vital Signs Vital Sign Reading Time Taken Comments Blood Pressure 155/87 07/09/2022 10:29 AM POOL COORDINATOR Pulse 79 07/09/2022 10:27 AM POOL COORDINATOR Temperature 36.7 C (98 F) 07/09/2022 10:27 AM POOL COORDINATOR Respiratory Rate 16 08/28/2020 4:03 PM CDT Oxygen Saturation 100% 07/09/2022 10:27 AM POOL COORDINATOR Inhaled Oxygen Concentration - - Weight 95.3 kg (210 lb) 07/09/2022 10:29 AM POOL COORDINATOR Height 152.4 cm (5') 07/09/2022 10:29 AM POOL COORDINATOR Body Mass Index 41.01 07/09/2022 10:29 AM POOL COORDINATOR Plan of Treatment Upcoming Encounters Date Type Department Care Team (Late st Contact Info) Description 09/20/2024 10:30 AM CDT Office Visit [facility] [address] [facility] [address] [place] [address] Karl Schmid MD [address] [facility] [address] [place] [address] Health Maintenance Due Date Last Done Comments DIABETES ANNUAL FOOT EXAM 10/20/1979 DIABETES ANNUAL RETINAL EXAM 10/20/1979 DIABETES HBA1C Q 6 MONTHS 10/20/1979 DIABETES MICROALBUMIN ANNUAL SCREEN 10/20/1979 LDL CHOLESTEROL ANNUAL 10/20/1979 DTAP/TDAP/TD VACCINES (1 - Tdap) 1980 PAP SMEAR 10/20/1991 COLORECTAL SCREENING 2006 Colorectal Cancer Screening 2006 FIT-DNA Q 3 years 2006 FIT/FOBT Q 1 year 2006 Flex Sig/CT Colonography Q 5 years 2006 ZOSTER VACCINE (1 of 2) 10/20/2011 BREAST CANCER SCREENING 09/04/2023 09/04/19 23, 07/23/2020, 06/29/2020 INFLUENZA VACCINE (#1) 2024 RSV VACCINE (60+ or ) (1 - 1-dose 75+ series) 2036 Medical Devices Implanted Type Area Locomotive Supervisor Device Identifier Shelf Expiration Date Model / Serial / Lot Broadcast Checker Clip Surgiclip Iii Ti Chandan Sm 9 [id number] - [id number] Implanted:Qty : 1 on 08/28/2020 by Paula Bae MD at [facility] Clip Right: Breast [employer] - [employer] [id number] 03/07/2025 [id number] / / [id number] Hemostatic Surgiflo 8ml W/Thrombin 2994 - [id number] Implanted:Qty : 1 on 08/28/2020 by Paula Bae MD at [facility] Hemostatic Right: Breast [employer] 12/05/2021 [id number] / / [id number] Procedures Procedure Name Priority Date/Time Associated Diagnosis Comments MAMMO 3D REBA DIAGNOSTIC BILAT W OR WO CAD Routine 09/03/2022 10:27 AM CDT Malignant neoplasm of lower-inner quadrant of right breast of female, estrogen receptor positive (CMS/HCC) from Last 3 Months or Most Recently [...] The patient has been informed. DICTATION LOCATION: [facility] Narrative 09/03/2022 1:16 PM CDT [...] BI-RADS CATEGORY 4B: Suspicious Findings (Moderate suspicion). Procedure Note Cassidy Moe MD - 09/03/2022 [...] The patient has been informed. DICTATION LOCATION: [facility] us Paula Bae MD MAMMO ORDERABLES Final Result from Last 3 Months or Most Recently Relevant to Health Maintenance Insurance RX [facility] [employer] [facility] [id number] Member Subscriber Plan / Payer (Ef fective 2022-Present) Name:Angeline Caraballo Relation to Subscriber:Self Name:CaraballoAngeline Payer ID:[id number] (NAIC) Type:HMO Address: [address] [place] [id number] [place] Care Teams Waterworks Chief Engineer Relationship Specialty Start Date End Date Steven Lizama MD [address] [place] [phone] PCP - General Emergency Medicine 08/13/20
--- OUTSIDE RECORDS SUMMARY | 2024-08-25 09:55 | XMS_ITS | Referral Summary ---
Author Organization [facility] [address] Address [address] [place] [address] Care Team Providers Care Musician Instrumental Name Role Phone Steven Lizama MD Primary Care Provider [phone] Allergies No known active allergies Medications aspirin [...] protection. 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 Gender Identity Not on file Sexual Orientation Not on file Last Filed Vital Signs Vital Sign Reading Time Taken Comments Blood Pressure 130/78 02/05/2024 9:56 AM CDT Pulse 88 02/05/2024 9:56 AM CDT Temperature 36.5 C (97.7 F) 10/02/2022 9:57 AM CDT Respiratory Rate 18 12/23/2022 10:24 AM CDT [...] Recently Relevant to Health Maintenance Results * POCT lipid panel (02/05/2024 10:01 AM [...] Most Recently Relevant to Health Maintenance Insurance [facility] CHOICE PLUS IDPA Care Teams Musician Instrumental Relationship Specialty Start Date End Date Steven Lizama MD PCP - General Family Practice 08/25/22
--- OUTSIDE RECORDS SUMMARY | 2024-08-25 09:55 | XMS_ITS | Clinical Summary ---
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 Gender Identity Not on file Sexual [...] Screening 1961 eGFR 1961 Foot Exam 1961 DTaP/Tdap/Td Vaccine (1 - Tdap) 1972 Hepatitis B Screening 10/20/1979 Regular Well Visit/Exam 18-64 10/20/1979 Pneumococcal vaccine <65 (1 of 2 - PCV) 1980 Lung Cancer Screening 10/20/2011 Zoster Vaccine (1 [...] Most Recently Relevant to Health Maintenance Insurance [facility] CHOICE PLUS [employer]LA [facility] CHOICE PLUS [facility] CHOICE PLUS Care Teams Manual Plate Filler Relationship Specialty Start Date End Date Steven Lizama MD PCP - General Family Practice 08/25/22
[2024-08-25 10:02] LABS: Alanine Aminotransferase 19 U/L (6-35); Albumin Level 4.5 g/dL (3.5-5.1); Alkaline Phosphatase 129 U/L (38-126); Aspartate Amino Transferase 27 U/L (14-36); Bilirubin,Total 0.9 mg/dL (0.2-1.3)
[2024-08-25 23:29] LABS: GGT 45 U/L (3-65)
== END 2024-08-25 09:32 | disposition home or self-care (01) ==
LOC: ANHLAB 09:32
PROVIDERS: PCP Emergency Medicine; Visit Provider Nurse Practitioner Family
DX: K76.0 Fatty (change of) liver, not elsewhere classified (principal); R74.8 Abnormal levels of other serum enzymes
CPT/HCPCS: 36415; 80076; 82977

== ENCOUNTER 2025-04-24 08:59 | Outpatient (CLI) | payer OTHER, SELFPAY ==
[2025-04-24 09:54] LABS: Hematocrit 51.0 % (37.0-47.0); Hemoglobin 15.5 g/dL (12.0-15.0); Mean Corpuscular HGB Conc 30.4 g/dl (32-36); Mean Corpuscular Hemoglobin 28.1 pg (26-34); Mean Corpuscular Volume 92.4 fl (80-100); Platelet Count Result 308 k/mm3 (150-375); Red Blood Count 5.52 M/mm3 (4.2-5.4); White Blood Count 10.1 K/mm3 (4.5-10.0)
[2025-04-24 10:24] LABS: Iron 85 ug/dL (37-170)
[2025-04-24 10:25] LABS: Cholesterol 213 mg/dL (0-200); HDL Direct 52 mg/dL; Triglycerides 128 mg/dL (<150)
[2025-04-24 10:32] LABS: Alanine Aminotransferase 15 U/L (6-35); Albumin Level 4.4 g/dL (3.5-5.1); Alkaline Phosphatase 137 U/L (38-126); Anion Gap 8 mmol/L (4-12); Aspartate Amino Transferase 34 U/L (14-36); Bilirubin,Total 0.9 mg/dL (0.2-1.3); Blood Urea Nitrogen 10 mg/dL (7-17); Calcium 10.0 mg/dL (8.4-10.2); Carbon Dioxide 28 mmol/L (22-30); Chloride 103 mmol/L (98-107); Estimated Glomerular Filt Rate > 60; Glucose 123 mg/dL (65-110); Potassium 4.5 mmol/L (3.4-5.0); Sodium 139 mmol/L (137-145); Total Protein 8.1 g/dL (6.3-8.2)
[2025-04-24 10:33] LABS: Hemoglobin A1C 6.5 % (<5.7)
[2025-04-24 10:33] LABS: MALB Creatinine Ratio < 5.4 mg/g (0-30)
[2025-04-24 10:35] LABS: Percent Iron Saturation 22 % (20-50)
[2025-04-24 10:42] LABS: Free T4 Free Thyroxine 1.32 ng/dL (0.78-2.19)
[2025-04-24 11:06] LABS: Ferritin 70.30 ng/mL (11.1-264)
[2025-04-24 11:08] LABS: Thyroid Stimulating Hormone 0.947 uIU/mL (0.465-4.680)
[2025-04-25 16:08] LABS: ANA by IFA Rfx Titer/Pattern Negative (.)
[2025-04-26 15:09] LABS: Alkaline Phosphatase 138 IU/L (49-135)
[2025-04-27 04:07] LABS: ALT (SGPT) P5P 13 IU/L (0-40); AST (SGOT) P5P 19 IU/L (0-40); Alpha 2-Macroglobulins, Qn 170 mg/dL (110-276); Bilirubin, Total 0.5 mg/dL (0.0-1.2); Cholesterol, Total 189 mg/dL (100-199); GGT 35 IU/L (0-60); Glucose 120 mg/dL (70-99); Triglycerides 137 mg/dL (0-149)
== END 2025-04-24 09:00 | disposition home or self-care (01) ==
LOC: ANHLAB 09:02
PROVIDERS: PCP Emergency Medicine; Referring Provider Nurse Practitioner Family; Visit Provider Psychiatry & Neurology Neurology
DX: E78.5 Hyperlipidemia, unspecified (principal); I10 Essential (primary) hypertension; E11.9 Type 2 diabetes mellitus without complications; K76.0 Fatty (change of) liver, not elsewhere classified; I63.9 Cerebral infarction, unspecified; D72.829 Elevated white blood cell count, unspecified
CPT/HCPCS: 36415; 80053; 80061; 82043; 82172; 82247; 82306; 82390; 82465; 82728; 82947; 82977; 83010; 83036; 83540; 83550; 83883; 84075; 84080; 84439; 84443; 84450; 84460; 84478; 85027; 86015; 86038; 86376